=== PATIENT | male | born 1960 | race Caucasian/White ===

== ENCOUNTER 2016-03-18 21:54 | Emergency (ER) | payer MEDICARE, MEDICAID ==
[~2016-03-18] VITALS: Ht 180.3 cm; Wt 136.1 kg
[~2016-03-18 21:54] MED LIST: AMIO200T2 PO; APIX5TAB PO; ASPI-605 PO; ATOR10TA PO; CINA30TA PO; CLON0.1T PO; MINO2.5T PO; OLME40TA3 PO; SEVE800T PO; SEVE800T8 PO
[2016-03-18] MEDS ORDERED: IV NS 0.9% 1,000 ML IV ONE (22:35)
[2016-03-18] MEDS ORDERED: IPRATROPIUM NEB FS 0.5 MG/2.5 ML AMPUL.NEB ONE (22:41)
[2016-03-18] MEDS ORDERED: ALBUTEROL FS 2.5 MG/3 ML VIAL.NEB ONE (22:41)
[2016-03-18] MEDS ORDERED: predniSONE 20 MG TABLET ONE (22:42)
[2016-03-18] MEDS ORDERED: methylPREDNISolone SOD SUCC 125 MG/2ML VIAL IV ONE (23:00)
[2016-03-18] MEDS ORDERED: IPRATROPIUM NEB FS 0.5 MG/2.5 ML AMPUL.NEB NEB ONE (23:00)
[2016-03-18] MEDS ORDERED: predniSONE 20 MG TABLET PO ONE (23:00)
[2016-03-18] MEDS ORDERED: ALBUTEROL FS 2.5 MG/3 ML VIAL.NEB NEB ONE (23:00)
[2016-03-18 23:12] LABS: BASOPHILS # (AUTO) 0.1 /CMM (0.0-0.2); BASOPHILS % (AUTO) 0.9 % (0.0-2.0); DIFF TOTAL % 100 %; EOSINOPHILS # (AUTO) 0.8 /CMM (0.0-0.7); EOSINOPHILS % (AUTO) 8.8 % (0.0-6.0); HEMATOCRIT 30 % (39-51); HEMOGLOBIN 9.8 g/dL (13.5-17.5); LYMPHOCYTES # (AUTO) 1.3 /CMM (0.8-4.8); LYMPHOCYTES % (AUTO) 15.5 % (20.0-44.0); MEAN CORPUSCULAR HEMOGLOBIN 29 PG (26.0-33.0); MEAN CORPUSCULAR HGB CONC 33 g/dl (31.0-36.0); MEAN CORPUSCULAR VOLUME 89 fL (80-96); MONOCYTES # (AUTO) 0.8 /CMM (0.1-1.30); MONOCYTES % (AUTO) 9.6 % (2.0-12.0); NEUTROPHILS # (AUTO) 5.6 /CMM (1.8-8.9); NEUTROPHILS % (AUTO) 65.2 % (43.0-81.0); PLATELET COUNT (AUTO) 184 /CMM (150-450); RED BLOOD CELL COUNT(AUTO) 3.39 MIL/uL (4.5-6.0); WHITE BLOOD COUNT (AUTO) 8.7 K/uL (4.3-11.0)
[2016-03-18 23:23] LABS: CALCIUM, SERUM 9.3 mg/dL (8.5-10.1)
[2016-03-18 23:29] LABS: LACTIC ACID 0.4 mmol/L (0.4-2.0)
[2016-03-18 23:30] LABS: TROPONIN I 0.061 ng/mL (0.00-0.056)
[2016-03-18 23:34] LABS: CREATININE 9.7 mg/dL (0.6-1.3)
[2016-03-18 23:50] LABS: ALBUMIN 3.7 g/dL (3.4-5.0); BILIRUBIN,DIRECT 0.1 mg/dL (0.0-0.2); BILIRUBIN,TOTAL 0.6 mg/dL (0.2-1.0); INDIRECT BILIRUBIN 0.5 mg/dL (0.0-1.1)
[2016-03-18] MEDS ORDERED: SODIUM POLYSTYRENE SULFONATE 15 G/60 ML BOTTLE ONE (23:57)
[2016-03-19] LABS: TOTAL PROTEIN, SERUM 7.6 g/dL (6.4-8.2)
[2016-03-19] MEDS ORDERED: SODIUM POLYSTYRENE SULFONATE 15 G/60 ML BOTTLE PO ONE
[2016-03-19] MEDS ORDERED: LOSARTAN POTASSIUM 25 MG TABLET ONE (00:42)
[2016-03-19] MEDS ORDERED: MINOXIDIL (2.5MG) 2.5 MG TABLET ONE (00:46)
[2016-03-19] MEDS ORDERED: LOSARTAN POTASSIUM 25 MG TABLET PO ONE (01:00)
[2016-03-19] MEDS ORDERED: MINOXIDIL (2.5MG) 2.5 MG TABLET PO ONE (01:00)
[2016-03-19 02:02] VITALS: BP 154/95
== END 2016-03-19 02:03 | disposition home or self-care (01) ==
LOC: ER 21:57
DX: E87.5 Hyperkalemia (principal); J45.909 Unspecified asthma, uncomplicated; I12.0 Hypertensive chronic kidney disease with stage 5 chronic kidney disease or end stage renal disease; N18.6 End stage renal disease; I25.2 Old myocardial infarction; I48.91 Unspecified atrial fibrillation; I25.10 Atherosclerotic heart disease of native coronary artery without angina pectoris; Z98.890 Other specified postprocedural states; Z90.89 Acquired absence of other organs; Z99.2 Dependence on renal dialysis; Z88.1 Allergy status to other antibiotic agents
CPT/HCPCS: 36415 ×2; 71010; 80048; 80076; 83605; 83880; 84132; 84484; 85025; 87040 ×2; 87804; 93005; 94640; 99285; A4606; J7512; 87400; Z7610

== ENCOUNTER 2016-04-03 12:12 | Outpatient (CLI) | payer MEDICARE, MEDICAID | END 2016-04-03 23:59 | disposition home or self-care (01) | LOC: RAD 12:12 | PROVIDERS: ATTEND Internal Medicine | DX: J98.11 Atelectasis (principal); R09.89 Other specified symptoms and signs involving the circulatory and respiratory systems; I51.7 Cardiomegaly; Z95.1 Presence of aortocoronary bypass graft | CPT/HCPCS: 71020-TC ==

== ENCOUNTER 2016-05-27 00:52 | Inpatient (IN) | payer MEDICARE, MEDICAID ==
[~2016-05-27] VITALS: Ht 193 cm; Wt 132.1 kg
[2016-05-27] VITALS (7 sets, daily range): BP systolic 122–160; BP diastolic 72–98
--- NOTE | 2016-05-27 01:10 | NUR ---
PT AMBULAOTRY TO ER BED 6 C/O COUGH X 3 MONTHS AND STATES HE JUST STARTED COUGHING UP BRIGHT RED BLOOD TONIGHT. PT AOX4 RR EVEN AND UNLABORED. NO SOB NOTED. NAD NOTED. NO NVD AT THIS TIME. PT NOT DIAPHORETIC. PT WAITING FOR MD CALLAHAN. PLACED ON [facility].
--- NOTE | 2016-05-27 01:12 | NUR ---
PT NOTED WITH ABD HERNIA, NO C/O PAIN AT THIS TIME.
[2016-05-27 01:29] LABS: BASOPHILS # (AUTO) 0.1 /CMM (0.0-0.2); BASOPHILS % (AUTO) 0.6 % (0.0-2.0); HEMATOCRIT 31 % (39-51); HEMOGLOBIN 10.1 g/dL (13.5-17.5); LYMPHOCYTES # (AUTO) 0.9 /CMM (0.8-4.8); LYMPHOCYTES % (AUTO) 6.4 % (20.0-44.0); MEAN CORPUSCULAR HEMOGLOBIN 28 PG (26.0-33.0); MEAN CORPUSCULAR HGB CONC 33 g/dl (31.0-36.0); MEAN CORPUSCULAR VOLUME 87 fL (80-96); MONOCYTES # (AUTO) 0.5 /CMM (0.1-1.30); MONOCYTES % (AUTO) 3.4 % (2.0-12.0); NEUTROPHILS # (AUTO) 12.7 /CMM (1.8-8.9); NEUTROPHILS % (AUTO) 89.6 % (43.0-81.0); PLATELET COUNT (AUTO) 168 /CMM (150-450); RDW COEFFICIENT OF VARIATION 15.4 (11.5-15.0); RED BLOOD CELL COUNT(AUTO) 3.57 MIL/uL (4.5-6.0); WHITE BLOOD COUNT (AUTO) 14.2 K/uL (4.3-11.0)
--- NOTE | 2016-05-27 01:29 | NUR ---
XRAY AT BEDSIDE
[2016-05-27 01:44] LABS: INR 1.11 (0.87-1.13)
[2016-05-27] MEDS ORDERED: ALBUTEROL FS 2.5 MG/3 ML VIAL.NEB ONE (01:44)
[2016-05-27 01:45] LABS: ALBUMIN 3.5 g/dL (3.4-5.0); BILIRUBIN,DIRECT 0.2 mg/dL (0.0-0.2); BILIRUBIN,TOTAL 0.8 mg/dL (0.2-1.0); CALCIUM, SERUM 9.4 mg/dL (8.5-10.1); POTASSIUM 5.3 mmol/L (3.5-5.1); TOTAL PROTEIN, SERUM 7.8 g/dL (6.4-8.2)
[2016-05-27 01:47] LABS: TROPONIN I 0.149 ng/mL (0.00-0.056)
[2016-05-27] MEDS ORDERED: ALBUTEROL FS 2.5 MG/0.5 ML VIAL.NEB NEB ONE (02:00)
--- NOTE | 2016-05-27 02:05 | NUR ---
PT TO CT/
[2016-05-27] MEDS ORDERED: CEFTRIAXONE 1GM BAG (ER ONLY) 1 GM/50 ML PIGGYBACK IV ONE (02:30)
[2016-05-27] MEDS ORDERED: IV SET PRIMARY PUMP SET 1 EA INFUS.SET MC ONE ×2 (02:44→09:29)
[2016-05-27] MEDS ORDERED: CEFTRIAXONE 1 G VIAL ONE (02:44)
[2016-05-27] MEDS ORDERED: IV D5W 50 ML IV ONE (02:44)
--- NOTE | 2016-05-27 03:10 | NUR ---
REPORT GIVEN TO ADE ARIAS FOR TELE BED 329
--- NOTE | 2016-05-27 03:11 | NUR ---
RECEIVED REPORT FROM ER REGARDING NEW ADMIT. AWAITING ARRIVAL IN UNIT, ROOM IS READY.
[2016-05-27] MEDS ORDERED: hydrALAZINE HCL IV 20 MG VIAL ONE (03:25)
--- NOTE | 2016-05-27 03:27 | NUR ---
INFORMED DR. ZAMUDIO BP 176/102 HR 97.
[2016-05-27] MEDS ORDERED: hydrALAZINE HCL IV 20 MG VIAL IV PRN (03:30)
--- NOTE | 2016-05-27 03:52 | NUR ---
PT TRASNFERED PER ACLS PROTOCOL.
--- NOTE | 2016-05-27 03:56 | NUR ---
NEW ADMISSION ARRIVED IN UNIT, ON TELEMETRY WITH DX OF NSTEMI AND PNA, ALERT AND ORIENTED X4, CALM NO SOB, NO RESPIRATORY DISTRESS, ON 2LPM VIA NC, 02 SAT, ACTIVELY COUGHING BLOOD, LEFT UPPER LOBE HAS WHEEZING, ABDOMEN SOFT AND NON-TENDER, ABDOMINAL HERNIA IS PROTRUDING, DENIES ANY PAIN AT THIS TIME, RIGHT AC #18 IS PATENT AND DRESSING INTACT. GENERAL SKIN CONDITION IS CLEAR, NO DISCOLORATION, ABLE TO AMBULATE SLOWLY, ON FALL PRECAUTION. NEEDS ATTENDED, MADE COMFORTABLE, ORIENTED TO ROOM AND USE OF CALL LIGHT
--- NOTE | 2016-05-27 04:15 | NUR ---
PER PATIENT, COUGHING WITH BLOOD STARTED 05/26/16, THAT HE DECIDED TO GO TO THE ER. PATIENT HAS NO APPETITE AND WEAK FROM TOO FREQUENT COUGHING. DENIES NIGHT SWEATS, HE HAD CHILLS.
[2016-05-27] MEDS ORDERED: GUAIFENESIN/CODEINE 10 ML UDC ONE (04:52)
[2016-05-27] MEDS ORDERED: DOSE PER PHARMACY (MD SPECIFY MEDICATION) 1 EA XX PRN (05:00)
[2016-05-27] MEDS: GUAIFENESIN/CODEINE 10 ML UDC PO PRN ×2 (05:22→11:48)
[2016-05-27] MEDS ORDERED: LEVAQUIN IV PRN (05:30)
--- NOTE | 2016-05-27 06:01 | NUR ---
RECEIVED FROM PATIENT ASSORTED MEDICATIONS IN GREEN CONTAINER, WILL TURN OVER TO PHARMACY
--- NOTE | 2016-05-27 06:52 | NUR ---
PATIENT IS ALERT AND AWAKE, ON 2LPM VIA NC, WHEEZING NOTED, COMPLAINING OF PAIN IN BETWEEN COUGHING TO RIGHT SIDE OF CHEST, ACTIVELY COUGHING WITH BLOODY SPUTUM, GIVEN ROBITUSSIN WITH CODEINE. KEPT COMFORTABLE, CALL LIGHT WITHIN REACH
--- NOTE | 2016-05-27 07:31 | NUR ---
OPENING NOTES RECEIVED PATIENT IN BED, AWAKE AND ORIENTED X4, VERBALLY RESPONSIVE. NO ACUTE DISTRESS NOTED, NO COMPLAINTS OF PAIN OR DISCOMFORT AT THIS TIME. PRODUCTIVE COUCH WITH BLOOD NOTED IN SPUTUM. ON TELEMETRY WITH SINUS RHYTHM HR 92. RESPIRATIONS EVEN AND UNLABORED, ON 2LPM VIA NC, 02 SAT WNL, IV TO RIGHT AC #18 IS PATENT AND DRESSING INTACT. SAFETY MEASURES RENDERED, CALL LIGHT PLACED WITHIN REACH WILL CONTINUE TO MONITOR.
[2016-05-27] MEDS ORDERED: ALBUTEROL FS 2.5 MG/3 ML VIAL.NEB NEB SCH (07:35)
[2016-05-27] MEDS ORDERED: IPRATROPIUM NEB FS 0.5 MG/2.5 ML AMPUL.NEB NEB PRN (07:35)
[2016-05-27] MEDS ORDERED: IPRATROPIUM NEB FS 0.5 MG/2.5 ML AMPUL.NEB NEB SCH (07:35)
[2016-05-27] MEDS ORDERED: ALBUTEROL FS 2.5 MG/3 ML VIAL.NEB NEB PRN (07:35)
[2016-05-27] MEDS ORDERED: LEVOFLOXACIN 750 MG /D5W 150ML 750 MG in PREMIX 1 EA IV SCH (08:00)
[2016-05-27] MEDS ORDERED: SECONDARY IV SET 1 EA INFUS.SET MC ONE ×2 (09:29→13:28)
[2016-05-27] MEDS ORDERED: IV NS 0.9% 250 ML IV ONE (09:30)
[2016-05-27] MEDS ORDERED: MINOXIDIL (2.5MG) 2.5 MG TABLET PO SCH ×2 (11:00)
[2016-05-27] MEDS ORDERED: CLONIDINE HCL 0.1 MG TABLET PO SCH (11:00)
--- NOTE | 2016-05-27 11:20 | NUR ---
TELE/RN NOTES ECHOCARDIOGRAM DONE AT BEDSIDE. PER TELE MONITOR SINUS RHYTHM HR 98. PATIENT STABLE, NO COMPLAINTS OF CHEST PAIN/DISCOMFORT AT THIS TIME.
[2016-05-27] MEDS ORDERED: HYDROCODONE/APAP 5/325MG 1 EACH TABLET PO PRN (11:30)
[2016-05-27] MEDS ORDERED: CLONIDINE HCL 0.1 MG TABLET PO PRN (11:30)
[2016-05-27] MEDS ORDERED: hydrALAZINE HCL 25 MG TABLET PO PRN (11:30)
[2016-05-27] MEDS ORDERED: ACETAMINOPHEN 650 MG/20.3 ML UDC NG PRN (11:30)
[2016-05-27] MEDS ORDERED: FEE PK DOSING 1 MIN EA MC ONE (11:42)
[2016-05-27] MEDS: ATORVASTATIN 10 MG TABLET PO SCH (11:48)
[2016-05-27] MEDS: AMIODARONE HCL 200 MG TABLET PO SCH (11:51)
[2016-05-27] MEDS: CINACALCET HCL 30 MG TABLET PO SCH (11:54)
[2016-05-27] MEDS ORDERED: PIPERACILLIN /TAZOBACTAM 2.25 G in IV D5W 50 ML IV SCH (12:00)
[2016-05-27] MEDS ORDERED: VANCOMYCIN 1 GM in IV D5W 250 ML IV ONE (12:00)
[2016-05-27] MEDS: SEVELAMER CARBONATE 800 MG TABLET PO SCH ×2 (12:00→16:53)
[2016-05-27 12:45] LABS: TROPONIN I 0.129 ng/mL (0.00-0.056)
[2016-05-27 12:50] LABS: THYROID STIMULATING HORMONE 22.985 uIU/mL (0.358-3.74)
--- NOTE | 2016-05-27 13:35 | NUR ---
TELE/RN NON FORMULARY MED LORA, PATIENT STATED TO HAVE A FRIEND BRING IT IN.
[2016-05-27] MEDS: PIPERACILLIN /TAZOBACTAM 2.25 G in IV D5W 50 ML IV SCH ×2 (13:36→21:24)
[2016-05-27] MEDS: MINOXIDIL (2.5MG) 2.5 MG TABLET PO SCH (16:53)
--- NOTE | 2016-05-27 18:15 | NUR ---
TELE/RN NOTES PATIENT RESTING IN BED COMFORTABLY, WATCHING TV. STABLE WITH NO SIGNIFICANT CHANGES. NO ACUTE DISTRESS/DISCOMFORT NOTED. PATIENT DENIES PAIN AT THIS TIME. ALL IV MEDICATIONS GIVEN, IV BAGS INFUSED WELL WITH NO S/S OF COMPLICATION/REACTION. IV SITE INTACT TKO AT 5CC/HR. ALL NEEDS MET AND ATTENDED. PATIENT KEPT CLEAN AND COMFORTABLE. SAFETY MEASURES TAKEN, PATIENT SITTING UP IN CHAIR, BATHROOM PRIVILEGED. WILL ENDORSE CARE TO SEAFOOD SERVICE TEAM MEMBER FOR CONTINUITY OF CARE.
[2016-05-27] MEDS ORDERED: OLMESARTAN MEDOXOMIL 40 MG PO SCH (19:18)
--- NOTE | 2016-05-27 19:30 | NUR ---
SUPERVISOR FACEPIECE LINE INITIAL NOTE RECEIVED PT AWAKE AND ALERT, ORIENTED X3, NO COMPLAINT OF PAIN OR RESPIRATORY DISTRESS NOTED DURING PHYSICAL ASSESSMENT, SPUTUM CULTURE OBTAINED AND SENT TO LAB ORDERED, PT IS CLEAN/DRY AND COMFORTABLE, SAFETY MEASURES WILL BE MAINTAINED AT ALL TIMES, NEEDS WILL BE ANTICIPATED AND ATTENDED TO DURING HOURLY ROUNDS AND NEEDED.
[2016-05-28] VITALS (8 sets, daily range): BP systolic 98–120; BP diastolic 48–66
--- NOTE | 2016-05-28 05:15 | NUR ---
UPON PT GETTING UP TO USE URINAL HR INCREASED TO 160, AFTER PT SITTING AND RESTING IN BED HR CONTINUES TO FLUCTUATE BETWEEN 130-140, STAT EKG ORDERED REVEALING AFIB WITH RVR, MD STATON MADE AWARE, ORDER RECEIVED TO GIVE AMIODARONE 400MG PO X1 AND METOPROLOL 25MG PO X1, WILL CONTINUE TO MONITOR CLOSELY.
[2016-05-28] MEDS ORDERED: AMIODARONE HCL 200 MG TABLET ONE (05:23)
[2016-05-28] MEDS ORDERED: METOPROLOL TARTRATE 25 MG TABLET ONE (05:23)
[2016-05-28] MEDS ORDERED: AMIODARONE HCL 200 MG TABLET PO ONE (05:30)
[2016-05-28] MEDS ORDERED: METOPROLOL TARTRATE 25 MG TABLET PO ONE (05:30)
[2016-05-28] MEDS: PIPERACILLIN /TAZOBACTAM 2.25 G in IV D5W 50 ML IV SCH ×2 (05:32→12:37)
[2016-05-28 06:51] LABS: BASOPHILS % (AUTO) 0.2 % (0.0-2.0); EOSINOPHILS # (AUTO) 0.3 /CMM (0.0-0.7); EOSINOPHILS % (AUTO) 2.5 % (0.0-6.0); HEMATOCRIT 28 % (39-51); LYMPHOCYTES # (AUTO) 1.3 /CMM (0.8-4.8); MEAN CORPUSCULAR HEMOGLOBIN 28 PG (26.0-33.0); MEAN CORPUSCULAR HGB CONC 32 g/dl (31.0-36.0); MEAN CORPUSCULAR VOLUME 88 fL (80-96); MONOCYTES # (AUTO) 0.4 /CMM (0.1-1.30); MONOCYTES % (AUTO) 3.2 % (2.0-12.0); NEUTROPHILS # (AUTO) 9.9 /CMM (1.8-8.9); NEUTROPHILS % (AUTO) 83.1 % (43.0-81.0); PLATELET COUNT (AUTO) 146 /CMM (150-450); RDW COEFFICIENT OF VARIATION 15.8 (11.5-15.0); WHITE BLOOD COUNT (AUTO) 11.9 K/uL (4.3-11.0)
--- NOTE | 2016-05-28 07:05 | NUR ---
AIR QUALITY MANAGER CLOSING NOTE PT IS CURRENTLY AT SR 95 ON THE MONITOR, PT IS STABLE AND COMFORTABLE, NO COMPLAINT OF PAIN OR RESPIRATORY DISTRESS NOTED, CLEAN/DRY AND COMFORTABLE, WILL ENDORSE TO INCOMING NURSE FOR KRYSTA.
[2016-05-28 07:08] LABS: ALBUMIN 2.8 g/dL (3.4-5.0); BILIRUBIN,TOTAL 0.5 mg/dL (0.2-1.0); CALCIUM, SERUM 9.1 mg/dL (8.5-10.1); MAGNESIUM 2.2 mg/dL (1.8-2.4); PHOSPHORUS 7.6 mg/dL (2.5-4.9); POTASSIUM 4.9 mmol/L (3.5-5.1); TOTAL PROTEIN, SERUM 6.8 g/dL (6.4-8.2)
[2016-05-28 07:10] LABS: CREATININE 11.1 mg/dL (0.6-1.3)
--- NOTE | 2016-05-28 07:20 | NUR ---
nailer machine Initial notes Received patient in bed, awake, head of bed elevated, no SOB or distress noted, on 02 @2lpm via NC and tolerated well. On tele monitor SR heart rate of 90. Alert and oriented x 4, verbally responsive and able to make needs known. IV intact and patent. Kept patient clean and comfortable in bed, call light with in patient reach, will continue to monitor accordingly.
[2016-05-28 07:21] LABS: TROPONIN I 0.069 ng/mL (0.00-0.056)
[2016-05-28] MEDS ORDERED: VANCOMYCIN 500 MG in IV D5W 100 ML IV PRN (09:00)
[2016-05-28] MEDS: ATORVASTATIN 10 MG TABLET PO SCH (09:21)
[2016-05-28] MEDS: SEVELAMER CARBONATE 800 MG TABLET PO SCH ×3 (09:21→19:00)
[2016-05-28] MEDS: CINACALCET HCL 30 MG TABLET PO SCH (09:21)
[2016-05-28] MEDS: MINOXIDIL (2.5MG) 2.5 MG TABLET PO SCH ×2 (09:22→19:01)
[2016-05-28] MEDS: AMIODARONE HCL 200 MG TABLET PO SCH (09:23)
[2016-05-28] MEDS: ONDANSETRON HCL/PF 4 MG/2 ML VIAL IV PRN ×2 (14:17→19:46)
[2016-05-28] MEDS ORDERED: EPOETIN ALFA (10,000 UNIT) 10,000 UNIT/ML VIAL SQ ONE (15:00)
[2016-05-28] MEDS ORDERED: LIDOCAINE 1% INJ 50 ML MDV IJ STA (15:49)
[2016-05-28] MEDS ORDERED: VANCOMYCIN 1 GM in IV D5W 250ml IV SCH (17:00)
[2016-05-28] MEDS: DRONEDARONE HYDROCHLORIDE 400 MG TABLET PO SCH (19:01)
--- NOTE | 2016-05-28 19:16 | NUR ---
AUTOMATIC TOE LASTER CLOSING NOTES All needs provided, attended, and anticipated. On tele monitor SR heart rate of 88. Kept patient clean and comfortable in bed, call light with in patient reach, will continue to monitor accordingly. Endorsed to next shift RN to continue care. Dialysis output of 2.6 liters.
--- NOTE | 2016-05-28 19:48 | NUR ---
COMPLAINING OF NAUSEA, NO EMESIS NOTED, GIVEN ZOFRAN 4MG IVP, KEPT HOB ELEVATED, GIVEN EMESIS BAG, KEPT COMFORTABLE, CALL LIGHT WITHIN REACH.
--- NOTE | 2016-05-28 20:00 | NUR ---
PATIENT IN BED, ALERT AND ORIENTED X4, CALM, NO SOB, ON ROOM AIR, WITH INTERMITTENT COUGHING, NO HEMOTYPSIS AT THIS TIME, ABLE TO VERBALIZE CONCERNS, S/P HD DONE AT 1900 WITH 2.5 OUTPUT. LEFT AV SHUNT IS SECURED WITH DRESSING, NO BLEEDING NOTED. NO COMPLAIN OF PAIN. COMPLAINING OF NAUSEA WITHOUT EMESIS, GIVEN ZOFRAN IVP, DINNER IS HELD AT THE BEDSIDE, PER PATIENT WILL EAT WHEN FEELING BETTER. KEPT SAFE AND COMFORTABLE, FRIEND AT THE BEDSIDE, CALL LIGHT WITHIN REACH.
--- NOTE | 2016-05-28 20:09 | NUR ---
LORA HELD AT THIS TIME, SBP 112, WILL RETAKE BP, S/P HD AT 1900. WILL CONTINUE TO MONITOR.
[2016-05-28] MEDS: CEFTRIAXONE 1 G in IV D5W 50 ML IV SCH (20:18)
[2016-05-28] MEDS ORDERED: SECONDARY IV SET 1 EA INFUS.SET MC ONE (20:18)
[2016-05-28] MEDS: OLMESARTAN MEDOXOMIL 40 MG PO SCH (20:44)
[2016-05-29] VITALS (7 sets, daily range): BP systolic 108–126; BP diastolic 55–70
--- NOTE | 2016-05-29 06:46 | NUR ---
PATIENT IS AWAKE AND ALERT, NO SOB, NO COMPLAIN OF PAIN, WITH EPISODE OF NAUSEA X1 DURING SHIFT, GIVEN ZOFRAN, NPO SINCE AFTER MIDNIGHT, SIGNED CONSENT FOR STRESS TEST, REMOVED DRESSING TO LEFT UPPER ARM AV SHUNT, NO BLEEDING, COMPLIANT WITH MEDICATION, ALL DUE MEDICATIONS GIVEN, CALL LIGHT WITHIN REACH.
--- NOTE | 2016-05-29 07:25 | NUR ---
COMMERCIAL DIRECTOR INITIAL NOTES Received patient in bed, awake , head of bed elevated, no SOB or distress noted. Patient on O2@2pm. on tele monitor, O2 sat 96, SR heart rate of 80, A/OX4. no complain of pain or discomfort noted, nor chest pain. IV intact and patent. kept patient clean, comfortable in bed, call light within patient reach. continue to monitor accordingly.
[2016-05-29] MEDS ORDERED: REGADENOSON 0.4 MG/5 ML DISP.SYRIN IVP ONE (08:00)
[2016-05-29] MEDS ORDERED: LEVOFLOXACIN 500 MG /D5W 100ML 500 MG in PREMIX 1 EA IV SCH (08:00)
[2016-05-29] MEDS: OLMESARTAN MEDOXOMIL 40 MG PO SCH ×2 (10:39→17:16)
[2016-05-29] MEDS: SEVELAMER CARBONATE 800 MG TABLET PO SCH ×3 (10:40→17:15)
[2016-05-29] MEDS: DRONEDARONE HYDROCHLORIDE 400 MG TABLET PO SCH ×2 (10:40→17:15)
[2016-05-29] MEDS: CINACALCET HCL 30 MG TABLET PO SCH (10:40)
[2016-05-29] MEDS: ATORVASTATIN 10 MG TABLET PO SCH (10:40)
[2016-05-29] MEDS: MINOXIDIL (2.5MG) 2.5 MG TABLET PO SCH ×2 (10:40→17:14)
--- NOTE | 2016-05-29 11:25 | NUR ---
KATE met with pt. bedside. Pt. requested if SW could call his KATE Barnett at [facility] to cancel his PT and orthopedic tech appointments that are scheduled for , Sat, . KATE contacted KATE Barnett at [facility] and informed her that pt. is hospitalized and would like to cancel his scheduled appointments. KATE Barnett informed SW she will cancel the appointments and reschedule once pt. is discharged from the hospital.
--- NOTE | 2016-05-29 19:17 | NUR ---
ms rn closing notes All needs provided, attended, and anticipated. kept patient clean and comfortable in bed, call light with in patient reach, will continue to monitor accordingly. Endorsed to next shift RN to continue care.
[2016-05-29] MEDS: CEFTRIAXONE 1 G in IV D5W 50 ML IV SCH (19:45)
[2016-05-29] MEDS: GUAIFENESIN/CODEINE 10 ML UDC PO PRN (19:45)
--- NOTE | 2016-05-29 19:58 | NUR ---
RECEIVED PATIENT IN BED, WATCHING TV, ALERT AND ORIENTED X4, CALM, NO SOB, 02 LPM VIA NC, INTERMITTENT COUGHING WITH TRACES OF BLOODY SPUTUM, GIVEN ROBITUSSIN WITH CODEINE. ABDOMEN SOFT AND NON TENDER, ACTIVE BOWEL SOUNDS, DENIES ANY PAIN AT THIS TIME, RIGHT AC SALINE LOCK IS PATENT AND INFUSING WELL, KEPT SAFE, REPOSITIONED FOR COMFORT, CALL LIGHT WITHIN REACH.
--- NOTE | 2016-05-30 06:48 | NUR ---
PATIENT IS AWAKE AND ALERT, NO SOB, NO COMPLAIN OF PAIN AT THIS TIME, LEFT AV SHUNT NOTED WITH THRILL AND BRUIT, NO BLEEDING, RIGHT AC SALINE LOCK IS PATENT, WEARING ABDOMINAL BINDER, ALL NEED ATTENDED, ALL DUE MEDICATIONS, CALL LIGHT WITHIN REACH.
--- NOTE | 2016-05-30 07:30 | NUR ---
MS NURSE'S OPENING NOTES RECEIVED REPORT FROM NIGHT NURSE. PATIENT WAS RESTING IN BED WATCHING TV. BED IN LOW AND LOCKED POSITION, CALL LIGHT WITHIN REACH, AND PATIENT SHOW NO SIGNS OF DISTRESS.
[2016-05-30 08:00] VITALS: BP_SYST 116; BP_SYST 126; BP_DIAS 72
[2016-05-30 08:09] LABS: BASOPHILS % (AUTO) 0.5 % (0.0-2.0); EOSINOPHILS # (AUTO) 0.6 /CMM (0.0-0.7); EOSINOPHILS % (AUTO) 6.1 % (0.0-6.0); HEMATOCRIT 28 % (39-51); LYMPHOCYTES # (AUTO) 1.7 /CMM (0.8-4.8); LYMPHOCYTES % (AUTO) 17.2 % (20.0-44.0); MEAN CORPUSCULAR HEMOGLOBIN 28 PG (26.0-33.0); MEAN CORPUSCULAR HGB CONC 33 g/dl (31.0-36.0); MEAN CORPUSCULAR VOLUME 87 fL (80-96); MONOCYTES # (AUTO) 0.7 /CMM (0.1-1.30); NEUTROPHILS # (AUTO) 6.8 /CMM (1.8-8.9); NEUTROPHILS % (AUTO) 69.2 % (43.0-81.0); PLATELET COUNT (AUTO) 188 /CMM (150-450); RDW COEFFICIENT OF VARIATION 15.2 (11.5-15.0); WHITE BLOOD COUNT (AUTO) 9.8 K/uL (4.3-11.0)
[2016-05-30 08:27] LABS: CALCIUM, SERUM 9.3 mg/dL (8.5-10.1); MAGNESIUM 2.3 mg/dL (1.8-2.4); PHOSPHORUS 7.8 mg/dL (2.5-4.9); POTASSIUM 4.9 mmol/L (3.5-5.1)
[2016-05-30 08:28] LABS: CREATININE 10.6 mg/dL (0.6-1.3)
[2016-05-30] MEDS: MINOXIDIL (2.5MG) 2.5 MG TABLET PO SCH ×2 (09:00→17:00)
[2016-05-30] MEDS: DRONEDARONE HYDROCHLORIDE 400 MG TABLET PO SCH ×2 (10:02→17:54)
[2016-05-30] MEDS: CINACALCET HCL 30 MG TABLET PO SCH (10:02)
[2016-05-30] MEDS: SEVELAMER CARBONATE 800 MG TABLET PO SCH ×3 (10:02→17:54)
[2016-05-30] MEDS: ATORVASTATIN 10 MG TABLET PO SCH (10:02)
[2016-05-30] MEDS: OLMESARTAN MEDOXOMIL 40 MG PO SCH ×3 (10:26→18:57)
[2016-05-30 16:00] VITALS: BP 118/70
[2016-05-30] MEDS: EPOETIN ALFA (10,000 UNIT) 10,000 UNIT/ML VIAL SQ ONE ×2 (18:57→19:28)
--- NOTE | 2016-05-30 19:30 | NUR ---
MS NURSE'S CLOSING NOTES GAVE REPORT TO NIGHT NURSE. PATIENT IS RESTING IN BED, SIDE RAILS UP X2, BED IN LOCKED POSITION AND CALL LIGHT WITHIN REACH. NO SIGNS OF DISTRESS.
--- NOTE | 2016-05-30 19:34 | NUR ---
MS NURSES NOTES. HELD BP MED UNTIL DIALYSIS WAS DONE.
--- NOTE | 2016-05-30 19:37 | NUR ---
MS/RN OPENING NOTES PATIENT IN BED, AWAKE ALERT, HAD DIALYSIS DONE TODAY WITH 3L OUTPUT. HAVING DINNER. ATTEND TO NEEDS. WILL CONTINUE TO MONITOR. CALL LIGHTS WITHIN REACH, WILL CONTINUE KRYSTA.
--- NOTE | 2016-05-30 19:54 | NUR ---
MS/RN OPENING NOTES RECEIVED PATIENT IN BED, AWAKE, HAVING DINNER. ATTEND TO NEEDS AND WILL CONTINUE WITH KRYSTA. NO S/S OF SOB OR DISTRESS. WILL CONTINUE TO MONITOR.
[2016-05-30 20:00] VITALS: BP 124/76
[2016-05-30] MEDS: CEFTRIAXONE 1 G in IV D5W 50 ML IV SCH (20:08)
--- NOTE | 2016-05-31 00:45 | NUR ---
MS/RN NOTES PATIENT REPORTED PAIN IN HEAD 4/10 PAIN MEDICATION NORCO 5/325 MG PO GIVEN WILL RE CHECK EFFECTIVENESS.
--- NOTE | 2016-05-31 06:41 | NUR ---
MS/RN NOTES PATIENT IN BED, ASLEEP BUT EASILY AROUSE NO S/S OF SOB OR DISTRESS. ATTEND TO NEEDS AT ALL TIMES. CALL LIGHTS WITHIN REACH. WILL EMDORSE TO AM RN REGARDING KRYSTA.
[2016-05-31 08:00] VITALS: BP 109/46
--- NOTE | 2016-05-31 08:00 | NUR ---
RN OPEN NOTES RECEIVED REPORT FROM RECORDS ASSISTANT NURSE. PATIENT IS IN BED, ALERT AND ORIENTED TO NAME, TIME AND PLACE. BED IS IN LOW POSITION, LOCKED AND 2 SIDE RAILS ARE UP. IV SITE IS INTACT AND POTENT. NO SIGNS OR SYMPTOMS OF DISTRESS. WILL CONTINUE TO MONITOR AND ASSESS PATIENT.
[2016-05-31] MEDS: MINOXIDIL (2.5MG) 2.5 MG TABLET PO SCH ×2 (09:00→16:48)
[2016-05-31] MEDS: ATORVASTATIN 10 MG TABLET PO SCH (09:18)
[2016-05-31] MEDS: SEVELAMER CARBONATE 800 MG TABLET PO SCH ×3 (09:18→16:47)
[2016-05-31] MEDS: CINACALCET HCL 30 MG TABLET PO SCH (09:19)
[2016-05-31] MEDS: DRONEDARONE HYDROCHLORIDE 400 MG TABLET PO SCH ×2 (09:20→16:47)
[2016-05-31 16:00] VITALS: BP 125/82
[2016-05-31] MEDS: OLMESARTAN MEDOXOMIL 40 MG PO SCH (16:46)
[2016-05-31 16:48] VITALS: BP 125/82
--- NOTE | 2016-05-31 18:15 | NUR ---
MOLD STRIPPER NOTES PATIENT DISCHARGE ORDER RECEIVED. PATIENT UNDERSTOOD DISCHARGE INSTRUCTION. PATIENT IS STABLE AT TIME OF DISCHARGE. VITAL SIGNS ARE STABLE. NO SIGNS AND SYMPTOMS OF DISTRESS. PATIENT'S PERSONAL BELONGING WITH PATIENT AT TIME OF DISCHARGE. PATIENT ESCORTED TO MAIN LOBBY VIA A WHEELCHAIR AND AN RN. PATIENT DROVE HIM SELF TO THE ER AND DROVE HIMSELF TO HIS HOUSE VIA HIS CAR (PARKED IN [facility] PARK[facility]). IV SITE REMOVED. ID BAND REMOVED. PICTURE WAS TAKEN AND PLACED IN THE CHART. CORE MEASURE COMPLETED.
== END 2016-05-31 18:10 | disposition home health service (06) | DRG 193 ==
LOC: ER 00:53 → MED 03:08 → TELE 03:48 → MED 05-29 11:28
PROVIDERS: ADMIT Internal Medicine Nephrology; ATTEND Internal Medicine Nephrology
PROC: 5A1D60Z (ICD-10-PCS; principal; 2016-05-26)
DX: J15.9 Unspecified bacterial pneumonia (principal); J96.91 Respiratory failure, unspecified with hypoxia; N18.6 End stage renal disease; I21.4 Non-ST elevation (NSTEMI) myocardial infarction; I13.2 Hypertensive heart and chronic kidney disease with heart failure and with stage 5 chronic kidney disease, or end stage renal disease; J44.0 Chronic obstructive pulmonary disease with (acute) lower respiratory infection; K46.9 Unspecified abdominal hernia without obstruction or gangrene; D64.9 Anemia, unspecified; E11.22 Type 2 diabetes mellitus with diabetic chronic kidney disease; E78.5 Hyperlipidemia, unspecified; F42.9 Obsessive-compulsive disorder, unspecified; I25.10 Atherosclerotic heart disease of native coronary artery without angina pectoris; I70.0 Atherosclerosis of aorta; J45.909 Unspecified asthma, uncomplicated; K43.9 Ventral hernia without obstruction or gangrene; I50.9 Heart failure, unspecified; I48.0 Paroxysmal atrial fibrillation; N40.0 Benign prostatic hyperplasia without lower urinary tract symptoms; M54.5 Low back pain; G89.29 Other chronic pain; Z95.1 Presence of aortocoronary bypass graft; Z99.2 Dependence on renal dialysis; E87.5 Hyperkalemia; E66.9 Obesity, unspecified; G47.33 Obstructive sleep apnea (adult) (pediatric); K42.9 Umbilical hernia without obstruction or gangrene; Z79.01 Long term (current) use of anticoagulants
CPT/HCPCS: 36415; 71010-TC; 80048-TC; 80053-TC; 80061-TC; 80076-TC; 80202-TC; 83735-TC; 84100-TC; 84439-TC; 84443-TC; 84484-TC; 85025-TC; 85730-TC; 87040-TC; 87081-TC; 90935-TC; 93307-TC; 94799-TC; A4216; A4606; A6402; A9502; J0360; J0696; J0885; J1956; J2405; J2543; J2785; J3370; J3490; J7050; J7060; Z7610

== ENCOUNTER 2016-06-29 18:05 | Emergency (ER) | payer MEDICARE, MEDICAID ==
[~2016-06-29] VITALS: Ht 193 cm; Wt 140.6 kg
[~2016-06-29 18:05] MED LIST changes: -SEVE800T PO
--- NOTE | 2016-06-29 18:15 | NUR ---
PT SELF PRESENTS TO ED S/P HEMODIALYSIS: PALPITATIONS. PLACED ON MONITOR. VSS. AWAITING MD ORDER
--- NOTE | 2016-06-29 18:19 | NUR ---
EKG COMPLETED AT BEDSIDE, SINUS TACH, RATE OF 144 NOTED, MD AWARE
--- NOTE | 2016-06-29 18:19 | NUR ---
LINE STARTED ON R AC G 18, BLOOD DRAWN FROM LINE AND SENT TO LAB
[2016-06-29] MEDS ORDERED: IV NS 0.9% 250 ML BAG IV ONE (18:30)
[2016-06-29] MEDS ORDERED: ADENOSINE 6 MG/2 ML VIAL IVP ONE (18:30)
[2016-06-29 18:36] LABS: BASOPHILS # (AUTO) 0.1 /CMM (0.0-0.2); BASOPHILS % (AUTO) 0.6 % (0.0-2.0); EOSINOPHILS # (AUTO) 0.7 /CMM (0.0-0.7); EOSINOPHILS % (AUTO) 7.9 % (0.0-6.0); HEMATOCRIT 31 % (39-51); HEMOGLOBIN 10.4 g/dL (13.5-17.5); LYMPHOCYTES % (AUTO) 22.6 % (20.0-44.0); MEAN CORPUSCULAR HEMOGLOBIN 28 PG (26.0-33.0); MEAN CORPUSCULAR HGB CONC 33 g/dl (31.0-36.0); MEAN CORPUSCULAR VOLUME 85 fL (80-96); MONOCYTES # (AUTO) 0.7 /CMM (0.1-1.30); MONOCYTES % (AUTO) 8.4 % (2.0-12.0); NEUTROPHILS # (AUTO) 5.4 /CMM (1.8-8.9); NEUTROPHILS % (AUTO) 60.5 % (43.0-81.0); PLATELET COUNT (AUTO) 220 /CMM (150-450); RDW COEFFICIENT OF VARIATION 15.3 (11.5-15.0); RED BLOOD CELL COUNT(AUTO) 3.68 MIL/uL (4.5-6.0); WHITE BLOOD COUNT (AUTO) 8.9 K/uL (4.3-11.0)
--- NOTE | 2016-06-29 18:38 | NUR ---
VERBAL ORDER BY DR. PATLE : 60 MG IVP X 1; RAPID IVP - RAC PIV # 18 UNDERLYING AFIB NOITED
--- NOTE | 2016-06-29 18:44 | NUR ---
CALLED (PT'S MANAGER PE) AT [phone], TRANSFERRED CALL TO
[2016-06-29 18:46] LABS: INR 1.02 (0.87-1.13); PROTHROMBIN TIME 10.6 SECS (9.5-12.7)
[2016-06-29 18:50] LABS: TROPONIN I 0.055 ng/mL (0.00-0.056)
[2016-06-29] MEDS ORDERED: DILTIAZEM HCL 50 MG IV IV ONE (19:00)
[2016-06-29 19:04] LABS: CALCIUM, SERUM 9.2 mg/dL (8.5-10.1)
[2016-06-29] MEDS ORDERED: DILTIAZEM HCL 25 MG IV ONE ×2 (19:08→20:29)
[2016-06-29 19:19] LABS: POTASSIUM 4.5 mmol/L (3.5-5.1)
--- NOTE | 2016-06-29 19:25 | NUR ---
GAVE REPORT TO SIDRA FOR KRYSTA
--- NOTE | 2016-06-29 19:25 | NUR ---
PT REC'D A PILLOW UNDER BUE. PT IS C/O PAIN. 08/20.
[2016-06-29] MEDS ORDERED: DILTIAZEM HCL 25 MG IV IV ONE (20:30)
--- NOTE | 2016-06-29 21:12 | NUR ---
PT APPEARS TO BE RESTING COMFORTABLY. PT IS NOW OUT OF AFIB. SR NOTED ON THE MONITOR.
--- NOTE | 2016-06-29 22:01 | NUR ---
PT IS AA&O X4. PT STATED THAT HE FEELS LIKE HIS "NORMAL SELF". PT IS IN SR ON THE MONITOR. VSS. PT IS 97% ON RA. DR. PATEL IS AT THE BEDSIDE SPEAKING TO THE PT.
[2016-06-29 22:21] VITALS: BP 126/70
--- NOTE | 2016-06-29 22:22 | NUR ---
IV removed. Catheter intact and site benign. Pressure and 4x4 applied to site. No bleeding noted. Patient discharged to home in stable condition. Written and verbal after care instructions given. Patient verbalizes understanding of instruction. PT AMBULATED OUT WITH A STEADY GAIT. VSS.
== END 2016-06-29 22:22 | disposition home or self-care (01) ==
LOC: ER 18:11
DX: I48.91 Unspecified atrial fibrillation (principal); I12.0 Hypertensive chronic kidney disease with stage 5 chronic kidney disease or end stage renal disease; N18.6 End stage renal disease; I25.10 Atherosclerotic heart disease of native coronary artery without angina pectoris; I25.2 Old myocardial infarction; J45.909 Unspecified asthma, uncomplicated; R00.2 Palpitations; Z79.82 Long term (current) use of aspirin; Z95.1 Presence of aortocoronary bypass graft; Z99.2 Dependence on renal dialysis; Z88.1 Allergy status to other antibiotic agents; Z90.89 Acquired absence of other organs
CPT/HCPCS: 36415; 71010; 80048; 84484; 85025; 85730; 92950; 93005 ×2; 96374; 96375; 96376; 99285; A4606; J3490 ×2; Z7610

== ENCOUNTER 2016-07-18 19:19 | Inpatient (IN) | payer MEDICARE, MEDICAID ==
[~2016-07-18] VITALS: Ht 165.1 cm; Wt 141.1 kg
[~2016-07-18 19:19] MED LIST changes: -AMIO200T2 PO; -APIX5TAB PO; -ATOR10TA PO
--- NOTE | 2016-07-18 19:25 | NUR ---
PT A/OX4 BREATHING EFFORTLESSLY ON ROOM AIR, PT STATES HE WAS GETTING DIALYSIS AND ONCE IT FINISHED STARTED HAVING SOME CP WITH A FAST HEART RATE, PT ON MONITON, IN GOWN, IV PLACED LABS DRAWN, EKG DONE, MD IN ROOM WILL CONTINUE TO MONITOR.
[2016-07-18] MEDS ORDERED: DILTIAZEM HCL 25 MG IV IV ONE ×2 (19:30→20:30)
[2016-07-18] MEDS ORDERED: IV SET PRIMARY 1 EA INFUS.SET MC ONE ×2 (19:32→19:39)
[2016-07-18] MEDS ORDERED: DILTIAZEM HCL 25 MG IV ONE ×2 (19:33→20:23)
[2016-07-18] MEDS ORDERED: Magnesium 1GM/D5W 100ML PREMIX 100 ML IV ONE ×2 (19:33→19:39)
[2016-07-18] MEDS: Magnesium 1GM/D5W 100ML PREMIX 100 ML IV SCH ×2 (19:40→20:30)
[2016-07-18 19:50] LABS: BASOPHILS % (AUTO) 0.2 % (0.0-2.0); EOSINOPHILS # (AUTO) 0.6 /CMM (0.0-0.7); EOSINOPHILS % (AUTO) 7.2 % (0.0-6.0); HEMATOCRIT 30 % (39-51); LYMPHOCYTES # (AUTO) 1.6 /CMM (0.8-4.8); LYMPHOCYTES % (AUTO) 20.9 % (20.0-44.0); MEAN CORPUSCULAR HEMOGLOBIN 29 PG (26.0-33.0); MEAN CORPUSCULAR HGB CONC 34 g/dl (31.0-36.0); MEAN CORPUSCULAR VOLUME 85 fL (80-96); MONOCYTES # (AUTO) 0.6 /CMM (0.1-1.30); NEUTROPHILS % (AUTO) 63.7 % (43.0-81.0); PLATELET COUNT (AUTO) 135 /CMM (150-450); RDW COEFFICIENT OF VARIATION 15.5 (11.5-15.0); RED BLOOD CELL COUNT(AUTO) 3.45 MIL/uL (4.5-6.0); WHITE BLOOD COUNT (AUTO) 7.8 K/uL (4.3-11.0)
[2016-07-18 20:05] LABS: ALBUMIN 3.8 g/dL (3.4-5.0); BILIRUBIN,DIRECT 0.1 mg/dL (0.0-0.2); BILIRUBIN,TOTAL 0.4 mg/dL (0.2-1.0); CALCIUM, SERUM 9.5 mg/dL (8.5-10.1); CREATININE 4.9 mg/dL (0.6-1.3); POTASSIUM 3.9 mmol/L (3.5-5.1); TOTAL PROTEIN, SERUM 7.8 g/dL (6.4-8.2)
[2016-07-18 20:07] LABS: INR 0.99 (0.87-1.13); PROTHROMBIN TIME 10.6 SECS (9.5-12.7); TROPONIN I 0.084 ng/mL (0.00-0.056)
--- NOTE | 2016-07-18 20:29 | NUR ---
PAGED DR CASH
[2016-07-18] MEDS ORDERED: IV SET PRIMARY PUMP SET 1 EA INFUS.SET MC ONE (20:56)
[2016-07-18] MEDS ORDERED: DILTIAZEM HCL IV 125 MG in IV D5W 100 ML IV ONE (21:00)
--- NOTE | 2016-07-18 21:12 | NUR ---
UPGRADED TO SHELL 111-2
[2016-07-18 21:30] VITALS: BP 119/77
--- NOTE | 2016-07-18 22:40 | NUR ---
ACCESS ASSOC NOTE; RECEIVED PT FROM ER WITH THE C/O CHEST PAIN . WITH CONTINUE CARDIZEM DRIP , SHOWING A-FIB WITH HR 140s ON TELE MONITOR . WITH RAC 18 G PERIPHERAL IV INTACT AND PATENT. CRUZ AV SHUNT INTACT, THRILL AND BRUIT PRESENT. PT IS AMBULATORY , NEEDS MINIMAL ASSIST . CONTINENT TO BOWEL/BLADDER. WITH ESRD GETTING HD . DENIED ANY CHEST PAIN AT THIS TIME . WILL CONTINUE TO MONITOR . DR CASH PAGED FOR ORDERS , AWAITING CALL BACK .
--- NOTE | 2016-07-18 23:00 | NUR ---
RN NOTE; DR CASH PAGED AGAIN FOR ADMISSION ORDERS , TALK TO DELON FROM THE OFFICE , AWAITING CALL BACK.
[2016-07-19] VITALS (8 sets, daily range): BP systolic 112–140; BP diastolic 62–89
[2016-07-19] MEDS ORDERED: ONDANSETRON HCL/PF 4 MG/2 ML VIAL IV PRN
[2016-07-19] MEDS ORDERED: ZOLPIDEM TARTRATE 10 MG TABLET PO PRN
[2016-07-19] MEDS ORDERED: DILTIAZEM HCL IV 125 MG in IV D5W 100 ML IV PRN ×2
[2016-07-19] MEDS ORDERED: ACETAMINOPHEN 325 MG TABLET PO PRN
[2016-07-19] MEDS ORDERED: CLONIDINE HCL 0.1 MG TABLET PO PRN
--- NOTE | 2016-07-19 | NUR ---
RN NOTES; DR CASH CALLED BACK AND RECEIVED ADMISSION ORDER , ORDERS READ BACK , NOTED AND CARRIED OUT, ORDERED TO CONTINUE CARDIZEM DRIP AT 5MG WITHOUT TITRATION. HOME MEDS TO CONTINUE . WILL CONTINUE TO MONITOR
[2016-07-19] MEDS ORDERED: ZOLPIDEM TARTRATE 5 MG TABLET ONE (00:12)
--- NOTE | 2016-07-19 00:22 | NUR ---
RN NOTE; PRN AMBIEN 5 MG PO GIVEN FOR INSOMNIA , TOLERATED WELL AT THIS TIME . INSTRUCTED NOT TO GET UP FROM BED WITHOUT ASSISTANCE , WILL CONTINUE TO MONITOR .
--- NOTE | 2016-07-19 05:42 | NUR ---
RN NOTE; PT CONVERTED TO SR WITH HR 86 AT THIS TIME. CARDIZEM DRIP CONTINUE . WILL CONTINUE TO MONITOR .
[2016-07-19 07:06] LABS: BASOPHILS # (AUTO) 0.1 /CMM (0.0-0.2); BASOPHILS % (AUTO) 0.8 % (0.0-2.0); EOSINOPHILS # (AUTO) 0.6 /CMM (0.0-0.7); EOSINOPHILS % (AUTO) 8.7 % (0.0-6.0); HEMATOCRIT 28 % (39-51); HEMOGLOBIN 9.5 g/dL (13.5-17.5); LYMPHOCYTES # (AUTO) 1.7 /CMM (0.8-4.8); LYMPHOCYTES % (AUTO) 23.3 % (20.0-44.0); MEAN CORPUSCULAR HEMOGLOBIN 29 PG (26.0-33.0); MEAN CORPUSCULAR HGB CONC 33 g/dl (31.0-36.0); MEAN CORPUSCULAR VOLUME 87 fL (80-96); MONOCYTES # (AUTO) 0.6 /CMM (0.1-1.30); MONOCYTES % (AUTO) 8.3 % (2.0-12.0); NEUTROPHILS # (AUTO) 4.3 /CMM (1.8-8.9); NEUTROPHILS % (AUTO) 58.9 % (43.0-81.0); PLATELET COUNT (AUTO) 141 /CMM (150-450); RDW COEFFICIENT OF VARIATION 16.3 (11.5-15.0); RED BLOOD CELL COUNT(AUTO) 3.27 MIL/uL (4.5-6.0); WHITE BLOOD COUNT (AUTO) 7.4 K/uL (4.3-11.0)
--- NOTE | 2016-07-19 07:15 | NUR ---
RN NOTES RECEIVED PATIENT AOX3 , NOT IN ACUTE DISTRESS , DENIES SOB AND CHEST PAIN , SPO2 OF 97% VIA RA , SR 86 ON TELE MONITOR , IV OF R AC # 18 WITH CARDIZEM DRIP @ 5MG/HR INFUSING WELL , CRUZ AV SHUNT WITH BRUIT AND THRILL UPON PALPATION , ALL NEEDS ATTENDED , BED ON LOW AND LOCKED POSITION , SIDE RAILS X2 ,CALL LIGHT WITHIN REACH , HOB @ .35 , WILL CONTINUE TO MONITOR
[2016-07-19 07:19] LABS: ALBUMIN 3.2 g/dL (3.4-5.0); BILIRUBIN,TOTAL 0.3 mg/dL (0.2-1.0); CALCIUM, SERUM 9.5 mg/dL (8.5-10.1); CREATININE 6.2 mg/dL (0.6-1.3); POTASSIUM 4.4 mmol/L (3.5-5.1); TOTAL PROTEIN, SERUM 6.7 g/dL (6.4-8.2)
--- NOTE | 2016-07-19 07:22 | NUR ---
RN EOS NOTE; PT REMAINED STABLE DURING THE SHIFT. SR WITH HR 86 ON TELE MONITOR AT THIS TIME . CARDIZEM DRIP CONTINUE WITHOUT TITRATION . ALL NEEDS ATTENDED PROMPTLY. CALL LIGHT WITHIN REACH. ENDORSED TO NEXT SHIFT RN FOR CONTINUITY OF CARE.
--- NOTE | 2016-07-19 07:28 | NUR ---
RN NOTE; ENDORSED RN TO F/O WITH DR LEVY;MARILU; LORA DUE TO UNAVAILABLE IN PHARMACY .
[2016-07-19 07:33] LABS: THYROID STIMULATING HORMONE 20.681 uIU/mL (0.358-3.74)
[2016-07-19] MEDS ORDERED: HYDR-3326 PO (07:58)
[2016-07-19] MEDS: CINACALCET HCL 30 MG TABLET PO SCH (08:33)
[2016-07-19] MEDS: SEVELAMER CARBONATE 800 MG TABLET PO SCH ×3 (08:33→16:56)
[2016-07-19] MEDS: ASPIRIN 81 MG TAB.CHEW PO SCH (08:34)
[2016-07-19] MEDS ORDERED: CARVEDILOL 6.25 MG TABLET PO SCH (09:00)
[2016-07-19] MEDS: MINOXIDIL (2.5MG) 2.5 MG TABLET PO SCH ×2 (10:08→16:57)
--- NOTE | 2016-07-19 10:15 | NUR ---
RN NOTES SPOKE WITH DR HARDEN , NOTIFIED PT IS NEW ADMIT WITH DIAGNOSIS OF AFIB WITH RVR , ON CARDIZEM DRIP WITH NO TITRATION @ 5MG/HR , PT CONVERTED TO NSR @ 0100 , DISCUSSED LABS , CHEST XRAY , MD AWARE , PER MD STOP CARDIZEM DRIP
--- NOTE | 2016-07-19 11:15 | NUR ---
RN NOTES DR JI AT BEDSIDE FOR DISCUSSING PLAN FOR ABLATION ,
[2016-07-19] MEDS ORDERED: BENICAR PO SCH (13:00)
[2016-07-19] MEDS: APIXABAN 2.5 MG TABLET PO SCH (14:32)
--- NOTE | 2016-07-19 15:01 | NUR ---
RN NOTES SPOKE WITH DIETITIAN , RECOMMENDING TO CHANGE DIET TO [facility] STANDARD WITH 80GM PROTEIN AND TO ADD NEHPROVITE DAILY , ORDER CARRIED OUT
[2016-07-19] MEDS ORDERED: EPOETIN ALFA (10,000 UNIT) 10,000 UNIT/ML VIAL IV ONE (16:00)
--- NOTE | 2016-07-19 20:15 | NUR ---
received pt from day shift, alert, follows commands, SR, RA, sat well, tolerates diet, urinal/BRP, HD pt, v/s stable, no pain, pt turns and repositions by himself.
[2016-07-19] MEDS: CARVEDILOL 6.25 MG TABLET PO SCH (21:11)
[2016-07-20] VITALS: BP 130/69
[2016-07-20 04:00] VITALS: BP 158/91
--- NOTE | 2016-07-20 04:22 | NUR ---
pt is resting in the bed, no acute distress overnight, SR, RA, v/s stable, no pain, pt cleaned and changed.
[2016-07-20 08:00] VITALS: BP 153/88
[2016-07-20] MEDS: CINACALCET HCL 30 MG TABLET PO SCH (08:41)
[2016-07-20] MEDS: SEVELAMER CARBONATE 800 MG TABLET PO SCH ×2 (08:42→12:56)
[2016-07-20] MEDS: ASPIRIN 81 MG TAB.CHEW PO SCH (08:42)
[2016-07-20] MEDS: MINOXIDIL (2.5MG) 2.5 MG TABLET PO SCH (08:42)
[2016-07-20] MEDS: CARVEDILOL 6.25 MG TABLET PO SCH (08:43)
[2016-07-20] MEDS: APIXABAN 2.5 MG TABLET PO SCH (08:43)
[2016-07-20] MEDS ORDERED: VIT B CMPLX 3/FA/VIT C/BIOTIN 1 TAB TABLET PO SCH (09:00)
[2016-07-20 12:57] VITALS: BP 144/87
[2016-07-20] MEDS ORDERED: LOSARTAN POTASSIUM 50 MG TABLET PO SCH (13:00)
[2016-07-20] MEDS ORDERED: CARV6.252 PO (13:15)
[2016-07-20] MEDS ORDERED: APIX2.5T PO (13:15)
--- NOTE | 2016-07-20 15:25 | NUR ---
RN NOTE PT DISCHARGED HOME, IN STABLE CONDITION, AMBULATORY, EXIT CARE PROVIDED, DISCHARGE INSTRUCTIONS PROVIDED TO PT, PT SKIN INTACT, BELONGINGS GIVEN TO PT, BELONGINGS LIST SIGNED, IV REMOVED, ID BAND REMOVED, PT STATED HE WILL HAVE HD AT [facility] TODAY.
== END 2016-07-20 15:23 | disposition home or self-care (01) | DRG 308 ==
LOC: ER 19:21 → TELE-TD 21:31 → MEDSG1 07-20 09:23
PROVIDERS: ADMIT Internal Medicine; ATTEND Internal Medicine
PROC: 5A1D00Z (ICD-10-PCS; principal; 2016-07-20)
DX: I48.91 Unspecified atrial fibrillation (principal); N18.6 End stage renal disease; I13.2 Hypertensive heart and chronic kidney disease with heart failure and with stage 5 chronic kidney disease, or end stage renal disease; Z68.43 Body mass index [BMI] 50.0-59.9, adult; I25.10 Atherosclerotic heart disease of native coronary artery without angina pectoris; G47.30 Sleep apnea, unspecified; E66.9 Obesity, unspecified; D64.9 Anemia, unspecified; Z91.19 Patient's noncompliance with other medical treatment and regimen; I50.9 Heart failure, unspecified; D69.6 Thrombocytopenia, unspecified; Z79.82 Long term (current) use of aspirin; Z99.2 Dependence on renal dialysis; Z95.1 Presence of aortocoronary bypass graft; N40.0 Benign prostatic hyperplasia without lower urinary tract symptoms; J44.9 Chronic obstructive pulmonary disease, unspecified; I25.2 Old myocardial infarction; F42.9 Obsessive-compulsive disorder, unspecified; E78.5 Hyperlipidemia, unspecified
CPT/HCPCS: 36415; 71010-TC; 80048-TC; 80053-TC; 80061-TC; 80076-TC; 83540-TC; 84439-TC; 84443-TC; 84484-TC; 85025-TC; 85730-TC; 86850-TC; 87081-TC; 90935-TC; A4606; J0885; J3475; J3490; J7060; Z7610

== ENCOUNTER 2016-10-03 19:54 | Inpatient (IN) | payer MEDICARE, MEDICAID ==
[~2016-10-03] VITALS: Ht 193 cm; Wt 132.9 kg
[~2016-10-03 19:54] MED LIST changes: +APIX2.5T PO; +CARV6.252 PO; -CLON0.1T PO; +HYDR-3326 PO
--- NOTE | 2016-10-03 20:03 | NUR ---
To bed 2 a 56 yo male patient [id number] fr dialysis for palpitation s/p 2hrs dialysis, dialyzed 2L, today states usually gets palpitations s/p dialysis, on amiodarone 200mg. upon arrival to er, patient is aaox4, placed on cardiac and vs monitoring, sinus tachy at 150-160's. nondiaphoretic. comfort measures rendered. Stat ekg at bedside. Dr Mcclelland to [facility].
--- NOTE | 2016-10-03 20:15 | NUR ---
patient came with [facility] g20 iv, sanitized area, blood drawn.
[2016-10-03 20:23] LABS: BASOPHILS % (AUTO) 0.5 % (0.0-2.0); EOSINOPHILS # (AUTO) 1.1 /CMM (0.0-0.7); EOSINOPHILS % (AUTO) 12.7 % (0.0-6.0); HEMATOCRIT 39 % (39-51); HEMOGLOBIN 12.3 g/dL (13.5-17.5); LYMPHOCYTES # (AUTO) 1.4 /CMM (0.8-4.8); LYMPHOCYTES % (AUTO) 16.8 % (20.0-44.0); MEAN CORPUSCULAR HEMOGLOBIN 27 PG (26.0-33.0); MEAN CORPUSCULAR HGB CONC 32 g/dl (31.0-36.0); MEAN CORPUSCULAR VOLUME 85 fL (80-96); MONOCYTES # (AUTO) 0.7 /CMM (0.1-1.30); MONOCYTES % (AUTO) 8.7 % (2.0-12.0); NEUTROPHILS # (AUTO) 5.2 /CMM (1.8-8.9); NEUTROPHILS % (AUTO) 61.3 % (43.0-81.0); PLATELET COUNT (AUTO) 161 /CMM (150-450); RED BLOOD CELL COUNT(AUTO) 4.61 MIL/uL (4.5-6.0); WHITE BLOOD COUNT (AUTO) 8.4 K/uL (4.3-11.0)
[2016-10-03] MEDS ORDERED: DILTIAZEM HCL 25 MG IV ONE ×3 (20:24→21:45)
[2016-10-03] MEDS ORDERED: IV NS 0.9% 500 ML BAG IV ONE (20:30)
[2016-10-03] MEDS ORDERED: DILTIAZEM HCL 50 MG IV IV ONE ×2 (20:30→21:00)
--- NOTE | 2016-10-03 20:35 | NUR ---
cardizem 20mg given slow ivp per Dr Mcclelland's order, patietn afib on the monitor 115-140's, bp 134/80. ongoing monitoring.
[2016-10-03 20:37] LABS: INR 1.01 (0.87-1.13); PROTHROMBIN TIME 10.5 SECS (9.5-12.7)
[2016-10-03 20:39] LABS: ALBUMIN 3.7 g/dL (3.4-5.0); BILIRUBIN,DIRECT 0.1 mg/dL (0.0-0.2); BILIRUBIN,TOTAL 0.5 mg/dL (0.2-1.0); CALCIUM, SERUM 9.8 mg/dL (8.5-10.1); CREATININE 6.1 mg/dL (0.6-1.3); TOTAL PROTEIN, SERUM 7.7 g/dL (6.4-8.2)
[2016-10-03 20:41] LABS: TROPONIN I 0.05 ng/mL (0.00-0.056)
--- NOTE | 2016-10-03 21:39 | NUR ---
Report given to Eleanor BOOKER for SHELL Admission and ilsa.
[2016-10-03] MEDS ORDERED: ASPIRIN 81 MG TAB.CHEW ONE (21:51)
--- NOTE | 2016-10-03 21:58 | NUR ---
started cardizem drip at 5mg/min on the rac g20, continuous cardiac and vs monitoring.
[2016-10-03] MEDS ORDERED: DILTIAZEM HCL IV 125 MG in IV D5W 100 ML IV PRN (22:00)
[2016-10-03] MEDS ORDERED: ASPIRIN 81 MG TAB.CHEW PO ONE (22:00)
[2016-10-03 22:35] VITALS: BP 137/87
--- NOTE | 2016-10-03 22:35 | NUR ---
SHOEBLACK NOTES RECEIVED REPORT AND PTS WITH ER NURSE MARLENE , PTS IS UNDER DR SOLORZANO 56 Y/O ,A/OX4 ESRD ON HEMODIALYSIS (MWF)AMBULATORY. WITH ADMITTING DX OF AFIB AND RVR , PTS ON CARDIZEM DRIP TO TITRATE TO 5-15MG/HR ,AT THIS TIME, PTS ON CARDIZEM 10MG/HR, HR OF 108 AFIB ON THE MONITOR, NO SOB NO DISTRESS NOTED PTS ON R/A AT96%V/S STABLE AFEBRILE. WITH AV SHUNT ON CRUZ WITH BRUIT AND THRILL PRESENT, IV HL ON RAC AT G#[address] SOLORZANO ORDER TO CONTINUE HOME MEDS AND ER DR TO CONTINUE ON CARDIZEM DRIP. PTS ON CARDIAC DIET, OFFERED SANDWICH AT THIS TIME, ALL NEEDS ATTENDED TOO CALL LIGHT WITHIN REACH KEPT PTS CLEAN DRY AND COMFORTABLE, WILL CONTINUE TO MONITOR PTS. Addendum: 10/04/16 at 9974 by CRIS NOLAN RN VERIFIED WITH RN MEDICAL ASSISTANT OB GYN MAYTE REGARDING TITRATION PROTOCOL IN SHELL, [place] TO TITRATE IN SHELL. WILL TITRATE NEEDED.
--- NOTE | 2016-10-03 22:38 | NUR ---
Transferred patient to SHELL 111-2 via als protocol, no incident noted. ADE Webster at bedside.
[2016-10-03] MEDS ORDERED: ACETAMINOPHEN 325 MG TABLET PO PRN (23:00)
[2016-10-03] MEDS ORDERED: ONDANSETRON HCL/PF 4 MG/2 ML VIAL IV PRN (23:00)
[2016-10-04] VITALS: BP_SYST 142; BP_SYST 155; BP_DIAS 80; BP_DIAS 85
--- NOTE | 2016-10-04 | NUR ---
SHELL RN NOTES PATIENT CONVERTED TO SR 84, CARDIZEM TITRATED TO 5MG/HR. WILL CONTINUE TO MONITOR.
[2016-10-04] MEDS ORDERED: HYDROCODONE/APAP 5/325MG 1 EACH TABLET ONE (01:49)
[2016-10-04] MEDS ORDERED: HYDROCODONE/APAP 5/325MG 1 EACH TABLET PO PRN ×2 (02:00→09:00)
[2016-10-04 04:00] VITALS: BP 116/89
--- NOTE | 2016-10-04 06:45 | NUR ---
SHELL RN NOTES PTS REMAINS ON CARDIZEM DRIP 5MG/HR INFUSING WELL, V/S STABLE AND AFEBRILE ON SR ON THE MONITOR , WILL ENDORSE TO RN DAY SHIFT FOR CONTINUITY OF CARE.
--- NOTE | 2016-10-04 07:00 | NUR ---
RN NOTES RECEIVED PT ON BED, A/Ox4, RESPIRATION EVEN AND UNLABORED, ON RA , NO SOB NOTED, ON TELE SR IN 80'S, ON CARDIZEM DRIP AT 5MG/HR AT THIS TIME , AV SHUNT ON L UA WITH BRUIT AND THRILL PRESENT, IV HL ON R AC AT G#20 PATENT AND INTACT .ALL NEEDS ATTENDED ,CALL LIGHT WITHIN EASY REACH KEPT PTS CLEAN DRY AND COMFORTABLE, WILL CONTINUE TO MONITOR PT CLOSELY AND NOTIFY MD FOR ANY SIGNIFICANT CHANGES .
[2016-10-04 07:19] LABS: BASOPHILS % (AUTO) 0.4 % (0.0-2.0); EOSINOPHILS # (AUTO) 1.2 /CMM (0.0-0.7); EOSINOPHILS % (AUTO) 14.4 % (0.0-6.0); HEMATOCRIT 34 % (39-51); HEMOGLOBIN 11.1 g/dL (13.5-17.5); LYMPHOCYTES # (AUTO) 1.7 /CMM (0.8-4.8); LYMPHOCYTES % (AUTO) 21.2 % (20.0-44.0); MEAN CORPUSCULAR HEMOGLOBIN 28 PG (26.0-33.0); MEAN CORPUSCULAR HGB CONC 33 g/dl (31.0-36.0); MEAN CORPUSCULAR VOLUME 86 fL (80-96); MONOCYTES # (AUTO) 0.7 /CMM (0.1-1.30); MONOCYTES % (AUTO) 8.9 % (2.0-12.0); NEUTROPHILS # (AUTO) 4.5 /CMM (1.8-8.9); NEUTROPHILS % (AUTO) 55.1 % (43.0-81.0); PLATELET COUNT (AUTO) 148 /CMM (150-450); RDW COEFFICIENT OF VARIATION 16.9 (11.5-15.0); WHITE BLOOD COUNT (AUTO) 8.1 K/uL (4.3-11.0)
[2016-10-04 07:55] LABS: CALCIUM, SERUM 10.1 mg/dL (8.5-10.1); CREATININE 6.9 mg/dL (0.6-1.3); MAGNESIUM 2.2 mg/dL (1.8-2.4)
[2016-10-04 08:00] VITALS: BP 150/93
[2016-10-04] MEDS ORDERED: CINACALCET HCL 30 MG TABLET PO SCH (09:00)
[2016-10-04] MEDS ORDERED: CARVEDILOL 12.5 MG TABLET PO SCH (09:00)
[2016-10-04] MEDS ORDERED: PANTOPRAZOLE 40 MG TABLET.DR PO SCH (09:00)
[2016-10-04] MEDS ORDERED: ASPIRIN EC 81 MG TABLET.DR PO SCH (09:00)
[2016-10-04] MEDS ORDERED: MINOXIDIL (2.5MG) 2.5 MG TABLET PO SCH (09:00)
[2016-10-04] MEDS ORDERED: APIXABAN 2.5 MG TABLET PO SCH (09:00)
[2016-10-04] MEDS ORDERED: CARVEDILOL 6.25 MG TABLET PO SCH (09:00)
[2016-10-04] MEDS ORDERED: BENICAR 40 MG PO SCH (09:00)
[2016-10-04] MEDS ORDERED: DILTIAZEM HCL IV 125 MG in IV D5W 100 ML IV PRN (10:30)
[2016-10-04 12:00] VITALS: BP 125/59
[2016-10-04] MEDS ORDERED: GUAIFENESIN LA 600 MG TABLET.SA PO SCH (12:30)
[2016-10-04] MEDS ORDERED: DRONEDARONE HYDROCHLORIDE 400 MG TABLET PO SCH (12:30)
[2016-10-04] MEDS ORDERED: SEVELAMER CARBONATE 800 MG TABLET PO SCH (13:00)
[2016-10-04] MEDS ORDERED: DRON400T2 PO (13:32)
[2016-10-04 16:00] VITALS: BP 125/69
--- NOTE | 2016-10-04 16:00 | NUR ---
RN NOTES DISCHARGE INSTRUCTION GIVEN , PT VERBALIZES UNDERSTANDING, R HAND IV SITE DISCONTINUED, PT RAQUEL ANY DISTRESS, WANTS TO GO HOME WITH HIS OWN CAR, REFUSED TO GO HOME BY FAMILY MEMBERS .
--- NOTE | 2016-10-04 17:00 | NUR ---
RN NOTES PT DISCHARGED HOME ,ACCOMPANIED BY STAFF MEMBERS TO MAIN ENTRANCE IN STABLE CONDITION .
== END 2016-10-04 17:23 | disposition home or self-care (01) | DRG 308 ==
LOC: ER 19:55 → TELE-TD 21:57
PROVIDERS: ADMIT Internal Medicine; ATTEND Internal Medicine
DX: I48.91 Unspecified atrial fibrillation (principal); N18.6 End stage renal disease; I13.2 Hypertensive heart and chronic kidney disease with heart failure and with stage 5 chronic kidney disease, or end stage renal disease; N25.81 Secondary hyperparathyroidism of renal origin; Z95.1 Presence of aortocoronary bypass graft; I50.9 Heart failure, unspecified; N40.0 Benign prostatic hyperplasia without lower urinary tract symptoms; Z91.19 Patient's noncompliance with other medical treatment and regimen; Z99.2 Dependence on renal dialysis; Z79.82 Long term (current) use of aspirin; Z79.01 Long term (current) use of anticoagulants; J44.9 Chronic obstructive pulmonary disease, unspecified; I70.0 Atherosclerosis of aorta; I48.92 Unspecified atrial flutter; I25.2 Old myocardial infarction; I25.10 Atherosclerotic heart disease of native coronary artery without angina pectoris; F42.9 Obsessive-compulsive disorder, unspecified; D64.9 Anemia, unspecified; Z88.1 Allergy status to other antibiotic agents; K46.9 Unspecified abdominal hernia without obstruction or gangrene; Z98.890 Other specified postprocedural states
CPT/HCPCS: 36415; 71010-TC; 80048-TC; 80076-TC; 83735-TC; 84100-TC; 84484-TC; 85025-TC; 85730-TC; 87081-TC; A4606; J3490; J7040; J7060; Z7610

== ENCOUNTER 2017-04-08 19:45 | Emergency (ER) | payer MEDICARE, MEDICAID ==
[~2017-04-08] VITALS: Ht 193 cm; Wt 127.0 kg
[2017-04-08 19:45] VITALS: BP 143/76
[~2017-04-08 19:45] MED LIST changes: -CINA30TA PO; +CINA30TA2 PO; +DRON400T2 PO; -HYDR-3326 PO; +HYDR-3974 PO; +OLME40TA12 PO; -OLME40TA3 PO
[2017-04-08] MEDS ORDERED: HYDROCODONE/APAP 10/325MG 1 EA TABLET ONE (20:53)
[2017-04-08] MEDS ORDERED: HYDROCODONE/APAP 10/325MG 1 EA TABLET PO ONE (21:00)
== END 2017-04-08 21:51 | disposition home or self-care (01) ==
LOC: ER 19:47
DX: M79.671 Pain in right foot (principal); I12.0 Hypertensive chronic kidney disease with stage 5 chronic kidney disease or end stage renal disease; N18.6 End stage renal disease; I25.10 Atherosclerotic heart disease of native coronary artery without angina pectoris; I48.91 Unspecified atrial fibrillation; J45.909 Unspecified asthma, uncomplicated; I25.2 Old myocardial infarction; Z79.01 Long term (current) use of anticoagulants; Z79.82 Long term (current) use of aspirin; Z88.1 Allergy status to other antibiotic agents; Z95.1 Presence of aortocoronary bypass graft; Z99.2 Dependence on renal dialysis; Z90.89 Acquired absence of other organs; Z60.2 Problems related to living alone
CPT/HCPCS: A4606; Z7610

== ENCOUNTER 2017-07-26 21:21 | Inpatient (IN) | payer MEDICARE, MEDICAID ==
[~2017-07-26] VITALS: Ht 193 cm; Wt 140.2 kg
--- NOTE | 2017-07-26 21:45 | NUR ---
PT CAME IN FROM [facility] S/P DIALYSIS FOR AN HOUR FOR LOW BP AND TACHY. SEEN BY MD FOR EVAL. PT AAOX4. REPORTS HE HASN'T BEEN DIALISED LAST WED TOO FOR THE SAME REASONS. SAFETY AND COMFORT MEASURES PROVIDED. WILL MONITOR.
--- NOTE | 2017-07-26 22:00 | NUR ---
PT REFUSES IV AT THIS TIME.
--- NOTE | 2017-07-26 23:02 | NUR ---
CALLED [facility] [employer] SALESPERSON AND REQUESTED A TELE BED FOR THIS PT.
[2017-07-26 23:05] LABS: BASOPHILS # (AUTO) 0.1 /CMM (0.0-0.2); EOSINOPHILS % (AUTO) 8.4 % (0.0-6.0); HEMATOCRIT 33 % (39-51); HEMOGLOBIN 10.8 g/dL (13.5-17.5); LYMPHOCYTES # (AUTO) 0.8 /CMM (0.8-4.8); LYMPHOCYTES % (AUTO) 15.1 % (20.0-44.0); MEAN CORPUSCULAR HGB CONC 32 g/dl (31.0-36.0); MEAN CORPUSCULAR VOLUME 89 fL (80-96); MONOCYTES # (AUTO) 0.5 /CMM (0.1-1.30); MONOCYTES % (AUTO) 9.6 % (2.0-12.0); NEUTROPHILS # (AUTO) 3.7 /CMM (1.8-8.9); NEUTROPHILS % (AUTO) 65.9 % (43.0-81.0); PLATELET COUNT (AUTO) 108 /CMM (150-450); RDW COEFFICIENT OF VARIATION 18.5 (11.5-15.0); RED BLOOD CELL COUNT(AUTO) 3.74 MIL/uL (4.5-6.0); WHITE BLOOD COUNT (AUTO) 5.6 K/uL (4.3-11.0)
[2017-07-26 23:10] LABS: POTASSIUM 4.5 mmol/L (3.5-5.1)
[2017-07-26 23:11] LABS: CALCIUM, SERUM 8.1 mg/dL (8.5-10.1); CREATININE 6.1 mg/dL (0.6-1.3)
[2017-07-26 23:12] LABS: INR 1.1 (0.87-1.13)
[2017-07-26 23:21] LABS: ALBUMIN 3.8 g/dL (3.4-5.0); BILIRUBIN,TOTAL 1.1 mg/dL (0.2-1.0); TOTAL PROTEIN, SERUM 7.6 g/dL (6.4-8.2); TROPONIN I 0.061 ng/mL (0.00-0.056)
--- NOTE | 2017-07-26 23:39 | NUR ---
PAGED DR DEL BATES
[2017-07-27] VITALS (7 sets, daily range): BP systolic 87–146; BP diastolic 51–79
--- NOTE | 2017-07-27 00:17 | NUR ---
CALLING REPORT TO TELE NURSE.
[2017-07-27] MEDS: ASPIRIN 325 MG TABLET PO SCH ×2 (00:30→08:08)
[2017-07-27] MEDS ORDERED: ASPIRIN 325 MG TABLET ONE (00:32)
--- NOTE | 2017-07-27 00:35 | NUR ---
ALLIE STARR, PERSON TO CALL IF YOU NEED ANYTHING. [phone]
--- NOTE | 2017-07-27 01:00 | NUR ---
RN ADMITTING NOTES RECEIVED PATIENT FROM ER VIA TREMAYNE LINARES PROTOCOL. ADMITTED UNDER SERVICES OF DR. BATES WITH DX OF SOB. ORDERS NOTED AND CARRIED OUT. PATIENT IS ALERT AND ORIENTED X4. DENIES ANY PAIN, VERBALIZES SOB WITH EXERTION, CLEAR LUNG SOUNDS VIA AUSCULTATION. INITIATED PATIENT ON 2LPM OF O2 VIA NC, FOR O2 SUPPLEMENTATION. PATIENT WITH BNP OF 20,527 WITH CARDIOMEGALY AND MILD VASCULAR CONGESTION AND EDEMA NOTED ON CHEST XRAY. DIALYSIS DONE OUTPATIENT LAST SATURDAY AND SATURDAY AM, WITH NO UO, D/T PATIENT'S EPISODES OF LOW BP THAT LED TO ADMISSION. WITH CRUZ AV FISTULA NOTED, (+) BRUIT AND THRILL. NO BLEEDING ON SITE. WITH ABDOMINAL HERNIA, INTACT. NO OTHER SKIN BREAKDOWN. PATIENT ORIENTED TO UNIT PROTOCOLS. NEEDS ANTICIPATED AND MET. SAFETY AND COMFORT ENSURED. BED IN LOW AND LOCKED POSITION. CALL LIGHT IN REACH. ON CLOSE MONITORING.
[2017-07-27 06:42] LABS: BASOPHILS # (AUTO) 0.1 /CMM (0.0-0.2); BASOPHILS % (AUTO) 0.9 % (0.0-2.0); EOSINOPHILS % (AUTO) 8.1 % (0.0-6.0); HEMATOCRIT 31 % (39-51); HEMOGLOBIN 10.2 g/dL (13.5-17.5); LYMPHOCYTES # (AUTO) 0.9 /CMM (0.8-4.8); LYMPHOCYTES % (AUTO) 14.9 % (20.0-44.0); MEAN CORPUSCULAR HGB CONC 33 g/dl (31.0-36.0); MEAN CORPUSCULAR VOLUME 89 fL (80-96); MONOCYTES # (AUTO) 0.7 /CMM (0.1-1.30); MONOCYTES % (AUTO) 12.5 % (2.0-12.0); NEUTROPHILS # (AUTO) 3.6 /CMM (1.8-8.9); NEUTROPHILS % (AUTO) 63.6 % (43.0-81.0); PLATELET COUNT (AUTO) 100 /CMM (150-450); RDW COEFFICIENT OF VARIATION 18.9 (11.5-15.0); RED BLOOD CELL COUNT(AUTO) 3.49 MIL/uL (4.5-6.0); WHITE BLOOD COUNT (AUTO) 5.7 K/uL (4.3-11.0)
--- NOTE | 2017-07-27 07:00 | NUR ---
RN NOTE RECEIVED PT ON BED ,A/OX4, ON 2L O2 N/C, RESPIRATION EVEN AND UNLABORED, NO SOB NOTED AT THIS TIME . ON TELE HR IN 120'S, A.FIB , R FA IV SITE G 20 CDI, L UA AV FISTULA NOTED, (+) BRUIT AND THRILL. NO BLEEDING ON SITE. ABDOMINAL HERNIA NOTED, NEEDS ANTICIPATED AND MET. SAFETY AND COMFORT ENSURED. SR UPx3, CALL LIGHT WITHIN EASY REACH, BED LOCKED AND IN LOWEST POSITION. CONTINUE TO MONITOR .
[2017-07-27 07:04] LABS: CALCIUM, SERUM 8.1 mg/dL (8.5-10.1); CREATININE 6.3 mg/dL (0.6-1.3); POTASSIUM 4.9 mmol/L (3.5-5.1)
--- NOTE | 2017-07-27 12:00 | NUR ---
RN NOTES PT STABLE , NO DISTRESS NOTED , CONTINUE TO MONITOR.
[2017-07-27] MEDS ORDERED: ACETAMINOPHEN 325 MG TABLET PO PRN (14:00)
[2017-07-27] MEDS ORDERED: ONDANSETRON HCL/PF 4 MG/2 ML VIAL IV PRN (14:00)
--- NOTE | 2017-07-27 14:35 | NUR ---
PATIENT UNDERGOING DIALYSIS TREATMENT. BE BACK ~30 MINS TO DO ECHOCARDIOGRAM.
[2017-07-27] MEDS: SEVELAMER CARBONATE 800 MG TABLET PO SCH (17:08)
--- NOTE | 2017-07-27 18:00 | NUR ---
RN NOTE DR BATES NOTIFED REGARDING PT'S HR THAT HAS BEEN IN 120'S . PT STABLE , NO DISTRESS NOTED .
--- NOTE | 2017-07-27 18:12 | NUR ---
RN NOTES PT OUT OF BED TO BATHROOM WITH WALKER, BMx1, RESPIRATION EVEN AND UNLABORED, ON 2L O2 N/C, NO SIGNIFICANT CHANGES NOTED ON THIS SHIFT , WILL ENDORSE TO HONING MACHINE OPERATOR TOOL NURSE FOR KRYSTA.
--- NOTE | 2017-07-27 20:00 | NUR ---
RN NOTE RECEIVED BEDSIDE REPORT FROM AM NURSE. PT ON BED ,A/OX4, ON 2L O2 N/C, RESPIRATION EVEN AND UNLABORED, NO SOB NOTED AT THIS TIME . ON TELE HR IN 120'S, A.FIB , R FA IV SITE G 20 NOTED, INTACT, PATIENT. L UA AV FISTULA NOTED, (+) BRUIT AND THRILL. NO BLEEDING ON SITE. ABDOMINAL HERNIA NOTED. SAFETY AND COMFORT MEASURES IMPLEMENTED. SR UPx2, CALL LIGHT WITHIN EASY REACH, BED LOCKED AND IN LOWEST POSITION. CONTINUE TO MONITOR .
[2017-07-27] MEDS ORDERED: DILTIAZEM HCL 25 MG IV IV ONE (21:00)
[2017-07-27] MEDS: DIGOXIN 0.25 MG TABLET PO SCH (21:24)
[2017-07-27] MEDS: HYDROCODONE/APAP 5/325MG 1 EACH TABLET PO PRN (22:21)
[2017-07-28] VITALS (7 sets, daily range): BP systolic 96–116; BP diastolic 54–80
--- NOTE | 2017-07-28 05:43 | NUR ---
RN CLOSING NOTES NO SIGNIFICANT CHANGES DURING MY SHIFT. PT A/O X4, RESPIRATION EVEN AND UNLABORED, ON 3L O2 N/C,AFIB ON TURNER IN WITH HR OF 120. PT CARE WILL ENDORSE TO AM SHIFT NURSE FOR KRYSTA.
[2017-07-28 07:25] LABS: BASOPHILS % (AUTO) 0.7 % (0.0-2.0); EOSINOPHILS % (AUTO) 6.5 % (0.0-6.0); HEMATOCRIT 32 % (39-51); HEMOGLOBIN 10.3 g/dL (13.5-17.5); LYMPHOCYTES % (AUTO) 14.1 % (20.0-44.0); MEAN CORPUSCULAR HGB CONC 33 g/dl (31.0-36.0); MEAN CORPUSCULAR VOLUME 90 fL (80-96); MONOCYTES # (AUTO) 0.7 /CMM (0.1-1.30); MONOCYTES % (AUTO) 10.6 % (2.0-12.0); NEUTROPHILS # (AUTO) 4.8 /CMM (1.8-8.9); NEUTROPHILS % (AUTO) 68.1 % (43.0-81.0); PLATELET COUNT (AUTO) 93 /CMM (150-450); RDW COEFFICIENT OF VARIATION 18.4 (11.5-15.0); RED BLOOD CELL COUNT(AUTO) 3.51 MIL/uL (4.5-6.0)
--- NOTE | 2017-07-28 07:45 | NUR ---
RN NOTE RECEIVED PATIENT AWAKE IN BED, ALERT AND ORIENTED X4, HE IS ABLE TO MAKE THINGS KNOWN AND VERBALIZE NEEDS. BREATHING EVEN AND UNLABORED WITH NO DISTRESS NOTED. ON CONTINUOUS O2 2L VIA N/C. ON [employer] CLAIMS ADJUSTER SINUS TACHY HR OF 119. PATIENT REMAINS CALM AND COLLECTIVE WITH NO DISCOMFORT NOTED. RIGHT FA IV SITE IN TACT AND PATENT. LEFT UA AV FISTULA NOTED AND INTACT WITH NO BLEEDING NOTED. ABDOMINAL HERNIA NOTED. ALL SAFETY MEASURES DONE. BED LOW AND LOCKED POSITIONED. PLACED CALL LIGHT WITHIN REACH. WILL CONTINUE TO MONITOR .
[2017-07-28 07:54] LABS: CALCIUM, SERUM 8.1 mg/dL (8.5-10.1); CREATININE 6.7 mg/dL (0.6-1.3); MAGNESIUM 2.3 mg/dL (1.8-2.4); PHOSPHORUS 7.4 mg/dL (2.5-4.9)
[2017-07-28] MEDS: SEVELAMER CARBONATE 800 MG TABLET PO SCH ×3 (08:13→17:37)
[2017-07-28] MEDS: ASPIRIN EC 81 MG TABLET.DR PO SCH (08:13)
[2017-07-28] MEDS: CINACALCET HCL 30 MG TABLET PO SCH (08:13)
[2017-07-28 10:20] LABS: TROPONIN I 0.071 ng/mL (0.00-0.056)
[2017-07-28 10:27] LABS: THYROID STIMULATING HORMONE 0.727 uIU/mL (0.358-3.74)
[2017-07-28] MEDS: APIXABAN 2.5 MG TABLET PO SCH ×2 (10:40→16:31)
[2017-07-28] MEDS: DRONEDARONE HYDROCHLORIDE 400 MG TABLET PO SCH ×2 (10:40→16:31)
[2017-07-28] MEDS: DIGOXIN 0.25 MG TABLET PO SCH (12:24)
--- NOTE | 2017-07-28 19:20 | NUR ---
RN NOTE PATIENT REMAINED STABLE THROUGHOUT SHIFT. NO ACUTE CHANGES OR DISTRESS NOTED. WILL ENDORSE TO NEXT SHIFT TO CONTINUE CONTINUITY OF CARE.
--- NOTE | 2017-07-28 20:00 | NUR ---
TELE 1 RN NOTE PT IN BED AWAKE. A/O X 4, NO SOB, NO DISTRESS OR DISCOMFORT NOTED. DENIES PAIN. ON TELE ST HR 109. H/L RFA #20 G INTACT AND PATENT. SIDE RAILS UP X 3 AND CALL LIGHT WITHIN REACH. VSS. CONTINUE TO MONITOR.
[2017-07-28] MEDS: HYDROCODONE/APAP 5/325MG 1 EACH TABLET PO PRN (23:08)
[2017-07-28] MEDS ORDERED: ALBUTEROL FS 2.5 MG/0.5 ML VIAL.NEB NEB PRN (23:30)
--- NOTE | 2017-07-28 23:31 | NUR ---
TELE 1 RN NOTE PT IS UP AND C/O SOB, O2 SAT AT 3L VIA N/C 97. DR LIMON CALLED AND RECEIVED NEW ORDER OF BTX. ALSO RESPIRATORY CALLED TO GIVE PT BREATHING TX. VSS.
--- NOTE | 2017-07-28 23:45 | NUR ---
TELE 1 RN NOTE AFTER BTX PATIENT IN DISTRESS, AND STATES " I FEEL BETTER". CONTINUE TO MONITOR
[2017-07-29] VITALS: BP 117/87
--- NOTE | 2017-07-29 00:08 | NUR ---
TELE 1 RN NOTE PAIN SUBSIDED 2/10, PT FALLING ASLEEP, CONTINUE TO MONITOR HIM.
[2017-07-29 04:00] VITALS: BP 95/55
[2017-07-29 05:50] VITALS: BP 95/55
--- NOTE | 2017-07-29 06:30 | NUR ---
TELE 1 RN NOTE PT IN BED ASLEEP, AROUSABLE. NO DISTRESS OR DISCOMFORT NOTED. DENIES PAIN. NO SOB NOTED. ON TELE ST 104. SIDE RAILS UP X 3 AND CALL LIGHT WITHIN REACH. VSS. ENDORSE TO DAY SHIFT NURSE FOR CONTINUE TO CARE.
--- NOTE | 2017-07-29 07:00 | NUR ---
RN NOTES RECEIVED PT ON BED , A/Ox4, ON RA , RESPIRATION EVEN AND UNLABORED, NO SOB NOTED, ON TELE ST, HR IN 100'S , R FA IV G 20 SITE CDI, SR UP x2, CALL LIGHT WITHIN EASY REACH, BED LOCKED AND IN LOWEST POSITION , CONTINUE TO MONITOR .
[2017-07-29 07:08] LABS: BASOPHILS % (AUTO) 0.8 % (0.0-2.0); EOSINOPHILS % (AUTO) 6.3 % (0.0-6.0); HEMATOCRIT 32 % (39-51); HEMOGLOBIN 10.3 g/dL (13.5-17.5); LYMPHOCYTES # (AUTO) 1.2 /CMM (0.8-4.8); LYMPHOCYTES % (AUTO) 18.9 % (20.0-44.0); MEAN CORPUSCULAR HGB CONC 33 g/dl (31.0-36.0); MEAN CORPUSCULAR VOLUME 90 fL (80-96); MONOCYTES # (AUTO) 0.7 /CMM (0.1-1.30); MONOCYTES % (AUTO) 10.7 % (2.0-12.0); NEUTROPHILS % (AUTO) 63.3 % (43.0-81.0); PLATELET COUNT (AUTO) 91 /CMM (150-450); RDW COEFFICIENT OF VARIATION 17.9 (11.5-15.0); RED BLOOD CELL COUNT(AUTO) 3.53 MIL/uL (4.5-6.0); WHITE BLOOD COUNT (AUTO) 6.4 K/uL (4.3-11.0)
[2017-07-29 07:10] LABS: CALCIUM, SERUM 7.8 mg/dL (8.5-10.1); MAGNESIUM 2.5 mg/dL (1.8-2.4); PHOSPHORUS 7.8 mg/dL (2.5-4.9); POTASSIUM 5.4 mmol/L (3.5-5.1)
[2017-07-29 07:17] LABS: CREATININE 8.2 mg/dL (0.6-1.3)
[2017-07-29 08:00] VITALS: BP 100/73
[2017-07-29] MEDS: SEVELAMER CARBONATE 800 MG TABLET PO SCH ×2 (08:22→12:06)
[2017-07-29] MEDS: DRONEDARONE HYDROCHLORIDE 400 MG TABLET PO SCH (08:22)
[2017-07-29] MEDS: ASPIRIN EC 81 MG TABLET.DR PO SCH (08:22)
[2017-07-29] MEDS: CINACALCET HCL 30 MG TABLET PO SCH (08:22)
[2017-07-29] MEDS: APIXABAN 2.5 MG TABLET PO SCH (08:24)
[2017-07-29 09:21] LABS: BAND % (MANUAL) 4 % (0.0-5.0); EOSINOPHILS % (MANUAL) 2 % (0-4); LYMPHOCYTES % (MANUAL) 15 % (16-48); MONOCYTES % (MANUAL) 5 % (0-11.0); NEUTROPHILS % (MANUAL) 74 (42-76)
--- NOTE | 2017-07-29 09:38 | NUR ---
RN NOTE DR HARDEN NOTIFIED REGARDING AM EKG RESULTS .
[2017-07-29 12:00] VITALS: BP 99/67
--- NOTE | 2017-07-29 12:01 | NUR ---
RN NOTES REPORT GIVEN TO ECHO BOOKER FOR KRYSTA .
[2017-07-29] MEDS: DIGOXIN 0.25 MG TABLET PO SCH (12:06)
--- NOTE | 2017-07-29 12:15 | NUR ---
MANAGER WOUND NOTES RECEIVED REPORT FROM JESSE BOOKER. PT ON BED , A/Ox4, ON O2 VIA NASAL CANULA 3L., RESPIRATION EVEN AND UNLABORED, NO SOB NOTED, R FA IV G 20 SITE CDI, SR UP x2, CALL LIGHT WITHIN EASY REACH, BED LOCKED AND IN LOWEST POSITION , CONTINUE TO MONITOR .
--- NOTE | 2017-07-29 15:10 | NUR ---
MECHANICAL APPLICATIONS ENGINEERMACHINE COMPOSITOR NOTE PATIENT SEEN BY GOT DISCHARGE ORDER.ALL DISCHARGE PAPER WORK SIGNED AND COPY GIVEN.EXPLAINED ALL MEDICATION LIST TO BE CONTINUED.EXIT CARE DONE.PATIENT SAID HE GOES HOME AFTER HEMODIALYSIS AT [facility].ALL BELONGINGS TAKEN.IV REMOVED .MINIMAL BLEEDING NOTED.PRESSURE DRESSING APPLIED.PATIENT LEFT HOSPITAL IN STABLE CONDITION.WHEELED TO [facility].KEPT ALL BELONGING AND DISCHARGE PAPER WORK IN THE CAR. [facility] STAFF AWARE.AWAITING FOR DIALYSIS.HE HAS OWN WALKER USING FOR MOBILITY.LEFT MESSAGE TO BROTHER.
== END 2017-07-29 14:16 | disposition home or self-care (01) | DRG 280 ==
LOC: ER 21:23 → TELE1 07-27 00:03 → MEDSG1 07-29 09:05
PROVIDERS: ADMIT Internal Medicine Nephrology; ATTEND Internal Medicine Nephrology
PROC: 5A1D70Z Performance of Urinary Filtration, Intermittent, Less than 6 Hours Per Day (ICD-10-PCS; principal; 2017-07-27)
DX: I48.92 Unspecified atrial flutter (principal); N18.6 End stage renal disease; I21.A1 Myocardial infarction type 2; I13.2 Hypertensive heart and chronic kidney disease with heart failure and with stage 5 chronic kidney disease, or end stage renal disease; I95.9 Hypotension, unspecified; Z99.2 Dependence on renal dialysis; E78.5 Hyperlipidemia, unspecified; D64.9 Anemia, unspecified; I25.10 Atherosclerotic heart disease of native coronary artery without angina pectoris; J44.9 Chronic obstructive pulmonary disease, unspecified; N40.0 Benign prostatic hyperplasia without lower urinary tract symptoms; Z95.1 Presence of aortocoronary bypass graft; K42.9 Umbilical hernia without obstruction or gangrene; E83.9 Disorder of mineral metabolism, unspecified; I48.91 Unspecified atrial fibrillation; I25.2 Old myocardial infarction; I50.9 Heart failure, unspecified; Z79.01 Long term (current) use of anticoagulants
CPT/HCPCS: 36415; 71045-TC; 80048-TC; 80053-TC; 82533; 83605-TC; 83735-TC; 83880; 84100-TC; 84439-TC; 84443-TC; 84484-TC; 85025-TC; 85730-TC; 87040-TC; 87081-TC; 90935-TC; 93307-TC; A4606; J3490; Z7610

== ENCOUNTER 2017-09-15 18:44 | Inpatient (IN) | payer MEDICARE, MEDICAID ==
[~2017-09-15] VITALS: Ht 193 cm; Wt 123.4 kg
[~2017-09-15 18:44] MED LIST changes: -MINO2.5T PO; -OLME40TA12 PO
[2017-09-15] MEDS ORDERED: HYDROMORPHONE INJ 2 MG/ML DISP.SYRIN IV ONE (19:00)
[2017-09-15] MEDS ORDERED: ONDANSETRON HCL/PF 4 MG/2 ML VIAL IVP ONE (19:00)
--- NOTE | 2017-09-15 19:14 | NUR ---
PT AA/OX4 COMPLAINING OF RT SIDED FLANK PAIN X3 DAYS PROGRESSIVELY GETTING WORSE. NAUSEA PRESENT WITH NO ACTIVE VOMMITING. ACTIVE BOWEL SOUNDS PRESENT. NO GAURDING TO STOMACH. SKINS PINK, WARM, DRY. VSS. NAD. AMBULATED TO HOSPITAL BED WITH STEADY GAIT. AWAITING MD ORDERS.
[2017-09-15 19:15] LABS: BASOPHILS % (AUTO) 0.4 % (0.0-2.0); EOSINOPHILS % (AUTO) 0.9 % (0.0-6.0); HEMATOCRIT 35 % (39-51); HEMOGLOBIN 11.6 g/dL (13.5-17.5); LYMPHOCYTES # (AUTO) 0.8 /CMM (0.8-4.8); LYMPHOCYTES % (AUTO) 10.2 % (20.0-44.0); MEAN CORPUSCULAR HEMOGLOBIN 29 PG (26.0-33.0); MEAN CORPUSCULAR HGB CONC 33 g/dl (31.0-36.0); MEAN CORPUSCULAR VOLUME 87 fL (80-96); MONOCYTES # (AUTO) 0.9 /CMM (0.1-1.30); MONOCYTES % (AUTO) 11.7 % (2.0-12.0); NEUTROPHILS # (AUTO) 6.1 /CMM (1.8-8.9); NEUTROPHILS % (AUTO) 76.8 % (43.0-81.0); PLATELET COUNT (AUTO) 109 /CMM (150-450); RDW COEFFICIENT OF VARIATION 16.2 (11.5-15.0); RED BLOOD CELL COUNT(AUTO) 4.07 MIL/uL (4.5-6.0); WHITE BLOOD COUNT (AUTO) 7.9 K/uL (4.3-11.0)
[2017-09-15] MEDS ORDERED: ONDANSETRON HCL/PF 4 MG/2 ML VIAL ONE (19:22)
[2017-09-15] MEDS ORDERED: HYDROMORPHONE INJ 2 MG/ML DISP.SYRIN ONE ×2 (19:22→20:31)
[2017-09-15 19:27] LABS: CALCIUM, SERUM 8.7 mg/dL (8.5-10.1); CREATININE 7.4 mg/dL (0.6-1.3); POTASSIUM 4.8 mmol/L (3.5-5.1)
[2017-09-15] MEDS ORDERED: CEFTRIAXONE 1 G VIAL ONE (19:37)
--- NOTE | 2017-09-15 19:50 | NUR ---
PAGED [facility] - VERTICAL LATHE OPERATOR IS DR CASH
[2017-09-15] MEDS ORDERED: CEFTRIAXONE 1GM BAG (ER ONLY) 1 GM/50 ML PIGGYBACK IV ONE (20:00)
--- NOTE | 2017-09-15 20:15 | NUR ---
PT SITTING ON EDGE OF BED, CONTINUES TO COMPLAIN OF PAIN. PT IS CURRENTLY HYPERTENSIVE SBP 192. "I RAN OUT OF MY BLOOD PRESSURE MEDS BUT I USUALLY RUN REALLY HIGH." NOTIFIED. WILL CONTINUE TO MONITOR.
[2017-09-15] MEDS ORDERED: HYDROMORPHONE 1 MG/1 ML DISP.SYRIN IV ONE (20:30)
--- NOTE | 2017-09-15 20:39 | NUR ---
PAGED RAYMOND AGAIN FOR SECOND TIME
--- NOTE | 2017-09-15 20:43 | NUR ---
Patient is resting comfortably in bed with eyes closed. Easily aroused. NAD. SAFETY MEASURES IN PLACE. CALL LIGHT WITHIN REACH.
--- NOTE | 2017-09-15 20:44 | NUR ---
CALLED NURSE SUP FOR TELE BED
--- NOTE | 2017-09-15 21:25 | NUR ---
PT TRANSP STABLE CONDITION. NAD
--- NOTE | 2017-09-15 21:35 | NUR ---
RN ADMITTING NOTES Pt ARRIVED TO THE FLOOR VIA GURNEY. NO S/S OF ACUTE DISTRESS OR SOB NOTED. Pt IS A/OX4, VERBAL, ABLE TO MAKE NEEDS KNOWN. IV ACCESS ON RAC #18G, SL. SAFETY MEASURES IN PLACE. BED LOW, LOCKED, HOB ELEVATED, SIDE RAILS UP, CALL LIGHT AND BEDSIDE TABLE WITHIN REACH. WILL CONTINUE TO MONITOR Pt THROUGHOUT THE NIGHT FOR SAFETY.
[2017-09-15 22:00] VITALS: BP 159/112
--- NOTE | 2017-09-15 22:00 | NUR ---
Pt's CAR IS PARKED IN THE ER PARKING LOT. Pt's CAR IS A [employer]. INFORMED SECURITY SO THAT IT WONT GET TOWED.
[2017-09-16] MEDS ORDERED: MAG HYDROX/AL HYDROX/SIMETH 30 ML UDC PO PRN (01:30)
[2017-09-16] MEDS ORDERED: MAGNESIUM HYDROXIDE 30 ML UDC PO PRN (01:30)
[2017-09-16] MEDS ORDERED: Z GUARD REMEDY 2 OZ OINT TP PRN (01:30)
[2017-09-16] MEDS ORDERED: ZOLPIDEM TARTRATE 5 MG TABLET PO PRN (01:30)
[2017-09-16 01:46] LABS: AMYLASE 15 U/L (25-115); LIPASE 148 U/L (73-393)
[2017-09-16] MEDS: HYDROCODONE/APAP 5/325MG 1 EACH TABLET PO PRN ×5 (02:26→22:01)
[2017-09-16] MEDS ORDERED: VANCOMYCIN 1 GM in IV NS 0.9% 250 ML IV ONE (02:30)
[2017-09-16] MEDS ORDERED: VANCOMYCIN 1 GM VIAL ONE (02:35)
[2017-09-16] MEDS ORDERED: LEVOFLOXACIN 250 MG /D5W 50 ML 50 ML IV ONE (02:35)
[2017-09-16] MEDS: LEVOFLOXACIN 250 MG /D5W 50 ML 250 MG in PREMIX 1 EA IV SCH (02:41)
[2017-09-16] MEDS: ACETAMINOPHEN 325 MG TABLET PO PRN ×3 (02:41→15:53)
[2017-09-16 03:51] VITALS: BP 158/103
[2017-09-16] MEDS: ONDANSETRON HCL/PF 4 MG/2 ML VIAL IVP PRN ×2 (06:22→12:18)
--- NOTE | 2017-09-16 06:30 | NUR ---
RN NOTES Pt VOMITED. C/O NAUSEA. ADMINISTERED PRN ZOFRAN 4MG.
--- NOTE | 2017-09-16 06:50 | NUR ---
RN CLOSING NOTES NO SIGNIFICANT CHANGES IN Pt's CONDITION. Pt REMAINS STABLE AT THIS TIME. NO S/S OF ACUTE DISTRESS OR SOB NOTED DURING THE NIGHT. ALL NEEDS MET AND ATTENDED TO. SAFETY MEASURES IN PLACE. BED LOW, LOCKED, HOB ELEVATED, SIDE RAILS UP, CALL LIGHT AND BEDSIDE TABLE WITHIN REACH. WILL ENDORSE TO DAYSHIFT RN FOR Pt's KRYSTA.
[2017-09-16] MEDS ORDERED: FEE PK DOSING 1 MIN EA MC ONE (07:42)
[2017-09-16 08:00] VITALS: BP 152/100
[2017-09-16] MEDS ORDERED: VANCOMYCIN 500 MG in IV D5W 100 ML IV PRN (08:00)
[2017-09-16] MEDS: CINACALCET HCL 30 MG TABLET PO SCH (08:41)
[2017-09-16] MEDS: DRONEDARONE HYDROCHLORIDE 400 MG TABLET PO SCH ×2 (08:42→16:58)
[2017-09-16] MEDS: ASPIRIN EC 81 MG TABLET.DR PO SCH (08:42)
[2017-09-16] MEDS: CARVEDILOL 6.25 MG TABLET PO SCH ×2 (08:42→21:52)
[2017-09-16] MEDS: SEVELAMER CARBONATE 800 MG TABLET PO SCH ×3 (08:42→16:57)
[2017-09-16] MEDS: APIXABAN 2.5 MG TABLET PO SCH ×2 (08:42→16:58)
--- NOTE | 2017-09-16 08:45 | NUR ---
MS RN NOTES PATIENT IN BED, A/O X4. ON ROOM AIR WITH NO SOB, DENIES PAIN. IVC IN RIGHT AC PATENT AND INTACT, FLUSHES WELL. CALL LIGHT WITHIN REACH, WILL CONT TO MONITOR.
[2017-09-16] MEDS ORDERED: diphenhydrAMINE HCL 25 MG CAPSULE PO PRN (10:30)
[2017-09-16] MEDS ORDERED: LIDOCAINE 5% OINT 35.44 GM TUBE TP PRN (10:30)
[2017-09-16 16:00] VITALS: BP 128/88
--- NOTE | 2017-09-16 18:45 | NUR ---
MS RN closing notes Patient is A/O x 4. Episode of vomiting x2, food residue, medicated with IV Zofran, N/V was resolved. Back pain managed by PRN Tylenol and PRN [place] with relief. Patient refusing dialysis treatment today, educated and teaching provided, risk and benefits explained, per patient he wants dialysis tomorrow. Episode of non productive cough, noted streak of minimal blood. Notified Dr. Friend, will collect sputum for culture. Dr. Friend was informed of patient refusal HD treatment. Will endorse to oncoming RN.
--- NOTE | 2017-09-16 19:30 | NUR ---
MS RN OPENING NOTES: RECEIVED PT AND IS SITTING UP IN BED. PT IS ON ROOM AIR. PT ASLEEP AT THIS TIME. PT HAS IV ON R AC #18G AND IS PATENT AND INTACT. CURRENTLY H/L. PT HAS L FOREARM AV FISTULA. CALL LIGHT WIHTIN PT'S REACH. BED KEPT IN LOW, LOCKED POSITION, AND SIDE RAILS X 2UP. WILL CONTINUE TO MONITOR PT.
[2017-09-16 20:00] VITALS: BP 135/81
--- NOTE | 2017-09-16 22:02 | NUR ---
MS RN NOTES: PT COMPLAINING OF 7/10 GENERALIZED PAIN. PT WAS ADMINISTERED NORCO 5. WILL CONTINUE TO MONITOR.
[2017-09-17] MEDS: HYDROCODONE/APAP 5/325MG 1 EACH TABLET PO PRN ×5 (02:05→21:23)
--- NOTE | 2017-09-17 06:15 | NUR ---
MS RN NOTES: PT COMPLAINING OF 7/10 GENERALIZED PAIN AND POINTING TO RIGHT SIDE OF HIS RIB SAYING "IT HURTS WHEN I COUGH OR WHEN I MOVE SIDE TO SIDE. MY LUNG IS SORE." PT REQUESTED FOR NORCO 5 AND WAS ADMINISTERED NORCO 5. WILL CONTINUE TO MONITOR PT.
--- NOTE | 2017-09-17 06:16 | NUR ---
MS RN NOTES: PT ASKED FOR PHONE TO BE CHARGED. PT'S "ANS" PHONE PLACED AT FITNESS PLAN COORDINATOR'S DESK AND CURRENTLY CHARGING. LABEL PLACED ON PHONE WELL.
--- NOTE | 2017-09-17 06:57 | NUR ---
MS RN CLOSING NOTES: ALL NEEDS WERE ATTENDED AND ANTICIPATED FOR. PT ON ROOM AIR AND TOLERATING WELL. HAS AV FISTULA LEFT FOREARM. PT HAS AV ON R AC #18G AND IS CURRENTLY H/L. CALL LIGHT WITHIN PT'S REACH. BED KEPT IN LOW, LOCKED POSITION, AND SIDE RAILS X 2UP. WILL ENDORSE TO AM NURSE FOR KRYSTA.
--- NOTE | 2017-09-17 07:15 | NUR ---
RN OPENING NOTES RECEIVED PT. PT IS STABLE AND RESTING IN BED. NO S/S OF RESP DISTRESS, ALTHOUGH PT REPORTS MILD PRODUCTIVE COUGH WITH CLEAR/WHITE SPUTUM. PT HAS NO C/O PAIN AT THIS TIME, HOWEVER PO NORCO GIVEN AT 0640. PT TO HAVE DIALYSIS TODAY, CONSENT FORM TO BE OBTAINED. SAFETY MEASURES IN PLACE, CALL LIGHT WITHIN REACH. WILL CONTINUE TO MONITOR.
[2017-09-17 07:31] LABS: EOSINOPHILS % (AUTO) 2.8 % (0.0-6.0); HEMATOCRIT 34 % (39-51); LYMPHOCYTES # (AUTO) 0.9 /CMM (0.8-4.8); LYMPHOCYTES % (AUTO) 8.5 % (20.0-44.0); MEAN CORPUSCULAR HEMOGLOBIN 29 PG (26.0-33.0); MEAN CORPUSCULAR HGB CONC 33 g/dl (31.0-36.0); MEAN CORPUSCULAR VOLUME 89 fL (80-96); MONOCYTES # (AUTO) 1.1 /CMM (0.1-1.30); MONOCYTES % (AUTO) 10.9 % (2.0-12.0); NEUTROPHILS % (AUTO) 77.8 % (43.0-81.0); PLATELET COUNT (AUTO) 98 /CMM (150-450); RDW COEFFICIENT OF VARIATION 17.6 (11.5-15.0); RED BLOOD CELL COUNT(AUTO) 3.78 MIL/uL (4.5-6.0); WHITE BLOOD COUNT (AUTO) 10.3 K/uL (4.3-11.0)
[2017-09-17 07:46] LABS: MAGNESIUM 2.5 mg/dL (1.8-2.4); PHOSPHORUS 5.5 mg/dL (2.5-4.9); POTASSIUM 5.1 mmol/L (3.5-5.1)
[2017-09-17 07:57] LABS: CREATININE 9.2 mg/dL (0.6-1.3)
[2017-09-17 08:00] VITALS: BP 153/87
[2017-09-17] MEDS: SEVELAMER CARBONATE 800 MG TABLET PO SCH ×3 (08:44→17:08)
[2017-09-17] MEDS: CINACALCET HCL 30 MG TABLET PO SCH ×2 (08:45→09:00)
[2017-09-17] MEDS: ASPIRIN EC 81 MG TABLET.DR PO SCH (08:45)
[2017-09-17] MEDS: CARVEDILOL 6.25 MG TABLET PO SCH ×2 (08:46→20:15)
[2017-09-17] MEDS: DRONEDARONE HYDROCHLORIDE 400 MG TABLET PO SCH ×2 (08:47→17:59)
[2017-09-17] MEDS: APIXABAN 2.5 MG TABLET PO SCH (08:48)
--- NOTE | 2017-09-17 09:50 | NUR ---
ADE HARRY NOTES ATTEMPTED TO REACH DR.SORA BATES REGARDING ARTERIAL RESULTS FOR LEFT FA , NOT ABLE TO CONTACT. FOLLOWED ORDERS PREVIOUSLY ORDERED FOR BLOOD CULTURES X2 PERIPHERAL Addendum: 09/18/17 at 0317 by EMY ZIMMERMAN RN CLARIFICATION ON TIME [id number]
[2017-09-17 10:13] LABS: LYMPHOCYTES % (MANUAL) 11 % (16-48); MONOCYTES % (MANUAL) 7 % (0-11.0); NEUTROPHILS % (MANUAL) 82 (42-76)
[2017-09-17] MEDS ORDERED: IPRATROPIUM NEB FS 0.5 MG/2.5 ML AMPUL.NEB NEB PRN (10:30)
[2017-09-17] MEDS ORDERED: ALBUTEROL FS 2.5 MG/0.5 ML VIAL.NEB NEB PRN (10:30)
[2017-09-17 16:00] VITALS: BP 130/78
[2017-09-17] MEDS ORDERED: NEPRO VAN 237 ML CAN PO PRN (17:00)
[2017-09-17] MEDS ORDERED: VANCOMYCIN 1 GM in IV D5W 250 ML IV ONE (18:00)
--- NOTE | 2017-09-17 19:25 | NUR ---
RN MS NOTES PATIENT NOTED WITH SWOLLEN AREA TO LEFT FA FISTULA SITE, NOTED WITH SCANT AMOUNT OF PURULENT DRAINAGE, YELLOW IN COLOR, SITE WAS CLEANSED AND COVERED WITH DRY 4X4. BRUIT REMAINS PRESENT TO SITE UPON INSPECTION.
--- NOTE | 2017-09-17 19:25 | NUR ---
RN MS OPENING NOTES RECEIVED PATIENT IN BED AWAKE ALERT AND ORIENTED X4 , RESPIRATIONS EVEN AND UNLABORED WITH EQUAL RISE AND FALL OF CHEST, PATIENT VERBALIZES PAIN HAS DECREASED 4/10 AND [facility] RIGHT NOW IS COMFORTABLE. IV SITE TO RIGHT AC #18 G, INTACT AND PATENT. NO REDNESS NO INFILTRATION PRESENT. NOTED PATIENT WITH DRY DRESSING TO LEFT FA AV FISTULA SITE. ORIENTED TO STAFF AND CALL LIGHT, SAFETY PRECAUTIONS IN PLACE, LOW BED AND LOCKED, BED ALARM IN PLACE PATIENT IS AWARE. NO COUGHING NOTED AT THIS TIME,DENIES NAUSEA AT THIS TIME ALL NEEDS ATTENDED REMAINS COMFORTABLE WILL CONTINUE TO MONITOR.
[2017-09-17 20:00] VITALS: BP 131/76
[2017-09-17 20:09] VITALS: BP 131/76
--- NOTE | 2017-09-17 21:24 | NUR ---
RN MS NOTES PATIENT COMPLAINT OF PAIN 5/10 TO BACK AREA AND AFFECTED LUNG AREA. REQUESTING FOR NORCO. VITAL SIGNS TAKEN NOTED BP 116/82,HR78,RR 17. PRN NORCO ORDERED GIVEN WILL CONTINUE TO MONITOR.
--- NOTE | 2017-09-17 21:57 | NUR ---
RN MS NOTES BLOOD CULTURE X 2 ORDERED PER MD ORDERED DR[address]SORA BATES
[2017-09-18] MEDS: HYDROCODONE/APAP 5/325MG 1 EACH TABLET PO PRN ×2 (01:40→05:05)
[2017-09-18] MEDS: LEVOFLOXACIN 250 MG /D5W 50 ML 250 MG in PREMIX 1 EA IV SCH (01:40)
--- NOTE | 2017-09-18 01:40 | NUR ---
RN MS NOTES PATIENT COMPLAINT OF PAIN TO BACK 6/10 AFTER REPOSITIONING, REQUESTING FOR NORCO. PRN ORDERED GIVEN. WILL CONTINUE TO MONITOR
--- NOTE | 2017-09-18 03:18 | NUR ---
RN MS CLOSING NOTES PATIENT IN BED SLEEPING BUT EASILY AROUSABLE, RESPIRATIONS EVEN AND UNLABORED WITH EQUAL RISE AND FALL OF CHEST, DENIES PAIN AT THIS TIME, IV TO RIGHT AC INTACT AND PATENT, IV ATB FLOWING ORDERED, NO REDNESS, NO INFILTRATION PRESENT, FLUIDS OFFERED TOLERATED, URINAL AT BEDSIDE, SAFETY PRECAUTIONS IN PLACE, LOW BED, AND LOCKED, BED ALARM IN PLACE, CALL LIGHT KEPT WITHIN REACH, PATIENT LEFT COMFORTABLE AND SAFE WILL ENDORSE TO NURSE FOR CONTINUITY OF CARE.
--- NOTE | 2017-09-18 03:26 | NUR ---
MS DANDY INITIAL NOTES RECEIVED REPORT FROM PREVIOUS NURSE EMY WHILE CHECKING THE PATIENT. HE'S RESTING WITH EYES CLOSED BUT AROUSE TO TOUCH. BREATHING EVEN AND NON0-LABORED, NOT IN ANY DISCOMFORT NOTED. KEPT HIM WARM AND COMFORTABLE AT ALL TIMES. PLACE CALL LIGHT AT REACH. BED ALARM SET FOR PATIENT SAFETY. WILL CONTINUE MONITORING.
--- NOTE | 2017-09-18 05:15 | NUR ---
MS DANDY NOTES PT CALLED AND ASKING FOR HIS PAIN MEDS, COMPLAINING OF BACK PAIN 08/20 . REPOSITION HIM FOR COMFORT. KEPT HIM WARM AND COMFORTABLE AT ALL TIMES. WILL CONTINUE TO MONITOR. PLACE CALL LIGHT AT REACH.
[2017-09-18 07:05] LABS: BASOPHILS % (AUTO) 0.1 % (0.0-2.0); EOSINOPHILS % (AUTO) 3.4 % (0.0-6.0); HEMATOCRIT 35 % (39-51); HEMOGLOBIN 11.4 g/dL (13.5-17.5); LYMPHOCYTES # (AUTO) 0.9 /CMM (0.8-4.8); LYMPHOCYTES % (AUTO) 10.3 % (20.0-44.0); MEAN CORPUSCULAR HEMOGLOBIN 30 PG (26.0-33.0); MEAN CORPUSCULAR HGB CONC 33 g/dl (31.0-36.0); MEAN CORPUSCULAR VOLUME 90 fL (80-96); MONOCYTES # (AUTO) 0.9 /CMM (0.1-1.30); MONOCYTES % (AUTO) 10.2 % (2.0-12.0); NEUTROPHILS # (AUTO) 6.7 /CMM (1.8-8.9); PLATELET COUNT (AUTO) 113 /CMM (150-450); RDW COEFFICIENT OF VARIATION 17.7 (11.5-15.0); RED BLOOD CELL COUNT(AUTO) 3.86 MIL/uL (4.5-6.0); WHITE BLOOD COUNT (AUTO) 8.9 K/uL (4.3-11.0)
[2017-09-18 07:16] LABS: CALCIUM, SERUM 8.2 mg/dL (8.5-10.1); MAGNESIUM 2.5 mg/dL (1.8-2.4); PHOSPHORUS 5.6 mg/dL (2.5-4.9); POTASSIUM 4.7 mmol/L (3.5-5.1)
[2017-09-18 07:20] LABS: CREATININE 8.2 mg/dL (0.6-1.3)
--- NOTE | 2017-09-18 07:41 | NUR ---
MS BULK STATION AGENT CLOSING NOTES PT BACK TO SLEEP AFTER MORNING CARE DONE. STABLE ARMANDO THE NIGHT AND SLEPT WELL AFTER PAIN MEDS GIVEN. ALL DUE MEDS GIVEN AND ALL NEEDS MET. HEPLOCK PATENT AND INTACT. NO SIGNS OF ANY ACUTE DISTRESS OR ANY DISCOMFORT NOTED. KEPT HIM WARM AND COMFORTABLE AT ALL TIMES. PLACE CALL LIGHT AT REACH. ENDORSE TO AM NURSE FOR CONTINUITY OF CARE.
--- NOTE | 2017-09-18 08:00 | NUR ---
MS ADE AM NOTES RECEIVED PT. PT IS STABLE AND RESTING IN BED. NO S/S OF RESP DISTRESS, PT REPORTS MILD PRODUCTIVE COUGH WITH OCCASIONAL BLOOD CLOT. SHOWED A TISSUE WITH SMALL BLOOD CLOT.PT HAS NO C/O PAIN OR DISTRESS AT THIS TIME, SEEN BY DR DEL BATES AND ORDERED CT OF LUE WITH CONTRAST DUE TO LFA AV FISTULA DRAINING PUS S/P HD.SAFETY MEASURES IN PLACE, CALL LIGHT WITHIN REACH. WILL CONTINUE TO MONITOR.
[2017-09-18 08:12] VITALS: BP 124/60
[2017-09-18] MEDS: SEVELAMER CARBONATE 800 MG TABLET PO SCH ×3 (08:59→17:03)
[2017-09-18] MEDS: CINACALCET HCL 30 MG TABLET PO SCH (09:00)
[2017-09-18] MEDS: DRONEDARONE HYDROCHLORIDE 400 MG TABLET PO SCH ×2 (09:00→17:03)
[2017-09-18] MEDS: VIT B CMPLX 3/FA/VIT C/BIOTIN 1 TAB TABLET PO SCH (09:00)
[2017-09-18] MEDS: CARVEDILOL 6.25 MG TABLET PO SCH ×2 (09:03→20:03)
[2017-09-18] MEDS ORDERED: NEPRO VAN 237 ML CAN PO PRN (09:30)
--- NOTE | 2017-09-18 13:20 | NUR ---
INSTRUCTED PT TO BE ON NPO AFTER LUNCH FOR THE CT OF LUE WITH CONTRAST.PT AGREED.CONSENT HAS BEEN SIGNED.
[2017-09-18] MEDS ORDERED: IOHEXOL-300 100 ML VIAL IV ONE (15:34)
[2017-09-18] MEDS ORDERED: IV NS 0.9% 250 ML IV ONE (15:34)
[2017-09-18] MEDS ORDERED: CT SWABBABLE VALVE TRANS SET 1 EA INFUS.SET MC ONE (15:34)
[2017-09-18 16:00] VITALS: BP 125/80
--- NOTE | 2017-09-18 16:05 | NUR ---
MS RN NOTES/ PT CAME BACK FROM CT SCAN PT CAME BACK FROM CT SCAN. HE WAS CALM AND COOPERATIVE. HE WAS INSTRUCTED THAT HE CAN EAT AND DRINK.
--- NOTE | 2017-09-18 17:36 | NUR ---
RN CLOSING NOTES: PATIENT IS AWAKE AND ALERT. HE IS ABLE TO MAKE NEEDS KNOWN AND ALL NEEDS WERE TENDED. AV FISTULA ON THE LEFT FOREARM, BRUIT CAN BE AUSCULTATED. IV ACCESS ON THE RIGHT AC 18G. CALL LIGHT WITHIN REACH, BED KEPT IN LOW, LOCKED POSITION, AND SIDE RAILS UP X2. WILL CONTINUE TO MONITOR AND WILL ENDORSE TO THE NEXT SHIFT FOR CONTINUITY OF CARE.
--- NOTE | 2017-09-18 19:10 | NUR ---
MS RN OPENING NOTE Patient was seen sleeping in bed but awoke easily to name. He is AAOx4, breathing on RA with no SOB, and currently no signs of acute distress. SL 18g IV in the right AC is intact and patent. AV fistula is in the left upper arm, cover with dressing that is clean, dry, and intact; positive bruit. Bed is in the low/locked position, two side rails up, and call simental with reach. Patient has no immediate needs or concerns at this time will continue to monitor.
[2017-09-18 20:00] VITALS: BP 128/75
--- NOTE | 2017-09-18 21:25 | NUR ---
MS RN CLOSING NOTE Patient remains in stable condition. Report given to Yasmin for continuity of care.
--- NOTE | 2017-09-18 21:30 | NUR ---
MS DANDY INITIAL NOTES RECEIVED REPORT FROM ANOTHER NURSE , SEEN PT IN BED ON SITTING POSITION WHILE WATCHING TV. DENIES ANY PAIN OR ANY DISCOMFORT. HE ASK FOR SANDWICH AND JUICE. EDDA GOT SOME FROM NURSING OFFICE THEN PATIENT STATED "THANK YOU ". KEPT HIM WARM AND COMFORTABLE AT ALL TIMES. WILL CONTINUE MONITORING.
--- NOTE | 2017-09-19 | NUR ---
MS DANDY NOTES PT SLEEPING COMFORTABLY IN BED WITHOUT ANY ACUTE DISTRESS NOTED. RESPIRATION EVEN AND UNLABORED. KEPT HIM WARM AND COMFORTABLE AT ALL TIMES. WILL CONTINUE TO MONITOR.PLACE CALL LIGHT AT REACH.
[2017-09-19 06:32] LABS: BASOPHILS % (AUTO) 0.2 % (0.0-2.0); EOSINOPHILS % (AUTO) 3.5 % (0.0-6.0); HEMATOCRIT 32 % (39-51); HEMOGLOBIN 10.4 g/dL (13.5-17.5); LYMPHOCYTES # (AUTO) 0.8 /CMM (0.8-4.8); LYMPHOCYTES % (AUTO) 10.2 % (20.0-44.0); MEAN CORPUSCULAR HEMOGLOBIN 29 PG (26.0-33.0); MEAN CORPUSCULAR HGB CONC 33 g/dl (31.0-36.0); MEAN CORPUSCULAR VOLUME 88 fL (80-96); MONOCYTES # (AUTO) 0.8 /CMM (0.1-1.30); MONOCYTES % (AUTO) 10.2 % (2.0-12.0); NEUTROPHILS # (AUTO) 5.9 /CMM (1.8-8.9); NEUTROPHILS % (AUTO) 75.9 % (43.0-81.0); PLATELET COUNT (AUTO) 125 /CMM (150-450); RDW COEFFICIENT OF VARIATION 17.4 (11.5-15.0); RED BLOOD CELL COUNT(AUTO) 3.63 MIL/uL (4.5-6.0); WHITE BLOOD COUNT (AUTO) 7.8 K/uL (4.3-11.0)
[2017-09-19 06:55] LABS: CALCIUM, SERUM 8.1 mg/dL (8.5-10.1); MAGNESIUM 2.5 mg/dL (1.8-2.4); POTASSIUM 4.8 mmol/L (3.5-5.1)
[2017-09-19 06:58] LABS: CREATININE 9.5 mg/dL (0.6-1.3)
--- NOTE | 2017-09-19 07:15 | NUR ---
MS SOCIAL MEDIA DEVELOPER CLOSING NOTES PT AWAKE AND ALERT WATCHING TV AT THIS TIME, DENIES ANY PAIN OR ANY DISCOMFORT . STABLE ARMANDO THE NIGHT AND SLEPT WELL. RESPIRATION EVEN AND NON-LABORED, KEPT HIM WARM AND COMFORTABLE AT ALL TIMES. DIALYSIS NURSE CAME AND STARTED TO SET UP THE TREATMENT. WILL ENDORSE TO AM NURSE FOR CONTINUITY OF CARE. PLACE CALL LIGHT
--- NOTE | 2017-09-19 07:45 | NUR ---
RN OPENING NOTES RECEIVED PT. IN BED A&OX4. PT. IS HAVING HEMODIALYSIS AT THE BEDSIDE. PT. IS BREATHING UNLABORED, AND EVENLY ON ROOM AIR. BED IS IN LOWEST, AND LOCKED POSITION. 2 SIDE RAILS UP, AND INSTRUCTED PT. TO USE CALL LIGHT FOR ASSISTANCE. ALL NEEDS MET. WILL CONTINUE TO ASSESS AND MONITOR.
[2017-09-19 08:00] VITALS: BP 134/81
[2017-09-19] MEDS: CINACALCET HCL 30 MG TABLET PO SCH (09:00)
[2017-09-19] MEDS: SEVELAMER CARBONATE 800 MG TABLET PO SCH ×3 (09:34→17:10)
[2017-09-19] MEDS: VIT B CMPLX 3/FA/VIT C/BIOTIN 1 TAB TABLET PO SCH (09:41)
[2017-09-19] MEDS: DRONEDARONE HYDROCHLORIDE 400 MG TABLET PO SCH ×2 (09:48→17:10)
[2017-09-19] MEDS: CARVEDILOL 6.25 MG TABLET PO SCH ×2 (09:49→20:47)
--- NOTE | 2017-09-19 10:00 | NUR ---
PT. HAD HEMODIALYSIS THIS MORNING. PER HD NURSING REPORT PT. HAD 2L REMOVED.
[2017-09-19 16:00] VITALS: BP 124/73
[2017-09-19] MEDS ORDERED: LEVOFLOXACIN (250MG) 250 MG TABLET PO SCH (18:30)
--- NOTE | 2017-09-19 19:30 | NUR ---
RN NOTES RECEIVED PATIENT IN BED AWAKE, AO X 3, ABLE TO MAKE NEEDS KNOWN. NO ACUTE DISTRESS NOTED. DENIES ANY PAIN AT THIS TIME. AFEBRILE. IV SITE PATENT, INTACT; FLUSHED. CRUZ AV SHUNT INTACT; NO PUS DRAINING NOTED. SAFETY REMINDERS GIVEN. ON LOW BED WITH BILATERAL UPPER SIDE RAILS UP. CALL MORFIN WITHIN EASY REACH. WILL CONTINUE TO MONITOR.
--- NOTE | 2017-09-19 19:44 | NUR ---
RN OPENING NOTES PT. IS IN BED A&OX4. PT. IS BREATHING UNLABORED, AND EVENLY ON ROOM AIR. BED IS IN LOWEST, AND LOCKED POSITION. 2 SIDE RAILS UP, AND INSTRUCTED PT. TO USE CALL LIGHT FOR ASSISTANCE. ALL NEEDS MET. Addendum: 09/19/17 at 1945 by DILAN ROJAS RN ERROR: PT.'S CLOSING NOTE
[2017-09-19 20:00] VITALS: BP 130/76
[2017-09-19 20:21] VITALS: BP 130/76
[2017-09-19] MEDS ORDERED: ZOLPIDEM TARTRATE 5 MG TABLET PO PRN (22:30)
--- NOTE | 2017-09-19 22:31 | NUR ---
RN NOTES RELAYED TO DR. CASH THAT PATIENT IS REQUESTING FOR SLEEPING PILL. DR. CASH ORDERED AMBIEN 5 MG PO HS PRN, NOTED AND CARRIED OUT.
--- NOTE | 2017-09-20 06:54 | NUR ---
RN NOTES PATIENT IN BED AWAKE. RESPIRATIONS EVEN. DENIES ANY PAIN AT THIS TIME. DUE MED GIVEN WITH NO ASE NOTED. NEEDS ATTENDED. SAFETY PRECAUTIONS AND COMFORT MEASURES IN PLACE. WILL GIVE REPORT TO DAY SHIFT FOR CONTINUITY OF CARE.
--- NOTE | 2017-09-20 07:15 | NUR ---
MS/RN OPENING NOTE PATIENT IS RECEIVED IN BED AWAKE. ALERT AND ORIENTED X4. DENIES SOB. RESPIRATION REGULAR AND UNLABORED. DENIES PAIN. PATIENT IN NO APPARENT DISTRESS. RAC G 18 PATENT AND SALINE LOCKED. BED LOW AND LOCKED. SIDE RAILS UP X3. CALL LIGHT WITHIN REACH. WILL CONTINUE TO MONITOR.
[2017-09-20 08:26] VITALS: BP 145/91
[2017-09-20] MEDS: DRONEDARONE HYDROCHLORIDE 400 MG TABLET PO SCH ×2 (09:05→18:09)
[2017-09-20] MEDS: SEVELAMER CARBONATE 800 MG TABLET PO SCH ×3 (09:05→18:09)
[2017-09-20] MEDS: VIT B CMPLX 3/FA/VIT C/BIOTIN 1 TAB TABLET PO SCH (09:06)
[2017-09-20] MEDS: CINACALCET HCL 30 MG TABLET PO SCH (09:06)
[2017-09-20] MEDS: CARVEDILOL 6.25 MG TABLET PO SCH (09:07)
[2017-09-20 16:37] VITALS: BP 148/98
--- NOTE | 2017-09-20 18:55 | NUR ---
MS/RN CLOSING NOTE PATIENT ALERT AND ORIENTED X4. DENIES SOB. RESPIRATION REGULAR AND UNLABORED. PATIENT IN NO APPARENT DISTRESS. RAC G 18 PATENT AND SALINE LOCKED. CRUZ AV SHUNT WITH NO S/S INFECTION AND POSITIVE FOR BRUIT AND THRILL. VERBAL CUES ARE GIVEN TO KEEP SAFETY AWARENESS HIGH. GOOD AND GENTLE SKIN CARE RENDERED. BED LOW AND LOCKED. SIDE RAILS UP X3. CALL LIGHT WITHIN REACH. WILL ENDORSE TO CIGARETTE LIGHTER REPAIRER.
--- NOTE | 2017-09-20 19:50 | NUR ---
BANK COMPLIANCE OFFICER NOTES Received patient in bed, alert and oriented, verbally responsive and able to make needs known. No c/o pain or discomfort as of this time Car keys and belongings was given to the patient, discharge instructions provided by morning shift RN, verbalized understanding. Discharge packet given to the patient. IV line discontinued, no bleeding noted. Assisted with dressing up.
== END 2017-09-20 20:50 | disposition home or self-care (01) | DRG 193 ==
LOC: ER 18:49 → TELE 21:17 → MED 09-16 02:26
PROVIDERS: ADMIT Internal Medicine; ATTEND Internal Medicine
PROC: 5A1D70Z Performance of Urinary Filtration, Intermittent, Less than 6 Hours Per Day (ICD-10-PCS; principal; 2017-09-16)
PROC: 5A1D70Z Performance of Urinary Filtration, Intermittent, Less than 6 Hours Per Day (ICD-10-PCS; 2017-09-17)
PROC: 5A1D70Z Performance of Urinary Filtration, Intermittent, Less than 6 Hours Per Day (ICD-10-PCS; 2017-09-19)
DX: J15.9 Unspecified bacterial pneumonia (principal); N18.6 End stage renal disease; I13.2 Hypertensive heart and chronic kidney disease with heart failure and with stage 5 chronic kidney disease, or end stage renal disease; I48.92 Unspecified atrial flutter; I25.10 Atherosclerotic heart disease of native coronary artery without angina pectoris; I48.91 Unspecified atrial fibrillation; N40.0 Benign prostatic hyperplasia without lower urinary tract symptoms; E78.5 Hyperlipidemia, unspecified; I50.9 Heart failure, unspecified; Z88.1 Allergy status to other antibiotic agents; Z99.2 Dependence on renal dialysis; Z95.1 Presence of aortocoronary bypass graft; Z87.01 Personal history of pneumonia (recurrent); Z79.82 Long term (current) use of aspirin; Z79.01 Long term (current) use of anticoagulants; Z79.899 Other long term (current) drug therapy; F42.9 Obsessive-compulsive disorder, unspecified; G47.33 Obstructive sleep apnea (adult) (pediatric); I25.2 Old myocardial infarction; D64.9 Anemia, unspecified; M85.9 Disorder of bone density and structure, unspecified
CPT/HCPCS: 36415; 71045-TC; 73201-TC; 80048-TC; 80061-TC; 80202-TC; 82150-TC; 83605-TC; 83690-TC; 83735-TC; 84100-TC; 84484-TC; 85025-TC; 87040-TC; 87070-TC; 87081-TC; 90935-TC; 93930-TC; 97116-TC; 97530-TC; A4216; A4606; A6403; J0696; J1170; J1956; J2405; J3370; J7050; J7060; Q9967; Z7610

== ENCOUNTER 2017-09-28 08:09 | Inpatient (IN) | payer MEDICARE, MEDICAID ==
[~2017-09-28] VITALS: Ht 193 cm; Wt 120.2 kg
--- NOTE | 2017-09-28 08:15 | NUR ---
AAOX3, CAME TO ER C/O SOB AND RIGHT UPPER BACK PAIN SINCE LAST NIGHT. RESP IS SLIGHTLY LABORED. SKIN IS WARM AND DRY. PLACED ON THE MONITOR AND HOSPITAL GOWN. AWAITING MD FOR EVAL.
--- NOTE | 2017-09-28 08:20 | NUR ---
ASSUME PT CARE. RESTING IN BED. PT IS C/O R SIDE CHEST WALL PAIN WORST WITH BREATHING. ALSO C/O NAUSEA SINCE LAST NIGHT. PT ON DIALYSIS. M/W/F. ON MONITOR. AWAITING MD CALLAHAN.
--- NOTE | 2017-09-28 08:40 | NUR ---
IV LINE STARTED BLOOD DRAWN AND SENT TO LAB.
--- NOTE | 2017-09-28 08:43 | NUR ---
DR DAY AT BEDSIDE FOR EVAL.
[2017-09-28] MEDS ORDERED: CARV12.52 PO (08:53)
[2017-09-28] MEDS ORDERED: OLME40TA12 PO (08:53)
[2017-09-28] MEDS ORDERED: LORA10TA7 PO (08:53)
[2017-09-28] MEDS ORDERED: APIX2.5T PO (08:53)
[2017-09-28] MEDS ORDERED: DRON400T2 PO (08:53)
[2017-09-28] MEDS ORDERED: MINO2.5T PO (08:53)
[2017-09-28] MEDS ORDERED: DIGO250T PO (08:53)
[2017-09-28] MEDS ORDERED: MORPHINE SULFATE INJ 2 MG/ML DISP.SYRIN ONE (08:56)
[2017-09-28] MEDS ORDERED: ONDANSETRON HCL/PF 4 MG/2 ML VIAL ONE ×2 (08:56→10:45)
--- NOTE | 2017-09-28 08:59 | NUR ---
RADIOLOGY AT BEDSIDE FOR CHEST XRAY.
--- NOTE | 2017-09-28 09:08 | NUR ---
PT C/O NAUSEA AND AND 7/[address] Fulton MADE AWARE. VERBAL ORDER FOR MORPHINE 4MG AND ZOFRAN 4MG IVP CARRIED OUT.
--- NOTE | 2017-09-28 09:28 | NUR ---
PT TO RADIOLOGY FOR CHEWST CT SCAN VIA [facility].
[2017-09-28] MEDS ORDERED: PIPERACILLIN /TAZOBACTAM 3.375 G in IV D5W 50 ML IV ONE (09:30)
[2017-09-28] MEDS ORDERED: VANCOMYCIN 1 GM in IV D5W 250 ML IV ONE (09:30)
[2017-09-28 09:33] LABS: BASOPHILS # (AUTO) 0.1 /CMM (0.0-0.2); BASOPHILS % (AUTO) 0.5 % (0.0-2.0); EOSINOPHILS % (AUTO) 2.5 % (0.0-6.0); HEMATOCRIT 35 % (39-51); LYMPHOCYTES # (AUTO) 0.9 /CMM (0.8-4.8); LYMPHOCYTES % (AUTO) 7.3 % (20.0-44.0); MEAN CORPUSCULAR HEMOGLOBIN 28 PG (26.0-33.0); MEAN CORPUSCULAR HGB CONC 32 g/dl (31.0-36.0); MEAN CORPUSCULAR VOLUME 89 fL (80-96); MONOCYTES # (AUTO) 0.7 /CMM (0.1-1.30); MONOCYTES % (AUTO) 5.7 % (2.0-12.0); NEUTROPHILS # (AUTO) 10.8 /CMM (1.8-8.9); PLATELET COUNT (AUTO) 137 /CMM (150-450); RDW COEFFICIENT OF VARIATION 16.6 (11.5-15.0); RED BLOOD CELL COUNT(AUTO) 3.87 MIL/uL (4.5-6.0); WHITE BLOOD COUNT (AUTO) 12.8 K/uL (4.3-11.0)
[2017-09-28 09:39] LABS: CALCIUM, SERUM 8.2 mg/dL (8.5-10.1); CREATININE 4.7 mg/dL (0.6-1.3); POTASSIUM 4.3 mmol/L (3.5-5.1)
[2017-09-28 09:46] LABS: ALBUMIN 3.7 g/dL (3.4-5.0); BILIRUBIN,DIRECT 0.5 mg/dL (0.0-0.2); BILIRUBIN,TOTAL 1.2 mg/dL (0.2-1.0); TOTAL PROTEIN, SERUM 7.7 g/dL (6.4-8.2); TROPONIN I 0.026 ng/mL (0.00-0.056)
[2017-09-28 09:56] LABS: INR 1.12 (0.87-1.13)
[2017-09-28] MEDS ORDERED: MORPHINE SULFATE INJ 2 MG/ML DISP.SYRIN IV ONE (10:00)
[2017-09-28] MEDS ORDERED: ONDANSETRON HCL/PF - ER 4 MG/2 ML VIAL IV ONE (10:00)
[2017-09-28] MEDS ORDERED: HYDROMORPHONE INJ 2 MG/ML DISP.SYRIN ONE (10:11)
--- NOTE | 2017-09-28 10:26 | NUR ---
PAGED [facility] NEPHROLOGY - ELECTRICIAN STATION ASSISTANT IS DR. DEL BATES
[2017-09-28] MEDS ORDERED: HYDROMORPHONE INJ 0.5 MG/0.5 ML SYRINGE IV ONE (10:30)
--- NOTE | 2017-09-28 10:52 | NUR ---
CALLED NURSE SUP FOR MED/SURG BED
[2017-09-28] MEDS ORDERED: ONDANSETRON HCL/PF 4 MG/2 ML VIAL IV ONE (11:00)
--- NOTE | 2017-09-28 11:38 | NUR ---
CALLED NURSE SUP FOR BED AGAIN
--- NOTE | 2017-09-28 11:58 | NUR ---
REPORT GIVEN TO WILBERT BOOKER. PT AWAITING TRANSFER TO FLOOR.
[2017-09-28 12:00] VITALS: BP 154/97
--- NOTE | 2017-09-28 12:00 | NUR ---
MS 2 RN ADMITTING NOTES ADMITTED PT FROM ER WITH C/O SOB AND RT UPPER BACK PAIN SINCE YESTERDAY,C/O NAUSEA WITH VOMITING X1 SINCE LAST NIGHT.WITH C/O RT SIDE CHEST PAIN.DX:PNA.PT ALERT AND ORIENTED X4.VERBALLY RESPONSIVE.DEMANDING.WITH O2 AT 2L/MIN VIA N/C.O2 SAT 96%.HOB ELEVATED.WITH CRUZ AV FISTULA FOR HD CATH AND RT WRIST H/L INTACT.AWAITING FOR DR DEL BATES FOR ADMITTING ORDERS.CALL LIGHT PLACED WITHIN REACH.
[2017-09-28 12:25] VITALS: BP 160/105
[2017-09-28] MEDS ORDERED: MORPHINE SULFATE INJ 2 MG/ML DISP.SYRIN IV PRN (13:00)
[2017-09-28] MEDS ORDERED: ALBUTEROL FS 2.5 MG/0.5 ML VIAL.NEB NEB PRN (13:00)
[2017-09-28] MEDS ORDERED: ACETAMINOPHEN 325 MG TABLET PO PRN (13:00)
[2017-09-28] MEDS ORDERED: IPRATROPIUM NEB FS 0.5 MG/2.5 ML AMPUL.NEB NEB PRN (13:00)
[2017-09-28] MEDS ORDERED: FEE PK DOSING 1 MIN EA MC ONE (13:08)
[2017-09-28] MEDS ORDERED: HYDROMORPHONE 1 MG/1 ML DISP.SYRIN IV PRN (13:30)
[2017-09-28 16:00] VITALS: BP 161/98
[2017-09-28] MEDS: HYDROCODONE/APAP 5/325MG 1 EACH TABLET PO PRN (16:30)
[2017-09-28] MEDS: CARVEDILOL 12.5 MG TABLET PO SCH (16:34)
[2017-09-28] MEDS ORDERED: PIPERACILLIN /TAZOBACTAM 2.25 G in IV NS 0.9% 50 ML IV SCH (18:00)
[2017-09-28] MEDS: APIXABAN 2.5 MG TABLET PO SCH (18:58)
[2017-09-28] MEDS: MINOXIDIL (2.5MG) 2.5 MG TABLET PO SCH (18:59)
[2017-09-28] MEDS: DRONEDARONE HYDROCHLORIDE 400 MG TABLET PO SCH (19:00)
--- NOTE | 2017-09-28 19:00 | NUR ---
PT IS SLEEPING COMFORTABLY AND DOESN'T WANT TO BE DISTURBED.NO S/S OF PAIN OR DISTRESS.NO SOB NOTED.
[2017-09-28 20:00] VITALS: BP 142/89
--- NOTE | 2017-09-28 20:00 | NUR ---
RN NOTES PATIENT IS ALERT AND ORIENTED X4, WITH DX OF PNA, NO COUGHING NOTED, SPO2 AT ROOM AIR 96%, COMPLAINING OF PAIN TO LEFT ARM, EXPLAINED TO PATIENT, NORCO IS NOT DUE YET. CRUZ AV FISTULA HAS NO BLEEDING, THRILL AND BRUIT NOTED. COMPLAINING OF NAUSEA WITHOUT EMESIS, WILL GIVE ZOFRAN IVP, MADE COMFORTABLE, CALL LIGHT WITHIN REACH.
[2017-09-28] MEDS: PIPERACILLIN /TAZOBACTAM 2.25 G in IV NS 0.9% 50 ML IV SCH (20:13)
[2017-09-28] MEDS: ONDANSETRON HCL/PF 4 MG/2 ML VIAL IV PRN (20:13)
[2017-09-28 22:00] VITALS: BP 142/89
[2017-09-28] MEDS: HYDROMORPHONE INJ 2 MG/ML DISP.SYRIN IV PRN (22:35)
[2017-09-29] MEDS: PIPERACILLIN /TAZOBACTAM 2.25 G in IV NS 0.9% 50 ML IV SCH ×3 (04:39→21:26)
--- NOTE | 2017-09-29 06:12 | NUR ---
RN NOTES PATIENT IS ALERT AND AWAKE, NO SOB, TOLERATING 2LPM VIA NC, COMPLAINING OF PAIN TO LOWER BACK AND RIGHT SIDED CHEST PAIN, PREFERS DILAUDID FOR PAIN MANAGEMENT, CRUZ AV SHUNT HAS NO BLEEDING, NO URINE OUTPUT DURING SHIFT, ON HD EVERY MWF, LAST HD WAS SATURDAY. PER PATIENT STILL PRODUCING URINE. ZOSYN IV GIVEN SCHEDULED. NEEDS ATTENDED, CALL LIGHT WITHIN REACH.
[2017-09-29 06:36] LABS: BASOPHILS % (AUTO) 0.1 % (0.0-2.0); EOSINOPHILS % (AUTO) 1.4 % (0.0-6.0); HEMATOCRIT 32 % (39-51); HEMOGLOBIN 10.2 g/dL (13.5-17.5); LYMPHOCYTES # (AUTO) 0.9 /CMM (0.8-4.8); MEAN CORPUSCULAR HEMOGLOBIN 28 PG (26.0-33.0); MEAN CORPUSCULAR HGB CONC 32 g/dl (31.0-36.0); MEAN CORPUSCULAR VOLUME 90 fL (80-96); MONOCYTES # (AUTO) 0.9 /CMM (0.1-1.30); MONOCYTES % (AUTO) 5.3 % (2.0-12.0); NEUTROPHILS # (AUTO) 15.4 /CMM (1.8-8.9); NEUTROPHILS % (AUTO) 88.2 % (43.0-81.0); PLATELET COUNT (AUTO) 127 /CMM (150-450); RDW COEFFICIENT OF VARIATION 17.1 (11.5-15.0); RED BLOOD CELL COUNT(AUTO) 3.62 MIL/uL (4.5-6.0); WHITE BLOOD COUNT (AUTO) 17.4 K/uL (4.3-11.0)
[2017-09-29] MEDS: HYDROMORPHONE INJ 2 MG/ML DISP.SYRIN IV PRN ×3 (06:41→16:31)
[2017-09-29 07:13] LABS: CALCIUM, SERUM 7.6 mg/dL (8.5-10.1); MAGNESIUM 2.3 mg/dL (1.8-2.4); PHOSPHORUS 5.3 mg/dL (2.5-4.9); POTASSIUM 4.9 mmol/L (3.5-5.1)
[2017-09-29 08:00] VITALS: BP 135/74
[2017-09-29] MEDS: DIGOXIN 0.25 MG TABLET PO SCH (09:25)
[2017-09-29] MEDS: CARVEDILOL 12.5 MG TABLET PO SCH ×2 (09:25→17:16)
[2017-09-29] MEDS: ASPIRIN EC 81 MG TABLET.DR PO SCH (09:25)
[2017-09-29] MEDS: LORATADINE 10 MG TABLET PO SCH (09:25)
[2017-09-29] MEDS: MINOXIDIL (2.5MG) 2.5 MG TABLET PO SCH ×2 (09:26→17:17)
[2017-09-29] MEDS: DRONEDARONE HYDROCHLORIDE 400 MG TABLET PO SCH ×2 (09:26→17:14)
[2017-09-29] MEDS: APIXABAN 2.5 MG TABLET PO SCH ×2 (09:27→17:13)
[2017-09-29] MEDS ORDERED: VANCOMYCIN 500 MG in IV D5W 100 ML IV PRN (13:30)
[2017-09-29 16:00] VITALS: BP 130/70
[2017-09-29] MEDS: HYDROCODONE/APAP 5/325MG 1 EACH TABLET PO PRN (17:43)
--- NOTE | 2017-09-29 18:29 | NUR ---
MS2RN OPENING NOTES. PT RECEIVED A&0X3 WITH O2 VIA NC AT 2LPM. PT REPORTS R LOWER CHEST PAIN WITH DEEP INSPIRATION. PT WITH IVC R WRIST INTACT AND SALINE FLUSH PATENT AND HD FISTULA AT L AV. PT BED IN LOWEST LOCKED POSITION WITH HANDRILSX2 AND CALL MORFIN WITHIN REACH. PT BRIEFED ON TODAY'S POC AND IS WITHOUT CONCERN OR COMPLAINT AT THIS TIME.
[2017-09-29 20:00] VITALS: BP 101/50
--- NOTE | 2017-09-29 20:00 | NUR ---
RN NOTES RECEIVED PATIENT UP ON CHAIR, ALERT AND ORIENTED X4, ON 2LPM VIA NC, NO SOB, NO DISTRESS, NO COMPLAIN OF PAIN, LEFT AV SHUNT HAS NO BLEEDING, OPEN TO AIR, THRILL AND BRUIT NOTED, REQUIRES ONE PERSON ASSIST TO TRANSFER FROM CHAIR TO BED. TRACED EDEMA TO BABATUNDE LOWER EXTREMITIES. NEEDS ATTENDED, CALL LIGHT WITHIN REACH.
[2017-09-29 22:00] VITALS: BP 101/50
[2017-09-30] MEDS: HYDROMORPHONE INJ 2 MG/ML DISP.SYRIN IV PRN (01:31)
[2017-09-30] MEDS: ONDANSETRON HCL/PF 4 MG/2 ML VIAL IV PRN (02:19)
[2017-09-30] MEDS: PIPERACILLIN /TAZOBACTAM 2.25 G in IV NS 0.9% 50 ML IV SCH ×3 (04:45→21:54)
--- NOTE | 2017-09-30 06:57 | NUR ---
RN NOTES PATIENT IS ALERT AND ORIENTED X4, NO DISTRESS, TOLERATING 2LPM VIA NC, SPO2 96%, COMPLAINED OF RIGHT SIDED CHEST PAIN, NOT RELATED TO CARDIAC, CHRONIC LOWER BACK PAIN, GIVEN DILAUDID, LEFT AV SHUNT NO BLEEDING AND OPEN TO AIR, ALL MEDICATIONS GIVEN, NO ADVERSE SIDE EFFECTS, ALL NEEDS ATTENDED, CALL LIGHT WITHIN REACH.
[2017-09-30 07:10] LABS: BASOPHILS % (AUTO) 0.1 % (0.0-2.0); EOSINOPHILS % (AUTO) 3.7 % (0.0-6.0); HEMATOCRIT 31 % (39-51); HEMOGLOBIN 9.8 g/dL (13.5-17.5); LYMPHOCYTES # (AUTO) 0.9 /CMM (0.8-4.8); LYMPHOCYTES % (AUTO) 7.6 % (20.0-44.0); MEAN CORPUSCULAR HEMOGLOBIN 28 PG (26.0-33.0); MEAN CORPUSCULAR HGB CONC 32 g/dl (31.0-36.0); MEAN CORPUSCULAR VOLUME 89 fL (80-96); MONOCYTES # (AUTO) 1.1 /CMM (0.1-1.30); NEUTROPHILS # (AUTO) 9.4 /CMM (1.8-8.9); NEUTROPHILS % (AUTO) 79.6 % (43.0-81.0); PLATELET COUNT (AUTO) 123 /CMM (150-450); RDW COEFFICIENT OF VARIATION 16.9 (11.5-15.0); RED BLOOD CELL COUNT(AUTO) 3.45 MIL/uL (4.5-6.0); WHITE BLOOD COUNT (AUTO) 11.8 K/uL (4.3-11.0)
--- NOTE | 2017-09-30 07:20 | NUR ---
MS2RN, PT A&0X3, WATCHING T.V, PT WITH O2 SUPPORT VIA NC A 2LPM AND DENIES SOB.PT REPORTS LOWER RIGHT SIDED PAIN WITH DEEP INHALATION. PT WITH IVC INTACT AND SALINE FLUSH PATENT. PT BED IN LOWEST LOCKED POSITION WITH HANDRAILSX2 CALL MORFIN WITHIN REACH. PT BRIEFED ON TODAY'S POC AND IS WITHOUT CONCERN OR COMPLAINT AT THIS TIME.
[2017-09-30 07:25] LABS: CALCIUM, SERUM 7.7 mg/dL (8.5-10.1); MAGNESIUM 2.6 mg/dL (1.8-2.4); PHOSPHORUS 7.1 mg/dL (2.5-4.9)
[2017-09-30 07:27] LABS: CREATININE 7.7 mg/dL (0.6-1.3)
[2017-09-30 08:00] VITALS: BP 93/50
[2017-09-30] MEDS: CARVEDILOL 12.5 MG TABLET PO SCH ×2 (08:39→17:00)
[2017-09-30] MEDS: DIGOXIN 0.25 MG TABLET PO SCH (08:40)
[2017-09-30] MEDS: MINOXIDIL (2.5MG) 2.5 MG TABLET PO SCH ×2 (08:40→17:00)
[2017-09-30] MEDS: ASPIRIN EC 81 MG TABLET.DR PO SCH (08:47)
[2017-09-30] MEDS: LORATADINE 10 MG TABLET PO SCH (08:47)
[2017-09-30] MEDS: DRONEDARONE HYDROCHLORIDE 400 MG TABLET PO SCH ×2 (08:51→17:16)
[2017-09-30] MEDS: APIXABAN 2.5 MG TABLET PO SCH ×2 (08:51→17:03)
[2017-09-30] MEDS: MUPIROCIN OINT 2% 22 GM TUBE SCH ×2 (08:51→17:00)
[2017-09-30] MEDS: HYDROCODONE/APAP 5/325MG 1 EACH TABLET PO PRN ×2 (10:18→23:35)
[2017-09-30 16:00] VITALS: BP 104/52
--- NOTE | 2017-09-30 18:56 | NUR ---
MS2RN. PT MOVED TO 203-1 R/T WATER NOT WORKING IN PT BATHROOM AND HD NOT AVAILABLE IN ROOM.
--- NOTE | 2017-09-30 18:57 | NUR ---
MS2RN CLOSING. PT REMAINS A&0X3, PT REFUSING O2 VIA NC AT THIS TIME AND TOLERATING ROOM AIR WITHOUT DISTRESS, NC AT BEDSIDE. WITHOUT S/S DISTRESS OR DISCOMFORT, PT DENIES PAIN AT THIS TIME. PT WITH IVC INTACT AND SL. PT WITH HD IN PROGRSS. PT BED IN LOWEST LOCKED POSITION WITH HANDRAILSX2 CALL MORFIN WITHIN REACH. ALL DAY NURSE DUTIES ATTENDED TO AND PT IS WITHOUT CONCERN OR COMPLAINT. WILL ENDORSE TO NIGHT NURSE AT BEDSIDE FOR KRYSTA.
--- NOTE | 2017-09-30 19:38 | NUR ---
MS/RN PATIENT IS AWAKE, ALERT, ORIENTED, COMFORTABLE, NO C/O PAIN, NO DISTRESS NOTED, WILL MONITOR.
[2017-09-30 20:00] VITALS: BP 109/52
--- NOTE | 2017-09-30 20:44 | NUR ---
MS/RN HD DONE, 1 LITER OUTPUT, NO CHANGE IN CONDITION. VITAL SIGNS STABLE.
--- NOTE | 2017-10-01 01:38 | NUR ---
MS/RN PATIENT IS SLEEPING, AROUSABLE, APPEAR COMFORTABLE, NO SIGNS OF DISTRESS NOTED, CALL LIGHT IN REACH. WILL CONTINUE TO MONITOR.
[2017-10-01] MEDS: PIPERACILLIN /TAZOBACTAM 2.25 G in IV NS 0.9% 50 ML IV SCH ×2 (05:10→12:37)
[2017-10-01] MEDS: HYDROMORPHONE 1 MG/1 ML DISP.SYRIN IV PRN ×3 (05:16→14:01)
--- NOTE | 2017-10-01 06:56 | NUR ---
MS/RN PATIENT IS AWAKE AT THIS TIME, COMFORTABLE, NO DISTRESS NOTED, ALL NEEDS ATTENDED AT THIS TIME. WILL CONTINUE TO MONITOR.
[2017-10-01 07:41] LABS: CALCIUM, SERUM 8.2 mg/dL (8.5-10.1); POTASSIUM 4.8 mmol/L (3.5-5.1)
[2017-10-01 07:42] LABS: CREATININE 7.5 mg/dL (0.6-1.3)
[2017-10-01 08:00] VITALS: BP 147/78
--- NOTE | 2017-10-01 08:00 | NUR ---
MS2RN, PT A&0X3, WATCHING T.V, PT WITH O2 SUPPORT VIA NC A 2LPM AND DENIES SOB.AMBULATED WITH P.T. WITH FWW.PT WITH IVC INTACT AND SALINE FLUSH PATENT. PT BED IN LOWEST LOCKED POSITION WITH HANDRAILSX2 CALL MORFIN WITHIN REACH.
[2017-10-01] MEDS: ASPIRIN EC 81 MG TABLET.DR PO SCH (08:47)
[2017-10-01] MEDS: DRONEDARONE HYDROCHLORIDE 400 MG TABLET PO SCH (08:47)
[2017-10-01] MEDS: LORATADINE 10 MG TABLET PO SCH (08:47)
[2017-10-01] MEDS: CARVEDILOL 12.5 MG TABLET PO SCH (08:47)
[2017-10-01] MEDS: MINOXIDIL (2.5MG) 2.5 MG TABLET PO SCH (08:48)
[2017-10-01] MEDS: DIGOXIN 0.25 MG TABLET PO SCH (08:48)
[2017-10-01] MEDS: APIXABAN 2.5 MG TABLET PO SCH (08:50)
[2017-10-01] MEDS: MUPIROCIN OINT 2% 22 GM TUBE SCH (08:56)
[2017-10-01 16:00] VITALS: BP 104/52
--- NOTE | 2017-10-01 16:40 | NUR ---
DISCHARGED PT HOME WITH STABLE V/S.DISCHARGE INSTRUCTIONS,PT'S HOME MEDS,BELONGINGS AND PRESCRIPTIONS GIVEN TO THE PT.IV H/L REMOVED TO RT WRIST WITHOUT BLEEDING NOTED.DENIES ANY PAIN OR DISTRESS.PT WILL AND IS ABLE TO DRIVE HIMSELF HOME.HIS CAR IS PARKED IN OUR HOSPITAL PARKING LOT.PT WAS WHEELED TO HIS CAR WITH HIS BELONGINGS AND RX.
== END 2017-10-01 16:40 | disposition home or self-care (01) | DRG 177 ==
LOC: ER 08:13 → MEDSG2 11:48
PROVIDERS: ADMIT Internal Medicine Nephrology; ATTEND Internal Medicine Nephrology
DX: J15.6 Pneumonia due to other Gram-negative bacteria (principal); N18.6 End stage renal disease; I13.2 Hypertensive heart and chronic kidney disease with heart failure and with stage 5 chronic kidney disease, or end stage renal disease; I48.92 Unspecified atrial flutter; J44.1 Chronic obstructive pulmonary disease with (acute) exacerbation; J44.0 Chronic obstructive pulmonary disease with (acute) lower respiratory infection; R18.8 Other ascites; J15.9 Unspecified bacterial pneumonia; I48.91 Unspecified atrial fibrillation; I50.9 Heart failure, unspecified; I25.10 Atherosclerotic heart disease of native coronary artery without angina pectoris; E11.22 Type 2 diabetes mellitus with diabetic chronic kidney disease; Z79.82 Long term (current) use of aspirin; Z79.899 Other long term (current) drug therapy; Z99.2 Dependence on renal dialysis; Z87.01 Personal history of pneumonia (recurrent); Z95.1 Presence of aortocoronary bypass graft; Z87.891 Personal history of nicotine dependence; Z79.01 Long term (current) use of anticoagulants; Z88.1 Allergy status to other antibiotic agents; Z98.890 Other specified postprocedural states; M85.9 Disorder of bone density and structure, unspecified; D64.9 Anemia, unspecified; E78.5 Hyperlipidemia, unspecified; K21.9 Gastro-esophageal reflux disease without esophagitis; Z22.322 Carrier or suspected carrier of Methicillin resistant Staphylococcus aureus; G47.33 Obstructive sleep apnea (adult) (pediatric); F42.9 Obsessive-compulsive disorder, unspecified; N40.0 Benign prostatic hyperplasia without lower urinary tract symptoms
CPT/HCPCS: 36415; 71045-TC; 71250-TC; 80048-TC; 80076-TC; 80162-TC; 80202-TC; 83605-TC; 83735-TC; 84100-TC; 84484-TC; 85025-TC; 85610-TC; 86850-TC; 87040-TC; 87081-TC; 90935-TC; 97110-TC; 97116-TC; 97530-TC; A4216; A4606; C1751; J1170; J2270; J2405; J2543; J3370; J7050; J7060; Z7610

== ENCOUNTER 2017-10-04 21:51 | Inpatient (IN) | payer MEDICARE, MEDICAID ==
[~2017-10-04] VITALS: Ht 193 cm; Wt 118.8 kg
[~2017-10-04 21:51] MED LIST changes: +CARV12.52 PO; -CARV6.252 PO; -CINA30TA2 PO; +DIGO250T PO; +LORA10TA7 PO; +MINO2.5T PO; +OLME40TA12 PO; -SEVE800T8 PO
--- NOTE | 2017-10-04 21:56 | NUR ---
PT TO ER BED 4. 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 PT SPEAKING IN FULL SENTENCE. PT PLACED ON SCRIPT EDITOR. VSS/RESP EVEN UNLABORED/NAD NOTED/SKIN WARM AND DRY/AFEBRILE/DENIES N-V-D/AOX4. AWAITNG MD CALLAHAN.
[2017-10-04] MEDS ORDERED: ALBUTEROL FS 2.5 MG/3 ML VIAL.NEB ONE (22:25)
--- NOTE | 2017-10-04 22:26 | NUR ---
RT AT BEDSIDE FOR RON RONDON
--- NOTE | 2017-10-04 22:26 | NUR ---
EMT AT BEDSIDE FOR EKG.
[2017-10-04] MEDS ORDERED: ALBUTEROL FS 2.5 MG/3 ML VIAL.NEB NEB ONE (22:30)
--- NOTE | 2017-10-04 22:34 | NUR ---
XRAY AT BEDSIDE.
--- NOTE | 2017-10-04 22:45 | NUR ---
18G IV TO R AC X 1 ATTEMPT USING ASEPTIC TECH, BLOOD HANDED OVER TO THE LAB AT BEDSIDE. IV FLUSHES EASILY WITH NS, NO S/S INFILTRATION NOTED AT THIS TIME.
[2017-10-04 22:52] LABS: BASOPHILS # (AUTO) 0.1 /CMM (0.0-0.2); BASOPHILS % (AUTO) 0.8 % (0.0-2.0); EOSINOPHILS % (AUTO) 6.7 % (0.0-6.0); HEMATOCRIT 31 % (39-51); HEMOGLOBIN 10.1 g/dL (13.5-17.5); LYMPHOCYTES # (AUTO) 0.7 /CMM (0.8-4.8); LYMPHOCYTES % (AUTO) 10.9 % (20.0-44.0); MEAN CORPUSCULAR HEMOGLOBIN 29 PG (26.0-33.0); MEAN CORPUSCULAR HGB CONC 33 g/dl (31.0-36.0); MEAN CORPUSCULAR VOLUME 88 fL (80-96); MONOCYTES # (AUTO) 0.8 /CMM (0.1-1.30); MONOCYTES % (AUTO) 11.1 % (2.0-12.0); NEUTROPHILS # (AUTO) 4.8 /CMM (1.8-8.9); NEUTROPHILS % (AUTO) 70.5 % (43.0-81.0); PLATELET COUNT (AUTO) 163 /CMM (150-450); RDW COEFFICIENT OF VARIATION 16.6 (11.5-15.0); RED BLOOD CELL COUNT(AUTO) 3.53 MIL/uL (4.5-6.0); WHITE BLOOD COUNT (AUTO) 6.8 K/uL (4.3-11.0)
[2017-10-04 23:07] LABS: CALCIUM, SERUM 8.4 mg/dL (8.5-10.1); CREATININE 4.1 mg/dL (0.6-1.3); POTASSIUM 3.4 mmol/L (3.5-5.1)
[2017-10-04 23:13] LABS: TROPONIN I 0.049 ng/mL (0.00-0.056)
[2017-10-04] MEDS ORDERED: PIPERACILLIN /TAZOBACTAM 3.375 G in IV D5W 50 ML IV ONE (23:30)
[2017-10-05] VITALS (8 sets, daily range): BP systolic 120–173; BP diastolic 70–96
[2017-10-05] MEDS ORDERED: PIPERACILLIN /TAZOBACTAM 3.375 G VIAL IV ONE (00:43)
--- NOTE | 2017-10-05 01:00 | NUR ---
REPORT GIVEN TO ADE DOW FOR KRYSTA. PT TBA TELE 304.2.
--- NOTE | 2017-10-05 01:35 | NUR ---
ADMISSION NOTES: RECEIVED REPORT FROM PAULO BOOKER, PT ADMITTED UNDER DR DIVINA GOODRICH. PT CAME IN FOR SOB AFTER HD, BROUGHT TO THE UNIT VIA GURNEY, PLACED ON 3L NC RESPIRATION EVEN NOTED WITH WHEEZING. PLACED ON TELE MONITORING ON SINUS RHYTHM HR 82. LEFT FOREARM HD ACCESS COVERED WITH DRESSING. RIGHT AC IV ACCESS PATENT AND FLUSHING WELL, ON HL. FREE FROM REDNESS OR INFILTRATION. ORIENTED TO UNIT POLICY AND HOURLY ROUNDING. PT DENIES ANY HISTORY OF MRSA. INVENTORY OF BELONGINGS COMPLETED BY CARLI MARTINEZ. PT ALREADY REQUESTING FOR DILAUDID FOR HIS LOWER BACK PAIN. WILL CALL MD THERE IS NO PRN PAIN MEDS ORDERED. VS TAKEN AND RECORDED. SAFETY PRECAUTIONS FOR FALL INITIATED, CALL LIGHT IN REACH, WILL CONTINUE MONITORING PT.
--- NOTE | 2017-10-05 01:36 | NUR ---
RN NOTES: PT UNABLE TO RECALL HOW MUCH FLUID WAS REMOVED FROM DIALYSIS 10/04/17
--- NOTE | 2017-10-05 01:37 | NUR ---
RN NOTES: CONTACTED DR MURCIA REGARDING PATIENT'S C/O EXCRUCIATING LOWER BACK PAIN 11/20, PER MD TO GIVE DILAUDID 1MG IVP Q3HR PRN FOR PAIN, ALSO TO CONTINUE ALL HOME MEDICATIONS
--- NOTE | 2017-10-05 01:37 | NUR ---
PT TO TELE 304.2 VIA STRETCHER ON PEDIATRIC IMMUNOLOGIST WITH RN PER ACLS PROTOCOL. VSS. PT REFUSED TO WEAR HOSPITAL GOWN.
--- NOTE | 2017-10-05 01:38 | NUR ---
RN NOTES/CONTINUATION: INFORMED FOREST WORKER MD DR MURCIA REGARDING PT ADMISSION FOR PNEUMONIA AND CHF, THERE IS NO IV ATB ORDER ASIDE FROM ZOSYN GIVEN IN ER, NO NEW ORDERS RECEIVED
[2017-10-05] MEDS: HYDROMORPHONE INJ 2 MG/ML DISP.SYRIN IV PRN ×2 (01:49→08:10)
--- NOTE | 2017-10-05 01:49 | NUR ---
PRN DILAUDID: PT C/O 10/21 LOWER BACK PAIN REQUESTING FOR DILAUDID, PRN DILAUDID 1MG IVP ADMINISTERED TO THE PT AT THIS TIME. VS TAKEN AND RECORDED 173/96 HR 93 RR 18, SPO2 97%. WILL CONTINUE TO MONITOR AND REASSESS
--- NOTE | 2017-10-05 02:00 | NUR ---
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
--- NOTE | 2017-10-05 02:41 | NUR ---
SKIN ASSESSMENT: SKIN CHECKED PERFORMED, NO SKIN ISSUES NOTED, ABDOMINAL HERNIA NOTED, BUT CLOSED, NO OPENINGS/WOUND OR REDNESS NOTED.
--- NOTE | 2017-10-05 02:57 | NUR ---
RN NOTES: MD HEATING UNIT INSTALLER MADE AWARE OF PATIENT'S K LEVEL 3.4 AND HAS NO ORDER FOR BREATHING TREATMENT, NO ORDERS RECEIVED FROM MD, STATED PT IS DIALYSIS IT WILL BE ADJUSTED IN DIALYSATE
[2017-10-05] MEDS ORDERED: HOME MED MISCELLANEOUS XX SCH (03:00)
--- NOTE | 2017-10-05 03:44 | NUR ---
RN NOTES: PT CALLED C/O HEAD ACHE, INFORMED PT HE JUST RECEIVED DILAUDID, CHECKED PT'S SPO2 93% ON RA, PT REMOVED HIS OXYGEN, ENCOURAGE AND EDUCATE PT TO USE OXYGEN, HE STATED IF HE COULD GET AN ORDER FOR INHALER PUFF/ALBUTEROL, HE STATED HE DOESNT WANT ALBUTEROL BREATHING TREATMENT GIVEN BY RT BECAUSE ITS TOO COMPLICATED, WILL PAGED TECHNOLOGY SOLUTIONS ARCHITECT
--- NOTE | 2017-10-05 03:55 | NUR ---
RN NOTES: PAGED NEPHRO TRIMMER MEAT REGARDING PT'S REQUEST FOR INHALER, AWAITING CALL BACK
--- NOTE | 2017-10-05 04:30 | NUR ---
RN NOTES: PLACED 2ND CALL TO MD AWAITING CALLBACK
--- NOTE | 2017-10-05 05:12 | NUR ---
RN NOTES: PT SLEEPING AT THIS TIME, NO WHEEZING NOTED, 96% ON 3L NC CURRENTLY SINUS TACHYCARDIA 113
--- NOTE | 2017-10-05 06:20 | NUR ---
RN NOTES: PLACED 3RD CALL TO RISK CONTROL MANAGER MD AWAITING FOR CALLBACK
--- NOTE | 2017-10-05 06:51 | NUR ---
RN CLOSING NOTES: PT IN BED, SLEEPING, RESPIRATION EVEN AND UNLABORED, SPO2 95%, REMAINS ON TELE MONITORING SINUS TACHYCARDIA HR 113. STILL WAITING FOR MD TO CALLBACK. DRUPAL PHP DEVELOPER AWARE. IV ACCESS REMAINS PATENT AND FLUSHING WELL, WITHOUT ANY S/S OF INFILTRATION OR REDNESS NOTED. PT CONTINUE TO REFUSED SCD DESPITE GIVING EDUCATION. VS REMAINS STABLE, NEEDS ATTENDED. SAFETY PRECAUTIONS FOR FALL REMAINS ENGAGED, CALL LIGHT IN REACH,WILL ENDORSE TO DAY RN FOR CONTINUITY OF CARE.
[2017-10-05 07:10] LABS: CALCIUM, SERUM 7.6 mg/dL (8.5-10.1); CREATININE 4.7 mg/dL (0.6-1.3); POTASSIUM 3.9 mmol/L (3.5-5.1)
[2017-10-05 07:20] LABS: BASOPHILS # (AUTO) 0.1 /CMM (0.0-0.2); BASOPHILS % (AUTO) 0.9 % (0.0-2.0); EOSINOPHILS % (AUTO) 6.8 % (0.0-6.0); HEMATOCRIT 32 % (39-51); HEMOGLOBIN 10.2 g/dL (13.5-17.5); LYMPHOCYTES # (AUTO) 0.9 /CMM (0.8-4.8); LYMPHOCYTES % (AUTO) 12.9 % (20.0-44.0); MEAN CORPUSCULAR HEMOGLOBIN 28 PG (26.0-33.0); MEAN CORPUSCULAR HGB CONC 32 g/dl (31.0-36.0); MEAN CORPUSCULAR VOLUME 88 fL (80-96); MONOCYTES # (AUTO) 0.9 /CMM (0.1-1.30); MONOCYTES % (AUTO) 12.1 % (2.0-12.0); NEUTROPHILS # (AUTO) 4.7 /CMM (1.8-8.9); NEUTROPHILS % (AUTO) 67.3 % (43.0-81.0); PLATELET COUNT (AUTO) 143 /CMM (150-450); RDW COEFFICIENT OF VARIATION 17.2 (11.5-15.0); RED BLOOD CELL COUNT(AUTO) 3.61 MIL/uL (4.5-6.0)
--- NOTE | 2017-10-05 07:20 | NUR ---
TELE/RN OPENING NOTE PATIENT ALERT AND ORIENTED X4. DENIES SOB. RESPIRATION REGULAR AND UNLABORED. PATIENT IN ROOM AIR. DENIES PAIN. EXTERNAL MONITOR ON AND READING IS SR96. PATIENT IN NO APPARENT DISTRESS. RAC G 18 PATENT AND SALINE LOCKED. BED LOW AND LOCKED. SIDE RAILS UP X3. CALL LIGHT WITHIN REACH. WILL CONTINUE TO MONITOR.
[2017-10-05] MEDS: ASPIRIN EC 81 MG TABLET.DR PO SCH (08:25)
[2017-10-05] MEDS: LORATADINE 10 MG TABLET PO SCH (08:26)
[2017-10-05] MEDS: LOSARTAN POTASSIUM 50 MG TABLET PO SCH (08:26)
[2017-10-05] MEDS: MINOXIDIL (2.5MG) 2.5 MG TABLET PO SCH ×2 (08:27→18:13)
[2017-10-05] MEDS: CARVEDILOL 12.5 MG TABLET PO SCH ×2 (08:27→21:02)
[2017-10-05] MEDS: DRONEDARONE HYDROCHLORIDE 400 MG TABLET PO SCH ×2 (08:28→18:13)
[2017-10-05] MEDS: APIXABAN 2.5 MG TABLET PO SCH ×2 (08:32→18:13)
[2017-10-05] MEDS ORDERED: ONDANSETRON HCL/PF 4 MG/2 ML VIAL IV PRN (09:30)
--- NOTE | 2017-10-05 09:40 | NUR ---
TELE/RN NOTE RECEIVED TELEPHONE CALL FROM DR MURCIA WITH NEW ORDER. THE ORDERS ARE READ BACK, VERIFIED. NOTED AND CARRIED OUT.
[2017-10-05] MEDS ORDERED: ALBUTEROL SULFATE 8 GM HFA.AER.AD IH PRN (10:00)
--- NOTE | 2017-10-05 10:08 | NUR ---
TELE/RN NOTE DUE TO PHARM DOES NOT HAVE VENTOLIN , DR MURCIA IS MADE AWARE AND NEW ORDER IS RECEIVED. NOTED AND CARRIED OUT.
--- NOTE | 2017-10-05 10:35 | NUR ---
TELE/RN NOTE NEW ORDER OF NEPRO BID IS RECEIVED FROM DR MURCIA. NOTED AND CARRIED OUT.
[2017-10-05] MEDS: ALBUTEROL FS 2.5 MG/3 ML VIAL.NEB NEB PRN (10:43)
[2017-10-05] MEDS ORDERED: NEPRO VAN 237 ML CAN PO PRN (11:00)
--- NOTE | 2017-10-05 11:24 | NUR ---
TELE/RN NOTE THE PATIENT IS SEEN AND EXAMINED BU DR MURCIA. THE PATIENT STATED TO THE DOCTOR THAT HE DOES NOT FOLLOW RENAL DIET AND WILL NOT EAT IF DIET IS KEPT RENAL. THE PATIENT WAS EXPLAINED RISKS AND BENEFITS BUT THE PATIENT STILL INSISTED CHANGE IN DIET ORDER. RECEIVED NEW DIET ORDER FROM DR MURCIA. THE ORDER IS READ BACK, VERIFIED. NOTED AND CARRIED OUT.
[2017-10-05] MEDS: CLOTRIMAZOLE 1% 15 GM TUBE TP SCH ×2 (11:41→18:18)
[2017-10-05] MEDS: HYDROCORTISONE 1% CREAM 28.35 GM TUBE TP SCH ×2 (11:41→18:17)
[2017-10-05] MEDS: LEVOFLOXACIN 250 MG /D5W 50 ML 250 MG in PREMIX 1 EA IV SCH (12:14)
[2017-10-05] MEDS: DIGOXIN 0.25 MG TABLET PO SCH (12:16)
[2017-10-05] MEDS: methylPREDNISolone SOD SUCC 40 MG/ML VIAL IV SCH ×2 (13:15→18:12)
--- NOTE | 2017-10-05 18:20 | NUR ---
TELE/RN CLOSING NOTE PATIENT IS ALERT AND ORIENTED X4. RESPIRATION REGULAR AND UNLABORED. PATIENT IS RECEIVING OXYEGN AT 2L/MIN VIA NASAL CANNULA AND OXYGEN SATURATION AT 95%. DENIES SOB. DENIES PAIN. PATIENT GOT DIALYZED AND 3 LITERS FLUID WAS REMOVED. THE PATIENT TOLERATED THE DIALYSIS WELL. RAC G 18 PATENT AND SALINE LOCKED. PATIENT CONTINENT. GOOD AND GENTLE SKIN CARE PROVIDED. KEPT CLEAN, DRY AND COMFORTABLE. ALL NEEDS ATTENDED AND ANTICIPATED. BED LOW AND LOCKED. SIDE RAILS UP X3. CALL LIGHT WITHIN REACH. WILL ENDORSE TO INSTALLATION AND SERVICE TECHNICIAN. Addendum: 10/05/17 at 1825 by JODY ELIZABETH RN EXTERNAL TELE MONITOR READING SR 65.
--- NOTE | 2017-10-05 19:30 | NUR ---
RN INITIAL NOTES: RECEIVED REPORT FROM RUTH RN. PT S/P HD TODAY WITH 3L OUTPUT, PER HD RN TO WEIGH PT TONIGHT ALSO PER REPORT FROM HD RN THAT PT STILL HAVE LOTS OF FLUIDS IN THE BODY. PT IN BED, AWAKE, A/O X3 ON 2L NC RESPIRATION EVEN AND UNLABORED. IV ACCESS PATENT AND FLUSHING WELL, ON HL. IV ACCESS FREE FROM S/S OF INFILTRATION, NO REDNESS NOTED. LEFT FA HD ACCESS COVERED WITH DRESSING. C/D/I, +BRUIT AND THRILL. DISCUSSED PLAN OF CARE TO THE PT. SAFETY PRECAUTIONS FOR FALL INITIATED, CALL LIGHT IN REACH, WILL CONTINUE MONITORING PT.
--- NOTE | 2017-10-05 21:00 | NUR ---
RN NOTES: PT REQUESTED TO WASH HIS FEET AND APPLY THE CREAM FOR HIS ATHLETES FOOT. CARLI QUINTERO ASSISTED IN WASHING PT'S FEET, COMPLETE LINEN CHANGE PROVIDED.
--- NOTE | 2017-10-05 22:27 | NUR ---
RN NOTES: SEEN PT SLEEPING AT THIS TIME, REMAINS ON 2L NC, RESPIRATION EVEN AND UNLABORED, ON TELE MONITORING A FLUTTER HR 73, WILL CONTINUE MONITORING PT
--- NOTE | 2017-10-05 23:15 | NUR ---
RN NOTES: APPROACHED BY CYTOLOGY TECHNOLOGIST PT HAVE 2 SECOND PAUSE, WENT TO PT'S ROOM, PT SLEEPING, AROUSES TO TACTILE STIMULI, PT STATED HE'S OKAY DENIES ANY PAIN DENIES HEAD ACHE OR LIGHT HEADEDNESS, DENIES ANY SOB, WILL CONTINUE MONITORING PT
[2017-10-06] VITALS: BP 137/81
[2017-10-06 04:00] VITALS: BP 135/70
--- NOTE | 2017-10-06 06:47 | NUR ---
RN CLOSING NOTES: PT IN BED, AWAKE, REMAINS ON 3L OXYGEN VIA NC, RESPIRATION EVEN AND UNLABORED. IV ACCESS REMAINS FREE FROM REDNESS OR S/S OF INFILTRATION,ACCESS REMAINS PATENT AND FLUSHING WELL, ON HL. REMAINS ON AFLUTTER HR 72. VS REMAINS STABLE, NEEDS ATTENDED. SAFETY PRECAUTIONS FOR FALL REMAINS ENGAGED, CALL LIGHT IN REACH, WILL ENDORSE TO DAY RN FOR CONTINUITY OF CARE.
--- NOTE | 2017-10-06 07:39 | NUR ---
TELE/RN OPENING NOTE PATIENT ALERT AND ORIENTED X4. DENIES SOB. RESPIRATION REGULAR AND UNLABORED. PATIENT IN ROOM AIR. DENIES PAIN. EXTERNAL TELE MONITOR BOX ON AND READING SR 70. RAC G 18 PATENT AND SALINE LOCKED. BED LOW AND LOCKED. SIDE RAILS UP X3. CALL LIGHT WITHIN REACH. WILL CONTINUE TO MONITOR.
[2017-10-06 08:00] VITALS: BP 115/68
[2017-10-06] MEDS: methylPREDNISolone SOD SUCC 40 MG/ML VIAL IV SCH ×3 (08:25→16:58)
[2017-10-06] MEDS: APIXABAN 2.5 MG TABLET PO SCH ×2 (08:25→16:59)
[2017-10-06] MEDS: ASPIRIN EC 81 MG TABLET.DR PO SCH (08:26)
[2017-10-06] MEDS: LOSARTAN POTASSIUM 50 MG TABLET PO SCH (08:26)
[2017-10-06] MEDS: DRONEDARONE HYDROCHLORIDE 400 MG TABLET PO SCH ×2 (08:27→16:58)
[2017-10-06] MEDS: MINOXIDIL (2.5MG) 2.5 MG TABLET PO SCH ×2 (08:27→16:59)
[2017-10-06] MEDS: LORATADINE 10 MG TABLET PO SCH (08:27)
[2017-10-06] MEDS: CARVEDILOL 12.5 MG TABLET PO SCH ×2 (08:27→21:00)
[2017-10-06] MEDS: CLOTRIMAZOLE 1% 15 GM TUBE TP SCH ×2 (08:32→16:59)
[2017-10-06] MEDS: HYDROCORTISONE 1% CREAM 28.35 GM TUBE TP SCH ×2 (08:32→16:59)
[2017-10-06] MEDS: LEVOFLOXACIN 250 MG /D5W 50 ML 250 MG in PREMIX 1 EA IV SCH (12:13)
[2017-10-06] MEDS: DIGOXIN 0.25 MG TABLET PO SCH (12:14)
[2017-10-06 16:00] VITALS: BP 115/68
--- NOTE | 2017-10-06 18:18 | NUR ---
MS/RN CLOSING NOTE PATIENT ALERT AND ORIENTED X4. PATIENT ON OXYGEN AT 2L/MIN VIA NASAL CANNULA AND OXYGEN SATURATION AT 96%. PATIENT DENIES SOB, DENIES PAIN. PATIENT IN NO APPARENT DISTRESS. RAC G 18 PATENT AND SALINE LOCKED. BED LOW AND LOCKED. SIDE RAILS UP X3. CALL LIGHT WITHIN REACH. WILL ENDORSE TO TWIST MAKER.
--- NOTE | 2017-10-06 19:30 | NUR ---
RN INITIAL NOTES: RECEIVED REPORT FROM RUTH RN, PT IN BED, TALKING ON THE PHONE WITH A FRIEND, RESPIRATION EVEN AND UNLABORED, DENIES ANY SOB, OR CHEST PAIN, IV ACCESS PATENT AND FLUSHING WELL, ON HL. NO S/S OF INFILTRATION NOTED ON SITE, FREE FROM ANY REDNESS. LEFT FA HD ACCESS + WITH THRILL AND BRUIT, ACCESS SITE COVERED WITH DRESSING. PT ON 2L OXYGEN VIA NC. SAFETY PRECAUTIONS FOR FALL INITIATED, CALL LIGHT IN REACH, WILL CONTINUE MONITORING PT.
--- NOTE | 2017-10-06 19:50 | NUR ---
RN NOTES: MRSA RESULT CAME BACK, FINAL RESULT SHOWS NO MRSA, ISOLATION WAS REMOVED
[2017-10-06 20:00] VITALS: BP 128/65
[2017-10-06] MEDS: DOXYCYCLINE HYCLATE (100 MG) 100 MG TABLET PO SCH (20:57)
[2017-10-06 21:01] VITALS: BP 114/57
[2017-10-07] MEDS: HYDROCODONE/APAP 5/325MG 1 EACH TABLET PO PRN (00:25)
--- NOTE | 2017-10-07 00:26 | NUR ---
PRN NORCO: PT C/O 5/10 LOWER BACK PAIN REQUESTING FOR NORCO, PRN NORCO 5/325 MG TAB PO ADMINISTERED AT THIS TIME, WILL CONTINUE TO MONITOR AND REASSESS
--- NOTE | 2017-10-07 06:54 | NUR ---
RN CLOSING NOTES: PT IN BED, SLEEPING, REMAINS ON 3L OXYGEN VIA NC, RESPIRATION EVEN AND UNLABORED. IV ACCESS REMAINS FREE FROM REDNESS OR S/S OF INFILTRATION,ACCESS REMAINS PATENT AND FLUSHING WELL, ON HL. VS REMAINS STABLE, NEEDS ATTENDED. SAFETY PRECAUTIONS FOR FALL REMAINS ENGAGED, CALL LIGHT IN REACH, WILL ENDORSE TO DAY RN FOR CONTINUITY OF CARE.
--- NOTE | 2017-10-07 07:10 | NUR ---
MS RN INITIAL NOTES Received patient in bed, awake, head of bed elevated, no SOB or distress noted, on room air and tolerated well. Patient is alert and oriented x 3, verbally responsive and able to make needs known. IV intact and patent, HL only. CRUZ shunt. No complaint of pain noted. Call light within patient reach, will continue to monitor accordingly.
[2017-10-07 08:00] VITALS: BP 112/52
[2017-10-07] MEDS: methylPREDNISolone SOD SUCC 40 MG/ML VIAL IV SCH ×2 (08:37→12:02)
[2017-10-07] MEDS: DRONEDARONE HYDROCHLORIDE 400 MG TABLET PO SCH ×2 (08:38→16:10)
[2017-10-07] MEDS: LOSARTAN POTASSIUM 50 MG TABLET PO SCH (08:39)
[2017-10-07] MEDS: CARVEDILOL 12.5 MG TABLET PO SCH ×2 (08:39→21:00)
[2017-10-07] MEDS: DOXYCYCLINE HYCLATE (100 MG) 100 MG TABLET PO SCH ×2 (08:39→22:23)
[2017-10-07] MEDS: LORATADINE 10 MG TABLET PO SCH (08:39)
[2017-10-07] MEDS: ASPIRIN EC 81 MG TABLET.DR PO SCH (08:39)
[2017-10-07] MEDS: MINOXIDIL (2.5MG) 2.5 MG TABLET PO SCH ×2 (08:40→16:29)
[2017-10-07] MEDS: CLOTRIMAZOLE 1% 15 GM TUBE TP SCH ×2 (08:41→16:11)
[2017-10-07] MEDS: HYDROCORTISONE 1% CREAM 28.35 GM TUBE TP SCH ×2 (08:41→16:12)
[2017-10-07] MEDS: APIXABAN 2.5 MG TABLET PO SCH ×2 (08:42→16:10)
--- NOTE | 2017-10-07 08:47 | NUR ---
ms rn notes Held all BP medications due to patient is scheduled for dialysis today. Will continue to monitor.
[2017-10-07] MEDS: HYDROMORPHONE INJ 2 MG/ML DISP.SYRIN IV PRN (09:32)
[2017-10-07] MEDS: LEVOFLOXACIN 250 MG /D5W 50 ML 250 MG in PREMIX 1 EA IV SCH (11:24)
[2017-10-07] MEDS: DIGOXIN 0.25 MG TABLET PO SCH (12:04)
[2017-10-07 16:00] VITALS: BP 135/78
--- NOTE | 2017-10-07 16:29 | NUR ---
RN NOTES BP MEDS HELD BECAUSE PT WILL BE RECEIVING DIALYSIS TODAY (10/07/17)
[2017-10-07] MEDS ORDERED: FEE PK DOSING 1 MIN EA MC ONE (17:43)
[2017-10-07] MEDS ORDERED: GENTAMICIN IV PRN (18:00)
[2017-10-07] MEDS ORDERED: D5W IV PRN (18:00)
[2017-10-07] MEDS ORDERED: GENTAMICIN 200 MG in IV D5W 100 ML IV ONE (18:00)
[2017-10-07 18:04] LABS: CREATININE 7.7 mg/dL (0.6-1.3)
--- NOTE | 2017-10-07 19:05 | NUR ---
MS RN INITIAL NOTES Received patient in bed, awake, head of bed elevated, no SOB or distress noted, on room air and tolerated well. Patient is alert and oriented x 3, verbally responsive and able to make needs known. Family at bedside. IV antibiotic infusing, intact and patent. CRUZ shunt. No complaints as of this time. Call light within patient reach. As per AM RN, for HD today. Will continue to monitor accordingly.
--- NOTE | 2017-10-07 19:08 | NUR ---
ms rn closing notes All needs provided, attended, and anticipated. Patient in stable condition at this time. Endorsed to next shift RN to continue care. Call light with in patient reach.
[2017-10-07 20:00] VITALS: BP 144/73
--- NOTE | 2017-10-07 20:21 | NUR ---
RN NOTES Patient in dialysis right now. BP meds held
--- NOTE | 2017-10-07 22:25 | NUR ---
RN NOTES Hemodialysis done. Vibramycin 100mg given post HD Addendum: 10/07/17 at 2300 by ISAAC BUSH RN ADDITIONAL NOTES Hemodialysis done. 3l OUT. Vibramycin 100mg given post HD. Gentamycin not given as it was already given at 1800 by AM shift RN
[2017-10-08] MEDS: HYDROCODONE/APAP 5/325MG 1 EACH TABLET PO PRN (02:06)
--- NOTE | 2017-10-08 07:00 | NUR ---
RN INITIAL NOTES PT SITTING ON CHAIR WATCHING TV. AWAKE AND ALERT, NO SIGNS OF LABORED BREATHING. IV ACCESS ON THE RIGHT AC 18G IS PATENT AND INTACT, LEFT AC SHUNT IS INTACT, NO SIGNS OF BLEEDING. SKIN IS INTACT. COMPLAINS PAIN IN THE BACK BUT RELIEVED WITH PAIN MEDICATION. BED ON LOW, CALL LIGHT WITHIN REACH. WILL CONTINUE TO MONITOR AND ASSESS PATIENT.
[2017-10-08 07:01] LABS: CALCIUM, SERUM 7.6 mg/dL (8.5-10.1); CREATININE 6.7 mg/dL (0.6-1.3); POTASSIUM 4.4 mmol/L (3.5-5.1)
[2017-10-08] MEDS: HYDROMORPHONE INJ 2 MG/ML DISP.SYRIN IV PRN (07:04)
--- NOTE | 2017-10-08 07:16 | NUR ---
RN CLOSING NOTES Patient sitting up in chair near bed, watching TV. Alert, oriented x 4. Breathing even and unlabored. Not in any distress. No complaints as of this time. All needs attended to. All due medications given as ordered. Call simental within reach. Bed in low locked position. Martha CHAPARRO to AM shift RN.
[2017-10-08 07:59] VITALS: BP 117/61
[2017-10-08 08:00] VITALS: BP 117/61
[2017-10-08] MEDS: ASPIRIN EC 81 MG TABLET.DR PO SCH (08:24)
[2017-10-08] MEDS: MINOXIDIL (2.5MG) 2.5 MG TABLET PO SCH ×2 (08:25→16:45)
[2017-10-08] MEDS: CARVEDILOL 12.5 MG TABLET PO SCH (08:25)
[2017-10-08] MEDS: LORATADINE 10 MG TABLET PO SCH (08:25)
[2017-10-08] MEDS: DOXYCYCLINE HYCLATE (100 MG) 100 MG TABLET PO SCH (08:25)
[2017-10-08] MEDS: LOSARTAN POTASSIUM 50 MG TABLET PO SCH (08:25)
[2017-10-08] MEDS: DRONEDARONE HYDROCHLORIDE 400 MG TABLET PO SCH ×2 (08:26→16:45)
[2017-10-08] MEDS: CLOTRIMAZOLE 1% 15 GM TUBE TP SCH ×2 (08:29→16:19)
[2017-10-08] MEDS: HYDROCORTISONE 1% CREAM 28.35 GM TUBE TP SCH ×2 (08:29→16:19)
[2017-10-08] MEDS: APIXABAN 2.5 MG TABLET PO SCH ×2 (08:33→16:19)
[2017-10-08] MEDS ORDERED: GENTAMICIN 140 MG in IV D5W 50 ML IV PRN (11:41)
[2017-10-08] MEDS ORDERED: DOXY100C2 PO (11:42)
[2017-10-08] MEDS ORDERED: ALBU18HF2 INH (11:43)
[2017-10-08] MEDS ORDERED: GENTAMICIN 140 MG in IV D5W 100 ML IV PRN (12:19)
[2017-10-08] MEDS: DIGOXIN 0.25 MG TABLET PO SCH (12:50)
[2017-10-08 16:00] VITALS: BP 110/50
[2017-10-08] MEDS: ALBUTEROL FS 2.5 MG/3 ML VIAL.NEB NEB PRN (16:21)
[2017-10-08 16:45] VITALS: BP 110/50
--- NOTE | 2017-10-08 16:45 | NUR ---
RN NOTES BP MED (MINOXIDIL) HELD, LOW BP 110/50
--- NOTE | 2017-10-08 18:22 | NUR ---
HOSTEL MANAGER NOTES: PT AWAKE AND ALERT, HE LEFT VIA WHEELCHAIR AND WILL BE DRIVING HIS CAR. IV ACCESS ON THE RIGHT AC IS REMOVED. DISCHARGE AND EDUCATIONAL INSTRUCTIONS ARE GIVEN TO THE PATIENT. SKIN IS INTACT, BILATERAL FEET ATHLETE'S FOOT PICTURE IS TAKEN AND PLACED ON THE CHART. NO SIGNS OF LABORED BREATHING. FLU VACCINE WAS NOT ADMINISTERED DUE TO OUT OF SEASON. PNA VACCINE WAS ADMINISTERED BUT PT CANNOT REMEMBER WHEN. VACCINATION EDUCATION AND PAMPHLETS GIVEN TO THE PATIENT. DENIES ANY PAIN. PT IS STABLE AT THIS TIME OF DISCHARGE.
== END 2017-10-08 18:21 | disposition home or self-care (01) | DRG 291 ==
LOC: ER 21:52 → TELE 10-05 00:06 → MED 10-06 10:14
PROVIDERS: ADMIT Internal Medicine Nephrology; ATTEND Internal Medicine Nephrology
PROC: 5A1D70Z Performance of Urinary Filtration, Intermittent, Less than 6 Hours Per Day (ICD-10-PCS; principal; 2017-10-05)
PROC: 5A1D70Z Performance of Urinary Filtration, Intermittent, Less than 6 Hours Per Day (ICD-10-PCS; 2017-10-07)
DX: I13.2 Hypertensive heart and chronic kidney disease with heart failure and with stage 5 chronic kidney disease, or end stage renal disease (principal); N18.6 End stage renal disease; I50.31 Acute diastolic (congestive) heart failure; J15.9 Unspecified bacterial pneumonia; J44.0 Chronic obstructive pulmonary disease with (acute) lower respiratory infection; N25.81 Secondary hyperparathyroidism of renal origin; I48.91 Unspecified atrial fibrillation; Z95.1 Presence of aortocoronary bypass graft; Z90.49 Acquired absence of other specified parts of digestive tract; F42.9 Obsessive-compulsive disorder, unspecified; Z99.2 Dependence on renal dialysis; I25.2 Old myocardial infarction; Z88.1 Allergy status to other antibiotic agents; Z82.49 Family history of ischemic heart disease and other diseases of the circulatory system; Z79.82 Long term (current) use of aspirin; Z79.01 Long term (current) use of anticoagulants; Z79.899 Other long term (current) drug therapy; Z87.891 Personal history of nicotine dependence; F10.21 Alcohol dependence, in remission; E78.5 Hyperlipidemia, unspecified; K21.9 Gastro-esophageal reflux disease without esophagitis; M19.90 Unspecified osteoarthritis, unspecified site; G47.33 Obstructive sleep apnea (adult) (pediatric); E66.01 Morbid (severe) obesity due to excess calories; D64.9 Anemia, unspecified; Z87.01 Personal history of pneumonia (recurrent); N40.0 Benign prostatic hyperplasia without lower urinary tract symptoms; I25.10 Atherosclerotic heart disease of native coronary artery without angina pectoris
CPT/HCPCS: 36415; 71045-TC; 80048-TC; 80170-TC; 83605-TC; 83880; 84484-TC; 85025-TC; 87040-TC; 87081-TC; 90935-TC; A4216; A4606; A6403; J1170; J1580; J1956; J2405; J2543; J2920; J7050; J7060; Z7610

== ENCOUNTER 2017-10-11 20:28 | Inpatient (IN) | payer MEDICARE, MEDICAID ==
[~2017-10-11] VITALS: Ht 193 cm; Wt 118.8 kg
[~2017-10-11 20:28] MED LIST changes: +ALBU18HF2 INH; +DOXY100C2 PO; -MINO2.5T PO
[2017-10-11 21:18] LABS: BASOPHILS % (AUTO) 0.3 % (0.0-2.0); EOSINOPHILS % (AUTO) 9.5 % (0.0-6.0); HEMATOCRIT 34 % (39-51); HEMOGLOBIN 11.2 g/dL (13.5-17.5); LYMPHOCYTES # (AUTO) 0.8 /CMM (0.8-4.8); LYMPHOCYTES % (AUTO) 8.3 % (20.0-44.0); MEAN CORPUSCULAR HEMOGLOBIN 29 PG (26.0-33.0); MEAN CORPUSCULAR HGB CONC 33 g/dl (31.0-36.0); MEAN CORPUSCULAR VOLUME 86 fL (80-96); MONOCYTES # (AUTO) 0.7 /CMM (0.1-1.30); MONOCYTES % (AUTO) 7.2 % (2.0-12.0); NEUTROPHILS % (AUTO) 74.7 % (43.0-81.0); PLATELET COUNT (AUTO) 180 /CMM (150-450); RED BLOOD CELL COUNT(AUTO) 3.89 MIL/uL (4.5-6.0); WHITE BLOOD COUNT (AUTO) 9.4 K/uL (4.3-11.0)
[2017-10-11 21:28] LABS: CALCIUM, SERUM 9.2 mg/dL (8.5-10.1); CREATININE 3.7 mg/dL (0.6-1.3); POTASSIUM 3.9 mmol/L (3.5-5.1)
[2017-10-11 21:32] LABS: INR 1.15 (0.85-1.15)
[2017-10-11 21:34] LABS: ALBUMIN 3.6 g/dL (3.4-5.0); BILIRUBIN,DIRECT 0.5 mg/dL (0.0-0.2); TOTAL PROTEIN, SERUM 7.8 g/dL (6.4-8.2)
[2017-10-11] MEDS ORDERED: HYDROMORPHONE HCL 2 MG TABLET PO STA (21:37)
[2017-10-11] MEDS ORDERED: HYDROMORPHONE 1 MG/1 ML DISP.SYRIN ONE (21:42)
[2017-10-11] MEDS ORDERED: ONDANSETRON HCL/PF 4 MG/2 ML VIAL ONE (21:47)
[2017-10-11] MEDS ORDERED: HYDROMORPHONE 1 MG/1 ML DISP.SYRIN IV ONE (22:00)
[2017-10-11] MEDS ORDERED: ONDANSETRON HCL/PF - ER 4 MG/2 ML VIAL IV ONE (22:00)
[2017-10-11] MEDS ORDERED: FUROSEMIDE 40 MG/4 ML VIAL ONE (22:27)
[2017-10-11] MEDS ORDERED: FUROSEMIDE 40 MG/4 ML VIAL IV ONE (22:30)
[2017-10-11 23:15] VITALS: BP 158/96
[2017-10-11] MEDS ORDERED: HYDROCODONE/APAP 5/325MG 1 EACH TABLET PO PRN (23:30)
[2017-10-11] MEDS: ACETAMINOPHEN 325 MG TABLET PO PRN (23:47)
[2017-10-12] VITALS (7 sets, daily range): BP systolic 110–161; BP diastolic 71–96
[2017-10-12] MEDS ORDERED: LEVOFLOXACIN 500 MG /D5W 100ML 100 ML IV ONE (00:04)
[2017-10-12] MEDS ORDERED: LEVOFLOXACIN 500 MG /D5W 100ML 500 MG in PREMIX 1 EA IV ONE (00:30)
[2017-10-12] MEDS: ACETAMINOPHEN 325 MG TABLET PO PRN (01:19)
[2017-10-12] MEDS ORDERED: ALBUTEROL FS 2.5 MG/3 ML VIAL.NEB NEB PRN (01:30)
[2017-10-12] MEDS ORDERED: IPRATROPIUM NEB FS 0.5 MG/2.5 ML AMPUL.NEB NEB PRN (01:30)
[2017-10-12] MEDS: ONDANSETRON HCL/PF 4 MG/2 ML VIAL IV PRN ×4 (02:25→18:41)
[2017-10-12 06:49] LABS: BASOPHILS % (AUTO) 0.3 % (0.0-2.0); EOSINOPHILS % (AUTO) 9.7 % (0.0-6.0); HEMATOCRIT 33 % (39-51); HEMOGLOBIN 10.1 g/dL (13.5-17.5); LYMPHOCYTES % (AUTO) 10.6 % (20.0-44.0); MEAN CORPUSCULAR HEMOGLOBIN 27 PG (26.0-33.0); MEAN CORPUSCULAR HGB CONC 31 g/dl (31.0-36.0); MEAN CORPUSCULAR VOLUME 89 fL (80-96); MONOCYTES # (AUTO) 0.6 /CMM (0.1-1.30); NEUTROPHILS % (AUTO) 73.4 % (43.0-81.0); PLATELET COUNT (AUTO) 167 /CMM (150-450); RDW COEFFICIENT OF VARIATION 16.6 (11.5-15.0); WHITE BLOOD COUNT (AUTO) 9.5 K/uL (4.3-11.0)
[2017-10-12 07:27] LABS: CALCIUM, SERUM 8.1 mg/dL (8.5-10.1); CREATININE 4.1 mg/dL (0.6-1.3); MAGNESIUM 2.1 mg/dL (1.8-2.4); PHOSPHORUS 5.6 mg/dL (2.5-4.9); POTASSIUM 4.4 mmol/L (3.5-5.1)
[2017-10-12] MEDS ORDERED: ALBUTEROL SULFATE 8 GM HFA.AER.AD NEB SCH (09:00)
[2017-10-12] MEDS: ASPIRIN EC 81 MG TABLET.DR PO SCH ×2 (09:24→09:25)
[2017-10-12] MEDS: CARVEDILOL 12.5 MG TABLET PO SCH ×2 (09:24→17:01)
[2017-10-12] MEDS: LORATADINE 10 MG TABLET PO SCH (09:25)
[2017-10-12] MEDS ORDERED: DIGOXIN 0.25 MG TABLET PO SCH (13:00)
[2017-10-12] MEDS: APIXABAN 2.5 MG TABLET PO SCH ×2 (13:51→19:41)
[2017-10-12] MEDS: DOXYCYCLINE HYCLATE (100 MG) 100 MG TABLET PO SCH ×2 (13:51→21:00)
[2017-10-12] MEDS: DRONEDARONE HYDROCHLORIDE 400 MG TABLET PO SCH ×2 (13:51→21:00)
[2017-10-12] MEDS: LOSARTAN POTASSIUM 50 MG TABLET PO SCH (17:00)
[2017-10-12] MEDS: HYDROCODONE/APAP 5/325MG 1 EACH TABLET PO PRN (22:59)
[2017-10-13] VITALS: BP 132/72
[2017-10-13] MEDS: ONDANSETRON HCL/PF 4 MG/2 ML VIAL IV PRN ×2 (01:43→08:02)
[2017-10-13 04:00] VITALS: BP_SYST 123; BP_SYST 143; BP_DIAS 72; BP_DIAS 80
[2017-10-13 07:53] LABS: BASOPHILS % (AUTO) 0.6 % (0.0-2.0); EOSINOPHILS % (AUTO) 8.2 % (0.0-6.0); HEMATOCRIT 31 % (39-51); HEMOGLOBIN 9.6 g/dL (13.5-17.5); LYMPHOCYTES # (AUTO) 1.1 /CMM (0.8-4.8); LYMPHOCYTES % (AUTO) 12.7 % (20.0-44.0); MEAN CORPUSCULAR HEMOGLOBIN 28 PG (26.0-33.0); MEAN CORPUSCULAR HGB CONC 31 g/dl (31.0-36.0); MEAN CORPUSCULAR VOLUME 89 fL (80-96); MONOCYTES # (AUTO) 0.7 /CMM (0.1-1.30); MONOCYTES % (AUTO) 8.1 % (2.0-12.0); NEUTROPHILS # (AUTO) 5.8 /CMM (1.8-8.9); NEUTROPHILS % (AUTO) 70.4 % (43.0-81.0); PLATELET COUNT (AUTO) 153 /CMM (150-450); RDW COEFFICIENT OF VARIATION 16.5 (11.5-15.0); RED BLOOD CELL COUNT(AUTO) 3.46 MIL/uL (4.5-6.0); WHITE BLOOD COUNT (AUTO) 8.3 K/uL (4.3-11.0)
[2017-10-13 08:00] VITALS: BP 155/93
[2017-10-13 08:09] LABS: ALBUMIN 3.1 g/dL (3.4-5.0); BILIRUBIN,TOTAL 0.8 mg/dL (0.2-1.0); CALCIUM, SERUM 7.8 mg/dL (8.5-10.1); CREATININE 5.7 mg/dL (0.6-1.3); MAGNESIUM 2.1 mg/dL (1.8-2.4); PHOSPHORUS 6.1 mg/dL (2.5-4.9); POTASSIUM 4.4 mmol/L (3.5-5.1); TOTAL PROTEIN, SERUM 6.7 g/dL (6.4-8.2)
[2017-10-13 08:14] LABS: DIGOXIN 3.36 ng/mL (0.90-2.00)
[2017-10-13] MEDS: APIXABAN 2.5 MG TABLET PO SCH ×2 (09:51→16:38)
[2017-10-13] MEDS: LORATADINE 10 MG TABLET PO SCH (09:52)
[2017-10-13] MEDS: DRONEDARONE HYDROCHLORIDE 400 MG TABLET PO SCH ×2 (09:52→16:38)
[2017-10-13] MEDS: DOXYCYCLINE HYCLATE (100 MG) 100 MG TABLET PO SCH ×2 (09:52→22:16)
[2017-10-13] MEDS: LOSARTAN POTASSIUM 50 MG TABLET PO SCH (09:53)
[2017-10-13] MEDS: CARVEDILOL 12.5 MG TABLET PO SCH ×2 (09:54→16:44)
[2017-10-13] MEDS ORDERED: EPOETIN ALFA (10,000 UNIT) 10,000 UNIT/ML VIAL IV ONE (11:30)
[2017-10-13 16:00] VITALS: BP 131/86
[2017-10-13 20:00] VITALS: BP 119/72
[2017-10-13] MEDS ORDERED: LEVOFLOXACIN 250 MG /D5W 50 ML 250 MG in PREMIX 1 EA IV SCH (21:00)
[2017-10-14] VITALS: BP 135/71
[2017-10-14] MEDS: HYDROCODONE/APAP 5/325MG 1 EACH TABLET PO PRN ×2 (00:19→08:42)
[2017-10-14] MEDS: ONDANSETRON HCL/PF 4 MG/2 ML VIAL IV PRN (00:20)
[2017-10-14 04:00] VITALS: BP 141/68
[2017-10-14 08:00] VITALS: BP 136/80
[2017-10-14] MEDS: APIXABAN 2.5 MG TABLET PO SCH ×2 (08:38→16:32)
[2017-10-14] MEDS: DOXYCYCLINE HYCLATE (100 MG) 100 MG TABLET PO SCH ×2 (08:39→21:03)
[2017-10-14] MEDS: ASPIRIN EC 81 MG TABLET.DR PO SCH (08:39)
[2017-10-14] MEDS: LORATADINE 10 MG TABLET PO SCH (08:39)
[2017-10-14] MEDS: CARVEDILOL 12.5 MG TABLET PO SCH ×2 (08:39→16:32)
[2017-10-14] MEDS: LOSARTAN POTASSIUM 50 MG TABLET PO SCH (08:39)
[2017-10-14] MEDS: DRONEDARONE HYDROCHLORIDE 400 MG TABLET PO SCH ×2 (08:39→16:32)
[2017-10-14] MEDS: predniSONE 20 MG TABLET PO SCH (10:17)
[2017-10-14] MEDS: CLOTRIMAZOLE 1% 15 GM TUBE TP SCH ×2 (11:32→18:02)
[2017-10-14 16:00] VITALS: BP 137/89
[2017-10-14 20:00] VITALS: BP 129/92
[2017-10-15] VITALS (8 sets, daily range): BP systolic 142–156; BP diastolic 73–97
[2017-10-15] MEDS: HYDROCODONE/APAP 5/325MG 1 EACH TABLET PO PRN (05:23)
[2017-10-15] MEDS: CARVEDILOL 12.5 MG TABLET PO SCH ×2 (09:00→16:45)
[2017-10-15] MEDS: LOSARTAN POTASSIUM 50 MG TABLET PO SCH (09:00)
[2017-10-15] MEDS: DOXYCYCLINE HYCLATE (100 MG) 100 MG TABLET PO SCH ×2 (09:16→21:47)
[2017-10-15] MEDS: APIXABAN 2.5 MG TABLET PO SCH ×2 (09:16→16:44)
[2017-10-15] MEDS: ASPIRIN EC 81 MG TABLET.DR PO SCH (09:17)
[2017-10-15] MEDS: DRONEDARONE HYDROCHLORIDE 400 MG TABLET PO SCH ×2 (09:17→16:44)
[2017-10-15] MEDS: LORATADINE 10 MG TABLET PO SCH (09:17)
[2017-10-15] MEDS: predniSONE 20 MG TABLET PO SCH (09:17)
[2017-10-15] MEDS: CLOTRIMAZOLE 1% 15 GM TUBE TP SCH ×2 (09:18→16:45)
[2017-10-16 07:23] LABS: BASOPHILS % (AUTO) 0.3 % (0.0-2.0); HEMATOCRIT 32 % (39-51); HEMOGLOBIN 10.1 g/dL (13.5-17.5); LYMPHOCYTES # (AUTO) 1.2 /CMM (0.8-4.8); LYMPHOCYTES % (AUTO) 11.3 % (20.0-44.0); MEAN CORPUSCULAR HEMOGLOBIN 28 PG (26.0-33.0); MEAN CORPUSCULAR HGB CONC 32 g/dl (31.0-36.0); MEAN CORPUSCULAR VOLUME 89 fL (80-96); MONOCYTES % (AUTO) 8.9 % (2.0-12.0); NEUTROPHILS # (AUTO) 8.5 /CMM (1.8-8.9); NEUTROPHILS % (AUTO) 78.5 % (43.0-81.0); PLATELET COUNT (AUTO) 132 /CMM (150-450); RDW COEFFICIENT OF VARIATION 16.9 (11.5-15.0); WHITE BLOOD COUNT (AUTO) 10.9 K/uL (4.3-11.0)
[2017-10-16 07:36] LABS: CALCIUM, SERUM 8.6 mg/dL (8.5-10.1); MAGNESIUM 2.4 mg/dL (1.8-2.4); PHOSPHORUS 7.2 mg/dL (2.5-4.9); POTASSIUM 5.2 mmol/L (3.5-5.1)
[2017-10-16 07:39] LABS: CREATININE 8.7 mg/dL (0.6-1.3)
[2017-10-16 08:00] VITALS: BP 157/93
[2017-10-16] MEDS: CLOTRIMAZOLE 1% 15 GM TUBE TP SCH (08:52)
[2017-10-16] MEDS: predniSONE 20 MG TABLET PO SCH (08:52)
[2017-10-16] MEDS: DOXYCYCLINE HYCLATE (100 MG) 100 MG TABLET PO SCH (08:52)
[2017-10-16] MEDS: DRONEDARONE HYDROCHLORIDE 400 MG TABLET PO SCH (08:52)
[2017-10-16] MEDS: LORATADINE 10 MG TABLET PO SCH (08:52)
[2017-10-16] MEDS: APIXABAN 2.5 MG TABLET PO SCH (08:53)
[2017-10-16] MEDS: ASPIRIN EC 81 MG TABLET.DR PO SCH (08:54)
[2017-10-16 09:31] VITALS: BP 157/93
[2017-10-16] MEDS: LOSARTAN POTASSIUM 50 MG TABLET PO SCH (09:31)
[2017-10-16] MEDS: CARVEDILOL 12.5 MG TABLET PO SCH (09:31)
== END 2017-10-16 16:00 | disposition home health service (06) | DRG 193 ==
LOC: ER 20:33 → TELE 22:58 → MED 10-15 20:59
PROVIDERS: ADMIT Internal Medicine; ATTEND Internal Medicine
DX: J15.9 Unspecified bacterial pneumonia (principal); N18.6 End stage renal disease; I50.32 Chronic diastolic (congestive) heart failure; I13.2 Hypertensive heart and chronic kidney disease with heart failure and with stage 5 chronic kidney disease, or end stage renal disease; R18.8 Other ascites; R11.2 Nausea with vomiting, unspecified; T46.0X5A Adverse effect of cardiac-stimulant glycosides and drugs of similar action, initial encounter; Y92.009 Unspecified place in unspecified non-institutional (private) residence as the place of occurrence of the external cause; I25.2 Old myocardial infarction; I48.91 Unspecified atrial fibrillation; Z99.2 Dependence on renal dialysis; K42.9 Umbilical hernia without obstruction or gangrene; I25.10 Atherosclerotic heart disease of native coronary artery without angina pectoris; Z90.49 Acquired absence of other specified parts of digestive tract; Z95.1 Presence of aortocoronary bypass graft; M54.5 Low back pain; Z87.891 Personal history of nicotine dependence; Z79.01 Long term (current) use of anticoagulants; Z79.82 Long term (current) use of aspirin; N40.0 Benign prostatic hyperplasia without lower urinary tract symptoms; K21.9 Gastro-esophageal reflux disease without esophagitis; J44.9 Chronic obstructive pulmonary disease, unspecified; E78.5 Hyperlipidemia, unspecified; D64.9 Anemia, unspecified; F42.9 Obsessive-compulsive disorder, unspecified
CPT/HCPCS: 36415; 71045-TC; 74021; 76700-TC; 80048-TC; 80053-TC; 80076-TC; 80162-TC; 83735-TC; 84100-TC; 85025-TC; 85730-TC; 87081-TC; 90935-TC; 94799-TC; A4216; A4606; J0885; J1170; J1940; J1956; J2405; J7050; Z7610

== ENCOUNTER 2017-10-28 22:40 | Inpatient (IN) | payer MEDICARE, MEDICAID ==
[~2017-10-28] VITALS: Ht 193 cm; Wt 124.3 kg
--- NOTE | 2017-10-28 23:21 | NUR ---
pt arrived to ER c/o rt lower cp with sob, which worsened when lying down. Per pt statement was discharged from here about 1 week ago for PNA. Also c/o N/V; last dialysis was earlier today. AV fistula located on Lt arm.
[2017-10-28] MEDS ORDERED: ALBUTEROL FS 2.5 MG/3 ML VIAL.NEB NEB ONE (23:30)
[2017-10-28] MEDS ORDERED: methylPREDNISolone SOD SUCC 125 MG/2ML VIAL IV ONE (23:30)
[2017-10-28] MEDS ORDERED: FUROSEMIDE 40 MG/4 ML VIAL IV ONE (23:30)
[2017-10-29] MEDS ORDERED: FUROSEMIDE 40 MG/4 ML VIAL ONE (00:12)
[2017-10-29 00:17] LABS: BASOPHILS % (AUTO) 0.6 % (0.0-2.0); EOSINOPHILS % (AUTO) 6.6 % (0.0-6.0); HEMATOCRIT 32 % (39-51); HEMOGLOBIN 10.5 g/dL (13.5-17.5); LYMPHOCYTES # (AUTO) 0.7 /CMM (0.8-4.8); LYMPHOCYTES % (AUTO) 9.6 % (20.0-44.0); MEAN CORPUSCULAR HEMOGLOBIN 28 PG (26.0-33.0); MEAN CORPUSCULAR HGB CONC 33 g/dl (31.0-36.0); MEAN CORPUSCULAR VOLUME 87 fL (80-96); MONOCYTES # (AUTO) 0.6 /CMM (0.1-1.30); MONOCYTES % (AUTO) 8.4 % (2.0-12.0); NEUTROPHILS # (AUTO) 5.7 /CMM (1.8-8.9); NEUTROPHILS % (AUTO) 74.8 % (43.0-81.0); PLATELET COUNT (AUTO) 139 /CMM (150-450); RED BLOOD CELL COUNT(AUTO) 3.68 MIL/uL (4.5-6.0); WHITE BLOOD COUNT (AUTO) 7.5 K/uL (4.3-11.0)
[2017-10-29] MEDS ORDERED: ALBUTEROL FS 2.5 MG/3 ML VIAL.NEB ONE (00:25)
--- NOTE | 2017-10-29 00:25 | NUR ---
iv access started on RAC #20g. labs drawn and collected.
[2017-10-29 00:26] LABS: CALCIUM, SERUM 8.7 mg/dL (8.5-10.1); CREATININE 5.1 mg/dL (0.6-1.3)
[2017-10-29 00:34] LABS: TROPONIN I 0.112 ng/mL (0.00-0.056)
[2017-10-29 00:44] LABS: ALBUMIN 3.6 g/dL (3.4-5.0); BILIRUBIN,DIRECT 0.6 mg/dL (0.0-0.2); BILIRUBIN,TOTAL 1.3 mg/dL (0.2-1.0); TOTAL PROTEIN, SERUM 7.4 g/dL (6.4-8.2)
[2017-10-29 01:04] LABS: EOSINOPHILS % (MANUAL) 8 % (0-4); LYMPHOCYTES % (MANUAL) 9 % (16-48); MONOCYTES % (MANUAL) 5 % (0-11.0); NEUTROPHILS % (MANUAL) 78 (42-76)
--- NOTE | 2017-10-29 02:41 | NUR ---
REPORT GIVEN TO LISA/RN ON BEHALF OF PRIMARY NURSE CHANG.
--- NOTE | 2017-10-29 02:59 | NUR ---
PATIENT BEING TRANSPORTED TO [facility] PER ACLS PROTOCOL. VS STABLE AT THIS TIME.
--- NOTE | 2017-10-29 03:30 | NUR ---
TELE/RN OPENING NOTES PT RECEIVED A/OX3. PLACED ON 2L O2 VIA NC, NOTED WITH SOB ON EXERTION. PLACED ON TELE MONITOR SHOWING ST 118. C/O UPSET STOMACH. CRUZ AV FISTULA, NO BLEEDING NOTED. ORIENTED PT TO ROOM AND CALL LIGHT. BED IN LOW/LOCKED POSITION WITH BILATERAL UPPER SIDE RAILS IN PLACE. CALL LIGHT IN REACH. WILL CONTINUE TO MONITOR. IV TO RAC PATENT ANI NTACT
[2017-10-29] MEDS ORDERED: HYDROCODONE/APAP 5/325MG 1 EACH TABLET PO PRN (05:30)
[2017-10-29] MEDS ORDERED: ASPIRIN 325 MG TABLET PO SCH (06:30)
--- NOTE | 2017-10-29 06:30 | NUR ---
TELE/RN NOTES EKG RESULT SHOWS ACUTE KS. PT WITH SOB. VS 98/68, HR 114 A. FIB ON MONITOR. 96% ON 3L O2. DENIES CHEST PAIN BUT STILL WITH NAUSEA. PAGED DR. MURCIA. AWAITING FOR CALL BACK
--- NOTE | 2017-10-29 06:53 | NUR ---
RT NOTE EKG DONE ON PATIENT. FINDINGS REPORTED TO PRIMARY RN ANDRES.
--- NOTE | 2017-10-29 06:55 | NUR ---
TELE/RN NOTES PAGED DR. MRUCIA, AWAITING CALL BACK.
--- NOTE | 2017-10-29 07:20 | NUR ---
TELE/RN NOTES DR. HARDEN IN HOUSE. SHOWED ALL EKG RESULTS AND PT'S STATUS. WILL COME TO ASSESS PT
--- NOTE | 2017-10-29 07:30 | NUR ---
TELE/RN NOTES PT WITH NO C/O CP. LATEST BP 90/58, HR 120. IN NO APPARENT DISTRESS. HOME MEDS FAXED TO PHARMACY. ENDORSED TO DAY SHIFT KRYSTA.
--- NOTE | 2017-10-29 07:40 | NUR ---
TELE/RN NOTES NOTIFIED DR. STATON OF LATEST EKG RESULT.
--- NOTE | 2017-10-29 07:54 | NUR ---
COMMERCIAL LINES SALES EXECUTIVE OPENING NOTES RECEIVED PT SITTING UPRIGHT IN BED. PT IS A/O X3, AFEBRILE. RESPIRATIONS ARE EVEN AND UNLABORED, NOT IN ANY ACUTE DISTRESS AT THIS TIME. PT DENIES SOB WHILE IN BED. DENIES CHEST PAIN AT THIS TIME. NO C/O N/V. IV SITE INTACT TO RAC, NO INFILTRATION NOTED. DRESSING KEPT CLEAN AND DRY. SAFETY MEASURES ARE IN PLACE. INSTRUCTED PT TO USE CALL LIGHT WHEN ASSISTANCE IS NEEDED, CALL LIGHT IS LEFT WITHIN REACH. WILL CONTINUE TO MONITOR THROUGHOUT SHIFT FOR CONTINUITY OF CARE.
[2017-10-29 08:00] VITALS: BP_SYST 139; BP_SYST 90; BP_DIAS 59; BP_DIAS 70
[2017-10-29] MEDS ORDERED: APIXABAN 2.5 MG TABLET PO SCH (10:55)
[2017-10-29] MEDS ORDERED: ALBUTEROL SULFATE 8 GM HFA.AER.AD IH SCH (11:00)
[2017-10-29 12:00] VITALS: BP 101/62
--- NOTE | 2017-10-29 14:20 | NUR ---
PT DENIES ANY CHEST PAIN, DIZZINESS, N/V AT THIS TIME. PT IS NOT IN ANY APPARENT DISTRESS. WILL CONTINUE TO MONITOR.
--- NOTE | 2017-10-29 14:46 | NUR ---
PT SEEN AND EXAMINED BY DR. BATES. NEW ORDERS FOR CALCIUM ACETATE 2 TABS PO TIDWM AND RENVELA 800MG PO TIDWM. ORDERS READ BACK AND VERIFIED. NOTED AND CARRIED OUT.
[2017-10-29 15:03] LABS: BASOPHILS % (AUTO) 0.5 % (0.0-2.0); EOSINOPHILS % (AUTO) 5.8 % (0.0-6.0); HEMATOCRIT 30 % (39-51); HEMOGLOBIN 9.7 g/dL (13.5-17.5); LYMPHOCYTES # (AUTO) 0.8 /CMM (0.8-4.8); LYMPHOCYTES % (AUTO) 11.4 % (20.0-44.0); MEAN CORPUSCULAR HEMOGLOBIN 29 PG (26.0-33.0); MEAN CORPUSCULAR HGB CONC 33 g/dl (31.0-36.0); MEAN CORPUSCULAR VOLUME 88 fL (80-96); MONOCYTES # (AUTO) 0.9 /CMM (0.1-1.30); MONOCYTES % (AUTO) 12.6 % (2.0-12.0); NEUTROPHILS # (AUTO) 4.7 /CMM (1.8-8.9); NEUTROPHILS % (AUTO) 69.7 % (43.0-81.0); PLATELET COUNT (AUTO) 134 /CMM (150-450); RDW COEFFICIENT OF VARIATION 16.5 (11.5-15.0); RED BLOOD CELL COUNT(AUTO) 3.39 MIL/uL (4.5-6.0); WHITE BLOOD COUNT (AUTO) 6.8 K/uL (4.3-11.0)
[2017-10-29] MEDS ORDERED: IPRATROPIUM NEB FS 0.5 MG/2.5 ML AMPUL.NEB NEB PRN (15:30)
[2017-10-29] MEDS ORDERED: ALBUTEROL FS 2.5 MG/0.5 ML VIAL.NEB NEB PRN (15:30)
[2017-10-29 15:43] LABS: URIC ACID 4.6 mg/dL (2.6-7.2)
[2017-10-29 16:00] VITALS: BP 102/58
[2017-10-29 16:17] LABS: D-DIMER 1.97 mg/L(FEU (0.17-0.50); INR 1.2 (0.87-1.13)
[2017-10-29] MEDS ORDERED: DRONEDARONE HYDROCHLORIDE 400 MG TABLET PO SCH (17:00)
[2017-10-29] MEDS: CARVEDILOL 12.5 MG TABLET PO SCH (17:00)
[2017-10-29] MEDS ORDERED: LORAZEPAM 0.5 MG TABLET PO PRN (17:30)
[2017-10-29 18:03] LABS: RETICULOCYTE COUNT 1.8 % (0.6-2.5)
[2017-10-29] MEDS: SEVELAMER CARBONATE 800 MG TABLET PO SCH (18:18)
[2017-10-29] MEDS: CALCIUM ACETATE 667 MG TABLET PO SCH (18:18)
[2017-10-29] MEDS: HYDROCODONE/APAP 5/325MG 1 EACH TABLET PO PRN (18:18)
[2017-10-29] MEDS: APIXABAN 2.5 MG TABLET PO SCH (18:20)
--- NOTE | 2017-10-29 18:36 | NUR ---
DENTAL PRACTITIONER CLOSING NOTES ALL DUE MEDS GIVEN, NEEDS MET AND RENDERED. PT IS A/O X3-4, AFEBRILE. RESPIRATIONS ARE EVEN AND UNLABORED, NOT IN ANY ACUTE DISTRESS NOTED. PT DENIES ANY PAIN AT THIS TIME. NO C/O SOB, N/V. DIALYSIS DONE WITH 2700CC OUT. DRESSING TO LEFT AV SHUNT, KEPT CLEAN AND DRY. IV SITE INTACT, NO INFILTRATION NOTED. DRESSING KEPT CLEAN AND DRY. PER DR. BATES, TO DO TRIAL HD AGGRESSIVELY. PT MADE AWARE. SAFETY MEASURES ARE IN PLACE. REMINDED PT TO USE CALL LIGHT WHEN ASSISTANCE IS NEEDED, CALL LIGHT IS LEFT WITHIN REACH. WILL ENDORSE TO NEXT SHIFT FOR CONTINUITY OF CARE.
[2017-10-29] MEDS: ALBUTEROL FS 2.5 MG/0.5 ML VIAL.NEB NEB SCH ×2 (19:30→23:30)
[2017-10-29 20:00] VITALS: BP 101/56
--- NOTE | 2017-10-29 20:17 | NUR ---
RECIEVED ALERT AND ORIENTATED SMILING AND ASKING FOR P/B AND JELLY TO MAKE A SANDWITCH. JUST FINISHED HD . EYEGLASSES ON SPEECH CLEAR MOVING ALL EXTREMITIES.
[2017-10-29] MEDS ORDERED: DOXYCYCLINE HYCLATE (100 MG) 100 MG TABLET PO SCH (21:00)
[2017-10-30] VITALS (9 sets, daily range): BP systolic 101–127; BP diastolic 55–76
[2017-10-30] MEDS: HYDROCODONE/APAP 5/325MG 1 EACH TABLET PO PRN ×2 (01:16→21:58)
[2017-10-30] MEDS: ALBUTEROL FS 2.5 MG/0.5 ML VIAL.NEB NEB SCH ×6 (03:16→22:36)
--- NOTE | 2017-10-30 05:01 | NUR ---
ENDING NOTES: SLEPT 8 HOURS TONIGHT. NOTED A MOUTH BREATHER SATS 93% RA WHEN ASLEEP. NO SOB NOTED THIS 12 HOURS. TAKING IN LENGTHY SENTENCES W/O SOB . NORCO TAB 1 GIVEN FOR GENERALIZED PAIN AND EFFECTIVE FOR RELIEF. NOTED HE DRINK WATER AND JUICES FREELY, EXPLAINED TO HIM TO SLOW DOWN THE FLUIDS AND REASON EXPLAINED TO HIM. HE WAS NOT INTERESTED IN SLOWING DOWN. NOTED HE HAS GENERALIZED BODY EDEMA ANS 3 + PEDAL EDEMA. PATIENT ANURIC THIS 12 HOURS. NOTED HE HAS A WALKER AT THE BEDSIDE, I HAVE NOT SEEN HIM GET UP OOB. HE IS NOT MOTIVATED TO HELP SELF AND NEEDS TO BE PROPPED TO HELP SELF. LUNG VIA AUSCULTATION AT THE BEGINNING OF THIS 12 HOURS CLEAR. HD FINISHED AT 1900 10/29. HE TALKS IN HIS SLEEP AND IS RESTLESS MOVING HIS LEGS TOSSING HIS BLANKETS.
[2017-10-30 06:52] LABS: CALCIUM, SERUM 8.1 mg/dL (8.5-10.1); CREATININE 6.7 mg/dL (0.6-1.3); MAGNESIUM 2.3 mg/dL (1.8-2.4); PHOSPHORUS 5.1 mg/dL (2.5-4.9); POTASSIUM 4.5 mmol/L (3.5-5.1)
--- NOTE | 2017-10-30 06:52 | NUR ---
ADD ON TO ENDING NOTES: VOIDED IN THE URINAL 50 ML AWARE OF HAVING HD TODAY
[2017-10-30 07:07] LABS: BASOPHILS % (AUTO) 0.4 % (0.0-2.0); EOSINOPHILS % (AUTO) 7.5 % (0.0-6.0); HEMATOCRIT 30 % (39-51); HEMOGLOBIN 9.6 g/dL (13.5-17.5); MEAN CORPUSCULAR HEMOGLOBIN 29 PG (26.0-33.0); MEAN CORPUSCULAR HGB CONC 32 g/dl (31.0-36.0); MEAN CORPUSCULAR VOLUME 88 fL (80-96); MONOCYTES # (AUTO) 0.9 /CMM (0.1-1.30); MONOCYTES % (AUTO) 12.9 % (2.0-12.0); NEUTROPHILS # (AUTO) 4.5 /CMM (1.8-8.9); NEUTROPHILS % (AUTO) 65.2 % (43.0-81.0); PLATELET COUNT (AUTO) 133 /CMM (150-450); RED BLOOD CELL COUNT(AUTO) 3.38 MIL/uL (4.5-6.0); WHITE BLOOD COUNT (AUTO) 6.9 K/uL (4.3-11.0)
--- NOTE | 2017-10-30 08:00 | NUR ---
Received patient in bed ,oxygen 2 litre on pt breathing with mouth open ,denies any chest pain , pt states wants to sleep , tele monitor ST heart rate 118 skin warm and dry , Rt hand with heplock secured no redness at site . hob up 30% sr x2 up
[2017-10-30] MEDS: CARVEDILOL 12.5 MG TABLET PO SCH ×2 (08:50→17:03)
[2017-10-30] MEDS: SEVELAMER CARBONATE 800 MG TABLET PO SCH ×3 (08:50→18:11)
[2017-10-30] MEDS: ASPIRIN EC 81 MG TABLET.DR PO SCH (08:51)
[2017-10-30] MEDS: LORATADINE 10 MG TABLET PO SCH (08:51)
[2017-10-30] MEDS: CALCIUM ACETATE 667 MG TABLET PO SCH ×3 (08:52→18:11)
[2017-10-30] MEDS: APIXABAN 2.5 MG TABLET PO SCH ×2 (08:55→16:59)
[2017-10-30] MEDS ORDERED: LOSARTAN POTASSIUM 50 MG TABLET PO SCH (09:00)
--- NOTE | 2017-10-30 10:32 | NUR ---
patient taken by bed for chest chest , will continue care when back
[2017-10-30 13:11] LABS: *SPE A/G RATIO 1.3 (0.7-1.7); *SPE ALBUMIN 3.6 g/dL (2.9-4.4); *SPE ALPHA-1-GLOBULIN 0.4 g/dL (0.0-0.4); *SPE ALPHA-2-GLOBULIN 0.6 g/dL (0.4-1.0); *SPE BETA GLOBULIN 0.8 g/dL (0.7-1.3); *SPE GLOBULIN, TOTAL 2.8 g/dL (2.2-3.9); *SPE M-SPIKE Not Observed g/dL (Not Observed)
--- NOTE | 2017-10-30 19:00 | NUR ---
RN NOTES PT ASLEEP IN BED, COMFORTABLY. PT IN O2 VIA NASAL CANNULA AT 3L, TOLERATING WELL, NO SIGNS OF LABORED BREATHING OR DISTRESS. PT CURRENTLY RECEIVING DIALYSIS. LEFT AV FISTULA INTACT, RIGHT AC 20G PATENT AND INTACT. CARDIAC MONITORING IN PLACED SHOWING A.FIB 117, NO SIGNS OF DISTRESS. SAFETY MEASURES IN PLACED, CALL LIGHT WITHIN REACH. WILL CONTINUE TO MONITOR AND ASSESS.
--- NOTE | 2017-10-30 20:30 | NUR ---
RN NOTES PT FINISHED DIALYSIS WITH 1.5L OUTPUT. WILL CONTINUE TO MONITOR
[2017-10-31] VITALS (7 sets, daily range): BP systolic 98–119; BP diastolic 45–68
[2017-10-31] MEDS: ALBUTEROL FS 2.5 MG/0.5 ML VIAL.NEB NEB SCH ×6 (02:32→22:44)
[2017-10-31] MEDS: HYDROCODONE/APAP 5/325MG 1 EACH TABLET PO PRN ×2 (05:19→17:28)
--- NOTE | 2017-10-31 06:04 | NUR ---
RN CLOSING NOTES PT ASLEEP IN BED, COMFORTABLY. PT IN O2 VIA NASAL CANNULA AT 3L, TOLERATING WELL, NO SIGNS OF LABORED BREATHING OR DISTRESS. LEFT AV FISTULA INTACT, RIGHT AC 20G PATENT AND INTACT. CARDIAC MONITORING IN PLACED SHOWING A.EDU WITH 1ST DEGREE AV BLOCK 115BPM, NO SIGNS OF DISTRESS. NEEDS WERE ATTENDED. PAIN MEDICATION GIVEN, DENIES ANY PAIN. BILATERAL LOWER EXTREMITY HAS BUG BITES, PER PATIENT IT IS FROM [place] AT HOME. BILATERAL FOREARMS HAVE RED SPOTS, PER PATIENT "SCRATCHED SKIN BECAUSE IT WAS DRY," PICTURES WERE TAKEN AND PLACED ON THE CHART. SAFETY MEASURES IN PLACED, CALL LIGHT WITHIN REACH. WILL ENDORSE CONTINUITY OF CARE TO THE ONCOMING RN.
[2017-10-31 06:19] LABS: BASOPHILS % (AUTO) 0.6 % (0.0-2.0); EOSINOPHILS % (AUTO) 7.2 % (0.0-6.0); HEMATOCRIT 31 % (39-51); HEMOGLOBIN 9.8 g/dL (13.5-17.5); LYMPHOCYTES # (AUTO) 1.1 /CMM (0.8-4.8); LYMPHOCYTES % (AUTO) 17.2 % (20.0-44.0); MEAN CORPUSCULAR HEMOGLOBIN 29 PG (26.0-33.0); MEAN CORPUSCULAR HGB CONC 32 g/dl (31.0-36.0); MEAN CORPUSCULAR VOLUME 90 fL (80-96); MONOCYTES # (AUTO) 0.9 /CMM (0.1-1.30); MONOCYTES % (AUTO) 13.5 % (2.0-12.0); NEUTROPHILS % (AUTO) 61.5 % (43.0-81.0); PLATELET COUNT (AUTO) 152 /CMM (150-450); RDW COEFFICIENT OF VARIATION 17.8 (11.5-15.0); RED BLOOD CELL COUNT(AUTO) 3.43 MIL/uL (4.5-6.0); WHITE BLOOD COUNT (AUTO) 6.4 K/uL (4.3-11.0)
[2017-10-31 06:33] LABS: CALCIUM, SERUM 8.3 mg/dL (8.5-10.1); CREATININE 6.4 mg/dL (0.6-1.3); MAGNESIUM 2.4 mg/dL (1.8-2.4); PHOSPHORUS 4.6 mg/dL (2.5-4.9); POTASSIUM 4.4 mmol/L (3.5-5.1)
--- NOTE | 2017-10-31 07:32 | NUR ---
STRAIGHTEDGE MACHINE OPERATOR HELPER OPENING NOTES RECEIVED PT FROM NIGHTSHIFT NURSE IN STABLE CONDITION. PT IS A/O X3. PT ON 3 L VIA NC AND SATING WELL. HE DOES COMPLAIN OF SOME SOB BUT STATES THAT IT WAS RELIEVED ONCE REPOSITIONED. HE DENIES ANY PAIN AT THIS TIME. PT IS CURRENTLY AFIB ON THE TELE MONITOR WITH A HR OF 96. IV TO RIGHT AC NOTED TO BE PATENT AND INTACT. NO REDNESS OR SIGNS OF INFILTRATION NOTED. LEFT AV SHUNT PRESENT. BRUIT AND THRILL NOTED. BED IN LOW LOCKED POSITION, SIDE RAILS UP X2, CALL LIGHT WITHIN REACH. WILL CONTINUE TO MONITOR
[2017-10-31] MEDS: LORATADINE 10 MG TABLET PO SCH (08:52)
[2017-10-31] MEDS: SEVELAMER CARBONATE 800 MG TABLET PO SCH ×3 (08:52→17:26)
[2017-10-31] MEDS: ASPIRIN EC 81 MG TABLET.DR PO SCH (08:52)
[2017-10-31] MEDS: CALCIUM ACETATE 667 MG TABLET PO SCH ×3 (08:52→17:26)
[2017-10-31] MEDS: APIXABAN 2.5 MG TABLET PO SCH (08:53)
--- NOTE | 2017-10-31 10:38 | NUR ---
PENCILLER NOTES: S/P HD PT S/P HD. 3.5L OF FLUID REMOVED. VITALS STABLE. WILL CONTINUE TO MONITOR
--- NOTE | 2017-10-31 11:21 | NUR ---
NCQA SPECIALIST NOTES: MD CONTACT DR. SNYDER PAGED VIA NEPHROLOGY EXCHANGE FOR ANTI NAUSEA MEDICATION ORDERS PT IS COMPLAINING OF NAUSEA. AWAITING CALL BACK
[2017-10-31] MEDS ORDERED: ONDANSETRON HCL/PF 4 MG/2 ML VIAL IV PRN (13:30)
[2017-10-31] MEDS: CARVEDILOL 12.5 MG TABLET PO SCH (17:27)
--- NOTE | 2017-10-31 18:54 | NUR ---
MOTOR EQUIPMENT SERGEANT CLOSING NOTES PT REMAIN STABLE. HE DENIES SOB AT THIS TIME. PAIN PROPERLY MANAGED WITH PRN PAIN MEDICATION. OV REMAINS PATENT AND INTACT. CONSENT OBTAINED FOR THORACENTESIS AND PLACED IN PT'S CHART. HE REMAINS AFIB ON THE TELE MONITOR. SAFETY MEASURES AND FALL PRECAUTIONS REMAIN IN PLACE. WILL ENDORSE TO NIGHTSHIFT NURSE FOR KRYSTA
--- NOTE | 2017-10-31 19:30 | NUR ---
RN OPENING NOTES PT AWAKE AND ALERT, SEMI-FOWLERS IN BED. O2 VIA NASAL CANNULA AT 3L, TOLERATING WELL, PT REPORTS SOB WHEN MOVING BUT "OVERALL OKAY." CARDIAC MONITORING SSHOWS A. FIB CONTROLLED AT 102 BPM. LEFT AV SHUNT IS INTACT, NO BLEEDING. RIGHT AC 20G IS PATENT AND INTACT, SALINE LOCK. DENIES ANY PAIN. SAFETY MEASURES IN PLACED, CALL LIGHT WITHIN REACH. WILL CONTINUE TO MONITOR AND ASSESS.
--- NOTE | 2017-10-31 19:55 | NUR ---
RN NOTES/ EKG CARDIAC MONITORING SHOWED V.TACH, CHECKED ON PT, PT IS ASYMPTOMATIC, NO CHEST PAIN. ORDERED EKG STAT, WILL WAIT FOR RESULT AND CONTINUE TO MONITOR
--- NOTE | 2017-10-31 20:07 | NUR ---
RN NOTES/ EKG EKG RESULTS FROM RT SHOWS SINUS RHYTHM WITH SINUS ARYHTYMIAS AND AV BLOCK. PT DENIES ANY PAIN, NO CHEST PAIN. VITAL SIGNS WNL. CHARGE NURSE MADE AWARE. WILL CLOSELY MONITOR THE PATIENT.
[2017-11-01] VITALS (7 sets, daily range): BP systolic 101–136; BP diastolic 45–81
--- NOTE | 2017-11-01 00:16 | NUR ---
DR. hudson on the floor made aware of the previous episode of the v.tach and the ECG with no change. pt currently stable w. no c/o CP. vss. TORRES w/ no new order and to keep the pt on telemetry status and close monitoring and inform morning nurse to f/u . will cont to monitor,
[2017-11-01] MEDS: ALBUTEROL FS 2.5 MG/0.5 ML VIAL.NEB NEB SCH ×6 (02:58→23:30)
--- NOTE | 2017-11-01 06:18 | NUR ---
RN CLOSING NOTES PT ASLEEP IN BED. O2 VIA NASAL CANNULA AT 3L WITH HUMIDIFIER, TOLERATING WELL. BREATHING DEEPLY. CARDIAC MONITORING SHOWS SINUS TACHYCARDIA AT 118 BPM, NO SIGNS OF DISTRESS. LEFT AV SHUNT IS INTACT, NO BLEEDING. RIGHT AC 20G IS PATENT AND INTACT, SALINE LOCK. DENIES ANY PAIN. SAFETY MEASURES IN PLACED, CALL LIGHT WITHIN REACH. WILL ENDORSE CONTINUITY OF CARE TO THE ONCOMING NURSE
[2017-11-01 06:22] LABS: BASOPHILS % (AUTO) 0.6 % (0.0-2.0); EOSINOPHILS % (AUTO) 8.2 % (0.0-6.0); HEMATOCRIT 29 % (39-51); HEMOGLOBIN 9.1 g/dL (13.5-17.5); MEAN CORPUSCULAR HEMOGLOBIN 28 PG (26.0-33.0); MEAN CORPUSCULAR HGB CONC 32 g/dl (31.0-36.0); MEAN CORPUSCULAR VOLUME 90 fL (80-96); MONOCYTES # (AUTO) 0.8 /CMM (0.1-1.30); MONOCYTES % (AUTO) 12.8 % (2.0-12.0); NEUTROPHILS # (AUTO) 3.7 /CMM (1.8-8.9); NEUTROPHILS % (AUTO) 61.4 % (43.0-81.0); PLATELET COUNT (AUTO) 143 /CMM (150-450); RDW COEFFICIENT OF VARIATION 17.4 (11.5-15.0); RED BLOOD CELL COUNT(AUTO) 3.22 MIL/uL (4.5-6.0); WHITE BLOOD COUNT (AUTO) 5.9 K/uL (4.3-11.0)
[2017-11-01 06:35] LABS: CALCIUM, SERUM 8.3 mg/dL (8.5-10.1); CREATININE 6.9 mg/dL (0.6-1.3); MAGNESIUM 2.3 mg/dL (1.8-2.4); PHOSPHORUS 5.4 mg/dL (2.5-4.9); POTASSIUM 4.8 mmol/L (3.5-5.1)
--- NOTE | 2017-11-01 07:20 | NUR ---
TELE/RN OPENING NOTE PATIENT ALERT AND ORIENTED X4. DENIES SOB. RESPIRATION REGULAR AND UNLABORED. DENIES PAIN. EXTERNAL TELE MONITOR ON AND READING S TACHY 118. RAC G 20 PATENT AND SALINE LOCKED. LEFT AV SHUNT WITH NO BLEEDING AND NO S/S INFECTION. BED LOW AND LOCKED. SIDE RAILS UP X3. CALL LIGHT WITHIN REACH. WILL CONTINUE TO MONITOR.
[2017-11-01] MEDS: ASPIRIN EC 81 MG TABLET.DR PO SCH (08:31)
[2017-11-01] MEDS: SEVELAMER CARBONATE 800 MG TABLET PO SCH ×3 (08:31→17:25)
[2017-11-01] MEDS: LORATADINE 10 MG TABLET PO SCH (08:31)
[2017-11-01] MEDS: HYDROCODONE/APAP 5/325MG 1 EACH TABLET PO PRN (08:31)
[2017-11-01] MEDS: CALCIUM ACETATE 667 MG TABLET PO SCH ×3 (08:31→17:25)
[2017-11-01] MEDS: CARVEDILOL 12.5 MG TABLET PO SCH ×2 (08:32→17:00)
--- NOTE | 2017-11-01 09:27 | NUR ---
TELE/RN NOTE DR STATON IS MADE AWARE OF 10/31/17 PATIENT HAD V. TACH AND ECG WAS DONE. SHOWED ECG TO DR STATON AND PER MD THE PATIENT HAD ATRIAL FLUTTER. PER DR STATON NO NEW ORDER AT THIS TIME.
--- NOTE | 2017-11-01 18:10 | NUR ---
TELE/RN CLOSING NOTE PATIENT ALERT AND ORIENTED X4. DENIES PAIN AT THIS TIME. RECEIVING OXYEGN 3L/MIN VIA NASAL CANULA AND SATURATION IS AT 96%. DENIES SOB AND PAIN AT THIS TIME. EXTERNAL TELE BOX ON AND READING AFIB 101. PATIENT IN NO APPARENT DISTRESS. RAC G 20 PATENT AND SALINE LOCKED. LAV SHUNT WITH NO BLEEDING AND NO S/S INFECTION. PATIENT CONTINENT. PATIENT HAD DIALYSIS TODAY DURING THE SHIFT AND 900 ML FLUID WAS REMOVED. THE PATIENT TOLERATED DIALYSIS WELL. GOOD AND GENTLE SKIN CARE RENDERED. KEPT CLEAN AND COMFORTABLE. ALL NEEDS ATTENDED AND ANTICIPATED. BED LOW AND LOCKED. SIDE RAILS UP X3. CALL LIGHT WITHIN REACH. WILL ENDORSE TO SUPERVISOR TRUST ACCOUNTS.
--- NOTE | 2017-11-01 19:00 | NUR ---
MS RN OPENING NOTE RECEIVE PATIENT AWAKE IN BED, A/O X 3, NO SOB OR DISTRESS NOTED, CALL LIGHT WITHIN REACH. SAFETY MEASURES IMPLEMENTED. WILL CONTINUE TO MONITOR THROUGHOUT SHIFT.
[2017-11-02] VITALS: BP 129/74
[2017-11-02] MEDS: HYDROCODONE/APAP 5/325MG 1 EACH TABLET PO PRN ×2 (01:35→09:54)
[2017-11-02] MEDS: ALBUTEROL FS 2.5 MG/0.5 ML VIAL.NEB NEB SCH ×5 (03:46→22:57)
[2017-11-02 04:00] VITALS: BP 118/70
[2017-11-02 06:07] LABS: CALCIUM, SERUM 8.8 mg/dL (8.5-10.1); CREATININE 6.1 mg/dL (0.6-1.3); MAGNESIUM 2.3 mg/dL (1.8-2.4); PHOSPHORUS 4.6 mg/dL (2.5-4.9); POTASSIUM 4.8 mmol/L (3.5-5.1)
--- NOTE | 2017-11-02 06:23 | NUR ---
BEEF KILLER CLOSING NOTES ASLEEP AND EASILY AWAKEN, STABLE. HEAD OF BED ELEVATED, NOT IN DISTRESS. RESPIRATION EVEN AND UNLABORED. KEPT CLEAN AND DRY AND COMFORTABLE, ALL NURSING CARE RENDERED. NEEDS ATTENDED AND ANTICIPATED. GOOD SKIN CARE PROVIDED. ST 110. ON LOW BED AT ALL TIMES TO ENSURE SAFETY. SAFE HAZARD FREE ENVIRONMENT PROVIDED. CALL LIGHT WITHIN EASY TO REACH. WILL ENDORSE NEXT SHIFT CONTINUITY OF CARE.
[2017-11-02 06:26] LABS: BASOPHILS % (AUTO) 0.3 % (0.0-2.0); EOSINOPHILS % (AUTO) 8.5 % (0.0-6.0); HEMATOCRIT 32 % (39-51); HEMOGLOBIN 10.1 g/dL (13.5-17.5); LYMPHOCYTES % (AUTO) 17.1 % (20.0-44.0); MEAN CORPUSCULAR HEMOGLOBIN 29 PG (26.0-33.0); MEAN CORPUSCULAR HGB CONC 32 g/dl (31.0-36.0); MEAN CORPUSCULAR VOLUME 89 fL (80-96); MONOCYTES % (AUTO) 12.2 % (2.0-12.0); NEUTROPHILS % (AUTO) 61.9 % (43.0-81.0); PLATELET COUNT (AUTO) 146 /CMM (150-450); RDW COEFFICIENT OF VARIATION 17.3 (11.5-15.0); RED BLOOD CELL COUNT(AUTO) 3.53 MIL/uL (4.5-6.0); WHITE BLOOD COUNT (AUTO) 6.1 K/uL (4.3-11.0)
[2017-11-02 06:27] LABS: MONOCYTES # (AUTO) 0.7 /CMM (0.1-1.30); NEUTROPHILS # (AUTO) 3.8 /CMM (1.8-8.9)
--- NOTE | 2017-11-02 07:30 | NUR ---
TELE/RN OPENING NOTE THE PATIENT ALERT AND ORIENTED X4. DENIES PAIN. THE PATIENT WITH EPISODES OF SOB. REMAINS ON OXYGEN AT 3L/MIN VIA NASAL CANULA. EXTERNAL TELE MONITOR ON AND READING A FIB 93. THE PATIENT IN NO APPARENT DISTRSS. RAC G 20 PATENT AND SALINE LOCKED. LAV SHUNT WITH NO BLEEDING AND NO S/S INFECTION. THE PATIENT IS SCHEDULED FOR THORACENTESIS TODAY. WILL FOLLOW UP FOR TIME. BED LOW AND LOCKED. SIDE RAILS UP X3. CALL LIGHT WITHIN REACH. WILL CONTINUE TO MONITOR.
[2017-11-02 08:00] VITALS: BP 116/60
[2017-11-02] MEDS: CALCIUM ACETATE 667 MG TABLET PO SCH ×3 (08:53→17:57)
[2017-11-02] MEDS: ASPIRIN EC 81 MG TABLET.DR PO SCH (08:53)
[2017-11-02] MEDS: SEVELAMER CARBONATE 800 MG TABLET PO SCH ×3 (08:53→17:57)
[2017-11-02] MEDS: LORATADINE 10 MG TABLET PO SCH (08:53)
[2017-11-02] MEDS: CARVEDILOL 12.5 MG TABLET PO SCH ×2 (09:00→17:00)
[2017-11-02] MEDS ORDERED: DIAZEPAM 5 MG TABLET PO ONE (09:30)
[2017-11-02 12:30] VITALS: BP 113/76
[2017-11-02] MEDS ORDERED: DIAZEPAM 5 MG TABLET PO STA (15:49)
--- NOTE | 2017-11-02 15:49 | NUR ---
TELE/RN NOTE RECEIVED ORDER OF VALIUM 5 MG PO STAT. NOTED AND CARRIED OUT.
[2017-11-02 16:00] VITALS: BP 117/68
--- NOTE | 2017-11-02 16:03 | NUR ---
TELE/RN NOTE VALIUM 5 MG DUE AT 9:30 IS NOT ADMINISTERED DUE TO THORACENTESIS POSTPONED TO LATER TIME. DR BATES IS MADE AWARE.
--- NOTE | 2017-11-02 16:21 | NUR ---
TELE/RN NOTE PER DR LIZ STAT CHEST XRAY ORDER. NOTED AND CARRIED OUT.
--- NOTE | 2017-11-02 16:31 | NUR ---
CHEST XRAY ORDER IS CLARIFIED. NEW ORDER OF 1 VIEW CHEST X RAY STAT IS ORDERED AND 2 VIEW CHEST XRAY ORDER TO DISCONTINUE. NOTED AND CARRIED OUT.
--- NOTE | 2017-11-02 17:00 | NUR ---
TELE/RN NOTE RIGHT LAUNG THORACENTESIS DONE AND 1500 ML FLUID IS REMOVED.
--- NOTE | 2017-11-02 18:46 | NUR ---
TELE/RN NOTE PATIENT ALERT AND ORIENTED X4. DENIES SOB. DENIES PAIN. RESPIRATION REGULAR AND UNLABORED. LAV SHUNT POSITIVE FOR BRUIT AND THRILL. RAC G 20 PATENT AND SALINE LOCKED. BED LOW AND LOCKED. SIDE RAILS UP X3. CALL LIGHT WITHIN REACH. WILL ENDORSE TO [employer] SERVICING OFFICER.
--- NOTE | 2017-11-02 19:30 | NUR ---
RN NOTES RECEIVED PT. AWAKE ON BED, A/OX3, A-FIB ON TELE MONITOR HR-99, WITH ABDOMINAL HERNIA, AMBULATE WITH WALKER, DENIES PAIN, NO SOB, CALL LIGHT WITHIN REACH, SIDERAILSUPX2, CONTINUE TO MONITOR
[2017-11-02 20:00] VITALS: BP 130/65
[2017-11-03] VITALS: BP 124/76
[2017-11-03] MEDS: HYDROCODONE/APAP 5/325MG 1 EACH TABLET PO PRN (02:24)
--- NOTE | 2017-11-03 02:27 | NUR ---
RN NOTES COMPLAINED OF GENERALIZED PAIN- NORCO 5/325MG PO ORDERED, V/S STABLE
[2017-11-03] MEDS: ALBUTEROL FS 2.5 MG/0.5 ML VIAL.NEB NEB SCH ×4 (03:09→12:17)
[2017-11-03 04:00] VITALS: BP 133/80
--- NOTE | 2017-11-03 06:23 | NUR ---
RN NOTES AWAKE, DENIES PAIN, NO SOB,. MORNING CARE RENDERED, PT. NEEDS ATTENDED
[2017-11-03 06:34] LABS: BASOPHILS % (AUTO) 0.6 % (0.0-2.0); EOSINOPHILS % (AUTO) 10.1 % (0.0-6.0); HEMATOCRIT 29 % (39-51); HEMOGLOBIN 9.1 g/dL (13.5-17.5); LYMPHOCYTES % (AUTO) 17.8 % (20.0-44.0); MEAN CORPUSCULAR HEMOGLOBIN 28 PG (26.0-33.0); MEAN CORPUSCULAR HGB CONC 32 g/dl (31.0-36.0); MEAN CORPUSCULAR VOLUME 90 fL (80-96); MONOCYTES # (AUTO) 0.6 /CMM (0.1-1.30); MONOCYTES % (AUTO) 11.2 % (2.0-12.0); NEUTROPHILS # (AUTO) 3.3 /CMM (1.8-8.9); NEUTROPHILS % (AUTO) 60.3 % (43.0-81.0); PLATELET COUNT (AUTO) 151 /CMM (150-450); RDW COEFFICIENT OF VARIATION 17.2 (11.5-15.0); WHITE BLOOD COUNT (AUTO) 5.5 K/uL (4.3-11.0)
[2017-11-03 06:52] LABS: CALCIUM, SERUM 8.1 mg/dL (8.5-10.1); PHOSPHORUS 5.2 mg/dL (2.5-4.9); POTASSIUM 4.9 mmol/L (3.5-5.1)
[2017-11-03 07:18] LABS: CREATININE 7.6 mg/dL (0.6-1.3)
--- NOTE | 2017-11-03 07:43 | NUR ---
MS RN OPENING NOTE. RECEIVED PATIENT IN BED. ALERT ORIENTED X4. ON 3L O2 VIA NC. TOLERATING WELL. IN NO APPARENT DISTRESS OR DISCOMFORT AT THIS TIME. RESPIRATIONS EVEN AND UNLABORED. DENIES PAIN AND SOB. ABLE TO COMMUNICATE NEEDS. PATIENT ON TELE MONITORING WITH A-FIB SINUS TACHY. USES URINAL FOR ELIMINATION. PATIENT IS CURRENTLY BEING DIALYZED. IS STABLE, VITAL SIGNS STABLE. LEFT AV SHUNT, BRUIT AND THRILL PRESENT. RIGHT AC 20G IVC SALINE LOCK, PATENT AND INTACT. KEPT CLEAN AND COMFORTABLE. ALL NEEDS ATTENDED. SAFETY MEASURES IN PLACE, BED IN LOW LOCKED POSITION SIDE RAILS UPX2, CALL LIGHT WITHIN EASY REACH. WILL CONTINUE TO MONITOR.
[2017-11-03 08:00] VITALS: BP 108/57
[2017-11-03] MEDS: SEVELAMER CARBONATE 800 MG TABLET PO SCH (08:00)
[2017-11-03] MEDS: CALCIUM ACETATE 667 MG TABLET PO SCH (08:50)
[2017-11-03] MEDS: ASPIRIN EC 81 MG TABLET.DR PO SCH (08:51)
[2017-11-03] MEDS: LORATADINE 10 MG TABLET PO SCH (08:51)
[2017-11-03] MEDS: CARVEDILOL 12.5 MG TABLET PO SCH (09:00)
--- NOTE | 2017-11-03 10:30 | NUR ---
PATIENT RECEIVED HEMODIALYSIS TODAY. 3L OUTPUT PER DIALYSIS NURSE. VITAL SIGNS STABLE BP: 115/60, HR: 112, TEMP: 98.0, PATIENT IS STABLE. WILL CONTINUE TO MONITOR.
--- NOTE | 2017-11-03 13:10 | NUR ---
MS SOUP MIXER NOTE. RECEIVED ORDER FOR DISCHARGE. PATIENT IS BEING DISCHARGED HOME. PATIENT IS STABLE, VITAL SIGNS ARE STABLE. A/O X4. RESPIRATIONS EVEN AND UNLABORED, IN NO APPARENT DISTRESS OR DISCOMFORT. DISCHARGE PREPARED VIA EXIT CARE. DISCUSSED WITH THE PATIENT. REVIEWED NEW AND CHANGED MEDICATIONS. DISCUSSED DISEASE PROCESS, INSTRUCTIONS AND PHYSICIAN'S RECOMMENDATIONS REVIEWED. BELONGINGS CHECKED AND ACCOUNTED FOR. SIGNED AND COPY PLACED IN CHART. DISCHARGE PAPERWORK WAS SIGNED AND PLACED IN CHART. SKIN IS CHECKED, NO NEW IMPAIRMENTS IDENTIFIED. PATIENT REFUSED PICTURES OF THE SKIN PRIOR TO DISCHARGE. IV SITE ON RIGHT AC WAS DISCONTINUED, TIP INTACT. ID BAND REMOVED. PATIENT WAS ESCORTED OUT OF THE HOSPITAL ON A WHEELCHAIR, ACCOMPANIED BY CARLI GONZALEZ AT 1310.
== END 2017-11-03 13:10 | disposition home or self-care (01) | DRG 280 ==
LOC: ER 22:42 → TELE 10-29 01:37 → MED 11-03 08:56
PROVIDERS: ADMIT Internal Medicine Nephrology; ATTEND Internal Medicine Nephrology
PROC: 5A1D70Z Performance of Urinary Filtration, Intermittent, Less than 6 Hours Per Day (ICD-10-PCS; principal; 2017-10-29)
PROC: 5A1D70Z Performance of Urinary Filtration, Intermittent, Less than 6 Hours Per Day (ICD-10-PCS; 2017-10-30)
PROC: 5A1D70Z Performance of Urinary Filtration, Intermittent, Less than 6 Hours Per Day (ICD-10-PCS; 2017-10-31)
PROC: 5A1D70Z Performance of Urinary Filtration, Intermittent, Less than 6 Hours Per Day (ICD-10-PCS; 2017-11-01)
PROC: 0W993ZX Drainage of Right Pleural Cavity, Percutaneous Approach, Diagnostic (ICD-10-PCS; 2017-11-02)
PROC: 5A1D70Z Performance of Urinary Filtration, Intermittent, Less than 6 Hours Per Day (ICD-10-PCS; 2017-11-03)
DX: I13.2 Hypertensive heart and chronic kidney disease with heart failure and with stage 5 chronic kidney disease, or end stage renal disease (principal); N18.6 End stage renal disease; I21.4 Non-ST elevation (NSTEMI) myocardial infarction; I50.33 Acute on chronic diastolic (congestive) heart failure; J90 Pleural effusion, not elsewhere classified; I48.92 Unspecified atrial flutter; I25.10 Atherosclerotic heart disease of native coronary artery without angina pectoris; Z95.1 Presence of aortocoronary bypass graft; K74.60 Unspecified cirrhosis of liver; Z99.2 Dependence on renal dialysis; G47.33 Obstructive sleep apnea (adult) (pediatric); D64.9 Anemia, unspecified; I25.2 Old myocardial infarction; E78.5 Hyperlipidemia, unspecified; K21.9 Gastro-esophageal reflux disease without esophagitis; N40.0 Benign prostatic hyperplasia without lower urinary tract symptoms; F42.9 Obsessive-compulsive disorder, unspecified; Z79.01 Long term (current) use of anticoagulants; Z87.891 Personal history of nicotine dependence
CPT/HCPCS: 36415; 71045-TC; 71250-TC; 76942-TC; 80048-TC; 80076-TC; 82378; 82652; 82728-TC; 83540-TC; 83615-TC; 83735-TC; 83880; 84100-TC; 84155; 84165; 84484-TC; 84550-TC; 85025-TC; 85045-TC; 85396; 85652-TC; 87070-TC; 87075-TC; 87081-TC; 89051-TC; 90935-TC; 94799-TC; A4606; J1940; Z7610

== ENCOUNTER 2018-03-18 20:39 | Inpatient (IN) | payer MEDICARE, MEDICAID ==
[~2018-03-18] VITALS: Ht 193 cm; Wt 125.3 kg
--- NOTE | 2018-03-18 20:53 | NUR ---
SENT BY DR CASH FOR SOB/POSS PNA "MY RIGHT LUNG HURTS". STATES RECENT PNA INFECTION, SIMILAR SX. PT IS AOX4, AMB, SLIGHTLY TACHYCARDIC, RR EVEN AND UNLABORED. O2 SAT 99% ON RA. SKIN WARM DRY INTACT. NO ACUTE DISTRESS NOTED. READY FOR EVAL.
[2018-03-18] MEDS ORDERED: IPRATROPIUM NEB FS 0.5 MG/2.5 ML AMPUL.NEB NEB ONE (21:30)
[2018-03-18] MEDS ORDERED: ALBUTEROL FS 2.5 MG/3 ML VIAL.NEB NEB ONE (21:30)
[2018-03-18 21:34] LABS: BASOPHILS # (AUTO) 0.1 /CMM (0.0-0.2); EOSINOPHILS % (AUTO) 6.1 % (0.0-6.0); HEMATOCRIT 36 % (39-51); HEMOGLOBIN 11.8 g/dL (13.5-17.5); LYMPHOCYTES # (AUTO) 0.9 /CMM (0.8-4.8); LYMPHOCYTES % (AUTO) 13.9 % (20.0-44.0); MEAN CORPUSCULAR HGB CONC 32 g/dl (31.0-36.0); MEAN CORPUSCULAR VOLUME 90 fL (80-96); MONOCYTES # (AUTO) 0.7 /CMM (0.1-1.30); NEUTROPHILS # (AUTO) 4.6 /CMM (1.8-8.9); PLATELET COUNT (AUTO) 123 /CMM (150-450); RED BLOOD CELL COUNT(AUTO) 4.06 MIL/uL (4.5-6.0); WHITE BLOOD COUNT (AUTO) 6.7 K/uL (4.3-11.0)
[2018-03-18 21:41] LABS: CALCIUM, SERUM 8.5 mg/dL (8.5-10.1); CREATININE 6.7 mg/dL (0.6-1.3); POTASSIUM 4.7 mmol/L (3.5-5.1)
--- NOTE | 2018-03-18 21:55 | NUR ---
CALLED VIP NEPHORLOGY CLUB LOUNGE ATTENDANT WAS PAGED.
[2018-03-18] MEDS ORDERED: VANCOMYCIN 1 GM VIAL ONE (22:11)
[2018-03-18] MEDS ORDERED: CEFEPIME 1 GM VIAL ONE (22:11)
[2018-03-18] MEDS ORDERED: IPRATROPIUM NEB FS 0.5 MG/2.5 ML AMPUL.NEB ONE (22:18)
[2018-03-18] MEDS ORDERED: ALBUTEROL FS 2.5 MG/3 ML VIAL.NEB ONE (22:18)
--- NOTE | 2018-03-18 22:25 | NUR ---
RT AT BEDSIDE FOR BREATHING TX.
[2018-03-18] MEDS ORDERED: CEFEPIME 1 GM in IV D5W 50 ML IV ONE (22:30)
[2018-03-18] MEDS ORDERED: VANCOMYCIN 1 GM in IV D5W 250 ML IV ONE (22:30)
--- NOTE | 2018-03-18 22:31 | NUR ---
REPORT GIVEN TO ADE DE LA O. PT ADMITTED BY DR Raúl CASH. ADMIT TO TELE.
--- NOTE | 2018-03-18 23:00 | NUR ---
VANCOMYCIN ENDORSED TO ADE DE LA O
--- NOTE | 2018-03-18 23:03 | NUR ---
PT TRANSFERRED TO FLOOR
[2018-03-18 23:05] VITALS: BP 148/112
--- NOTE | 2018-03-18 23:05 | NUR ---
SAND TESTER ADMISSION NOTES RECEIVED PATIENT FROM ER VIA [facility]. DX. RIGHT PLEURAL EFFUSION;PNA. PATIENT IS ALERT AND ORIENTED X4, VERBALLY RESPONSIVE, ABLE TO MAKE NEEDS KNOWN. BREATHING EVEN AND UNLABORED. NO SOB NOTED. TOLERATING ROOM AIR. SP02 95% ON RA. CURRENTLY WITH NO COMPLAINTS OF PAIN OR DISCOMFORT. NO FACIAL GRIMACING. IV ON RIGHT AC INTACT AND PATENT. SKIN DRY AND WARM TO TOUCH. AFEBRILE. EXPLAINED THE PROCESS OF ADMISSION INCLUDING SKIN ASSESSMENT. SKIN CHECK RENDERED WITH PICTURES TAKEN AND PLACED IN CHART. BELONGINGS LIST ACCOUNTED FOR WITH INVENTORY LIST SIGNED. ORIENTED TO THE USE OF UNIT AMENITIES. ALL OTHER NEEDS ATTENDED TO. SAFETY MEASURES IN PLACE. CALL LIGHT WITHIN REACH. WILL CONTINUE TO MONITOR.
[2018-03-18 23:10] VITALS: BP 148/112
--- NOTE | 2018-03-19 00:20 | NUR ---
PLASTIC FABRICATOR NOTES PAGED DR. CASH FOR FURTHER ADMISSION ORDERS. AWAITING CALL BACK
--- NOTE | 2018-03-19 01:41 | NUR ---
INDUSTRIAL PLANT CUSTODIAN NOTES PAGED DR. CASH AGAIN FOR FURTHER ADMISSION ORDERS. AWAITING CALL BACK.
--- NOTE | 2018-03-19 02:44 | NUR ---
TREE CUTTER NOTES SPOKE TO DR. CASH ON THE PHONE REGARDING FURTHER ADMISSION ORDERS, INCLUDING DIET, PAIN MEDICATION, ANXIETY MEDICATION (PER PATIENT'S REQUEST). PER DR. CASH, HE WILL ENTER ORDERS IN.
[2018-03-19 04:00] VITALS: BP 145/89
[2018-03-19] MEDS ORDERED: Z GUARD REMEDY 2 OZ OINT TP PRN (04:00)
[2018-03-19] MEDS ORDERED: MAG HYDROX/AL HYDROX/SIMETH 30 ML UDC PO PRN (04:00)
[2018-03-19] MEDS ORDERED: ACETAMINOPHEN 325 MG TABLET PO PRN (04:00)
[2018-03-19] MEDS ORDERED: ONDANSETRON HCL/PF 4 MG/2 ML VIAL IVP PRN (04:00)
[2018-03-19] MEDS ORDERED: ZOLPIDEM TARTRATE 5 MG TABLET PO PRN (04:00)
--- NOTE | 2018-03-19 04:35 | NUR ---
PERINATAL BREASTFEEDING ASSISTANT NOTES PATIENT REQUESTED FOR AN ANXIETY MEDICATION AGAIN THAT HE MADE DR. CASH AWARE WHEN HE SAW HIM PRIOR TO GOING TO ER. INFORMED PATIENT THAT I WILL GET AN ORDER FOR A MEDICATION. PAGED. DR. CASH, AND PER DR. VIRAMONTES 0.5MG PO Q8H PRN. ORDER WAS CARRIED OUT
[2018-03-19] MEDS: HYDROCODONE/APAP 5/325MG 1 EACH TABLET PO PRN ×3 (04:38→21:14)
--- NOTE | 2018-03-19 05:11 | NUR ---
JAVA MANAGER NOTES HOME MEDICATIONS COLLECTED AND PLACED IN A BAG FOR PHARMACY SAFE KEEPING. PATIENT IS AWARE AND AGREES. THE FOLLOWING MEDICATIONS WERE COLLECTED: 1. A ZIPLOCK WITH "CALCIUM ACETATE AND ACETAMINOPHEN" (PER PATIENT) 2. ALBUTEROL INHALER 3. ASPERCREME WITH LIDOCAINE.
[2018-03-19] MEDS: LORAZEPAM 0.5 MG TABLET PO PRN ×2 (06:09→14:10)
--- NOTE | 2018-03-19 06:36 | NUR ---
EXPERIMENTAL PLASTICS FABRICATOR CLOSING NOTES PATIENT IS RESTING IN BED. NO ACUTE CHANGES THROUGHOUT SHIFT. BREATHING EVEN AND UNLABORED. NO SOB NOTED. TOLERATING ROOM AIR. CURRENTLY WITH NO COMPLAINTS OF PAIN OR DISCOMFORT. NO FACIAL GRIMACING. IV ON RIGHT AC INTACT AND PATENT. SKIN DRY AND WARM TO TOUCH. AFEBRILE. KEPT CLEAN DRY AND COMFORTABLE. ALL OTHER NEEDS ATTENDED TO. SAFETY MEASURES IN PLACE. CALL LIGHT WITHIN REACH. WILL ENDORSE TO ONCOMING NURSE FOR KRYSTA.
--- NOTE | 2018-03-19 06:46 | NUR ---
TOBACCO PREVENTION HEALTH EDUCATOR NOTES PLACED A CALL TO [facility] AND SPOKE WITH KALYAN. INFORMED KALYAN THAT I NEED A LIST OF PATIENT'S MEDICATION SINCE PATIENT STATED THAT HIS DIALYSIS CENTER HAS A LIST OF ALL THE MEDICATIONS HE TAKES. PER KALYAN, HE WILL FAX IT. GAVE KALYAN OUR UNIT'S FAX NUMBER. WILL WAIT FOR IT TO COME AND WILL ENDORSE TO ONCOMING NURSE.
[2018-03-19] MEDS: ALBUTEROL FS 2.5 MG/3 ML VIAL.NEB NEB SCH ×3 (07:35→19:30)
[2018-03-19 08:00] VITALS: BP 135/85
--- NOTE | 2018-03-19 08:00 | NUR ---
SNOW RANGER AM NOTES RECEIVED PATIENT ALERT AND ORIENTED X4, VERBALLY RESPONSIVE, ABLE TO MAKE NEEDS KNOWN. BREATHING EVEN AND UNLABORED. NO SOB NOTED. TOLERATING ROOM AIR. SP02 95% ON RA. CURRENTLY WITH NO COMPLAINTS OF PAIN OR DISCOMFORT. NO FACIAL GRIMACING. IV ON RIGHT AC INTACT AND PATENT.WITH LT ARM HD FISTULA. SKIN DRY AND WARM TO TOUCH. AFEBRILE. SAFETY MEASURES IN PLACE. CALL LIGHT WITHIN REACH. WILL CONTINUE TO MONITOR.
--- NOTE | 2018-03-19 08:30 | NUR ---
HELD BP MEDS FOR NOW,PT IS HAVING A HEMODIALYSIS PROCEDURE TODAY.
[2018-03-19] MEDS ORDERED: ALBUTEROL SULFATE 8 GM HFA.AER.AD IH SCH (09:00)
[2018-03-19] MEDS: LOSARTAN POTASSIUM 50 MG TABLET PO SCH ×2 (09:00→12:48)
[2018-03-19] MEDS: LORATADINE 10 MG TABLET PO SCH (09:53)
[2018-03-19] MEDS: DIGOXIN 0.25 MG TABLET PO SCH (12:48)
[2018-03-19] MEDS: DRONEDARONE HYDROCHLORIDE 400 MG TABLET PO SCH ×2 (12:48→17:14)
[2018-03-19] MEDS: CARVEDILOL 12.5 MG TABLET PO SCH ×2 (12:48→17:14)
--- NOTE | 2018-03-19 12:50 | NUR ---
POST HD ADMINISTERED COZAAR 100 MG PO BP 130/82 HR 109
[2018-03-19 13:17] LABS: ABG BASE EXCESS -1.9 mmol/L; ABG OXYGEN SATURATION 93.7 % (92.0-98.5); ABG PCO2 36.6 mmHg (35.0-45.0); ABG PH 7.406 (7.350-7.450); ABG PO2 71.5 mmHg (75.0-100.0); AaDO2 34.4 mmHg; COHb 0.6 % (0.5-1.5); MetHb 0.5 % (0.0-1.5); O2Hb 92.7 % (94.0-97.0); SITE, ABG Right Radial; VENT MODE, BG Room Air
--- NOTE | 2018-03-19 14:37 | NUR ---
COMPLETED POST THORACENTESIS PROCEDURE RT LUNG WITH STABLE V/S.
--- NOTE | 2018-03-19 14:38 | NUR ---
DRAINED 1400 ML PLEURAL FLUID FROM THE RT LUNG.PT C/O PAIN WILL GIVE NORCO FOR PAIN MGT.WILL SEND PLEURAL FLUID TO PATHOLOGY FOR CYTOLOGY.
[2018-03-19 16:00] VITALS: BP 124/76
--- NOTE | 2018-03-19 16:54 | NUR ---
SEEN AND EXAMINED BY DR ONEIL (PSYCH) WITH NEW ORDER CARRIED OUT.PT IS SLEEPING COMFORTABLY BUT AROUSABLE WITH NO S/S OF AGITATION OR RESTLESSNESS.COOPERATIVE WITH STAFF AND COMPLIANT WITH MEDS DURING THE SHIFT. PT STAYED IN BED DURING THE SHIFT DUE TO ALL THE PROCEDURES DONE E.G. HD AND THORACENTESIS.
--- NOTE | 2018-03-19 19:59 | NUR ---
RT PT REFUSED TX , STATES HE WANTS TO SLEEP. NO SOB OR DISTRESS NOTED AT THIS TIME.
[2018-03-19 20:00] VITALS: BP 109/69
--- NOTE | 2018-03-19 20:00 | NUR ---
MS FOOD SERVICE WORKER HOSPITAL INITIAL NOTES SEEN PT IN BED RESTING BUT AROUSES TO TOUCH, NOT IN ANY ACUTE DISTRESS NOTED. BREATHING EVEN AND NON-LABORED. NO SOB NOTED WELL. KEPT HIM WARM AND COMFORTABLE AT ALL TIMES. PLACE CALL LIGHT AT REACH.
[2018-03-19 20:24] VITALS: BP 109/69
--- NOTE | 2018-03-19 21:17 | NUR ---
MS DANDY NOTES C/O ABDOMINAL AND BACK PAIN , NORCO TABLET GIVEN ORDERED. KEPT HIM COMFORTABLE AND WARM. PLACE CALL LIGHT AT REACH. WILL RE-ASSESS LATER.
[2018-03-19] MEDS ORDERED: TRAZODONE 50 MG TABLET PO SCH (22:00)
[2018-03-20] MEDS: ALBUTEROL FS 2.5 MG/3 ML VIAL.NEB NEB SCH ×3 (01:52→13:30)
[2018-03-20 07:33] LABS: BASOPHILS % (AUTO) 0.7 % (0.0-2.0); EOSINOPHILS % (AUTO) 5.5 % (0.0-6.0); HEMATOCRIT 36 % (39-51); HEMOGLOBIN 11.6 g/dL (13.5-17.5); LYMPHOCYTES % (AUTO) 14.8 % (20.0-44.0); MEAN CORPUSCULAR HGB CONC 33 g/dl (31.0-36.0); MEAN CORPUSCULAR VOLUME 89 fL (80-96); MONOCYTES # (AUTO) 0.7 /CMM (0.1-1.30); MONOCYTES % (AUTO) 9.6 % (2.0-12.0); NEUTROPHILS # (AUTO) 4.7 /CMM (1.8-8.9); NEUTROPHILS % (AUTO) 69.4 % (43.0-81.0); PLATELET COUNT (AUTO) 98 /CMM (150-450); RED BLOOD CELL COUNT(AUTO) 4.02 MIL/uL (4.5-6.0); WHITE BLOOD COUNT (AUTO) 6.8 K/uL (4.3-11.0)
[2018-03-20 07:34] LABS: CALCIUM, SERUM 8.2 mg/dL (8.5-10.1); CREATININE 6.6 mg/dL (0.6-1.3); MAGNESIUM 2.2 mg/dL (1.8-2.4); PHOSPHORUS 5.1 mg/dL (2.5-4.9); POTASSIUM 4.5 mmol/L (3.5-5.1)
--- NOTE | 2018-03-20 07:41 | NUR ---
MS PROPERTY SUPERVISOR CLOSING NOTES PT RESTING COMFORTABLY IN BED WITHOUT ANY DISCOMFORT NOTED. STABLE ARMANDO THE NIGHT AND SLEPT WELL. NO SIGNS OF ANY ACUTE DISTRESS NOTED. ALL DUE MEDS GIVEN AND ALL NEEDS MET. KEPT HIM WARM AND COMFORTABLE AT ALL TIMES. PLACE [facility].
[2018-03-20 08:00] VITALS: BP 119/74
--- NOTE | 2018-03-20 08:00 | NUR ---
GIS MAPPING TECHNICIAN AM NOTES RECEIVED PATIENT ALERT AND ORIENTED X4, VERBALLY RESPONSIVE, ABLE TO MAKE NEEDS KNOWN. BREATHING EVEN AND UNLABORED. NO SOB NOTED. TOLERATING ROOM AIR. SP02 95% ON RA. CURRENTLY WITH NO COMPLAINTS OF PAIN OR DISCOMFORT. NO FACIAL GRIMACING. IV ON RIGHT AC INTACT AND PATENT.WITH LT ARM HD FISTULA. SKIN DRY AND WARM TO TOUCH. AFEBRILE. PT HAS BEEN REFUSING BREATHING TX WITH R.T, INSPITE OF EXPLAINING ITS RISKS AND BENEFITS.SAFETY MEASURES IN PLACE. CALL LIGHT WITHIN REACH. WILL CONTINUE TO MONITOR.
[2018-03-20] MEDS: CARVEDILOL 12.5 MG TABLET PO SCH (09:19)
[2018-03-20] MEDS: LORATADINE 10 MG TABLET PO SCH (09:20)
[2018-03-20] MEDS: DRONEDARONE HYDROCHLORIDE 400 MG TABLET PO SCH (09:20)
[2018-03-20] MEDS: HYDROCODONE/APAP 5/325MG 1 EACH TABLET PO PRN (09:20)
[2018-03-20] MEDS: LOSARTAN POTASSIUM 50 MG TABLET PO SCH (09:20)
[2018-03-20 10:14] LABS: TOTAL PROTEIN, SERUM 6.8 g/dL (6.4-8.2)
[2018-03-20] MEDS: DIGOXIN 0.25 MG TABLET PO SCH (13:20)
--- NOTE | 2018-03-20 14:55 | NUR ---
SEEN BY [facility] CLERKPAUL FOR EGD/COLONOSCOPY AND CLARIFIED WITH HER THAT PT IS TO BE DC'D TODAY.PAUL, [facility] CLERK STATED THAT PT CAN HAVE GI FOLLOW UP OUTPT.
[2018-03-20] MEDS ORDERED: NA PHOS,M-B/NA PHOS,DI-BA 1 EA ENEMA RC PRN (15:00)
[2018-03-20] MEDS ORDERED: MAGNESIUM CITRATE 296 ML BOTTLE PO ONE (15:00)
[2018-03-20] MEDS ORDERED: PEG 3350/NA SULF,BICARB,CL/KCL 4,000 ML BOTTLE PO ONE (15:00)
[2018-03-20 15:41] LABS: ALBUMIN 3.5 g/dL (3.4-5.0)
[2018-03-20 15:49] VITALS: BP 106/74
--- NOTE | 2018-03-20 16:16 | NUR ---
DISCHARGE INSTRUCTIONS AND FOLLOW UP HAS BEEN GIVEN.IV H/L TO RT AC REMOVED WITHOUT BLEEDING NOTED.WITH CRUZ HD FISTULA REMAINS INTACT AND COVERED WITH CLEAN AND DRY DRSG.ABDOMINAL HERNIA COVERED WITH ABDOMINAL BINDER FOR SUPPORT.DISCHARGE HOME WITH STABLE V/S.PT REFUSED TO HAVE HIS BLE AND BABATUNDE FEET PHOTOS TO BE TAKEN.
--- NOTE | 2018-03-20 16:55 | NUR ---
DISCHARGED PT WITH STABLE V/S AND WAS WHEELED TO HIS CAR IN THE HOSPITAL PARKING LOT.
[2018-04-20] MEDS ORDERED: TRAZ-213 PO (13:19)
== END 2018-03-20 17:00 | disposition home health service (06) | DRG 291 ==
LOC: ER 20:43 → TELE 22:27 → MED 03-19 11:28
PROVIDERS: ADMIT Internal Medicine; ATTEND Internal Medicine
PROC: 5A1D70Z Performance of Urinary Filtration, Intermittent, Less than 6 Hours Per Day (ICD-10-PCS; 2018-03-18)
PROC: 0W993ZX Drainage of Right Pleural Cavity, Percutaneous Approach, Diagnostic (ICD-10-PCS; principal; 2018-03-19)
DX: I13.2 Hypertensive heart and chronic kidney disease with heart failure and with stage 5 chronic kidney disease, or end stage renal disease (principal); N18.6 End stage renal disease; I50.33 Acute on chronic diastolic (congestive) heart failure; R18.8 Other ascites; I48.91 Unspecified atrial fibrillation; I25.10 Atherosclerotic heart disease of native coronary artery without angina pectoris; E66.9 Obesity, unspecified; Z68.34 Body mass index [BMI] 34.0-34.9, adult; D64.9 Anemia, unspecified; G47.33 Obstructive sleep apnea (adult) (pediatric); D69.6 Thrombocytopenia, unspecified; E78.5 Hyperlipidemia, unspecified; I25.2 Old myocardial infarction; I48.0 Paroxysmal atrial fibrillation; J44.9 Chronic obstructive pulmonary disease, unspecified; N40.0 Benign prostatic hyperplasia without lower urinary tract symptoms; Z87.01 Personal history of pneumonia (recurrent); Z90.49 Acquired absence of other specified parts of digestive tract; Z91.14 Patient's other noncompliance with medication regimen; Z95.1 Presence of aortocoronary bypass graft; Z99.2 Dependence on renal dialysis; F39 Unspecified mood [affective] disorder; K43.9 Ventral hernia without obstruction or gangrene
CPT/HCPCS: 36415; 36600; 71045-TC; 76942-TC; 80048-TC; 80061-TC; 80162-TC; 82040-TC; 82728-TC; 82803-TC; 83540-TC; 83615-TC; 83735-TC; 84100-TC; 84155-TC; 84443-TC; 85025-TC; 85610-TC; 85730-TC; 87040-TC; 87070-TC; 87075-TC; 87081-TC; 87102-TC; 88305-TC; 88312-TC; 89051-TC; 90935-TC; 93307-TC; G0378; J0692; J3370; J7060

== ENCOUNTER 2018-04-16 06:15 | Inpatient (IN) | payer MEDICARE, MEDICAID ==
[~2018-04-16] VITALS: Ht 193 cm; Wt 122.9 kg
[~2018-04-16 06:15] MED LIST changes: -ALBU18HF2 INH; -DIGO250T PO; -DOXY100C2 PO; -DRON400T2 PO; -HYDR-3974 PO
[2018-04-16] MEDS ORDERED: ONDANSETRON HCL/PF 4 MG/2 ML VIAL IVP ONE (06:30)
[2018-04-16] MEDS ORDERED: ONDANSETRON HCL/PF 4 MG/2 ML VIAL ONE (06:30)
[2018-04-16] MEDS ORDERED: MORPHINE SULFATE INJ 2 MG/ML DISP.SYRIN IV ONE (06:30)
[2018-04-16] MEDS ORDERED: MORPHINE SULFATE INJ 4 MG/ML DISP.SYRIN ONE (06:30)
[2018-04-16] MEDS ORDERED: LET SOLN TOPICAL 8 ML UDC TP ONE ×2 (06:33→07:00)
[2018-04-16 07:25] LABS: BASOPHILS # (AUTO) 0.1 /CMM (0.0-0.2); BASOPHILS % (AUTO) 1.2 % (0.0-2.0); EOSINOPHILS % (AUTO) 5.4 % (0.0-6.0); HEMATOCRIT 34 % (39-51); LYMPHOCYTES # (AUTO) 0.8 /CMM (0.8-4.8); LYMPHOCYTES % (AUTO) 12.6 % (20.0-44.0); MEAN CORPUSCULAR HGB CONC 33 g/dl (31.0-36.0); MEAN CORPUSCULAR VOLUME 91 fL (80-96); MONOCYTES # (AUTO) 0.7 /CMM (0.1-1.30); MONOCYTES % (AUTO) 10.9 % (2.0-12.0); NEUTROPHILS # (AUTO) 4.5 /CMM (1.8-8.9); NEUTROPHILS % (AUTO) 69.9 % (43.0-81.0); PLATELET COUNT (AUTO) 111 /CMM (150-450); RED BLOOD CELL COUNT(AUTO) 3.71 MIL/uL (4.5-6.0); WHITE BLOOD COUNT (AUTO) 6.4 K/uL (4.3-11.0)
[2018-04-16 07:30] LABS: CREATININE 6.3 mg/dL (0.6-1.3); POTASSIUM 4.3 mmol/L (3.5-5.1)
[2018-04-16 07:42] LABS: ALBUMIN 3.8 g/dL (3.4-5.0); BILIRUBIN,DIRECT 0.6 mg/dL (0.0-0.2); TOTAL PROTEIN, SERUM 7.5 g/dL (6.4-8.2)
[2018-04-16 09:52] LABS: APPEARANCE,URINE Slightly Cloudy (CLEAR); BILIRUBIN,URINE MODERATE (NEGATIVE); BLOOD, URINE Trace-lysed Ery/uL (NEGATIVE); KETONES,URINE 15 (NEGATIVE); LEUKOCYTE ESTERASE ,URINE Negative (NEGATIVE); NITRITE, URINE Negative (NEGATIVE); PH,URINE 5.5 (5.0-8.0); PROTEIN,URINE >=300 mg/dl (NEGATIVE); UGLUCOSE Negative (NEGATIVE); UROBILINOGEN,URINE 0.2 EU/dL (0.2)
[2018-04-16 09:54] LABS: COLOR,URINE Dark Yellow (YELLOW)
[2018-04-16 10:07] LABS: BACTERIA,URINE None seen /HPF (None Seen); SQUAMOUS EPITHELIAL CELL,UR Few /HPF (None Seen); WBC,URINE 0-3 /HPF (0-3)
[2018-04-16] MEDS ORDERED: CARV25TA2 PO (11:28)
[2018-04-16] MEDS ORDERED: SEVE800T8 PO (11:28)
[2018-04-16] MEDS ORDERED: DRON400T2 PO (11:28)
[2018-04-16] MEDS ORDERED: ALBU18HF2 IH (11:28)
[2018-04-16 12:00] VITALS: BP 115/87
[2018-04-16 13:00] VITALS: BP 115/87
[2018-04-16] MEDS ORDERED: ONDANSETRON HCL/PF 4 MG/2 ML VIAL IVP PRN (14:30)
[2018-04-16] MEDS ORDERED: ZOLPIDEM TARTRATE 5 MG TABLET PO PRN (14:30)
[2018-04-16] MEDS ORDERED: MAGNESIUM HYDROXIDE 30 ML UDC PO PRN (14:30)
[2018-04-16] MEDS ORDERED: MAG HYDROX/AL HYDROX/SIMETH 30 ML UDC PO PRN (14:30)
[2018-04-16] MEDS ORDERED: ACETAMINOPHEN 325 MG TABLET PO PRN (14:30)
[2018-04-16] MEDS ORDERED: Z GUARD REMEDY 2 OZ OINT TP PRN (14:30)
[2018-04-16] MEDS: LOSARTAN POTASSIUM 50 MG TABLET PO SCH (15:48)
[2018-04-16 16:00] VITALS: BP 111/70
[2018-04-16 17:00] VITALS: BP 111/70
[2018-04-16] MEDS: HYDROMORPHONE 1 MG/1 ML DISP.SYRIN IV PRN ×2 (17:07→21:46)
[2018-04-16] MEDS: SEVELAMER CARBONATE 800 MG TABLET PO SCH (17:15)
[2018-04-16] MEDS: ALBUTEROL FS 2.5 MG/0.5 ML VIAL.NEB NEB SCH (19:30)
[2018-04-16 20:00] VITALS: BP 107/73
[2018-04-16] MEDS: TRAZODONE 50 MG TABLET PO SCH (23:03)
[2018-04-17] VITALS (7 sets, daily range): BP systolic 92–137; BP diastolic 59–87
[2018-04-17] MEDS ORDERED: METOCLOPRAMIDE HCL 10 MG/2 ML VIAL IV PRN (00:30)
[2018-04-17] MEDS: ALBUTEROL FS 2.5 MG/0.5 ML VIAL.NEB NEB SCH ×4 (01:30→19:24)
[2018-04-17] MEDS: PANTOPRAZOLE 40 MG TABLET.DR PO SCH (07:30)
[2018-04-17] MEDS: SEVELAMER CARBONATE 800 MG TABLET PO SCH ×3 (08:00→17:40)
[2018-04-17 08:08] LABS: BASOPHILS % (AUTO) 0.7 % (0.0-2.0); EOSINOPHILS % (AUTO) 4.7 % (0.0-6.0); HEMATOCRIT 32 % (39-51); HEMOGLOBIN 10.4 g/dL (13.5-17.5); LYMPHOCYTES # (AUTO) 0.8 /CMM (0.8-4.8); LYMPHOCYTES % (AUTO) 14.6 % (20.0-44.0); MEAN CORPUSCULAR HGB CONC 33 g/dl (31.0-36.0); MEAN CORPUSCULAR VOLUME 91 fL (80-96); MONOCYTES # (AUTO) 0.5 /CMM (0.1-1.30); NEUTROPHILS # (AUTO) 3.7 /CMM (1.8-8.9); PLATELET COUNT (AUTO) 114 /CMM (150-450); WHITE BLOOD COUNT (AUTO) 5.3 K/uL (4.3-11.0)
[2018-04-17 08:30] LABS: CREATININE 6.6 mg/dL (0.6-1.3); MAGNESIUM 2.2 mg/dL (1.8-2.4); PHOSPHORUS 5.7 mg/dL (2.5-4.9); POTASSIUM 4.3 mmol/L (3.5-5.1)
[2018-04-17] MEDS: DRONEDARONE HYDROCHLORIDE 400 MG TABLET PO SCH (09:00)
[2018-04-17] MEDS: LOSARTAN POTASSIUM 50 MG TABLET PO SCH (11:35)
[2018-04-17] MEDS: LORATADINE 10 MG TABLET PO SCH (11:35)
[2018-04-17] MEDS: ASPIRIN EC 81 MG TABLET.DR PO SCH (11:36)
[2018-04-17] MEDS: ALPRAZOLAM 0.25 MG TABLET PO PRN (13:31)
[2018-04-17] MEDS: HYDROMORPHONE INJ 0.5 MG/0.5 ML SYRINGE IV PRN (14:32)
[2018-04-17] MEDS: HYDROCODONE/APAP 5/325MG 1 EACH TABLET PO PRN (17:39)
[2018-04-17] MEDS ORDERED: SEVELAMER CARBONATE 800 MG TABLET PO ONE (18:30)
[2018-04-17] MEDS ORDERED: CALCIUM ACETATE 667 MG TABLET PO ONE (18:30)
[2018-04-17] MEDS: TRAZODONE 50 MG TABLET PO SCH (21:05)
[2018-04-18] MEDS: ALBUTEROL FS 2.5 MG/0.5 ML VIAL.NEB NEB SCH ×4 (00:50→19:51)
[2018-04-18 04:39] VITALS: BP 108/68
[2018-04-18 07:24] LABS: ALBUMIN 3.3 g/dL (3.4-5.0); BILIRUBIN,TOTAL 0.9 mg/dL (0.2-1.0); CALCIUM, SERUM 7.9 mg/dL (8.5-10.1); CREATININE 6.2 mg/dL (0.6-1.3); MAGNESIUM 2.2 mg/dL (1.8-2.4); PHOSPHORUS 5.7 mg/dL (2.5-4.9); POTASSIUM 4.4 mmol/L (3.5-5.1); TOTAL PROTEIN, SERUM 6.8 g/dL (6.4-8.2)
[2018-04-18 07:27] LABS: BASOPHILS % (AUTO) 0.7 % (0.0-2.0); HEMATOCRIT 32 % (39-51); HEMOGLOBIN 10.5 g/dL (13.5-17.5); LYMPHOCYTES # (AUTO) 0.9 /CMM (0.8-4.8); LYMPHOCYTES % (AUTO) 14.6 % (20.0-44.0); MEAN CORPUSCULAR HGB CONC 33 g/dl (31.0-36.0); MEAN CORPUSCULAR VOLUME 91 fL (80-96); MONOCYTES # (AUTO) 0.8 /CMM (0.1-1.30); MONOCYTES % (AUTO) 12.8 % (2.0-12.0); NEUTROPHILS # (AUTO) 4.3 /CMM (1.8-8.9); NEUTROPHILS % (AUTO) 67.9 % (43.0-81.0); PLATELET COUNT (AUTO) 102 /CMM (150-450); RED BLOOD CELL COUNT(AUTO) 3.51 MIL/uL (4.5-6.0); WHITE BLOOD COUNT (AUTO) 6.3 K/uL (4.3-11.0)
[2018-04-18 08:00] VITALS: BP_SYST 107; BP_SYST 140; BP_DIAS 102; BP_DIAS 67
[2018-04-18] MEDS: PANTOPRAZOLE 40 MG TABLET.DR PO SCH (08:12)
[2018-04-18] MEDS: SEVELAMER CARBONATE 800 MG TABLET PO SCH ×3 (08:12→17:12)
[2018-04-18] MEDS: CALCIUM ACETATE 667 MG TABLET PO SCH ×3 (08:12→17:12)
[2018-04-18] MEDS: LORATADINE 10 MG TABLET PO SCH (08:13)
[2018-04-18] MEDS: DRONEDARONE HYDROCHLORIDE 400 MG TABLET PO SCH (09:00)
[2018-04-18] MEDS: ASPIRIN EC 81 MG TABLET.DR PO SCH (09:00)
[2018-04-18] MEDS: LOSARTAN POTASSIUM 50 MG TABLET PO SCH (09:43)
[2018-04-18] MEDS: ALPRAZOLAM 0.25 MG TABLET PO PRN (09:43)
[2018-04-18] MEDS: HYDROMORPHONE INJ 0.5 MG/0.5 ML SYRINGE IV PRN (09:44)
[2018-04-18 20:03] VITALS: BP 116/78
[2018-04-18] MEDS: TRAZODONE 50 MG TABLET PO SCH (21:43)
[2018-04-19] MEDS: HYDROCODONE/APAP 5/325MG 1 EACH TABLET PO PRN ×2 (00:03→12:03)
[2018-04-19] MEDS: ALBUTEROL FS 2.5 MG/0.5 ML VIAL.NEB NEB SCH ×4 (01:31→18:53)
[2018-04-19 06:54] LABS: BILIRUBIN,TOTAL 0.8 mg/dL (0.2-1.0); CREATININE 6.4 mg/dL (0.6-1.3); MAGNESIUM 2.1 mg/dL (1.8-2.4); PHOSPHORUS 5.2 mg/dL (2.5-4.9); POTASSIUM 4.7 mmol/L (3.5-5.1); TOTAL PROTEIN, SERUM 6.4 g/dL (6.4-8.2)
[2018-04-19 08:00] VITALS: BP 100/68
[2018-04-19] MEDS: DRONEDARONE HYDROCHLORIDE 400 MG TABLET PO SCH (08:28)
[2018-04-19] MEDS: SEVELAMER CARBONATE 800 MG TABLET PO SCH ×3 (08:28→17:07)
[2018-04-19] MEDS: PANTOPRAZOLE 40 MG TABLET.DR PO SCH (08:29)
[2018-04-19] MEDS: CALCIUM ACETATE 667 MG TABLET PO SCH ×3 (08:29→17:08)
[2018-04-19] MEDS: LORATADINE 10 MG TABLET PO SCH (08:29)
[2018-04-19] MEDS: ASPIRIN EC 81 MG TABLET.DR PO SCH (08:29)
[2018-04-19] MEDS: LOSARTAN POTASSIUM 50 MG TABLET PO SCH (08:35)
[2018-04-19 16:00] VITALS: BP 117/85
[2018-04-19] MEDS ORDERED: POLYETHYLENE GLYCOL 3350 17 GM POWD.PACK PO PRN (16:00)
[2018-04-19 20:53] VITALS: BP 118/77
[2018-04-19] MEDS: TRAZODONE 50 MG TABLET PO SCH (21:19)
[2018-04-20] MEDS: ALBUTEROL FS 2.5 MG/0.5 ML VIAL.NEB NEB SCH ×3 (00:44→12:33)
[2018-04-20 07:54] LABS: OCCULT BLOOD STOOL NEGATIVE (NEGATIVE)
[2018-04-20 08:00] VITALS: BP 113/81
[2018-04-20] MEDS: CALCIUM ACETATE 667 MG TABLET PO SCH ×3 (08:48→17:28)
[2018-04-20] MEDS: SEVELAMER CARBONATE 800 MG TABLET PO SCH ×3 (08:48→17:28)
[2018-04-20] MEDS: PANTOPRAZOLE 40 MG TABLET.DR PO SCH (08:49)
[2018-04-20] MEDS: LORATADINE 10 MG TABLET PO SCH (08:50)
[2018-04-20] MEDS: DRONEDARONE HYDROCHLORIDE 400 MG TABLET PO SCH (08:50)
[2018-04-20] MEDS: LOSARTAN POTASSIUM 50 MG TABLET PO SCH (08:50)
[2018-04-20] MEDS: ASPIRIN EC 81 MG TABLET.DR PO SCH (08:50)
[2018-04-20] MEDS ORDERED: TRAZ-213 PO (13:19)
[2018-04-20 16:00] VITALS: BP 110/79
== END 2018-04-20 18:48 | disposition home or self-care (01) | DRG 432 ==
LOC: ER 06:15 → TELE1 10:34 → MEDSG1 04-17 15:49
PROVIDERS: ADMIT Student in an Organized Health Care Education/Training Program; ATTEND Student in an Organized Health Care Education/Training Program
PROC: 0W993ZZ Drainage of Right Pleural Cavity, Percutaneous Approach (ICD-10-PCS; principal; 2018-04-17)
PROC: 5A1D70Z Performance of Urinary Filtration, Intermittent, Less than 6 Hours Per Day (ICD-10-PCS; 2018-04-17)
PROC: 5A1D70Z Performance of Urinary Filtration, Intermittent, Less than 6 Hours Per Day (ICD-10-PCS; 2018-04-18)
PROC: 0W9G3ZZ Drainage of Peritoneal Cavity, Percutaneous Approach (ICD-10-PCS; 2018-04-18)
DX: K74.60 Unspecified cirrhosis of liver (principal); N18.6 End stage renal disease; J90 Pleural effusion, not elsewhere classified; R18.8 Other ascites; I13.2 Hypertensive heart and chronic kidney disease with heart failure and with stage 5 chronic kidney disease, or end stage renal disease; E78.5 Hyperlipidemia, unspecified; E66.9 Obesity, unspecified; K21.9 Gastro-esophageal reflux disease without esophagitis; I48.0 Paroxysmal atrial fibrillation; Z99.2 Dependence on renal dialysis; I25.10 Atherosclerotic heart disease of native coronary artery without angina pectoris; I25.2 Old myocardial infarction; Z68.34 Body mass index [BMI] 34.0-34.9, adult; I50.9 Heart failure, unspecified; I27.20 Pulmonary hypertension, unspecified; D64.9 Anemia, unspecified; J44.9 Chronic obstructive pulmonary disease, unspecified; K42.9 Umbilical hernia without obstruction or gangrene; K57.30 Diverticulosis of large intestine without perforation or abscess without bleeding; K80.20 Calculus of gallbladder without cholecystitis without obstruction; Z79.01 Long term (current) use of anticoagulants; Z79.82 Long term (current) use of aspirin; Z87.891 Personal history of nicotine dependence; Z95.1 Presence of aortocoronary bypass graft; F42.9 Obsessive-compulsive disorder, unspecified
CPT/HCPCS: 36415; 71045-TC; 71250-TC; 76942-TC; 78582; 80048-TC; 80053-TC; 80076-TC; 81000-TC; 82272-TC; 83690-TC; 83735-TC; 84100-TC; 84484-TC; 85025-TC; 85610-TC; 87070-TC; 87081-TC; 88305-TC; 88312-TC; 89051-TC; 90935-TC; 93970-TC; A6402; A9540; A9567; G0378; J1170; J2270; J2405; J2765

== ENCOUNTER 2018-06-15 00:29 | Inpatient (IN) | payer MEDICARE, MEDICAID ==
[~2018-06-15] VITALS: Ht 193 cm; Wt 113.4 kg
[~2018-06-15 00:29] MED LIST changes: +ALBU18HF2 IH; -CARV12.52 PO; +CARV25TA2 PO; +DRON400T2 PO; +SEVE800T8 PO; +TRAZ-213 PO
[2018-06-15 00:50] VITALS: BP 155/113
[2018-06-15] MEDS ORDERED: AMIO200T4 PO (01:14)
[2018-06-15] MEDS ORDERED: HYDR-3974 PO (01:14)
[2018-06-15] MEDS ORDERED: MINO2.5T PO (01:14)
[2018-06-15] MEDS ORDERED: ATOR40TA PO (01:14)
[2018-06-15] MEDS ORDERED: ASPI-1169 PO (01:14)
[2018-06-15] MEDS ORDERED: METO25TA6 PO (01:14)
[2018-06-15 02:00] VITALS: BP 155/113
[2018-06-15] MEDS ORDERED: HYDROCODONE/APAP 5/325MG 1 EACH TABLET PO PRN (02:00)
--- NOTE | 2018-06-15 02:00 | NUR ---
RIVER BOAT CAPTAIN NOTES PATIENT ARRIVED ON THE UNIT VIA GURNEY. TRANSFERRED FROM [facility]. PATIENT IS A/O X 4. NO SIGNS OF RESPIRATORY DISTRESS. DENIES SOB. BODY PHOTOS TAKEN AND PLACED IN CHART. DENIES PAIN. WILL CONTINUE TO MONITOR PATIENT THROUGHOUT THE SHIFT.
[2018-06-15 04:00] VITALS: BP 133/100
[2018-06-15 06:21] LABS: BASOPHILS # (AUTO) 0.1 /CMM (0.0-0.2); BASOPHILS % (AUTO) 1.1 % (0.0-2.0); EOSINOPHILS % (AUTO) 3.6 % (0.0-6.0); HEMATOCRIT 34 % (39-51); HEMOGLOBIN 11.1 g/dL (13.5-17.5); LYMPHOCYTES # (AUTO) 1.1 /CMM (0.8-4.8); LYMPHOCYTES % (AUTO) 18.8 % (20.0-44.0); MEAN CORPUSCULAR HGB CONC 33 g/dl (31.0-36.0); MEAN CORPUSCULAR VOLUME 90 fL (80-96); MONOCYTES # (AUTO) 0.5 /CMM (0.1-1.30); MONOCYTES % (AUTO) 9.7 % (2.0-12.0); NEUTROPHILS # (AUTO) 3.8 /CMM (1.8-8.9); NEUTROPHILS % (AUTO) 66.8 % (43.0-81.0); PLATELET COUNT (AUTO) 110 /CMM (150-450); RED BLOOD CELL COUNT(AUTO) 3.73 MIL/uL (4.5-6.0); WHITE BLOOD COUNT (AUTO) 5.7 K/uL (4.3-11.0)
--- NOTE | 2018-06-15 06:44 | NUR ---
RN CLOSING NOTES PATIENT IS RESTING COMFORTABLY IN BED. PATIENT SHOWS NO SIGNS OF RESPIRATORY DISTRESS. PATIENT SHOWS NO SIGNS OF SHORTNESS OF BREATH. PATIENT WAS ASLEEP FOR MOST OF THE NIGHT AFTER THE ADMISSION PROCESS. PATIENT DID NOT CALL FOR ANY PAIN MEDICATION OR COMPLAINTS OF DISCOMFORT. ALL NEEDS WERE MET. SAFETY PRECAUTIONS IMPLEMENTED. CALL LIGHT WITHIN REACH. WILL ENDORSE TO AM RN.
[2018-06-15 06:56] LABS: CREATININE 5.1 mg/dL (0.6-1.3); POTASSIUM 3.7 mmol/L (3.5-5.1)
--- NOTE | 2018-06-15 07:38 | NUR ---
SOCCER PLAYER OPENING NOTES RECEIVED PATIENT ON BED, A/O X4 AND ABLE TO MAKE NEEDS KNOWN. RESPIRATION EVEN AND NON LABORED WITH NO ACUTE RESPIRATORY DISTRESS, LUNGS CLEARED BILATERALLY. ABDOMEN SOFT AND NON DISTENDED WITH ACTIVE BOWEL SOUNDS TO ALL QUADRANTS, URINAL PRESENT ON BED SIDE. DENIES PAIN AND DISCOMFORT UPON ASSESSMENT. SKIN WARM TO TOUCH AND DRY. IV SITE AT RIGHT AC WITH NO S/SX OF INFILTRATION. PATIENT EDUCATED WITH RENAL DIET CONCERN, VERBALIZED UNDERSTANDING. ALL CONCERNS ADDRESSED. PLACED CALL LIGHT WITHIN REACH FOR SAFETY. TELE MONITOR WITH SINUS TACHYCARDIA AT 105. WILL CONTINUE TO EVALUATE CARE.
[2018-06-15] MEDS ORDERED: BENICAR 40 MG PO SCH (09:00)
[2018-06-15] MEDS ORDERED: MINOXIDIL (10MG) 10 MG TABLET PO SCH (09:00)
[2018-06-15] MEDS: APIXABAN 2.5 MG TABLET PO SCH ×2 (09:00→16:38)
[2018-06-15] MEDS: ASPIRIN 81 MG TAB.CHEW PO SCH (09:00)
[2018-06-15] MEDS ORDERED: AMIODARONE HCL 200 MG TABLET PO SCH (09:00)
[2018-06-15 09:01] VITALS: BP 134/91
[2018-06-15] MEDS: CARVEDILOL 12.5 MG TABLET PO SCH (09:11)
[2018-06-15] MEDS: MINOXIDIL (2.5MG) 2.5 MG TABLET PO SCH (09:11)
[2018-06-15] MEDS: LOSARTAN POTASSIUM 50 MG TABLET PO SCH (09:11)
[2018-06-15] MEDS: DRONEDARONE HYDROCHLORIDE 400 MG TABLET PO SCH (09:12)
--- NOTE | 2018-06-15 09:31 | NUR ---
AUTOMOTIVE DISMANTLER NOTES PATIENT REFUSED ASPIRIN AND ELIQUIS DUE TO UPCOMING TIGHT EYE CATARACT SURGERY ON 06/23/18 PATIENT STATED. WILL NOTIFY . Addendum: 06/15/18 at 1641 by ELLE KO RN AUTOMOTIVE DISMANTLER NOTES ADDENDUM FOR NOTES 06/15/2018 AT 0931 PATIENT REFUSED ASPIRIN AND ELIQUIS DUE TO UPCOMING TIGHT EYE CATARACT SURGERY ON 06/23/18 PATIENT STATED. WILL NOTIFY .
--- NOTE | 2018-06-15 16:39 | NUR ---
RN CARDIOLOGY NOTES PATIENT REFUSED ELIQUIS ORDERED DUE TO UPCOMING RIGHT EYE CATARACT SURGERY ON 06/23/18 PER PATIENT. WILL FF WITH
--- NOTE | 2018-06-15 17:11 | NUR ---
COOPERATIVE EDUCATION COORDINATOR NOTES PAGED DR. DEL BATES REGARDING PATIENT CONCERN OF RENAL DIET WANTING TO CHANGED TO REGULAR DIET PER PATIENT ONE OF HER DOCTOR AGREED FOR HIM TO EAT REGULAR DIET FOOD; AND RIGHT EYE CATARACT SURGERY ON 06/23, PATIENT REFUSED TO TAKE ELIQUIS AND ASPIRIN ORDERED TODAY DUE TO THE UPCOMING SURGERY. WAITING FOR RESPONSE. WILL CONTINUE TO FF UP.
[2018-06-15 17:14] VITALS: BP 97/70
--- NOTE | 2018-06-15 17:30 | NUR ---
MEDICAL DOCTOR NOTES DR. BATES CALLED BACK REGARDING PATIENT CONCERNS. PATIENT REMAIN ON RENAL DIET. ELIQUIS AND ASPIRIN CAN BE HELD DUE TO RIGHT EYE CATARACT SURGERY. DISCHARGE CONCERN ADDRESSED AND WILL REFER TO HOSPITALIST TOMORROW. PATIENT NOTIFIED
--- NOTE | 2018-06-15 18:15 | NUR ---
VENDING MACHINE FILLER NOTES PATIENT SEEN BY DR. JI FOR EKG RESULT FOR POSSIBLE ABLATION PLAN DUE TO ATRIAL FLUTTER. PATIENT VERBALIZED UNDERSTANDING AND WILL THINK OF THE TREATMENT.
--- NOTE | 2018-06-15 18:47 | NUR ---
TONGUE TRIMMER CLOSING NOTES PATIENT A/O X4 AND ABLE TO MAKE NEEDS KNOWN, RESPONSIVE TO ALL STIMULI. RESPIRATION EVEN AND NON LABORED WITH NO ACUTE RESPIRATORY DISTRESS, SATING 99% IN ROOM AIR. DENIES PAIN UPON ASSESSMENT. SKIN WARM TO TOUCH AND DRY. ABDOMEN SOFT WITH HERNIA PRESENT. ABDOMINAL BINDER IN PLACE, URINAL TOTAL OF 350 ML WITHIN THE SHIFT. IV SITE AT RIGHT AC AND PATENT IN FLUSHING. ALL CONCERNS ADDRESSED. PLACED CALL LIGHT WITHIN REACH FOR SAFETY. TELE MONITOR WITH SINUS TACHYCARDIA AT 102. ENDORSED PATIENT CARE TO NEXT SHIFT.
--- NOTE | 2018-06-15 20:16 | NUR ---
RECEIVED REPORT BEDSIDE, PT IN BED AWAKE ALERT ORIENTED X4, BREATHING EVEN AND UNLABORED OM ROOM AIR. NO COMPLAINT OF PAIN OR DISCOMFORT AT THIS TIME. IV ACCESS ON THE R AC 20G PATENT AND FLUSHING. FREIGHT BOOKER IN PLACE SR IN THE 90S. BED IN LOWEST LOCKED POSITION, CALL LIGHT WITHIN REACH AT ALL TIMES, WILL CONTINUE TO MONITOR FREQUENTLY.
[2018-06-15 20:29] VITALS: BP 106/76
[2018-06-15] MEDS: ATORVASTATIN 40 MG TABLET PO SCH ×2 (21:11→21:20)
[2018-06-16] MEDS ORDERED: ZOLPIDEM TARTRATE 5 MG TABLET PO ONE
[2018-06-16 01:31] VITALS: BP 143/96
[2018-06-16 04:53] VITALS: BP 104/63
--- NOTE | 2018-06-16 06:14 | NUR ---
NEW AUTOS DELIVERY DRIVER CLOSING NOTES PT REMAINS IN BED SLEEPING EASILY AROUSED TO NAME CALL, BREATHING EVEN AND UNLABORED OM ROOM AIR. NO COMPLAINT OF PAIN OR DISCOMFORT AT THIS TIME. IV ACCESS ON THE R AC 20G PATENT AND FLUSHING. PROPERTY INSURANCE AGENT IN PLACE SR IN THE 90S. BED IN LOWEST LOCKED POSITION, CALL LIGHT WITHIN REACH AT ALL TIMES, WILL ENDORSE TO DAY NURSE FOR KRYSTA
--- NOTE | 2018-06-16 07:30 | NUR ---
tele department store manager: initial assessment received pt in bed awake, a/o4. no c/o pain or any discomfort. pt wants to go home today. pt for hd tx today, pt aware. instructed to call for assistance. will continue to monitor.
[2018-06-16 08:00] VITALS: BP 116/76
--- NOTE | 2018-06-16 08:00 | NUR ---
tele solution developer: notes pt doesn't like his breakfast, pt wants more protein. educated pt on renal diet, verbalized understanding, but adamant on getting what he wants. radiologic technician called and spoke to pt at bedside. will continue to monitor.
--- NOTE | 2018-06-16 08:20 | NUR ---
tele siebel solution architect: notes pt refused aspirin and eliquis meds, stated, "i have to hold for at least 10 days because i'm going to have a cataract surgery."
[2018-06-16] MEDS: DRONEDARONE HYDROCHLORIDE 400 MG TABLET PO SCH (08:21)
[2018-06-16] MEDS: APIXABAN 2.5 MG TABLET PO SCH (08:21)
[2018-06-16] MEDS: ASPIRIN 81 MG TAB.CHEW PO SCH (08:21)
--- NOTE | 2018-06-16 08:55 | NUR ---
tele chemical research technician: cardio consult seen and examined by dr. barajas at this time.
[2018-06-16] MEDS: CARVEDILOL 12.5 MG TABLET PO SCH (09:00)
[2018-06-16] MEDS: LOSARTAN POTASSIUM 50 MG TABLET PO SCH (09:00)
[2018-06-16] MEDS: MINOXIDIL (2.5MG) 2.5 MG TABLET PO SCH (09:00)
--- NOTE | 2018-06-16 09:00 | NUR ---
tele nca certified concierge: notes pt for hd today, held all b/p meds, pt aware and verbalized understanding.
--- NOTE | 2018-06-16 09:10 | NUR ---
tele relief master: notes hd tx consent obtained from pt. paul (hd nurse) here and has 1 pt in icu and will come up after. pt aware and still wants to go home today. awaiting md delgado. will continue to monitor.
--- NOTE | 2018-06-16 09:30 | NUR ---
tele senior salesforce developer: pulmo consult seen by dr. ahuja at this time.
--- NOTE | 2018-06-16 10:20 | NUR ---
tele rodeo performer: notes hd tx started by sherry (rn) at this time. pt still insisting going home today after tx. awaiting for md delgado. pt aware.
--- NOTE | 2018-06-16 11:50 | NUR ---
m/s janitor caretaker: notes dr. kamara here and informed md that pt wants to go home today, stated, "okay, i will see him."
--- NOTE | 2018-06-16 12:00 | NUR ---
m/s organ installer: md visit seen and examined by dr. kamara with order to d'c home after tx. pt for ct chest then agreed to go home after.
[2018-06-16 13:00] VITALS: BP 110/69
--- NOTE | 2018-06-16 13:00 | NUR ---
m/s manufacturing laborer: notes hd completed with 2.8 liters removed, shameka. haresh. pt for d'c home.
--- NOTE | 2018-06-16 15:00 | NUR ---
m/s c architect: notes still awaiting for ct chest result then pt can go home.
[2018-06-16 16:00] VITALS: BP 135/94
--- NOTE | 2018-06-16 16:00 | NUR ---
m/s blood bank laboratory technologist: notes called dr. ahuja re: ct chest result with order okay to d'c home and f/u with him next week. pt made aware.
--- NOTE | 2018-06-16 16:20 | NUR ---
m/s belt loop machine operator: notes discharge instructions given to pt and verbalized understanding. pt will call dr. ahuja ([facility]) to f/u with him next week and also will f/u with pmd in 3-5 days as instructed. home medications teaching also provided and verbalized understanding. h/l removed with tip intact with no swelling, redness, and no bleeding noted.
--- NOTE | 2018-06-16 16:55 | NUR ---
m/s drag seiner: discharged discharged home via taxi with voucher in stable condition with all d'c papers and valuables.
== END 2018-06-16 16:45 | disposition home or self-care (01) | DRG 308 ==
LOC: TELE 00:29 → MED 06-16 09:53
PROVIDERS: ADMIT Internal Medicine Nephrology; ATTEND Internal Medicine Nephrology
PROC: 5A1D70Z Performance of Urinary Filtration, Intermittent, Less than 6 Hours Per Day (ICD-10-PCS; principal; 2018-06-16)
DX: I48.92 Unspecified atrial flutter (principal); N18.6 End stage renal disease; I13.2 Hypertensive heart and chronic kidney disease with heart failure and with stage 5 chronic kidney disease, or end stage renal disease; R18.8 Other ascites; I25.10 Atherosclerotic heart disease of native coronary artery without angina pectoris; Z95.1 Presence of aortocoronary bypass graft; E78.5 Hyperlipidemia, unspecified; I27.20 Pulmonary hypertension, unspecified; K21.9 Gastro-esophageal reflux disease without esophagitis; J44.9 Chronic obstructive pulmonary disease, unspecified; E66.9 Obesity, unspecified; Z68.30 Body mass index [BMI] 30.0-30.9, adult; F42.9 Obsessive-compulsive disorder, unspecified; I50.9 Heart failure, unspecified; N40.0 Benign prostatic hyperplasia without lower urinary tract symptoms; K42.9 Umbilical hernia without obstruction or gangrene
CPT/HCPCS: 36415; 71250-TC; 80048-TC; 85025-TC; 87081-TC; 90935-TC; G0378

== ENCOUNTER 2018-08-29 22:07 | Emergency (ER) | payer MEDICARE, MEDICAID ==
[~2018-08-29] VITALS: Ht 193 cm; Wt 108.4 kg
[~2018-08-29 22:07] MED LIST changes: +AMIO200T4 PO; +ASPI-1169 PO; +ATOR40TA PO; +HYDR-3974 PO; +METO25TA6 PO; +MINO2.5T PO; -TRAZ-213 PO; +TRAZ-252 PO
--- NOTE | 2018-08-29 22:29 | NUR ---
BIBSELF FROM [facility] NEXT DO[facility]. TO ER BED 10. AAOX4. AMBYULATORY. NAD NOTED BREATHING EVEN AND UNLABORED. C/O COUGH W/ YELLOW PHLEGM AND CHEST CONGESTION FOR THE PAST 3 DAYS. PT NOTED WITH BILATERAL WHEEZING UPON AUSCULTATION. PT REPORTS TAKEN TYLENOL FOR PAIN BECAUSE OF THE COUGHING. PT DENIES FEVER. AWAITING MD FOR EVAL.
--- NOTE | 2018-08-29 22:31 | NUR ---
XRAY AT BEDSIDE
[2018-08-29] MEDS ORDERED: ONDANSETRON HCL/PF 4 MG/2 ML VIAL ONE (22:38)
[2018-08-29] MEDS ORDERED: ONDANSETRON 4 MG TAB.RAPDIS ONE (22:40)
--- NOTE | 2018-08-29 22:48 | NUR ---
pt noted vomiting and nauseous. md made aware. order recieved to give zofran 4mg
--- NOTE | 2018-08-29 22:56 | NUR ---
RT CALLED FOR BREATHING TX
[2018-08-29] MEDS ORDERED: ALBUTEROL FS 2.5 MG/0.5 ML VIAL.NEB NEB ONE (23:00)
[2018-08-29] MEDS ORDERED: ONDANSETRON 4 MG TAB.RAPDIS SL ONE (23:00)
[2018-08-29] MEDS ORDERED: ONDANSETRON HCL/PF 4 MG/2 ML VIAL IM ONE (23:00)
[2018-08-29] MEDS ORDERED: GUAIFENESIN/D-METHORPHAN HB 5 ML UDC PO ONE (23:00)
[2018-08-29] MEDS ORDERED: GUAIFENESIN/D-METHORPHAN HB 5 ML UDC ONE (23:05)
[2018-08-29] MEDS ORDERED: ALBUTEROL FS 2.5 MG/0.5 ML VIAL.NEB ONE (23:05)
--- NOTE | 2018-08-30 00:34 | NUR ---
IV LINE OBTAINED ON R AC 18G. BLOOD DRAWN AND SENT TO LAB
[2018-08-30 00:39] LABS: BASOPHILS # (AUTO) 0.1 /CMM (0.0-0.2); BASOPHILS % (AUTO) 0.8 % (0.0-2.0); EOSINOPHILS % (AUTO) 4.5 % (0.0-6.0); HEMATOCRIT 35 % (39-51); HEMOGLOBIN 11.4 g/dL (13.5-17.5); LYMPHOCYTES # (AUTO) 1.1 /CMM (0.8-4.8); LYMPHOCYTES % (AUTO) 14.1 % (20.0-44.0); MEAN CORPUSCULAR HGB CONC 33 g/dl (31.0-36.0); MEAN CORPUSCULAR VOLUME 89 fL (80-96); MONOCYTES # (AUTO) 0.8 /CMM (0.1-1.30); MONOCYTES % (AUTO) 10.8 % (2.0-12.0); NEUTROPHILS # (AUTO) 5.5 /CMM (1.8-8.9); NEUTROPHILS % (AUTO) 69.8 % (43.0-81.0); PLATELET COUNT (AUTO) 132 /CMM (150-450); RED BLOOD CELL COUNT(AUTO) 3.86 MIL/uL (4.5-6.0); WHITE BLOOD COUNT (AUTO) 7.8 K/uL (4.3-11.0)
[2018-08-30] MEDS ORDERED: ONDANSETRON HCL/PF 4 MG/2 ML VIAL ONE (00:48)
[2018-08-30] MEDS ORDERED: VANCOMYCIN 1 GM in IV D5W 250 ML IV ONE (01:00)
[2018-08-30] MEDS ORDERED: CEFEPIME 1 GM in IV D5W 50 ML IV ONE (01:00)
[2018-08-30] MEDS ORDERED: ONDANSETRON HCL/PF 4 MG/2 ML VIAL IV ONE (01:00)
[2018-08-30 01:03] LABS: CREATININE 3.8 mg/dL (0.6-1.3); POTASSIUM 3.6 mmol/L (3.5-5.1)
[2018-08-30] MEDS ORDERED: CEFEPIME 1 GM VIAL ONE (01:16)
[2018-08-30] MEDS ORDERED: WATER FOR INJECTION,STERILE 10 ML ONE (01:16)
[2018-08-30 01:18] LABS: ALBUMIN 3.8 g/dL (3.4-5.0); BILIRUBIN,DIRECT 0.7 mg/dL (0.0-0.2); BILIRUBIN,TOTAL 1.2 mg/dL (0.2-1.0); TOTAL PROTEIN, SERUM 8.1 g/dL (6.4-8.2)
--- NOTE | 2018-08-30 02:24 | NUR ---
Patient discharged to home in stable condition. Written and verbal after care instructions given. Patient verbalizes understanding of instruction.IV removed. Catheter intact and site benign. Pressure and 4x4 applied to site. No bleeding noted. Pt ambulatory with a steady gait
[2018-08-30 02:27] VITALS: BP 141/94
== END 2018-08-30 02:28 | disposition home or self-care (01) ==
LOC: ER 22:10
DX: J06.9 Acute upper respiratory infection, unspecified (principal); R18.8 Other ascites; I13.2 Hypertensive heart and chronic kidney disease with heart failure and with stage 5 chronic kidney disease, or end stage renal disease; N18.6 End stage renal disease; I50.9 Heart failure, unspecified; I25.10 Atherosclerotic heart disease of native coronary artery without angina pectoris; I25.2 Old myocardial infarction; J45.909 Unspecified asthma, uncomplicated; I48.91 Unspecified atrial fibrillation; Z99.2 Dependence on renal dialysis; Z95.818 Presence of other cardiac implants and grafts; Z90.89 Acquired absence of other organs; Z98.890 Other specified postprocedural states; Z88.1 Allergy status to other antibiotic agents; Z79.899 Other long term (current) drug therapy; Z79.82 Long term (current) use of aspirin
CPT/HCPCS: 36415; 71045; 71250; 80048; 80076; 83605; 83880; 84484; 85025; 85730; 87040 ×2; 93005; 94640; 96365; 96375; 99284; J0692 ×2; J2405; J7060 ×2; Q0162

== ENCOUNTER 2018-09-19 14:41 | Outpatient (CLI) | payer MEDICARE, MEDICAID | END 2018-09-19 23:59 | disposition home or self-care (01) | LOC: LAB 14:41 | PROVIDERS: ATTEND Internal Medicine | DX: Z01.818 Encounter for other preprocedural examination (principal); R18.8 Other ascites | CPT/HCPCS: 36415; 85730-TC ==

== ENCOUNTER 2018-10-03 14:16 | Outpatient (CLI) | payer MEDICARE, MEDICAID | END 2018-10-03 23:45 | disposition home or self-care (01) | LOC: LAB 14:16 | PROVIDERS: ATTEND Internal Medicine | DX: R18.8 Other ascites (principal); Z79.01 Long term (current) use of anticoagulants | CPT/HCPCS: 36415; 85730-TC ==

== ENCOUNTER 2018-10-07 09:46 | Outpatient (CLI) | payer MEDICARE, MEDICAID | END 2018-10-07 23:59 | disposition home or self-care (01) | LOC: US 09:46 | PROVIDERS: ATTEND Internal Medicine | DX: R18.8 Other ascites (principal) | CPT/HCPCS: 76942-TC ==

== ENCOUNTER 2018-11-11 14:54 | Outpatient (CLI) | payer MEDICARE, MEDICAID | END 2018-11-11 23:59 | disposition home or self-care (01) | LOC: LAB 14:54 | PROVIDERS: ATTEND Internal Medicine | DX: Z01.818 Encounter for other preprocedural examination (principal) | CPT/HCPCS: 36415; 85730-TC ==

== ENCOUNTER 2018-11-13 10:00 | Outpatient (CLI) | payer MEDICARE, MEDICAID | END 2018-11-13 23:59 | disposition home or self-care (01) | LOC: US 10:00 | PROVIDERS: ATTEND Internal Medicine | DX: R18.8 Other ascites (principal) | CPT/HCPCS: 76942-TC ==

== ENCOUNTER 2018-11-19 14:10 | Outpatient (CLI) | payer MEDICARE, MEDICAID | END 2018-11-19 23:59 | disposition home or self-care (01) | LOC: LAB 14:10 | PROVIDERS: ATTEND Internal Medicine | DX: R18.8 Other ascites (principal); I11.0 Hypertensive heart disease with heart failure; I50.9 Heart failure, unspecified; I25.10 Atherosclerotic heart disease of native coronary artery without angina pectoris; J45.909 Unspecified asthma, uncomplicated | CPT/HCPCS: 36415; 85730-TC ==

== ENCOUNTER 2018-11-20 10:58 | Outpatient (CLI) | payer MEDICARE, MEDICAID | END 2018-11-20 23:59 | disposition home or self-care (01) | LOC: US 10:58 | PROVIDERS: ATTEND Internal Medicine | DX: R18.8 Other ascites (principal) | CPT/HCPCS: 76942-TC ==

== ENCOUNTER 2018-12-26 15:07 | Outpatient (CLI) | payer MEDICARE, MEDICAID | END 2018-12-26 23:59 | disposition home or self-care (01) | LOC: LAB 15:07 | PROVIDERS: ATTEND Internal Medicine | DX: R18.8 Other ascites (principal); I11.0 Hypertensive heart disease with heart failure; I50.9 Heart failure, unspecified; I25.10 Atherosclerotic heart disease of native coronary artery without angina pectoris; J45.909 Unspecified asthma, uncomplicated; M19.90 Unspecified osteoarthritis, unspecified site; F32.9 Major depressive disorder, single episode, unspecified | CPT/HCPCS: 36415; 85730-TC ==

== ENCOUNTER 2018-12-30 11:07 | Outpatient (CLI) | payer MEDICARE, MEDICAID | END 2018-12-30 23:59 | disposition home or self-care (01) | LOC: US 11:07 | PROVIDERS: ATTEND Internal Medicine | DX: R18.8 Other ascites (principal) | CPT/HCPCS: 76942-TC ==

== ENCOUNTER 2019-01-21 15:19 | Outpatient (CLI) | payer MEDICARE, MEDICAID | END 2019-01-21 23:59 | disposition home or self-care (01) | LOC: LAB 15:19 | DX: R18.8 Other ascites (principal); I12.0 Hypertensive chronic kidney disease with stage 5 chronic kidney disease or end stage renal disease; E11.22 Type 2 diabetes mellitus with diabetic chronic kidney disease; N18.5 Chronic kidney disease, stage 5; Z88.1 Allergy status to other antibiotic agents; Z98.890 Other specified postprocedural states; F32.9 Major depressive disorder, single episode, unspecified; I11.0 Hypertensive heart disease with heart failure; Z87.891 Personal history of nicotine dependence; Z82.49 Family history of ischemic heart disease and other diseases of the circulatory system; Z83.3 Family history of diabetes mellitus; Z83.6 Family history of other diseases of the respiratory system | CPT/HCPCS: 36415; 85730-TC ==

== ENCOUNTER 2019-01-22 11:15 | Outpatient (CLI) | payer MEDICARE, MEDICAID | END 2019-01-22 23:59 | disposition home or self-care (01) | LOC: US 11:15 | DX: R18.8 Other ascites (principal) | CPT/HCPCS: 76942-TC ==

== ENCOUNTER 2019-01-29 12:53 | Emergency (ER) | payer MEDICARE, OTHER ==
[~2019-01-29] VITALS: Ht 193 cm; Wt 118.4 kg
--- NOTE | 2019-01-29 13:00 | NUR ---
PT BIB SELF C/O LOWER ABDOMINAL PAIN STARTED SATURDAY, PT IS AAOX4, NOT IN RESPIRATORY DISTRESS, HOOKED TO MONITOR, KEPT RESTED AND COMFORTABLE, WILL CONTINUE TO MONITOR.
--- NOTE | 2019-01-29 13:53 | NUR ---
AWAITING ER MD FOR EVAL.
--- NOTE | 2019-01-29 14:23 | NUR ---
AT BEDSIDE FOR EVAL.
[2019-01-29] MEDS ORDERED: ONDANSETRON HCL/PF 4 MG/2 ML VIAL ONE (15:00)
[2019-01-29] MEDS ORDERED: MORPHINE SULFATE INJ 2 MG/ML DISP.SYRIN IV ONE (15:00)
[2019-01-29] MEDS ORDERED: MORPHINE SULFATE INJ 4 MG/ML DISP.SYRIN ONE (15:00)
[2019-01-29] MEDS ORDERED: ONDANSETRON HCL/PF 4 MG/2 ML VIAL IVP ONE (15:00)
--- NOTE | 2019-01-29 15:00 | NUR ---
IV LINE ESTABLISHED, BLOOD DRAWN AND SENT TO LAB
--- NOTE | 2019-01-29 15:10 | NUR ---
NORBERTO AND AT BEDSIDE FOR ULTRASOUND GUIDED PARACENTESIS.
[2019-01-29 15:23] LABS: BASOPHILS % (AUTO) 0.6 % (0.0-2.0); EOSINOPHILS % (AUTO) 0.8 % (0.0-6.0); HEMATOCRIT 35 % (39-51); HEMOGLOBIN 11.4 g/dL (13.5-17.5); LYMPHOCYTES # (AUTO) 0.5 /CMM (0.8-4.8); LYMPHOCYTES % (AUTO) 6.5 % (20.0-44.0); MEAN CORPUSCULAR HGB CONC 33 g/dl (31.0-36.0); MEAN CORPUSCULAR VOLUME 89 fL (80-96); MONOCYTES # (AUTO) 0.4 /CMM (0.1-1.30); MONOCYTES % (AUTO) 5.3 % (2.0-12.0); NEUTROPHILS # (AUTO) 6.9 /CMM (1.8-8.9); NEUTROPHILS % (AUTO) 86.8 % (43.0-81.0); PLATELET COUNT (AUTO) 131 /CMM (150-450); RED BLOOD CELL COUNT(AUTO) 3.97 MIL/uL (4.5-6.0); WHITE BLOOD COUNT (AUTO) 7.9 K/uL (4.3-11.0)
[2019-01-29 15:32] LABS: CALCIUM, SERUM 9.1 mg/dL (8.5-10.1); CREATININE 5.4 mg/dL (0.6-1.3); POTASSIUM 4.6 mmol/L (3.5-5.1)
[2019-01-29 15:37] LABS: BILIRUBIN,TOTAL 1.8 mg/dL (0.2-1.0); TOTAL PROTEIN, SERUM 6.9 g/dL (6.4-8.2)
--- NOTE | 2019-01-29 16:00 | NUR ---
PT IS WHEELED TO CT SCAN VIA [facility]
[2019-01-29] MEDS: HYDROCODONE/APAP 5/325MG 1 EACH TABLET PO ONE (18:58)
[2019-01-29] MEDS ORDERED: HYDROCODONE/APAP 5/325MG 1 EACH TABLET ONE (18:59)
[2019-01-29 19:16] VITALS: BP 119/69
--- NOTE | 2019-01-29 19:16 | NUR ---
IV removed. Catheter intact and site benign. Pressure and 4x4 applied to site. No bleeding noted. Patient discharged to home in stable condition. Written and verbal after care instructions given. Patient verbalizes understanding of instruction.
== END 2019-01-29 19:17 | disposition home or self-care (01) ==
LOC: ER 12:54
DX: R18.8 Other ascites (principal); I13.2 Hypertensive heart and chronic kidney disease with heart failure and with stage 5 chronic kidney disease, or end stage renal disease; N18.6 End stage renal disease; I48.91 Unspecified atrial fibrillation; M54.5 Low back pain; G89.29 Other chronic pain; I25.2 Old myocardial infarction; J45.909 Unspecified asthma, uncomplicated; Z99.2 Dependence on renal dialysis; Z95.1 Presence of aortocoronary bypass graft; Z90.89 Acquired absence of other organs; Z98.890 Other specified postprocedural states; Z88.1 Allergy status to other antibiotic agents; Z60.2 Problems related to living alone; Z79.82 Long term (current) use of aspirin; Z79.899 Other long term (current) drug therapy
CPT/HCPCS: 36415; 49083; 74176; 80048; 80076; 83690; 85025; 96374; 96375; 99284; J2270; J2405; 76942-TC

== ENCOUNTER 2019-02-01 05:05 | Inpatient (IN) | payer MEDICARE, MEDICAID ==
[~2019-02-01] VITALS: Ht 193 cm; Wt 105.7 kg
--- NOTE | 2019-02-01 05:55 | NUR ---
PT TO ER BED 11 C/O ABDOMINAL PAIN, BACK PAIN, AND LEFT SHOULDER PAIN. PATIENT STATES THAT HE WAS HERE ON 01/27/2019(SATURDAY), AND 01/28/2019(SATURDAY) FOR THE SAME COMPLAINT. PATIENT IS A DIALYSIS PATIENT. AAOX4. NO SOB. BREATHING EVENLY AND UNLABORED. CONNECTED TO MONITOR.
--- NOTE | 2019-02-01 06:19 | NUR ---
NOTIFIED DR. BELLE OF LOW BLOOD PRESSURE. WILL HOLD PAIN MEDICATION THAT CAN POTENTIALLY LOWER BLOOD PRESSURE.
[2019-02-01] MEDS ORDERED: HYDROMORPHONE INJ 0.5 MG/0.5 ML SYRINGE IM ONE (06:30)
[2019-02-01] MEDS ORDERED: IV NS 0.9% 500 ML BAG IV ONE ×2 (06:30→08:00)
--- NOTE | 2019-02-01 06:41 | NUR ---
BLOOD AND CULTURES OBTAINED AND SENT TO LAB
--- NOTE | 2019-02-01 06:43 | NUR ---
PATIENT UNABLE TO PROVIDE URINE AT THIS TIME.
[2019-02-01 06:52] LABS: BASOPHILS % (AUTO) 0.2 % (0.0-2.0); EOSINOPHILS % (AUTO) 1.6 % (0.0-6.0); HEMATOCRIT 34 % (39-51); HEMOGLOBIN 11.1 g/dL (13.5-17.5); LYMPHOCYTES # (AUTO) 0.4 /CMM (0.8-4.8); LYMPHOCYTES % (AUTO) 4.6 % (20.0-44.0); MEAN CORPUSCULAR HGB CONC 33 g/dl (31.0-36.0); MEAN CORPUSCULAR VOLUME 87 fL (80-96); MONOCYTES # (AUTO) 0.7 /CMM (0.1-1.30); MONOCYTES % (AUTO) 7.5 % (2.0-12.0); NEUTROPHILS # (AUTO) 8.1 /CMM (1.8-8.9); NEUTROPHILS % (AUTO) 86.1 % (43.0-81.0); PLATELET COUNT (AUTO) 173 /CMM (150-450); RED BLOOD CELL COUNT(AUTO) 3.87 MIL/uL (4.5-6.0); WHITE BLOOD COUNT (AUTO) 9.4 K/uL (4.3-11.0)
[2019-02-01 07:04] LABS: CALCIUM, SERUM 8.5 mg/dL (8.5-10.1); POTASSIUM 5.4 mmol/L (3.5-5.1)
[2019-02-01 07:09] LABS: CREATININE 8.9 mg/dL (0.6-1.3)
[2019-02-01 07:12] LABS: ALBUMIN 2.5 g/dL (3.4-5.0); BILIRUBIN,DIRECT 2.2 mg/dL (0.0-0.2); BILIRUBIN,TOTAL 2.8 mg/dL (0.2-1.0); TOTAL PROTEIN, SERUM 6.5 g/dL (6.4-8.2)
--- NOTE | 2019-02-01 07:13 | NUR ---
PATIENT DOES NOT WANT TO BE GIVEN AN IN-AND-OUT CATHETER FOR URINE SAMPLE.
[2019-02-01] MEDS ORDERED: SODIUM BICARBONATE SYR 50 MEQ/50 ML DISP.SYRIN ONE (07:21)
[2019-02-01] MEDS ORDERED: SODIUM POLYSTYRENE SULFONATE 15 G/60 ML BOTTLE ONE (07:21)
[2019-02-01] MEDS ORDERED: HYDROCODONE/APAP 5/325MG 1 EACH TABLET ONE (07:22)
[2019-02-01] MEDS ORDERED: HYDROCODONE/APAP 5/325MG 1 EACH TABLET PO ONE (07:30)
[2019-02-01] MEDS ORDERED: SODIUM BICARBONATE SYR 50 MEQ/50 ML DISP.SYRIN IV ONE (07:30)
[2019-02-01] MEDS ORDERED: SODIUM POLYSTYRENE SULFONATE 15 G/60 ML BOTTLE PO ONE (07:30)
--- NOTE | 2019-02-01 07:42 | NUR ---
REPORT GIVEN TO WENDY BOOKER FOR KRYSTA.
--- NOTE | 2019-02-01 07:56 | NUR ---
PAGED DR. BATES (NEPH[place]). AWAITING FOR CALL BACK.
[2019-02-01] MEDS ORDERED: MEROPENEM 1 G in IV NS 0.9% 100 ML IV ONE (08:30)
[2019-02-01] MEDS ORDERED: VANCOMYCIN 1 GM in IV D5W 250 ML IV ONE (08:30)
--- NOTE | 2019-02-01 10:04 | NUR ---
Namrata wheeler alert non distress noted Vitals up to date ,non sob ,noted Left shunt with good trill and brui, patient also abdominal hernia , patient made aware paln of care
[2019-02-01] MEDS ORDERED: MEROPENEM 1 G VIAL IV ONE (10:55)
--- NOTE | 2019-02-01 11:13 | NUR ---
Called Report to [facility] [phone]
[2019-02-01 12:00] VITALS: BP_SYST 102; BP_SYST 89; BP_SYST 97; BP_DIAS 52; BP_DIAS 65; BP_DIAS 82
[2019-02-01] MEDS ORDERED: CLON0.1T PO (12:32)
[2019-02-01] MEDS ORDERED: TRAZ-252 PO (12:32)
[2019-02-01] MEDS ORDERED: OLME40TA18 PO (12:32)
[2019-02-01] MEDS ORDERED: MINO2.5T PO (12:32)
[2019-02-01] MEDS ORDERED: CARV25TA2 PO (12:32)
[2019-02-01] MEDS ORDERED: ASPI-1169 PO (12:32)
[2019-02-01] MEDS ORDERED: SEVE800T8 PO (12:32)
[2019-02-01] MEDS ORDERED: HYDR-4354 PO (12:32)
[2019-02-01] MEDS ORDERED: VITA400C71 PO (12:32)
[2019-02-01] MEDS ORDERED: ACETAMINOPHEN 325 MG TABLET PO PRN (13:00)
[2019-02-01] MEDS: HYDROCODONE/APAP 5/325MG 1 EACH TABLET PO PRN ×3 (13:23→20:47)
--- NOTE | 2019-02-01 14:30 | NUR ---
RN Notes received patient from ER. Alert and oriented x4, able to make needs known. On oxygen support via nasal cannula at 2lpm, sating fine. With complaints of pain 11/20- awaiting orders from Dr. Manzo (admitting MD). Vitaal signs taken and noted. Skin assessment done- skin intact as noted. IV line noted on the RAC g [address] and intact with ongoing vancomycin- started at the er- will finish administering. Patient encourage to call for help and assistance,to verbalize feelings and concerns. Instructed on the use of call light. HOB elevated. Safety measures put in pace. Will continue to monitor patient accordingly and carry out admitting orders .
[2019-02-01] MEDS ORDERED: CLONIDINE HCL 0.1 MG TABLET PO PRN (15:00)
[2019-02-01 16:00] VITALS: BP_SYST 100; BP_SYST 102; BP_DIAS 57; BP_DIAS 82
[2019-02-01] MEDS: MINOXIDIL (2.5MG) 2.5 MG TABLET PO SCH (17:00)
[2019-02-01] MEDS: SEVELAMER CARBONATE 800 MG TABLET PO SCH (17:07)
--- NOTE | 2019-02-01 19:20 | NUR ---
RN NOTES Endorsed for continuity of care. Not on any form of distress. No indication of pain. Safety measures in place. Call light within reach.
--- NOTE | 2019-02-01 19:25 | NUR ---
RN NOTES, RECEIVED PATIENT IN BED A/O X4 ABLE TO VERBALIZED NEEDS AND CONCERNS, AT ROOM AIR WITH OPTIMAL O2 SAT LEVEL, BREATHING EVEN AND UNLABORED, NOS S/S OF SOB/ACUTE DISTRESS NOTED AT THIS TIME, IV ACCESS IN RIGHT AC 20G PATENT AND INTACT, SINUS TACHY IN TELE MONITOR WITH HR IN 110S AT THIS TIME, ALL NEEDS PROVIDED, BED LOCKED AND IN LOWEST POSITION, BILATERAL S/R OF BED UP, CALL LIGHT WI REACH, WILL CONTINUE TO MONITOR CLOSELY.
[2019-02-01 20:00] VITALS: BP 92/59
[2019-02-01] MEDS: CARVEDILOL 12.5 MG TABLET PO SCH (21:00)
--- NOTE | 2019-02-01 22:00 | NUR ---
RN NOTES, COREG NOT ADMINISTERED DUE TO BLOOD PRESSURE INITIALLY 86/56, AFTER ELEVATION OF LOWER EXTREMITIES 30 MIN AFTER 92/59, WILL CONTINUE TO MONITOR CLOSELY.
[2019-02-01] MEDS: TRAZODONE 50 MG TABLET PO PRN (22:39)
[2019-02-02] VITALS (8 sets, daily range): BP systolic 75–128; BP diastolic 21–87
[2019-02-02] MEDS: ONDANSETRON HCL/PF 4 MG/2 ML VIAL IV PRN ×2 (00:22→14:30)
--- NOTE | 2019-02-02 07:00 | NUR ---
RN NOTES, PATIENT IN BED SLEEPING AT THIS TIME, BREATHING EVEN AND UNLABORED, NO SOB/ACUTE DISTRESS NOTED, NO C/O PAIN OR DISCOMFORT, NO CHANGE IN CONDITION DURING THE NIGHT, WITH BLOOD PRESSURE RUNNING LOW BUT STABLE, ALL NEEDS PROVIDED, CALL LIGHT W/I REACH, WILL ENDORSE CONTINUITY OF CARE TO ONCOMING NURSE.
[2019-02-02 07:22] LABS: BASOPHILS % (AUTO) 0.1 % (0.0-2.0); EOSINOPHILS % (AUTO) 0.4 % (0.0-6.0); HEMATOCRIT 32 % (39-51); HEMOGLOBIN 10.9 g/dL (13.5-17.5); LYMPHOCYTES # (AUTO) 0.4 /CMM (0.8-4.8); LYMPHOCYTES % (AUTO) 4.5 % (20.0-44.0); MEAN CORPUSCULAR HGB CONC 34 g/dl (31.0-36.0); MEAN CORPUSCULAR VOLUME 86 fL (80-96); MONOCYTES # (AUTO) 0.7 /CMM (0.1-1.30); MONOCYTES % (AUTO) 8.6 % (2.0-12.0); NEUTROPHILS # (AUTO) 7.5 /CMM (1.8-8.9); NEUTROPHILS % (AUTO) 86.4 % (43.0-81.0); PLATELET COUNT (AUTO) 150 /CMM (150-450); RED BLOOD CELL COUNT(AUTO) 3.74 MIL/uL (4.5-6.0); WHITE BLOOD COUNT (AUTO) 8.7 K/uL (4.3-11.0)
[2019-02-02 07:42] LABS: MAGNESIUM 2.1 mg/dL (1.8-2.4); POTASSIUM 5.3 mmol/L (3.5-5.1)
[2019-02-02] MEDS: LOSARTAN POTASSIUM 50 MG TABLET PO SCH (08:00)
[2019-02-02 08:14] LABS: CREATININE 7.7 mg/dL (0.6-1.3); PHOSPHORUS 8.2 mg/dL (2.5-4.9)
[2019-02-02] MEDS: MINOXIDIL (2.5MG) 2.5 MG TABLET PO SCH ×2 (09:00→17:00)
[2019-02-02] MEDS ORDERED: VITAMIN E 400 UNIT CAPSULE PO SCH (09:00)
[2019-02-02] MEDS: CARVEDILOL 12.5 MG TABLET PO SCH ×2 (09:00→21:00)
[2019-02-02] MEDS: ALBUTEROL FS 2.5 MG/0.5 ML VIAL.NEB NEB SCH ×3 (09:11→19:37)
[2019-02-02] MEDS: IPRATROPIUM NEB FS 0.5 MG/2.5 ML AMPUL.NEB NEB SCH ×3 (09:11→19:37)
--- NOTE | 2019-02-02 10:16 | NUR ---
RN NOTES 0730-RECEIVED PATIENT FROM RN. PATIENT TRANSFERRED SELF TO CHAIR SAFELY, SAFETY MAINTAINED. LUE AV SHUNT BRAYAN, CLEAN, BURITS AND THRILLS APPRECIATED, TRANSFERRED SELF TO BED, ASSISTED TO ASSUME COMFORTABLE POSITION.HE SAID HE WANTED " BREATHING TREATMENT", SATS NOTED AT 96 % ON CANNULA, HE REQUESTS "MASK": 0900-PATIENT STARTED ON DRY UF, DR BATES AWARE OF BP STATUS.PATIENT MONITORED. REST PROMOTED AWAITING CT SCAN. 0930-SEEN BY DR HARDEN WHILE ON DIALYSIS. PATIENT APPEARS COMFORTABLE. 1015-PATIENT RESTING, OPENS EYES WHEN NAME CALLED OUT LOUD. HEART RATE AND RHYTHM WITHIN ACCEPTABLE RANGE
[2019-02-02] MEDS: SEVELAMER CARBONATE 800 MG TABLET PO SCH ×3 (10:51→17:38)
[2019-02-02] MEDS: ASPIRIN 81 MG TAB.CHEW PO SCH (10:51)
[2019-02-02] MEDS: APIXABAN 2.5 MG TABLET PO SCH ×2 (12:51→19:10)
[2019-02-02] MEDS: HYDROCODONE/APAP 5/325MG 1 EACH TABLET PO PRN (13:04)
--- NOTE | 2019-02-02 13:09 | NUR ---
RN NOTES PATIENT SEEN BY DR. BA MD INFORMED OF PATIENT SBP, PATIENT TALKS, SITS AT THE EDGE OF BED.DR FINA DIAS TO GIVE ELIQUIS.PATIENT WANTED PAIN MEDICATION, BP-90/61, MAP-76/HR-110 (HAD NOT CHANGED SINCE AM).
--- NOTE | 2019-02-02 13:16 | NUR ---
RN NOTES PATIENT BEING OBSERVED, DR MURCIA NOTIFIED OF PATIENT STATUS C/O SORAYA
[2019-02-02 13:43] LABS: THYROID STIMULATING HORMONE 1.376 uIU/mL (0.358-3.74)
--- NOTE | 2019-02-02 15:08 | NUR ---
RN NOTES PATIENT FRESHENED UP. ASSISTED TO CHAIR FOR MORE COMFORT.HE COMPLAINED ABOUT THE BED, STARTS TO VOMIT, WANTS ADHESIVE REMOVER FOR THE TAPE ON HIS SKIN. PATIENT BED CHANGED, ASSISTED HIM SAFELY BACK TO BED. ANTI- EMETIC ADMINISTERED NEEDED. REST PROMOTED AFTER
[2019-02-02] MEDS ORDERED: IV NS 0.9% 250 ML IV ONE (18:35)
[2019-02-02] MEDS ORDERED: CT SWABBABLE VALVE TRANS SET 1 EA INFUS.SET MC ONE (18:35)
[2019-02-02] MEDS ORDERED: IOHEXOL-300 100 ML VIAL IV ONE (18:35)
[2019-02-02] MEDS: HYDROMORPHONE 1 MG/1 ML DISP.SYRIN IV PRN (18:59)
[2019-02-02] MEDS: POLYETHYLENE GLYCOL 3350 17 GM POWD.PACK PO SCH ×2 (19:05→21:19)
--- NOTE | 2019-02-02 19:12 | NUR ---
RN NOTES 1730-PATIENT NO6TED TO PUT TOOTHBRUSH INTO HIS MOUT, ALSO NOTED GAGGING( INDUCED?), EDUCTAED HIM TO KEEP FROM DOING IT SINCE HE MIGHT HIT SOMETHING ELSE IN HIS MOUTH. AWAITING FOR CT SCAN TO BE DONE 1900-PATIENT BROUGHT TO CT SCAN, MEDICATED NEEDED, SAFETY MAINTAINED. DINNER TRAY SERVED, HOB UP SAFETY MAINTAINED.
--- NOTE | 2019-02-02 19:21 | NUR ---
RN NOTES PAIN MEDICATION ADMINISTERED EARLIER, DINNER TRAY SERVED. REPORT GIVEN TO RN FOR FURTHER CARE
--- NOTE | 2019-02-02 19:30 | NUR ---
RN NOTES, RECEIVED PATIENT IN BED A/O X4 ABLE TO VERBALIZED NEEDS AND CONCERNS, AT ROOM AIR WITH OPTIMAL O2 SAT LEVEL, BREATHING EVEN AND UNLABORED, NOS S/S OF SOB/ACUTE DISTRESS NOTED AT THIS TIME, 3L REMOVED FROM HD TODAY PER REPORT, NO C/O NAUSEA OR DISCOMFORT AT THIS TIME, IV ACCESS IN RIGHT AC 20G PATENT AND INTACT, SINUS TACHY IN TELE MONITOR WITH HR IN 111S AT THIS TIME, ALL NEEDS PROVIDED, BED LOCKED AND IN LOWEST POSITION, , BILATERAL S/R OF BED UP, CALL LIGHT WI REACH, WILL CONTINUE TO MONITOR CLOSELY.
[2019-02-02] MEDS: SENNOSIDES/DOCUSATE SODIUM 1 TAB TABLET PO SCH (20:56)
[2019-02-03] VITALS (17 sets, daily range): BP systolic 63–130; BP diastolic 29–70
[2019-02-03] MEDS: ALBUTEROL FS 2.5 MG/0.5 ML VIAL.NEB NEB SCH ×4 (01:32→19:41)
[2019-02-03] MEDS: IPRATROPIUM NEB FS 0.5 MG/2.5 ML AMPUL.NEB NEB SCH ×4 (01:32→19:41)
[2019-02-03] MEDS: HYDROMORPHONE 1 MG/1 ML DISP.SYRIN IV PRN (02:15)
--- NOTE | 2019-02-03 06:39 | NUR ---
RN NOTES, NO CHANGE IN CONDITION DURING THE NIGHT, WILL ENDORSE CONTINUITY OF CARE TO INCOMING NURSE.
--- NOTE | 2019-02-03 07:20 | NUR ---
CUSTOMER SERVICE CASHIER OPENING NOTE RECEIVED REPORT FROM PM NURSE. PATIENT IN BED .SLEEPING.BREATHING EVEN AND UNLABORED WITH O2.SATURATING 94%. NOS S/S OF SOB/ACUTE DISTRESS NOTED AT THIS TIME.IV ACCESS IN RIGHT AC 20G PATENT AND INTACT.SINUS TACHY IN TELE MONITOR WITH HR 107 AT THIS TIME. BED LOCKED AND IN LOWEST POSITION. CALL LIGHT IN REACH.SRX3.BED ALARM ON.WILL CONTINUE TO MONITOR .
[2019-02-03] MEDS: SENNOSIDES/DOCUSATE SODIUM 1 TAB TABLET PO SCH (08:09)
[2019-02-03] MEDS: CARVEDILOL 12.5 MG TABLET PO SCH ×2 (08:10→21:00)
[2019-02-03] MEDS: ASPIRIN 81 MG TAB.CHEW PO SCH (08:10)
[2019-02-03] MEDS: SEVELAMER CARBONATE 800 MG TABLET PO SCH ×3 (08:10→18:00)
[2019-02-03] MEDS: LOSARTAN POTASSIUM 50 MG TABLET PO SCH (08:11)
[2019-02-03] MEDS: MINOXIDIL (2.5MG) 2.5 MG TABLET PO SCH ×2 (08:12→16:59)
[2019-02-03] MEDS: ONDANSETRON HCL/PF 4 MG/2 ML VIAL IV PRN ×2 (08:25→15:31)
--- NOTE | 2019-02-03 08:35 | NUR ---
WHEY DEPARTMENT OPERATOR NOTE PATIENT VOMITEDX1.GREENISH COLOR WITH FOOD PARTICLE.PRN ZOFRAN GIVEN.
[2019-02-03] MEDS ORDERED: SILDENAFIL CITRATE 25 MG TABLET PO SCH ×2 (11:00)
[2019-02-03] MEDS: SILDENAFIL CITRATE 20 MG TABLET PO SCH ×2 (11:45→17:00)
--- NOTE | 2019-02-03 12:00 | NUR ---
INTERCEPTOR OPERATOR NOTE SEEN BY ,UPDATED ABOUT PATIENT CONDITION WITH LABS.MADE AWARE THAT HOLDING ELIQUIS BECAUSE OF CT ABDOMEN RESULT.POSSIBLE PARACENTESIS.GOT NEW ORDERS.PATIENT SIGNED CONSENT FOR ULTRASOUND GUIDED PARACENTESIS.WILL CONTINUE TO MONITOR.ONGOING DIALYSIS.
[2019-02-03] MEDS: HYDROCODONE/APAP 10/325MG 1 EA TABLET PO PRN (15:02)
[2019-02-03] MEDS: LORAZEPAM INJ 2 MG/ML VIAL IV PRN (15:50)
--- NOTE | 2019-02-03 16:50 | NUR ---
RN NOTE BP TRENDING LOW WHILE DOING PARACENTESIS.BP IS 73/50.ELEVATED THE FOOT END OF BED.STOPPED PARACENTESIS.5900 ML OUT. UPDATED ABOUT PATIENT CONDITION AND DECREASED BP.NO NEW ORDERS.TO CONTINUE TO MONITOR.
--- NOTE | 2019-02-03 19:25 | NUR ---
MS RN CLOSING NOTE PATIENT IN BED .SLEEPING.BREATHING EVEN AND UNLABORED WITH O2 2L VIA NASAL CANULA.SATURATING 96%. NOS S/S OF SOB/ACUTE DISTRESS NOTED AT THIS TIME.IV ACCESS IN [id number] ,22GPATENT AND INTACT.HR 107 AT THIS TIME. BED LOCKED AND IN LOWEST POSITION. CALL LIGHT IN REACH.SRX3.BED ALARM ON.ENDORSED TO PM NURSE FOR KRYSTA.
--- NOTE | 2019-02-03 19:53 | NUR ---
RN NOTE PT NOTED TO BE HYPOTENSIVE BP 46/24 HEART RATE 112. PT IS ALERT AND ORIENTED X 3. NO SOB NOTED WHILE ON 2L O2 VIA NC. NOTIFIED DR. CASH WITH ORDER TO GIVE ALBUMIN 25G AND TO TRANSFER PT TO ICU FOR MONITORING. MED ORDER ENTERED. REPORT GIVEN TO ICU CHARGE NURSE. PT THEN TRANSFERRED TO ICU ACCOMPANIED BY CHARGE NURSE ELI.
[2019-02-03] MEDS ORDERED: ALBUMIN 25% 25 GM in PREMIX 1 EA IV SCH (20:00)
[2019-02-03] MEDS ORDERED: ALBUMIN 25% 50 ML IV ONE (20:02)
[2019-02-03] MEDS ORDERED: NOREPINEPHRINE 4 MG/4 ML AMPUL IV ONE (21:12)
[2019-02-03] MEDS: NOREPINEPHRINE 16 MG in IV D5W 500 ML IV PRN (21:18)
[2019-02-03] MEDS: POLYETHYLENE GLYCOL 3350 17 GM POWD.PACK PO SCH (21:37)
[2019-02-04] VITALS (92 sets, daily range): BP systolic 59–156; BP diastolic 17–103
[2019-02-04] MEDS: IPRATROPIUM NEB FS 0.5 MG/2.5 ML AMPUL.NEB NEB SCH ×4 (01:16→19:48)
[2019-02-04] MEDS: ALBUTEROL FS 2.5 MG/0.5 ML VIAL.NEB NEB SCH ×4 (01:16→19:48)
--- NOTE | 2019-02-04 01:30 | NUR ---
TRANSMISSION INSPECTOR PT WAS TRANSFERRED FROM ROOM 115-1 D/T HYPOTENSION. PT HAS ESRD AND GOT HD ON 02.03.19. -REMOVED 2 L. ALSO PT GOT PARACENTESIS D/T LIVER CIRRHOSIS & ASCITES- 8 L. OF FLUID WAS REMOVED. PT WAS GIVEN ALBUMIN 25%-25 G. IV, AND BECAUSE REMAINED HYPOTENSIVE STARTED LEVOPHED DRIP, TITRATED TO KEEP SBP>90. PT IS AWAKE, ALERT, ORIENTED, MOVES ALL EXTREMITIES, LEGS ARE WEAK. + 3 EDEMA ON FEET. O2 3 L VIA N/C. PT HAS LEFT UPPER ARM AV SHUNT. REMAINS ANURIC. REPORT GIVEN TO [employer]UNITY CULTURAL DEVELOPMENT OFFICER RN FOR KRYSTA.
[2019-02-04] MEDS: HYDROMORPHONE 1 MG/1 ML DISP.SYRIN IV PRN ×4 (01:57→22:35)
--- NOTE | 2019-02-04 07:15 | NUR ---
RN NOTES PATIENT STABLE AT THIS TIME. AOX3 PER PATIENT HIS MORE ALERT TODAY AND STATING ABOUT WHAT HAPPEN TO HIM. ORIENTATION ON THE FLOOR /ENVIRONMENT PROVIDED. NEEDS ATTENDED. CONTINUE TO CLOSELY MONITOR VS. LEVOPHED TITRATED ORDERED PROTOCOL (SEE IV FLOWSHEET) KEPT PT CLEAN AND DRY. CALL LIGHT KEPT WITHIN EASY REACH AND PROMPTLY ATTENDED. ENDORSED CONTINUITY OF CARE TO AM NURSE.
[2019-02-04] MEDS: ASPIRIN 81 MG TAB.CHEW PO SCH (08:23)
[2019-02-04] MEDS: SENNOSIDES/DOCUSATE SODIUM 1 TAB TABLET PO SCH (08:23)
[2019-02-04] MEDS: SEVELAMER CARBONATE 800 MG TABLET PO SCH ×3 (08:25→17:25)
[2019-02-04] MEDS: SILDENAFIL CITRATE 20 MG TABLET PO SCH (08:25)
[2019-02-04] MEDS: CARVEDILOL 12.5 MG TABLET PO SCH ×2 (08:26→20:47)
[2019-02-04] MEDS: LOSARTAN POTASSIUM 50 MG TABLET PO SCH (08:26)
[2019-02-04] MEDS: MINOXIDIL (2.5MG) 2.5 MG TABLET PO SCH ×2 (08:27→17:00)
--- NOTE | 2019-02-04 08:45 | NUR ---
RN NOTE RECEIVED PT FROM ANA, BUDGET COUNSELOR, AOX3, ON LEVOPHED DRIP, TWO IV SITES INTACT AND PATENT, AV SHUNT IN LEFT ARM INTACT AND THRILL PRESENT. ABLT TO EAT AND SWALLOW PILLS. CALL LIGHT WITHIN REACH, WILL MONITOR CLOSELY.
--- NOTE | 2019-02-04 10:15 | NUR ---
RN NOTE PT HAD ABOUT 30 ML OF URINE AND URINE COLLECTED AND SENT FOR URINE CULTURE. PT ALSO FEELS NAUSEATED AND VOMITED X1 SMALL AMOUNT OF GASTRIC JUICES. PT CO PAIN IN RIGHT SIDE OF ABDOMEN AND PER PT WORDS "IN MY PERITONEAL CAVITY" 8-9 ON A SCALE OF 10. WILL ADMINISTER DILAUDID ORDERED.
[2019-02-04] MEDS: HYDROCODONE/APAP 10/325MG 1 EA TABLET PO PRN ×2 (13:45→22:07)
--- NOTE | 2019-02-04 15:00 | NUR ---
rn note pt had vomited again for the third time today. this time about 100 ml.
--- NOTE | 2019-02-04 16:15 | NUR ---
care endorsed back to Mary Alice VACATION PLANNER.
[2019-02-04 16:35] LABS: APPEARANCE,URINE CLEAR (CLEAR); BILIRUBIN,URINE SMALL (NEGATIVE); BLOOD, URINE TRACE Ery/uL (NEGATIVE); COLOR,URINE DARK YELLO (YELLOW); KETONES,URINE NEGATIVE (NEGATIVE); LEUKOCYTE ESTERASE ,URINE NEGATIVE (NEGATIVE); NITRITE, URINE NEGATIVE (NEGATIVE); PH,URINE 7.5 (5.0-8.0); PROTEIN,URINE 30 mg/dl (NEGATIVE); UGLUCOSE NEGATIVE (NEGATIVE); UROBILINOGEN,URINE 0.2 EU/dL (0.2)
[2019-02-04 16:41] LABS: BACTERIA,URINE Few /HPF (None Seen); SQUAMOUS EPITHELIAL CELL,UR Few /HPF (None Seen); WBC,URINE 0-2 /HPF (0-3)
[2019-02-04] MEDS: BISACODYL SUPP (10 MG) 10 MG/SUPP.RECT SUPP.RECT RC PRN (18:09)
[2019-02-04] MEDS: ONDANSETRON HCL/PF 4 MG/2 ML VIAL IV PRN (18:09)
[2019-02-04] MEDS: NOREPINEPHRINE 16 MG in IV D5W 500 ML IV PRN (18:53)
--- NOTE | 2019-02-04 20:00 | NUR ---
SOYFREEZE OPERATOR - NOTES - PT RECEIVED IN BED, AWAKE ALERT ORIENTED X 4, PT IS ON 3L NC, PT COMPLAINING OF RIGHT ABD PAIN AND NAUSEA, PT REPORTEDLY VOMITED MULTIPLE TIMES TODAY. PT IS IN SINUS TACHYCARDIA, PT IS ON LEVO 4 MCG. PT IS CONSTIPATED FOR APROX 8 DAYS, ABDOMEN DISTENDED, PT HAS ACIETES AND UMBILICAL HERNIA. PT IS DIALYSIS PT WITH LEFT UPPER ARM AV FISTULA. PT HAS RIGHT UPPER ARM PICC LINE. WILL CONTINUE TO MONITOR
[2019-02-04] MEDS: POLYETHYLENE GLYCOL 3350 17 GM POWD.PACK PO SCH (21:17)
[2019-02-05] VITALS (39 sets, daily range): BP systolic 81–154; BP diastolic 14–81
[2019-02-05] MEDS ORDERED: METOCLOPRAMIDE HCL 10 MG/2 ML VIAL IV SCH (01:00)
[2019-02-05] MEDS: ONDANSETRON HCL/PF 4 MG/2 ML VIAL IV PRN ×3 (01:19→19:53)
[2019-02-05] MEDS: ALBUTEROL FS 2.5 MG/0.5 ML VIAL.NEB NEB SCH ×4 (01:36→19:30)
[2019-02-05] MEDS: IPRATROPIUM NEB FS 0.5 MG/2.5 ML AMPUL.NEB NEB SCH ×4 (01:36→19:30)
[2019-02-05] MEDS ORDERED: METOCLOPRAMIDE HCL 10 MG/2 ML VIAL IV ONE (02:00)
[2019-02-05 04:13] LABS: BASOPHILS # (AUTO) 0.1 /CMM (0.0-0.2); BASOPHILS % (AUTO) 0.8 % (0.0-2.0); EOSINOPHILS % (AUTO) 1.4 % (0.0-6.0); HEMATOCRIT 31 % (39-51); HEMOGLOBIN 10.3 g/dL (13.5-17.5); LYMPHOCYTES # (AUTO) 0.6 /CMM (0.8-4.8); LYMPHOCYTES % (AUTO) 4.3 % (20.0-44.0); MEAN CORPUSCULAR HGB CONC 33 g/dl (31.0-36.0); MEAN CORPUSCULAR VOLUME 88 fL (80-96); MONOCYTES # (AUTO) 0.9 /CMM (0.1-1.30); MONOCYTES % (AUTO) 5.8 % (2.0-12.0); NEUTROPHILS # (AUTO) 13.3 /CMM (1.8-8.9); NEUTROPHILS % (AUTO) 87.7 % (43.0-81.0); PLATELET COUNT (AUTO) 143 /CMM (150-450); RED BLOOD CELL COUNT(AUTO) 3.57 MIL/uL (4.5-6.0); WHITE BLOOD COUNT (AUTO) 15.2 K/uL (4.3-11.0)
[2019-02-05 04:30] LABS: BILIRUBIN,TOTAL 2.8 mg/dL (0.2-1.0); CALCIUM, SERUM 8.5 mg/dL (8.5-10.1); MAGNESIUM 2.2 mg/dL (1.8-2.4); TOTAL PROTEIN, SERUM 5.9 g/dL (6.4-8.2)
[2019-02-05 04:43] LABS: CREATININE 8.5 mg/dL (0.6-1.3); PHOSPHORUS 8.3 mg/dL (2.5-4.9)
--- NOTE | 2019-02-05 07:00 | NUR ---
RN NOTES RECEIVED PT ON BED , A/Ox4, ON 3L O2 N/C , NO SOB NOTED, RESPIRATION EVEN AND UNLABORED. PT C/O OF NAUSEA, ON TELE, ST HR IN 100'S , R UPPER ARM PICC LINE SITE CLEAN, DRY AND INTACT , PT IS CONSTIPATED FOR APROX 8 DAYS, BUT PT STATED HAS NOT BEING EATING WELL, ABDOMEN DISTENDED, PT HAS ASCITES AND UMBILICAL HERNIA. PT IS DIALYSIS PT WITH LEFT UPPER ARM AV FISTULA. PT HAS RIGHT UPPER ARM PICC LINE. SR UP x3, CALL LIGHT WITHIN EASY REACH, BED LOCKED AND IN LOWEST POSITION, CONTINUE TO MONITOR.
[2019-02-05] MEDS: ASPIRIN 81 MG TAB.CHEW PO SCH (08:15)
[2019-02-05] MEDS: SEVELAMER CARBONATE 800 MG TABLET PO SCH ×3 (08:15→17:12)
[2019-02-05] MEDS: SENNOSIDES/DOCUSATE SODIUM 1 TAB TABLET PO SCH (08:25)
[2019-02-05] MEDS: LOSARTAN POTASSIUM 50 MG TABLET PO SCH (09:00)
[2019-02-05] MEDS: MINOXIDIL (2.5MG) 2.5 MG TABLET PO SCH ×2 (09:00→17:00)
[2019-02-05] MEDS: CARVEDILOL 12.5 MG TABLET PO SCH ×2 (09:00→20:50)
--- NOTE | 2019-02-05 09:00 | NUR ---
RN NOTES MORNING BP MEDS HELD MD NOTIFED .
[2019-02-05] MEDS ORDERED: NOREPINEPHRINE 16 MG in IV D5W 500 ML IV PRN (10:00)
[2019-02-05] MEDS: HYDROMORPHONE 1 MG/1 ML DISP.SYRIN IV PRN ×2 (10:43→16:27)
--- NOTE | 2019-02-05 13:49 | NUR ---
RN NOTES PT RECEIVING HD AT THIS TIME, VSS STABLE, CONTINUE TO MONITOR.
--- NOTE | 2019-02-05 14:39 | NUR ---
RN NOTES PT STILL RECEIVING HD, VSS STABLE , REPORT GIVEN TO KAVIN BOOKER FOR CONTINUITY OF CARE .
--- NOTE | 2019-02-05 16:00 | NUR ---
HD COMPLETED AND TOLERATED WELL WITHOUT BP SUPPORT. ABLE TO REMOVE 1.5 L .
--- NOTE | 2019-02-05 16:30 | NUR ---
AMBULATORY AT BEDSIDE WITH STANDBY ASSIST ONLY. GAIT STABLE. PIV X 2 DISCONTINUED. C/O OF GENERALIZED PAIN POST DIALYSIS. REQUESTED FOR PAIN MEDICATION-DILAUDID 0.5 MG IVP ORDERED PRN.
--- NOTE | 2019-02-05 20:00 | NUR ---
PT VOMITED 4X DARK BROWN LIQUID, 8 MG ZOFRAN GIVEN. STILL NO BM, WILL CONTINUE TO MONITOR
--- NOTE | 2019-02-05 20:00 | NUR ---
MEND WORKER - NOTES - PT RECEIVED IN BED, AWAKE ALERT ORIENTED X 4, PT IS ON 3L NC, PT COMPLAINING OF RIGHT ABD PAIN AND NAUSEA. PT IS IN SINUS TACHYCARDIA, PT IS ON LEVO 4 MCG. PT IS CONSTIPATED FOR APROX 8 DAYS, ABDOMEN DISTENDED, PT HAS ACIETES AND UMBILICAL HERNIA. PT IS DIALYSIS PT WITH LEFT UPPER ARM AV FISTULA. PT HAS RIGHT UPPER ARM PICC LINE. WILL CONTINUE TO MONITOR
[2019-02-05] MEDS: MORPHINE SULFATE INJ 2 MG/ML DISP.SYRIN IV PRN (20:39)
[2019-02-05] MEDS: POLYETHYLENE GLYCOL 3350 17 GM POWD.PACK PO SCH (21:15)
[2019-02-05] MEDS: LORAZEPAM INJ 2 MG/ML VIAL IV PRN (21:16)
[2019-02-06] VITALS (15 sets, daily range): BP systolic 87–129; BP diastolic 49–76
[2019-02-06] MEDS: IPRATROPIUM NEB FS 0.5 MG/2.5 ML AMPUL.NEB NEB SCH ×4 (01:30→19:48)
[2019-02-06] MEDS: ALBUTEROL FS 2.5 MG/0.5 ML VIAL.NEB NEB SCH ×4 (01:30→19:48)
[2019-02-06] MEDS: HYDROMORPHONE 1 MG/1 ML DISP.SYRIN IV PRN ×4 (04:56→18:49)
[2019-02-06] MEDS: ONDANSETRON HCL/PF 4 MG/2 ML VIAL IV PRN ×2 (07:38→20:08)
--- NOTE | 2019-02-06 08:22 | NUR ---
received pt from shift mechanic, a/o x4, ST, on 3L 02 sat well, lungs partially congested, BL foot edema, has been vomiting, Zofran 8mg ivp given, no BM, c/o generalized pain, Dilaudid 0.5 mg ivp given, HD patient, v/s stable, no pain, pt turns and repositions by himself.
[2019-02-06 08:50] LABS: BASOPHILS % (AUTO) 0.1 % (0.0-2.0); EOSINOPHILS % (AUTO) 1.2 % (0.0-6.0); HEMATOCRIT 28 % (39-51); HEMOGLOBIN 9.3 g/dL (13.5-17.5); LYMPHOCYTES # (AUTO) 0.6 /CMM (0.8-4.8); LYMPHOCYTES % (AUTO) 4.3 % (20.0-44.0); MEAN CORPUSCULAR HGB CONC 33 g/dl (31.0-36.0); MEAN CORPUSCULAR VOLUME 87 fL (80-96); MONOCYTES # (AUTO) 0.9 /CMM (0.1-1.30); MONOCYTES % (AUTO) 6.5 % (2.0-12.0); NEUTROPHILS # (AUTO) 12.3 /CMM (1.8-8.9); NEUTROPHILS % (AUTO) 87.9 % (43.0-81.0); PLATELET COUNT (AUTO) 134 /CMM (150-450); RED BLOOD CELL COUNT(AUTO) 3.21 MIL/uL (4.5-6.0)
[2019-02-06] MEDS: ASPIRIN 81 MG TAB.CHEW PO SCH (08:53)
[2019-02-06] MEDS: SEVELAMER CARBONATE 800 MG TABLET PO SCH ×3 (08:53→17:39)
[2019-02-06] MEDS: CARVEDILOL 12.5 MG TABLET PO SCH ×2 (08:54→21:00)
[2019-02-06] MEDS: LOSARTAN POTASSIUM 50 MG TABLET PO SCH (08:54)
[2019-02-06] MEDS: MINOXIDIL (2.5MG) 2.5 MG TABLET PO SCH ×3 (08:54→17:39)
[2019-02-06] MEDS: SENNOSIDES/DOCUSATE SODIUM 1 TAB TABLET PO SCH (08:55)
[2019-02-06 10:25] LABS: ALBUMIN 1.8 g/dL (3.4-5.0); BILIRUBIN,TOTAL 2.5 mg/dL (0.2-1.0); CALCIUM, SERUM 8.1 mg/dL (8.5-10.1); MAGNESIUM 2.2 mg/dL (1.8-2.4); POTASSIUM 5.1 mmol/L (3.5-5.1); TOTAL PROTEIN, SERUM 5.4 g/dL (6.4-8.2)
[2019-02-06 10:31] LABS: CREATININE 7.8 mg/dL (0.6-1.3)
--- NOTE | 2019-02-06 11:45 | NUR ---
TD/RN: RECEIVED PT FROM ICU. PT TRANSFERRED VIA BED. ALL BELONGINGS TRANSFERRED WITH PT. PT ALERT, AWAKE, ORIENTED, FOLLOWS ALL COMMANDS. ON NASAL CANULA, NO DISTRESS. PIV PATENT AND INTACT. ALL NEEDS WILL BE ATTENDED TO, SAFETY MEASURES TAKEN, BED IN LOW POSITION, SIDE RAILS UP, CALL LIGHT WITHIN REACH.
--- NOTE | 2019-02-06 11:49 | NUR ---
pt transferred to [facility], a/o x4, v/s stable, no pain.
--- NOTE | 2019-02-06 17:20 | NUR ---
RN NOTE RECEIVED PT ALERT AND ORIENTED X 4. PT IN BED IN SEMI AMOR'S POSITION. CURRENTLY ON 3L OF O2 VIA NC. NO INDICATIONS OF RESPIRATORY DISTRESS, PAIN OR DISCOMFORT. WITH AVF ON RUE WITH THRILL AND BRUIT PRESENT. PLAN IF CARE DISCUSSED WITH PT. CALL LIGHT WITHIN REACH. WILL MONITOR. Addendum: 02/06/19 at 210 by VIC ALATORRE RN TIME CORRECTED 1919.
--- NOTE | 2019-02-06 19:50 | NUR ---
ICU/RN: ENDING NOTES,AM BEDSIDE REPORT ENDORSED TO NIGHT NURSE. PT ALERT, AWAKE, FOLLOWS COMMANDS. ON NASAL CANULA, NO DISTRESS. PT MS PT. PT HAS POOR APPETITE, ONE EPISODE OF VOMITING NOTED. PT ABLE TO MOVE AND REPOSITION SELF IN BED. RIGHT UPPER ARM PICC LINE PATENT AND INTACT, LEFT UPPER ARM FISTULA NOTED. ALL NEEDS ATTENDED TO, SAFETY MEASURES TAKEN, BED IN LOW POSITION, SIDE RAILS UP, CALL LIGHT WITHIN REACH. WILL CONTINUE CARE.
--- NOTE | 2019-02-06 21:13 | NUR ---
RN NOTE WITHELD COREG AT 2100 DUE TO HYPOTENSION PER MD.
[2019-02-06] MEDS: POLYETHYLENE GLYCOL 3350 17 GM POWD.PACK PO SCH (21:14)
[2019-02-07] VITALS: BP 101/70
[2019-02-07] MEDS: BISACODYL SUPP (10 MG) 10 MG/SUPP.RECT SUPP.RECT RC PRN (00:28)
[2019-02-07] MEDS: HYDROMORPHONE 1 MG/1 ML DISP.SYRIN IV PRN (01:37)
[2019-02-07] MEDS: IPRATROPIUM NEB FS 0.5 MG/2.5 ML AMPUL.NEB NEB SCH ×5 (02:23→20:52)
[2019-02-07] MEDS: ALBUTEROL FS 2.5 MG/0.5 ML VIAL.NEB NEB SCH ×5 (02:23→20:52)
--- NOTE | 2019-02-07 07:00 | NUR ---
STEAM PRESS OPERATOR NOTES OPENING PATIENT IS A/O X4 PATIENT IS ASLEEP BUT EASILY WOKEN WITH NAME AND TOUCH . PATIENT SHOWS NO SIGNS OF SOB, NO ACUTE RESPIRATORY DISTRESS EVEN AND UNLABORED BREATHING . PATIENT IS TACHY IN THE 110'S . PATIENT IS ON COOL AEROSOL WITH OXYGEN PATIENT IS SATURATING WELL AND TOLERATING DR PRESCRIBED O2. PATIENT HAS LEFT AV SHUNT THAT LOOKS BUBBLE DUE TO TRAUMA OF HD. PATIENT HAS MULTIPLE BUBBLES. NEAR THE AV SHUNT . PATIENT HAS ABDOMEN SARING FROM PRIOR SURGERY. PATIENT ALSO HIKE HERNIA. ON THE LEFT SIDE OF UMBILICAL CORD. PATIENT HAS RIGHT PICC LINE. PATENT AND INTACT. BED LOCKED AND LOWEST POSITION CALL LIGHT WITH IN REACH. ALL SAFETY MEASURE IMPLEMENTED PER HOSPITAL PROTOCOL
--- NOTE | 2019-02-07 07:20 | NUR ---
RN NOTE PATIENT ALERT AND ORIENTED X 4 IN BED. ON 4L OF O2 VIA NC WITHOUT INDICATIONS OF RESPIRATORY DISTRESS, PAIN OR DISCOMFORT. NO COMPLAINTS OF NAUSEA OR VOMITING. PT TALKING TO DR. CASH AT BEDSIDE. CALL LIGHT WITHIN REACH. ENDORSED TO MORNING SHIFT.
[2019-02-07 08:00] VITALS: BP_SYST 116; BP_SYST 96; BP_DIAS 64; BP_DIAS 75
[2019-02-07] MEDS: SEVELAMER CARBONATE 800 MG TABLET PO SCH ×4 (08:00→17:52)
[2019-02-07] MEDS: LOSARTAN POTASSIUM 50 MG TABLET PO SCH (09:00)
[2019-02-07] MEDS: SENNOSIDES/DOCUSATE SODIUM 1 TAB TABLET PO SCH (10:15)
[2019-02-07] MEDS: HYDROCODONE/APAP 10/325MG 1 EA TABLET PO PRN ×2 (10:16→20:39)
[2019-02-07] MEDS: ASPIRIN 81 MG TAB.CHEW PO SCH (10:16)
[2019-02-07] MEDS: CARVEDILOL 12.5 MG TABLET PO SCH ×2 (10:17→21:38)
--- NOTE | 2019-02-07 11:00 | NUR ---
RN MS NOTES DR WADE ORDERS TO NPO. ASK IF PATIENT IS OKAY TO TAKE OFF NPO AFTER ULTRA SOUND. DR DIAS
[2019-02-07] MEDS: MORPHINE SULFATE INJ 2 MG/ML DISP.SYRIN IV PRN (11:52)
--- NOTE | 2019-02-07 12:00 | NUR ---
RN MS NOTES - PATRICK TX PATIENT REFUSED BREATHING TX . PATIENT SAID HE IS REALLY TIRED AND WANTS TO SLEEP.
[2019-02-07] MEDS: HYDROCODONE/APAP 5/325MG 1 EACH TABLET PO PRN (15:36)
[2019-02-07 16:00] VITALS: BP 116/75
--- NOTE | 2019-02-07 17:10 | NUR ---
RN MS NOTES HD DONE TODAY . PATIENT BP 81/ 56 PATIENT IS A/O X4 PATIENT STATE DISCOMFORT FROM EARILER HAS GONE DOWN. HD NURSE TOOK OUT 2.5 L
--- NOTE | 2019-02-07 18:44 | NUR ---
MS RN NOTES CLOSING PATIENT A/O X4 PATIENT IS COOPERATIVE WITH CARE . PATIENT STATE HE DOES FEEL A LITTLE DEHYDRATED PATIENT IS ON COOL AEROSOL. PATIENT IS SATURATING WELL AND TOLERATING O2 TREATMENT BY DR. PATIENT SHOWS NO SIGNS OF ACUTE RESPIRATORY DISTRESS, EVEN AND UNLABORED BREATHING. NO PAIN .BED LOCK AND LOWEST POSITION CALL LIGHT WITH IN REACH . ALL SAFETY MEASURE IMPLEMENTED PER HOSPITAL POLICY. ALL METS MET WILL ENDORSE TO PM SHIFT
--- NOTE | 2019-02-07 19:20 | NUR ---
CHANGE OF SHIFT REPORT Patient in bed, awake. Skin jaundice. PICC line RACHEL dressing clean and dry. Oxygen 4LPM via NC, tolerating well. Fall precaution maintained.
[2019-02-07 20:00] VITALS: BP 116/74
[2019-02-07] MEDS: ONDANSETRON HCL/PF 4 MG/2 ML VIAL IV PRN (20:38)
[2019-02-07] MEDS: POLYETHYLENE GLYCOL 3350 17 GM POWD.PACK PO SCH (21:37)
[2019-02-08] MEDS: IPRATROPIUM NEB FS 0.5 MG/2.5 ML AMPUL.NEB NEB SCH ×4 (01:16→19:22)
[2019-02-08] MEDS: ALBUTEROL FS 2.5 MG/0.5 ML VIAL.NEB NEB SCH ×4 (01:16→19:22)
[2019-02-08] MEDS: TRAZODONE 50 MG TABLET PO PRN (01:40)
--- NOTE | 2019-02-08 01:40 | NUR ---
ms1 rn notes c/o insomnia,trazodone 50mg po given per patient request.
[2019-02-08 04:00] VITALS: BP 93/60
[2019-02-08] MEDS: HYDROCODONE/APAP 10/325MG 1 EA TABLET PO PRN ×3 (06:10→18:05)
--- NOTE | 2019-02-08 06:16 | NUR ---
END OF SHIFT REPORT Patient in bed, remains on supplemental oxygen at 3LPM via NC. Had episode of N/V x1 resolved with PRN Zofran. Abdominal pain controlled with PRN [place], no BM this shift. Slept well with PRN Trazodone. Fall precaution maintained. HD per Nephrology.
--- NOTE | 2019-02-08 07:00 | NUR ---
RN MS 1 OPENING PATIENT IS A/O X4 PATIENT IS ASLEEP BUT EASILY WOKEN WITH NAME AND TOUCH . PATIENT SHOWS NO SIGNS OF SOB, NO ACUTE RESPIRATORY DISTRESS EVEN AND UNLABORED BREATHING . PATIENT IS TACHY IN THE 100'S . PATIENT IS ON COOL AEROSOL WITH OXYGEN PATIENT IS SATURATING WELL AND TOLERATING DR PRESCRIBED O2. PATIENT HAS LEFT AV SHUNT THAT LOOKS BUBBLE DUE TO TRAUMA OF HD. PATIENT HAS MULTIPLE BUBBLES. NEAR THE AV SHUNT . PATIENT HAS ABDOMEN SARRING FROM PRIOR SURGERY. PATIENT ALSO HIKE HERNIA. ON THE LEFT SIDE OF UMBILICAL CORD. PATIENT HAS RIGHT PICC LINE. PATENT AND INTACT. BED LOCKED AND LOWEST POSITION CALL LIGHT WITH IN REACH. ALL SAFETY MEASURE IMPLEMENTED PER HOSPITAL PROTOCOL
[2019-02-08 08:00] VITALS: BP 101/65
[2019-02-08] MEDS: SEVELAMER CARBONATE 800 MG TABLET PO SCH ×3 (08:00→18:00)
[2019-02-08] MEDS: MORPHINE SULFATE INJ 2 MG/ML DISP.SYRIN IV PRN (09:27)
[2019-02-08] MEDS: CARVEDILOL 12.5 MG TABLET PO SCH ×2 (09:28→21:00)
[2019-02-08] MEDS: SENNOSIDES/DOCUSATE SODIUM 1 TAB TABLET PO SCH (09:28)
[2019-02-08] MEDS: ASPIRIN 81 MG TAB.CHEW PO SCH (09:30)
[2019-02-08] MEDS ORDERED: HYDROMORPHONE 1 MG/1 ML DISP.SYRIN IV PRN (10:00)
[2019-02-08] MEDS ORDERED: ALPRAZOLAM 0.5 MG TABLET PO PRN (10:00)
--- NOTE | 2019-02-08 12:18 | NUR ---
Ultrasound guided paracentesis to be done on Sat. (02/09) due to no radiologist on site. ADE yan.
[2019-02-08 16:00] VITALS: BP 92/53
[2019-02-08] MEDS: ONDANSETRON HCL/PF 4 MG/2 ML VIAL IV PRN (18:35)
--- NOTE | 2019-02-08 19:40 | NUR ---
MS RN NOTES, PATIENT IN BED, AWAKE A/O X4 PATIENT, ON 3LPM BREATHING EVEN AND UNLABORED, NO S/S SOB/ACUTE DISTRESS NOTED AT THIS TIME, NO C/O PAIN OR DISCOMFORT AT THIS TIME, BED LOCK AND LOWEST POSITION CALL LIGHT WITH IN REACH, RACHEL PICC LINE IN PLACE PATENT AND INTACT, AND CRUZ AV SHUNT FOR HD, INTACT NO BLEEDING OR ABNORMALITY NOTED, WITH + BRUIT/TRILL, ALL SAFETY MEASURE IMPLEMENT, BILATERAL S/R OF BED UP, CALL LIGHT W/I REACH, WILL CONTINUE TO MONITOR CLOSELY.
[2019-02-08 20:00] VITALS: BP 93/74
--- NOTE | 2019-02-08 20:03 | NUR ---
MS RN NOTES CLOSING PATIENT A/O X4 PATIENT IS COOPERATIVE WITH CARE . PATIENT STATE HE DOES NOT FEEL LIKE EATING EVERY TIME HE THINKS ABOUT FOOD HE WANTS TO VOMIT PATIENT IS ON COOL AEROSOL. PATIENT IS SATURATING WELL AND TOLERATING O2 TREATMENT BY . PATIENT SHOWS NO SIGNS OF ACUTE RESPIRATORY DISTRESS, EVEN AND UNLABORED BREATHING. NO PAIN .BED LOCK AND LOWEST POSITION CALL LIGHT WITH IN REACH . ALL SAFETY MEASURE IMPLEMENTED PER HOSPITAL POLICY. ALL METS MET WILL ENDORSE TO PM SHIFT
[2019-02-08] MEDS: POLYETHYLENE GLYCOL 3350 17 GM POWD.PACK PO SCH (21:57)
[2019-02-09] MEDS: IPRATROPIUM NEB FS 0.5 MG/2.5 ML AMPUL.NEB NEB SCH ×4 (03:09→20:25)
[2019-02-09] MEDS: ALBUTEROL FS 2.5 MG/0.5 ML VIAL.NEB NEB SCH ×4 (03:10→20:25)
[2019-02-09 04:00] VITALS: BP 139/98
[2019-02-09] MEDS: ONDANSETRON HCL/PF 4 MG/2 ML VIAL IV PRN (05:06)
--- NOTE | 2019-02-09 07:00 | NUR ---
RN NOTES, PATIENT IN BED, AWAKE A/O X4 PATIENT, ON 3LPM BREATHING EVEN AND UNLABORED, NO S/S SOB/ACUTE DISTRESS NOTED AT THIS TIME, NO SIGNIFICANT CHANGE IN CONDITION DURING THE NIGHT ALL SAFETY MEASURE IMPLEMENT, BILATERAL S/R OF BED UP, CALL LIGHT W/I REACH, 2 EPISODES OF EMESIS, WILL ENDORSE FOR CONTINUITY OF CARE TO ONCOMING NURSE.
[2019-02-09] MEDS ORDERED: POLYETHYLENE GLYCOL 3350 17 GM POWD.PACK PO PRN (07:30)
[2019-02-09] MEDS ORDERED: ALPRAZOLAM 0.25 MG TABLET PO PRN (07:30)
[2019-02-09 08:00] VITALS: BP 89/58
--- NOTE | 2019-02-09 08:00 | NUR ---
RN MS 1 NOTES PATIENT A/O X4. IS RESTING COMFORTABLE IN BED PATIENT IS EASILY WOKEN WITH NAME AND TOUCH . PATIENT IS ON COOL AEROSOL WITH 3LPM PATIENT IS TOLERATING O2 TREATMENT WELL . PATIENT SHOWS NO SIGNS OF ACUTE RESPIRATORY DISTRESS, EVEN AND UNLABORED BREATHING. NO PAIN. BED LOCKED AND LOWEST POSITION CALL LIGHT WITH IN REACH.ALL SAFETY MEASURE IMPLEMENTED PER HOSPITAL POLICY
--- NOTE | 2019-02-09 09:30 | NUR ---
RN MS 1 - PARA 4L OUT. TECH. NOTIFIED ME THAT SHE COULDN'T TAKE ANYMORE OUT BECAUSE IT WAS THICK AND WHAT LOOKED TO BE INFECTED. LOCULATED PATIENTS VITAL STABLE. Addendum: 02/09/19 at 1107 by IRASEMA DAVE RN RN MS 1 PARACENTESIS 4L OUT. TECH. NOTIFIED ME THAT SHE COULDN'T TAKE ANYMORE OUT BECAUSE IT WAS THICK AND WHAT LOOKED TO BE INFECTED. LOCULATED
[2019-02-09] MEDS: SENNOSIDES/DOCUSATE SODIUM 1 TAB TABLET PO SCH (10:24)
[2019-02-09] MEDS: SEVELAMER CARBONATE 800 MG TABLET PO SCH ×3 (10:24→18:00)
[2019-02-09] MEDS: ASPIRIN 81 MG TAB.CHEW PO SCH (10:24)
[2019-02-09] MEDS: CARVEDILOL 12.5 MG TABLET PO SCH ×2 (10:25→21:00)
--- NOTE | 2019-02-09 10:31 | NUR ---
RN MS NOTES PATIENT VOMITED 4 X TIMES GREEN IN COLOR LIQUID
--- NOTE | 2019-02-09 10:32 | NUR ---
RN MS NOTES NOTIFIED DR. HAGEN UPDATES ABOUT PATIENT. TALK TO GENERAL SURGEON FOR PATIENT
[2019-02-09 12:00] VITALS: BP 73/52
[2019-02-09 16:00] VITALS: BP 73/52
[2019-02-09] MEDS: NEPRO VAN 237 ML CAN PO SCH (16:00)
--- NOTE | 2019-02-09 19:23 | NUR ---
RN MS 1 CLOSING PATIENT A/O X4 IS RESTING COMFORTABLE IN BED PATIENT IS EASILY OWKEN WITH NAME AND TOUCH PATIENT IS ON COOL AEROSOL WITH 23LMP PATIENT IS TOLERATING O2 TX WELL. PATIENT SHOWS NO SIGNS OF ACUTE RESPIRATYORY DISTRESS. NO SOB, EVEN AND UNLABORED BREATHING .BED LOCKED AND LOWEST POSITION CALL LIGHT WITH IN REACH. ALL SAFETY MEASURE IMPLEMENTED PER HOSPITAL POLICY
--- NOTE | 2019-02-09 19:25 | NUR ---
MS RN NOTES, PATIENT IN BED, SLEEPING AT THIS TIME, BUT EASILY AROUSES TO VERBAL STIMULI, , ON 3LPM BREATHING EVEN AND UNLABORED, NO S/S SOB/ACUTE DISTRESS NOTED AT THIS TIME, RACHEL PICC LINE IN PLACE PATENT AND INTACT, AND CRUZ AV SHUNT FOR HD, INTACT NO BLEEDING OR ABNORMALITY NOTED, WITH + BRUIT/TRILL, ALL SAFETY MEASURE IMPLEMENT, BILATERAL S/R OF BED UP, CALL LIGHT W/I REACH, BED LOCKED AND IN LOWEST POSITION, WILL CONTINUE TO MONITOR CLOSELY.
[2019-02-09 20:00] VITALS: BP 104/61
[2019-02-09 20:07] VITALS: BP 104/61
[2019-02-09] MEDS: LORAZEPAM INJ 2 MG/ML VIAL IV PRN (22:58)
[2019-02-10] VITALS (7 sets, daily range): BP systolic 84–103; BP diastolic 43–84
--- NOTE | 2019-02-10 02:13 | NUR ---
RN NOTES, ENDORSED PATIENT TO ADE HO FOR CONTINUATION OF CARE, PATIENT SLEEPING AT THIS TIME, NO SOB/ACUTE DISTRESS NOTED.
--- NOTE | 2019-02-10 02:21 | NUR ---
RN NOTE RECEIVED PT FROM JOEL BOOKER, PT SLEEPING IN BED IN SEMI AMOR'S POSITION, CURRENTLY ON 3L OF O2 VIA NC, NO SOB NOTED, RESPIRATIONS EVEN UNLABORED, NO INDICATIONS OF PAIN OR DISCOMFORT, SAFETY MEASURES IN PLACE, CALL LIGHT WITHIN REACH, WILL MONITOR.
[2019-02-10] MEDS: ALBUTEROL FS 2.5 MG/0.5 ML VIAL.NEB NEB SCH ×4 (02:25→19:51)
[2019-02-10] MEDS: IPRATROPIUM NEB FS 0.5 MG/2.5 ML AMPUL.NEB NEB SCH ×4 (02:25→19:51)
--- NOTE | 2019-02-10 07:05 | NUR ---
MS RN OPENING NOTES, PATIENT IN BED, AWAKE A/O X4 PATIENT, ON 3LPM BREATHING EVEN AND UNLABORED, NO S/S SOB/ACUTE DISTRESS NOTED AT THIS TIME. IV AND HD SITE CLEAN, DRY AND INTACT. NO PAIN REPORTED AT THIS TIME. ALL SAFETY MEASURES IMPLEMENTED, BILATERAL S/R OF BED UP, CALL LIGHT W/I REACH. BED LOCKED, LOW AND AT SEMI-AMOR'S POSITION. WILL CONTINUE TO MONITOR.
--- NOTE | 2019-02-10 07:30 | NUR ---
RN NOTE PT IN BED AWAKE AND ALERT X 4 IN STABLE CONDITION. NO INDICATIONS OF PAIN, DISCOMFORT OR RESPIRATORY DISTRESS. ALL NEEDS MET AND ATTENDED TO. ON 3L OF O2 VIA NC, NO SOB NOTED. CALL LIGHT WITHIN REACH. ENDORSED TO MORNING SHIFT.
[2019-02-10 08:00] LABS: BASOPHILS # (AUTO) 0.1 /CMM (0.0-0.2); BASOPHILS % (AUTO) 0.8 % (0.0-2.0); EOSINOPHILS % (AUTO) 1.7 % (0.0-6.0); HEMATOCRIT 29 % (39-51); HEMOGLOBIN 9.9 g/dL (13.5-17.5); LYMPHOCYTES # (AUTO) 0.6 /CMM (0.8-4.8); LYMPHOCYTES % (AUTO) 8.5 % (20.0-44.0); MEAN CORPUSCULAR HGB CONC 34 g/dl (31.0-36.0); MEAN CORPUSCULAR VOLUME 86 fL (80-96); MONOCYTES % (AUTO) 13.6 % (2.0-12.0); NEUTROPHILS # (AUTO) 5.5 /CMM (1.8-8.9); NEUTROPHILS % (AUTO) 75.4 % (43.0-81.0); PLATELET COUNT (AUTO) 153 /CMM (150-450); RED BLOOD CELL COUNT(AUTO) 3.41 MIL/uL (4.5-6.0); WHITE BLOOD COUNT (AUTO) 7.2 K/uL (4.3-11.0)
[2019-02-10 08:17] LABS: ALBUMIN 1.5 g/dL (3.4-5.0); BILIRUBIN,TOTAL 3.4 mg/dL (0.2-1.0); CALCIUM, SERUM 7.7 mg/dL (8.5-10.1); MAGNESIUM 2.5 mg/dL (1.8-2.4); TOTAL PROTEIN, SERUM 5.4 g/dL (6.4-8.2)
[2019-02-10 08:30] LABS: POTASSIUM 6.4 mmol/L (3.5-5.1)
[2019-02-10 08:31] LABS: PHOSPHORUS 9.9 mg/dL (2.5-4.9)
--- NOTE | 2019-02-10 09:30 | NUR ---
DR. SNYDER AWARE OF PATIENT'S ABNORMAL LABORATORY VALUES, HEMODIALYSIS TO BE DONE TODAY.
[2019-02-10] MEDS ORDERED: ALBUMIN 25% 25 GM in PREMIX 1 EA IV PRN (10:00)
[2019-02-10] MEDS: CARVEDILOL 12.5 MG TABLET PO SCH ×2 (11:30→21:00)
[2019-02-10] MEDS: SEVELAMER CARBONATE 800 MG TABLET PO SCH ×3 (11:30→17:28)
[2019-02-10] MEDS: SENNOSIDES/DOCUSATE SODIUM 1 TAB TABLET PO SCH (11:30)
[2019-02-10] MEDS: VENLAFAXINE 37.5 MG TABLET PO SCH (11:30)
[2019-02-10] MEDS: ASPIRIN 81 MG TAB.CHEW PO SCH (11:30)
[2019-02-10] MEDS: NEPRO VAN 237 ML CAN PO SCH (15:49)
[2019-02-10] MEDS: ONDANSETRON HCL/PF 4 MG/2 ML VIAL IV PRN (16:30)
[2019-02-10] MEDS: MORPHINE SULFATE INJ 2 MG/ML DISP.SYRIN IV PRN (17:29)
--- NOTE | 2019-02-10 19:05 | NUR ---
MS RN CLOSING NOTES, PATIENT IN BED, AWAKE A/O X4 PATIENT, ON 3LPM BREATHING EVEN AND UNLABORED, NO S/S SOB/ACUTE DISTRESS NOTED AT THIS TIME. IV AND HD SITE CLEAN, DRY AND INTACT. NO PAIN REPORTED AT THIS TIME. HEMODIALYSIS DONE, NO OUTPUT REPORTED. PAIN AND NAUSEA AND VOMITING REPORTED AND NOTED STARTING AT 1530. MULTIPLE EPISODES OF EMESIS NOTED ON SHIFT. MANAGEMENT DONE WITH LITTLE RELIEF SAFETY MEASURES ENSURED. BED LOCKED, LOW AND AT SEMI-AMOR'S POSITION. CALL LIGHT IN REACH. ENDORSED TO ONCOMING SHIFT FOR KRYSTA.
--- NOTE | 2019-02-10 20:45 | NUR ---
MS RN NOTES RECEIVED PATIENT AWAKE IN BED WITH NO DISTRESS NOTED. CALL LIGHT WITHIN REACH. NO C/O PAIN OR DISCOMFORT. CENTRAL LINE INTACT AND PATENT. CRUZ AV SHUNT INTACT WITH NO REDNESS, SWELLING, OR BLEEDING NOTED AND WITH (+) BRUIT AND THRILL. BED IN LOW LOCK SETTING. BED ALARM ON AND FUNCTIONING PROPERLY. ROOM FREE OF CLUTTER AND BELONGINGS KEPT NEAR BEDSIDE. WILL CONTINUE TO MONITOR
[2019-02-10] MEDS: HYDROCODONE/APAP 10/325MG 1 EA TABLET PO PRN (21:01)
[2019-02-10] MEDS: LORAZEPAM INJ 2 MG/ML VIAL IV PRN (22:58)
[2019-02-11] MEDS: ALBUTEROL FS 2.5 MG/0.5 ML VIAL.NEB NEB SCH ×4 (00:59→19:48)
[2019-02-11] MEDS: IPRATROPIUM NEB FS 0.5 MG/2.5 ML AMPUL.NEB NEB SCH ×4 (00:59→19:48)
[2019-02-11 04:00] VITALS: BP 92/54
--- NOTE | 2019-02-11 06:40 | NUR ---
MS RN NOTES PATIENT AWAKE IN BED WITH NO DISTRESS NOTED. CALL LIGHT WITHIN REACH. NO FURTHER C/O PAIN OR DISCOMFORT. PICC LINE INTACT AND PATENT. BED IN LOW LOCK SETTING WITH BED ALARM ON AND FUNCTIONING PROPERLY. ROOM FREE OF CLUTTER AND BELONGINGS KEPT NEAR BEDSIDE. WILL ENDORSE TO ONCOMING SHIFT.
[2019-02-11 07:39] LABS: BASOPHILS % (AUTO) 0.3 % (0.0-2.0); EOSINOPHILS % (AUTO) 0.7 % (0.0-6.0); HEMATOCRIT 28 % (39-51); HEMOGLOBIN 9.3 g/dL (13.5-17.5); LYMPHOCYTES # (AUTO) 0.6 /CMM (0.8-4.8); LYMPHOCYTES % (AUTO) 9.8 % (20.0-44.0); MEAN CORPUSCULAR HGB CONC 33 g/dl (31.0-36.0); MEAN CORPUSCULAR VOLUME 88 fL (80-96); MONOCYTES # (AUTO) 0.8 /CMM (0.1-1.30); MONOCYTES % (AUTO) 13.7 % (2.0-12.0); NEUTROPHILS # (AUTO) 4.4 /CMM (1.8-8.9); NEUTROPHILS % (AUTO) 75.5 % (43.0-81.0); PLATELET COUNT (AUTO) 165 /CMM (150-450); RED BLOOD CELL COUNT(AUTO) 3.19 MIL/uL (4.5-6.0); WHITE BLOOD COUNT (AUTO) 5.8 K/uL (4.3-11.0)
[2019-02-11 07:43] LABS: ALBUMIN 1.7 g/dL (3.4-5.0); BILIRUBIN,TOTAL 4.1 mg/dL (0.2-1.0); CALCIUM, SERUM 8.4 mg/dL (8.5-10.1); MAGNESIUM 2.6 mg/dL (1.8-2.4); PHOSPHORUS 7.9 mg/dL (2.5-4.9); POTASSIUM 5.6 mmol/L (3.5-5.1); TOTAL PROTEIN, SERUM 5.5 g/dL (6.4-8.2)
[2019-02-11 07:44] LABS: CREATININE 8.7 mg/dL (0.6-1.3)
[2019-02-11 08:00] VITALS: BP 82/37
[2019-02-11] MEDS: NEPRO VAN 237 ML CAN PO SCH (08:00)
[2019-02-11] MEDS: CARVEDILOL 12.5 MG TABLET PO SCH (09:00)
[2019-02-11] MEDS: ASPIRIN 81 MG TAB.CHEW PO SCH (09:22)
[2019-02-11] MEDS: SENNOSIDES/DOCUSATE SODIUM 1 TAB TABLET PO SCH (09:22)
[2019-02-11] MEDS: SEVELAMER CARBONATE 800 MG TABLET PO SCH ×3 (09:23→18:00)
[2019-02-11] MEDS: VENLAFAXINE 37.5 MG TABLET PO SCH (09:23)
[2019-02-11 16:00] VITALS: BP 82/37
--- NOTE | 2019-02-11 16:26 | NUR ---
appeared alert, oriented, slept most of the shift, did not eat either breakfast, or lunch. Asked for fluid, given. BP in the 80's with HR 96-108, anuric. HD started at 1630, will continue to monitor.
[2019-02-11 16:43] VITALS: BP 81/60
--- NOTE | 2019-02-11 18:15 | NUR ---
meds scheduled for 1800, not given. On HD, started at 1630
--- NOTE | 2019-02-11 18:58 | NUR ---
HD done, only 300cc out, bp still in the 80's with HR 110.
--- NOTE | 2019-02-11 19:30 | NUR ---
RN OPENING NOTES: PATIENT IN BED, ASLEEP, BUT EASILY AROUSABLE. NO RESPIRATORY DISTRESS. ON O2 AT 3LPM VIA NC, TOLERATING WELL. RACHEL PICC LINE INTACT, PATENT, AND FLUSHING WELL. SALINE LOCKED. PATIENT HAS CRUZ AV SHUNT. POSITIVE BRUIT AND THRILL. SAFETY PRECAUTIONS IMPLEMENTED. BED LOCKED AND IN LOWEST POSITION. CALL LIGHT PLACED WITHIN REACH. WILL CONT. TO MONITOR.
[2019-02-11 20:00] VITALS: BP 83/46
--- NOTE | 2019-02-11 20:00 | NUR ---
ADE NOTE: PATIENT'S BP 83/46. PATIENT'S BP TRENDS IN THE 80s-90s. AWARE. PATIENT IS ASYMPTOMATIC. ANTIHYPERTENSIVES ON HOLD. REMAINS ALERT AND ORIENTED X 4. WILL CONT. TO MONITOR FOR CHANGES. Addendum: 02/12/19 at 0503 by FREDERICK MACKAY RN ADE NOTE: LATEST BP 84/43. PATIENT'S BASELINE SBP TRENDS IN THE 80s-90s. AWARE. PATIENT IS ASYMPTOMATIC. ANTIHYPERTENSIVES ON HOLD. REMAINS ALERT AND ORIENTED X 4. PATIENT IS AWAKE AND DRINKING WATER AT THIS TIME. WILL CONT. TO MONITOR FOR CHANGES. Addendum: 02/12/19 at 0517 by FREDERICK MACKAY RN CHARGE NURSE ALSO MADE AWARE.
[2019-02-11] MEDS: ONDANSETRON HCL/PF 4 MG/2 ML VIAL IV PRN (22:36)
[2019-02-12] MEDS: HYDROCODONE/APAP 10/325MG 1 EA TABLET PO PRN (00:48)
[2019-02-12] MEDS: IPRATROPIUM NEB FS 0.5 MG/2.5 ML AMPUL.NEB NEB SCH ×3 (01:10→13:56)
[2019-02-12] MEDS: ALBUTEROL FS 2.5 MG/0.5 ML VIAL.NEB NEB SCH ×3 (01:10→13:56)
[2019-02-12 04:00] VITALS: BP 84/43
--- NOTE | 2019-02-12 07:10 | NUR ---
RN CLOSING NOTES: PATIENT IN BED, ASLEEP, BUT EASILY AROUSABLE. NO RESPIRATORY DISTRESS. AAOX4. ON O2 AT 3LPM VIA NC, TOLERATING WELL. RACHEL PICC LINE INTACT, PATENT, AND FLUSHING WELL. SALINE LOCKED. PATIENT HAS CRUZ AV SHUNT, (+) BRUIT AND THRILL. SAFETY PRECAUTIONS IMPLEMENTED. BED LOCKED AND IN LOWEST POSITION. PATIENT IN STABLE CONDITION AT THIS TIME. ENDORSED TO AM SHIFT NURSE FOR CONTINUITY OF CARE.
--- NOTE | 2019-02-12 07:34 | NUR ---
MS RN OPENING NOTE RECEIVED REPORT FROM NOC SHIFT NURSE. PT ASLEEP IN BED, ON 02 VIA NC 4L/MIN, SATURATING WELL, RESPIRATIONS EVEN AND UNLABORED, NO SIGNS OF RESPIRATORY DISTRESS NOTED. RIGHT UPPER ARM PICC LINE INTACT, PATENT, WITH HEP LOCK IN PLACE. BED IN LOW POSITION, LOCKED, CALL LIGHT WITHIN REACH.
[2019-02-12] MEDS: SEVELAMER CARBONATE 800 MG TABLET PO SCH ×4 (07:42→17:45)
[2019-02-12] MEDS: ONDANSETRON HCL/PF 4 MG/2 ML VIAL IV PRN (07:58)
[2019-02-12 08:00] VITALS: BP 80/53
[2019-02-12] MEDS: VENLAFAXINE 37.5 MG TABLET PO SCH (08:26)
[2019-02-12] MEDS: SENNOSIDES/DOCUSATE SODIUM 1 TAB TABLET PO SCH (08:26)
[2019-02-12] MEDS: ASPIRIN 81 MG TAB.CHEW PO SCH (08:26)
[2019-02-12] MEDS: NEPRO VAN 237 ML CAN PO SCH (09:00)
[2019-02-12] MEDS: MORPHINE SULFATE INJ 2 MG/ML DISP.SYRIN IV PRN (11:39)
[2019-02-12 16:00] VITALS: BP 78/55
--- NOTE | 2019-02-12 17:45 | NUR ---
ON ROUNDING DISCOVERED PT LETHARGIC. PT RESPONSIVE TO VERBAL AND PAINFUL STIMULI BUT UNABLE TO VERBALLY ANSWER QUESTIONS. HOB ELEVATED. BG CHECKED, RESULTS 88 MG/DL. STAT ABG ORDERED. VITALS: HR 75, O2 SAT 95% ON 02 VIA NC 4L/MIN, BP 128/95, TEMP 97.5, RESPIRATIONS 22. STAT ABG ORDERED. RT BY BEDSIDE.
--- NOTE | 2019-02-12 17:45 | NUR ---
RENVELA WAS NOT ADMINISTERED DUE TO PT'S INABILITY TO FOLLOW COMMANDS AND LETHARGIC STATE OF BEING.
--- NOTE | 2019-02-12 17:55 | NUR ---
RECEIVED ABG RESULTS. DR. CASH NOTIFIED.
[2019-02-12 17:59] LABS: ABG BASE EXCESS -3.9 mmol/L; ABG OXYGEN SATURATION 93.8 % (92.0-98.5); ABG PCO2 42.1 mmHg (35.0-45.0); ABG PH 7.332 (7.350-7.450); ABG PO2 74.4 mmHg (75.0-100.0); AaDO2 162.4 mmHg; COHb 3.3 % (0.5-1.5); MetHb 0.3 % (0.0-1.5); O2Hb 90.4 % (94.0-97.0); SITE, ABG Right Brachial; VENT MODE, BG 5 LPM NC
--- NOTE | 2019-02-12 18:30 | NUR ---
WALKED INTO PT'S ROOM NO CHEST RISE NOTED, NO RESPIRATIONS NOTED. PULSE PRESENT. RAPID RESPONSE CALLED.
[2019-02-12] MEDS ORDERED: ETOMIDATE 2 MG/ML VIAL IV ONE (18:33)
[2019-02-12] MEDS ORDERED: SUCCINYLCHOLINE CHLORIDE 20 MG/ML VIAL IV ONE (18:33)
--- NOTE | 2019-02-12 18:34 | NUR ---
NO PULSE FOUND, CODE BLUE CALLED, CPR BEGAN, ALL STAFF PRESENT WITHIN 2 MINUTES.
--- NOTE | 2019-02-12 18:35 | NUR ---
RAPID RESPONSE CALLED. BEGAN BAGGING PT WITH 100% O2 VIA AMBU BAG.
--- NOTE | 2019-02-12 18:40 | NUR ---
[facility] WAS CALLED. CPR INITIATED. AIRWAY INSERTED BY DR. SALAS.
--- NOTE | 2019-02-12 18:49 | NUR ---
PRONOUNCED BY DR. SALAS
[2019-02-12] MEDS ORDERED: CALCIUM CHLORIDE 1,000 MG/10 ML DISP.SYRIN IV ONE (18:55)
[2019-02-12] MEDS ORDERED: EPINEPHRINE (1:10,000) SYRINGE 1 MG/10 ML DISP.SYRIN IVP ONE (18:55)
[2019-02-12] MEDS ORDERED: Magnesium 1 GM/2 ML VIAL IV ONE (18:55)
--- NOTE | 2019-02-12 18:55 | NUR ---
CALLED AND SPOKE WITH DR. CASH NOTIFIED MD OF PATIENT'S .
--- NOTE | 2019-02-12 19:01 | NUR ---
CALLED [facility], SPOKE WITH HIEN. PT NOT AN [employer] CANDIDATE. CASE [phone] [id number]
--- NOTE | 2019-02-12 19:15 | NUR ---
CALLED PT'S FAMILY- MERRY ROJAS (BROTHER), NO ANSWER, LEFT VOICEMAIL TO CALL US BACK WILFRED.
--- NOTE | 2019-02-12 19:25 | NUR ---
PT'S SON BY BEDSIDE, NOTIFIED OF PT'S AND POST MORTUM ARRANGEMENT OPTIONS.
== END 2019-02-12 18:34 | disposition expired | DRG 441 ==
LOC: ER 05:09 → TELE1 11:16 → MEDSG1 02-03 11:13 → ICU 02-03 19:48 → MEDSG1 02-06 11:19
PROVIDERS: ADMIT Internal Medicine Nephrology; ATTEND Internal Medicine Nephrology
PROC: 5A1D70Z Performance of Urinary Filtration, Intermittent, Less than 6 Hours Per Day (ICD-10-PCS; 2019-02-02)
PROC: 0W9G3ZZ Drainage of Peritoneal Cavity, Percutaneous Approach (ICD-10-PCS; principal; 2019-02-03)
PROC: 02HV33Z Insertion of Infusion Device into Superior Vena Cava, Percutaneous Approach (ICD-10-PCS; 2019-02-04)
PROC: B548ZZA Ultrasonography of Superior Vena Cava, Guidance (ICD-10-PCS; 2019-02-04)
PROC: 0W9G3ZZ Drainage of Peritoneal Cavity, Percutaneous Approach (ICD-10-PCS; 2019-02-09)
PROC: 5A1935Z Respiratory Ventilation, Less than 24 Consecutive Hours (ICD-10-PCS; 2019-02-12)
PROC: 0BH17EZ Insertion of Endotracheal Airway into Trachea, Via Natural or Artificial Opening (ICD-10-PCS; 2019-02-12)
PROC: 5A2204Z Restoration of Cardiac Rhythm, Single (ICD-10-PCS; 2019-02-12)
DX: K75.81 Nonalcoholic steatohepatitis (NASH) (principal); N18.6 End stage renal disease; I13.2 Hypertensive heart and chronic kidney disease with heart failure and with stage 5 chronic kidney disease, or end stage renal disease; I48.4 Atypical atrial flutter; I50.32 Chronic diastolic (congestive) heart failure; K76.6 Portal hypertension; I47.2 Ventricular tachycardia; R57.9 Shock, unspecified; J90 Pleural effusion, not elsewhere classified; R18.8 Other ascites; E87.5 Hyperkalemia; D63.8 Anemia in other chronic diseases classified elsewhere; I48.91 Unspecified atrial fibrillation; J44.9 Chronic obstructive pulmonary disease, unspecified; Z99.2 Dependence on renal dialysis; Z95.1 Presence of aortocoronary bypass graft; I25.10 Atherosclerotic heart disease of native coronary artery without angina pectoris; E78.5 Hyperlipidemia, unspecified; I25.2 Old myocardial infarction; N40.0 Benign prostatic hyperplasia without lower urinary tract symptoms; Z99.81 Dependence on supplemental oxygen; Z87.891 Personal history of nicotine dependence; Z83.3 Family history of diabetes mellitus; Z82.49 Family history of ischemic heart disease and other diseases of the circulatory system; Z79.01 Long term (current) use of anticoagulants; Z79.82 Long term (current) use of aspirin; I27.20 Pulmonary hypertension, unspecified; Z88.1 Allergy status to other antibiotic agents; Z79.899 Other long term (current) drug therapy; M85.9 Disorder of bone density and structure, unspecified; I49.9 Cardiac arrhythmia, unspecified; Z98.890 Other specified postprocedural states; F42.9 Obsessive-compulsive disorder, unspecified; D72.829 Elevated white blood cell count, unspecified; G47.33 Obstructive sleep apnea (adult) (pediatric); I49.01 Ventricular fibrillation; I70.0 Atherosclerosis of aorta; K74.60 Unspecified cirrhosis of liver
CPT/HCPCS: 36415; 36569; 36600; 71045-TC; 71260-TC; 74018; 76705-TC; 76942-TC; 80048-TC; 80053-TC; 80076-TC; 81000-TC; 82140-TC; 82803-TC; 82962-TC; 83605-TC; 83690-TC; 83735-TC; 84100-TC; 84439-TC; 84443-TC; 84484-TC; 85025-TC; 85730-TC; 86706; 87040-TC; 87081-TC; 87086-TC; 87340; 90935-TC; 92950-TC; 93307-TC; 94760-TC; 94799-TC; A4216; C1751; G0378; J0171; J0330; J1170; J2060; J2185; J2270; J2405; J2765; J3370; J3475; J3490; J7030; J7050; J7060; P9047; Q9967